=== PATIENT | female | born 1945 | race Caucasian/White ===

== ENCOUNTER 2021-01-27 20:01 | Inpatient (IN) | payer MEDICARE, OTHER ==
[~2021-01-27] VITALS: Ht 167.6 cm; Wt 84.1 kg
[2021-01-27] MEDS ORDERED: ASPirin 325 MG TAB PO ONE (21:00)
[2021-01-27 21:08] LABS: Basophils # (auto) 0.1 10 ^3/uL (0-0.2); Basophils % (auto) 0.7 % (0.0-2.0); Eosinophils # (auto) 0.3 10 ^3/uL (0-0.8); Eosinophils % (auto) 2.6 % (0.0-7.0); Hematocrit 44.3 % (36.0-46.0); Hemoglobin 15.1 g/dL (12.2-16.2); Lymphocytes # (auto) 3.1 10 ^3/uL (0.4-5.4); Lymphocytes % (auto) 31.8 % (10.0-50.0); Mean Corpuscular Hemoglobin 32.4 pg (28.0-32.0); Mean Corpuscular Hgb Conc. 34.1 g/dL (32.0-36.0); Monocytes # (auto) 0.8 10 ^3/uL (0-1.3); Monocytes % (auto) 8.6 % (0.0-12.0); Neutrophils # (auto) 5.5 10 ^3/uL (1.6-8.6); Neutrophils % (auto) 56.3 % (37.0-80.0); Red Blood Cells 4.66 10^6/uL (4.0-5.20); Red Cell Distribution Width 13.3 % (11.8-14.3); White Blood Cell 9.9 10^3/uL (4.4-10.8)
[2021-01-27 21:26] LABS: Chloride 107 mmol/L (98-107); Potassium 3.4 mmol/L (3.5-5.1); Sodium 139 mmol/L (136-145)
[2021-01-27 21:31] LABS: Alanine Aminotransferase 21 U/L (13-56); Albumin 3.4 g/dL (3.4-5.0); Anion Gap 10 (5-15); Aspartate Aminotransferase 11 U/L (15-37); BUN/Creatinine Ratio 14.8; Blood Urea Nitrogen 9 mg/dL (7-18); Calcium 8.2 mg/dL (8.5-10.1); Carbon Dioxide 22 mmol/L (21-32); GFR African American 124 mL/min; GFR Non-African American 102 mL/min; Glucose 93 mg/dL (74-106); Magnesium 2.3 mg/dL (1.6-2.6)
[2021-01-27 21:33] LABS: Urine Bacteria NONE SEEN /hpf (None Seen); Urine Blood 1+ /uL (Negative); Urine Specific Gravity 1.003 (1.001-1.035); Urine WBC 21 /hpf (0 - 5)
[2021-01-27 21:47] LABS: Alkaline Phosphatase 66 U/L (45-117); Bilirubin, Total 0.2 mg/dL (0.2-1.0); Total Protein 6.6 g/dL (6.4-8.2)
[2021-01-27] MEDS ORDERED: cefTRIAXone 1GM/50ML D5W 50 ML IV ONE (22:30)
[2021-01-27] MEDS ORDERED: MORPHINE SULF INJ 2 MG/ML SYRINGE 1ML IV PRN (23:00)
[2021-01-27] MEDS ORDERED: MECLIZINE HCL 25 MG TAB PO PRN (23:00)
[2021-01-27] MEDS ORDERED: DOCUSATE SOD 100 MG CAP PO PRN (23:00)
[2021-01-27] MEDS ORDERED: ONDANSETRON HCL 4 MG/2 ML VIAL IV PRN (23:00)
[2021-01-27] MEDS ORDERED: NITROGLYCERIN 0.4 MG SL TAB SL PRN (23:00)
[2021-01-27] MEDS ORDERED: ACETAMINOPHEN 325 MG TAB PO PRN (23:00)
[2021-01-27] MEDS ORDERED: POTASSIUM CHL 20 Meq TABLET PO ONE (23:00)
[2021-01-28] VITALS (7 sets, daily range): BP systolic 127–176; BP diastolic 65–85
[2021-01-28] MEDS ORDERED: LACO50TA2 PO (01:32)
[2021-01-28] MEDS ORDERED: LACO100T PO (01:32)
[2021-01-28 02:49] LABS: Basophils # (auto) 0 10 ^3/uL (0-0.2); Basophils % (auto) 0.3 % (0.0-2.0); Eosinophils # (auto) 0.2 10 ^3/uL (0-0.8); Eosinophils % (auto) 2.1 % (0.0-7.0); Hematocrit 42.1 % (36.0-46.0); Hemoglobin 14.4 g/dL (12.2-16.2); Lymphocytes # (auto) 3.2 10 ^3/uL (0.4-5.4); Lymphocytes % (auto) 33.3 % (10.0-50.0); Mean Corpuscular Hemoglobin 32.6 pg (28.0-32.0); Mean Corpuscular Hgb Conc. 34.3 g/dL (32.0-36.0); Mean Corpuscular Volume 95.1 fL (80.0-100.0); Monocytes # (auto) 0.8 10 ^3/uL (0-1.3); Monocytes % (auto) 8.1 % (0.0-12.0); Neutrophils # (auto) 5.3 10 ^3/uL (1.6-8.6); Neutrophils % (auto) 56.2 % (37.0-80.0); Red Blood Cells 4.42 10^6/uL (4.0-5.20); Red Cell Distribution Width 13.6 % (11.8-14.3); White Blood Cell 9.5 10^3/uL (4.4-10.8)
[2021-01-28] MEDS ORDERED: ESCI20TA PO (03:01)
[2021-01-28] MEDS ORDERED: LEVE500T32 PO (03:01)
[2021-01-28 03:03] LABS: INR 0.98 (0.9-1.15); Partial Thromboplastin Time 25.9 sec (23.0-31.2)
[2021-01-28 03:08] LABS: Albumin 3.3 g/dL (3.4-5.0); BUN/Creatinine Ratio 15.4; Calcium 8.4 mg/dL (8.5-10.1); Potassium 4.2 mmol/L (3.5-5.1)
[2021-01-28 03:10] LABS: Bilirubin, Total 0.4 mg/dL (0.2-1.0); Total Protein 6.3 g/dL (6.4-8.2)
[2021-01-28] MEDS ORDERED: hydrALAZINE HCL 20 MG/ML VL IV PRN (03:15)
[2021-01-28] MEDS: SODIUM CHLOR 0.9% PF (SALINE LOCK) 10ML VIAL/SYR IV SCH ×3 (05:12→22:05)
[2021-01-28] MEDS: cefTRIAXone 1GM/50ML D5W 50 ML IV SCH (09:00)
[2021-01-28] MEDS: ASCORBIC ACID 500 MG TAB PO SCH ×2 (10:00→22:08)
[2021-01-28] MEDS: ZINC SULFATE 220mg CAP or TAB PO SCH (10:00)
[2021-01-28] MEDS: ASPirin 81 mg TAB PO SCH (10:00)
[2021-01-28] MEDS: MULTIPLE VITAMIN TAB PO SCH (10:00)
[2021-01-28] MEDS: FAMOTIDINE (10MG/ML) 2ML VL IV SCH ×2 (10:00→22:04)
[2021-01-28] MEDS: ENOXAPARIN SOD 40 MG/0.4 ML SYRINGE SC SCH (10:00)
[2021-01-28] MEDS: HYDROcodone-ACET 5/325MG TAB PO PRN ×2 (12:24→20:06)
[2021-01-28 12:50] LABS: Cholesterol 178 mg/dL (< 200)
[2021-01-28 12:53] LABS: HDL Cholesterol 60 mg/dL (40-59); LDL Cholesterol 95 mg/dL (< 100); Triglycerides 123 mg/dL (< 150)
[2021-01-28] MEDS: CITALOPRAM HYDROBR 20 MG TAB PO SCH (22:07)
[2021-01-28] MEDS: LACOSAMIDE 50 MG TAB PO SCH (22:07)
[2021-01-28] MEDS: LISINOPRIL 20 MG TAB PO SCH (22:08)
[2021-01-28] MEDS: ATORVASTATIN 20 MG TAB PO SCH (22:08)
[2021-01-28] MEDS: METOPROLOL TARTRATE 25 MG TAB PO SCH (22:09)
[2021-01-28] MEDS: busPIRone HCL 10 MG TAB PO SCH (22:10)
[2021-01-29 05:00] VITALS: BP 138/73
[2021-01-29] MEDS: SODIUM CHLOR 0.9% PF (SALINE LOCK) 10ML VIAL/SYR IV SCH ×3 (06:20→22:55)
[2021-01-29] MEDS ORDERED: PRED1SUS4 OP (06:36)
[2021-01-29] MEDS: LACOSAMIDE 50 MG TAB PO SCH ×2 (06:37→22:40)
[2021-01-29] MEDS: cefTRIAXone 1GM/50ML D5W 50 ML IV SCH (09:00)
[2021-01-29 09:31] VITALS: BP 167/78
[2021-01-29] MEDS: FAMOTIDINE (10MG/ML) 2ML VL IV SCH ×2 (10:00→22:54)
[2021-01-29] MEDS: busPIRone HCL 10 MG TAB PO SCH ×2 (10:00→22:54)
[2021-01-29] MEDS: MULTIPLE VITAMIN TAB PO SCH (10:00)
[2021-01-29] MEDS: ZINC SULFATE 220mg CAP or TAB PO SCH (10:00)
[2021-01-29] MEDS: ASPirin 81 mg TAB PO SCH (10:00)
[2021-01-29] MEDS: ASCORBIC ACID 500 MG TAB PO SCH ×2 (10:00→22:40)
[2021-01-29] MEDS: LISINOPRIL 20 MG TAB PO SCH ×2 (10:00→22:47)
[2021-01-29] MEDS: ENOXAPARIN SOD 40 MG/0.4 ML SYRINGE SC SCH (10:00)
[2021-01-29] MEDS: METOPROLOL TARTRATE 25 MG TAB PO SCH ×2 (10:00→22:00)
[2021-01-29 12:51] VITALS: BP 132/77
[2021-01-29 17:36] VITALS: BP 132/74
[2021-01-29 22:00] VITALS: BP 156/77
[2021-01-29] MEDS: ATORVASTATIN 20 MG TAB PO SCH (22:39)
[2021-01-29] MEDS: CITALOPRAM HYDROBR 20 MG TAB PO SCH (22:40)
[2021-01-30] MEDS: ASPirin 81 mg TAB PO SCH ×2 (00:45→09:14)
[2021-01-30] MEDS ORDERED: LORazepam 2MG/ML-1ML VIAL IV PRN (00:45)
[2021-01-30] MEDS: HYDROcodone-ACET 5/325MG TAB PO PRN ×2 (04:13→12:44)
[2021-01-30 05:00] VITALS: BP 154/86
[2021-01-30 05:50] LABS: Cholesterol 165 mg/dL (< 200)
[2021-01-30 05:53] LABS: HDL Cholesterol 65 mg/dL (40-59); LDL Cholesterol 75 mg/dL (< 100); Triglycerides 190 mg/dL (< 150)
[2021-01-30] MEDS: SODIUM CHLOR 0.9% PF (SALINE LOCK) 10ML VIAL/SYR IV SCH ×2 (06:27→14:12)
[2021-01-30] MEDS: LACOSAMIDE 50 MG TAB PO SCH (06:27)
[2021-01-30 09:00] VITALS: BP 113/60
[2021-01-30] MEDS: cefTRIAXone 1GM/50ML D5W 50 ML IV SCH (09:14)
[2021-01-30] MEDS: FAMOTIDINE (10MG/ML) 2ML VL IV SCH (09:14)
[2021-01-30] MEDS: ZINC SULFATE 220mg CAP or TAB PO SCH (09:14)
[2021-01-30] MEDS: busPIRone HCL 10 MG TAB PO SCH (09:14)
[2021-01-30] MEDS: METOPROLOL TARTRATE 25 MG TAB PO SCH (09:15)
[2021-01-30] MEDS: MULTIPLE VITAMIN TAB PO SCH (09:15)
[2021-01-30] MEDS: ASCORBIC ACID 500 MG TAB PO SCH (09:16)
[2021-01-30] MEDS: ENOXAPARIN SOD 40 MG/0.4 ML SYRINGE SC SCH (09:16)
[2021-01-30] MEDS: LISINOPRIL 20 MG TAB PO SCH (09:16)
[2021-01-30] MEDS ORDERED: levETIRAcetam 500 MG TAB PO SCH (10:00)
[2021-01-30 11:15] LABS: Folate (Folic Acid) 14.4 ng/mL (5.38-24)
[2021-01-30 13:00] VITALS: BP 122/77
== END 2021-01-30 16:20 | disposition home or self-care (01) | DRG 69 ==
LOC: ER 20:01 → EDBD 20:01 → TELE 23:00 → TELE-CENTR 01-28 02:35
PROVIDERS: ADMIT Nurse Practitioner Family; ATTEND Family Medicine
DX: G45.9 Transient cerebral ischemic attack, unspecified (principal); N39.0 Urinary tract infection, site not specified; E87.6 Hypokalemia; I10 Essential (primary) hypertension; G40.909 Epilepsy, unspecified, not intractable, without status epilepticus; G62.9 Polyneuropathy, unspecified; G25.81 Restless legs syndrome; Z20.822 Contact with and (suspected) exposure to COVID-19; F17.210 Nicotine dependence, cigarettes, uncomplicated; Z79.82 Long term (current) use of aspirin; Z79.899 Other long term (current) drug therapy; Z82.49 Family history of ischemic heart disease and other diseases of the circulatory system; Z82.5 Family history of asthma and other chronic lower respiratory diseases; Z83.3 Family history of diabetes mellitus; Z98.1 Arthrodesis status; Z88.5 Allergy status to narcotic agent
CPT/HCPCS: 36415; 70450; 71045; 80053; 80061; 81001; 82607; 82728; 82746; 82962; 83036; 83540; 83550; 83735; 84155; 84165; 84443; 84484; 85025; 85379; 85610; 85730; 87086; 87426; 93005; 93306; 93886; 96365; 97163; G0378; J0696; J3490; J7060

== ENCOUNTER 2024-04-24 12:12 | Inpatient (IN) | payer OTHER ==
[~2024-04-24] VITALS: Ht 165.1 cm; Wt 91.0 kg
[~2024-04-24 12:12] MED LIST: ESCI20TA PO; LACO100T PO; LACO50TA2 PO; LEVE500T40 PO; PRED1SUS4 OP
[2024-04-24 13:22] VITALS: PULSE 62; RESP 18; O2SAT 99
[2024-04-24] MEDS: LIDOCAINE 2% JELLY 11ml (GLYDO) UR ONE (13:48)
[2024-04-24] MEDS: SODIUM CHLORIDE 0.9% 1,000 ML IV ONE (13:48)
[2024-04-24 13:56] LABS: Basophils # (auto) 0 10 ^3/uL (0-0.2); Basophils % (auto) 0.2 % (0.0-2.0); Eosinophils # (auto) 0.1 10 ^3/uL (0-0.8); Eosinophils % (auto) 0.5 % (0.0-7.0); Hematocrit 36.4 % (36.0-46.0); Hemoglobin 11.8 g/dL (12.2-16.2); Lymphocytes # (auto) 1.3 10 ^3/uL (0.4-5.4); Lymphocytes % (auto) 11.9 % (10.0-50.0); Mean Corpuscular Hemoglobin 31.9 pg (28.0-32.0); Mean Corpuscular Hgb Conc. 32.5 g/dL (32.0-36.0); Monocytes # (auto) 0.6 10 ^3/uL (0-1.3); Monocytes % (auto) 5.8 % (0.0-12.0); Neutrophils # (auto) 8.8 10 ^3/uL (1.6-8.6); Neutrophils % (auto) 81.6 % (37.0-80.0); Platelet Count (auto) 420 10^3/uL (140-450); Red Blood Cells 3.72 10^6/uL (4.0-5.20); White Blood Cell 10.8 10^3/uL (4.4-10.8)
[2024-04-24 14:06] LABS: Chloride 112 mmol/L (98-107); Potassium 4.5 mmol/L (3.5-5.1); Sodium 139 mmol/L (136-145)
[2024-04-24 14:07] LABS: Anion Gap 16 (5-15); Calcium 9.6 mg/dL (8.7-10.4); Carbon Dioxide 11 mmol/L (20-31)
[2024-04-24 14:08] LABS: Urine Bacteria FEW /hpf (None Seen); Urine Blood 2+ /uL (Negative); Urine Clarity Ex.Turbid (Clear); Urine Color Light-Orange (Yellow); Urine Protein, UAD 3+ (Negative); Urine Specific Gravity 1.013 (1.001-1.035); Urine Urobilinogen Normal (Negative); Urine WBC 1727 /hpf (0 - 5); Urine WBC Clumps PRESENT /hpf (None Seen)
[2024-04-24 14:12] LABS: BUN/Creatinine Ratio 21.8 (10.0-20.0); Blood Urea Nitrogen 38 mg/dL (9-23); Glucose 114 mg/dL (74-106)
[2024-04-24] MEDS: MORPHINE SULFATE 4 MG/ML SYR/VIAL IV ONE (14:34)
[2024-04-24] MEDS: ONDANSETRON HCL 4 MG/2 ML VIAL IV ONE (14:34)
[2024-04-24] MEDS ORDERED: VANCOMYCIN 1GM/200ML PREMIX 200 ML IV ONE (16:45)
[2024-04-24] MEDS: CEFEPIME 2GM/50ML NS 50 ML IV ONE (17:11)
[2024-04-24 20:00] VITALS: PULSE 82; RESP 20; O2SAT 94
[2024-04-25] MEDS: LACTATED RINGER'S 1,000 ML IV SCH
[2024-04-25] MEDS: LACTATED RINGER'S 1,000 ML IV ONE (00:15)
[2024-04-25] MEDS ORDERED: CEFEPIME 2GM/50ML NS 50 ML IV ONE (00:30)
[2024-04-25] MEDS: diphenhdrAMINE HCL 50 MG/1 ML VL IV PRN (00:45)
[2024-04-25] MEDS: ENOXAPARIN SOD 80 MG/0.8ML SYRINGE SC ONE (01:05)
[2024-04-25 01:41] LABS: INR 1.12 (0.9-1.15); Partial Thromboplastin Time 28.8 SEC (24.5-34.5); Prothrombin Time 11.8 sec (9.3-11.8)
[2024-04-25 01:47] LABS: Alanine Aminotransferase < 9 U/L (7-40); Albumin 3.6 g/dL (3.2-4.8); Alkaline Phosphatase 96 U/L (46-116); Anion Gap 15.00001 (5-15); Aspartate Aminotransferase 13 U/L (13-40); Bilirubin, Total 0.3 mg/dL (0.2-1.0); Blood Alcohol < 3.0 mg/dL (<10); Blood Urea Nitrogen 28 mg/dL (9-23); Calcium 9.2 mg/dL (8.7-10.4); Chloride 114 mmol/L (98-107); Glucose 98 mg/dL (74-106); Potassium 4.4 mmol/L (3.5-5.1); Sodium 139 mmol/L (136-145); Total Protein 6.2 g/dL (5.7-8.2)
[2024-04-25 01:48] LABS: Carbon Dioxide < 10 mmol/L (20-31)
[2024-04-25 02:25] LABS: Base Excess -19.3 mmol/L (-2.0-3.0)
[2024-04-25] MEDS: NOREPINEPHRINE 8 MG/250ML KIT 250 ML IV SCH (02:30)
[2024-04-25] MEDS: LACTATED RINGER'S 500 ML IV ONE (02:44)
[2024-04-25] MEDS ORDERED: VANCOMYCIN PER PHARMACY 0 MG IV SCH ×2 (02:45→08:00)
[2024-04-25] MEDS: MEROPENEM 1GM IVPB 50 ML IV ONE (02:46)
[2024-04-25] MEDS ORDERED: DEXTROSE (50%) 50ML SYRG IV PRN (03:00)
[2024-04-25] MEDS ORDERED: IPRATROPIUM BROM 0.5 MG/2.5ML INH SOL NEB PRN (03:45)
[2024-04-25] MEDS ORDERED: ALBUTEROL SULF 2.5 MG/0.5ML(0.5%) NEB SOLN NEB PRN (03:45)
[2024-04-25] MEDS: InsuLIN REG 1unit/0.01ml Soln (100units/ml) SC SCH (04:00)
[2024-04-25] MEDS: ACCU-CHEK COMFORT CURVE STRIP VI SCH (04:00)
[2024-04-25 05:20] LABS: Basophils # (auto) 0 10 ^3/uL (0-0.2); Basophils % (auto) 0.2 % (0.0-2.0); Eosinophils # (auto) 0.1 10 ^3/uL (0-0.8); Eosinophils % (auto) 0.8 % (0.0-7.0); Hematocrit 39.6 % (36.0-46.0); Hemoglobin 11.5 g/dL (12.2-16.2); Lymphocytes # (auto) 2.4 10 ^3/uL (0.4-5.4); Lymphocytes % (auto) 17.6 % (10.0-50.0); Mean Corpuscular Hemoglobin 32.8 pg (28.0-32.0); Mean Corpuscular Volume 113.2 fL (80.0-100.0); Monocytes # (auto) 1.1 10 ^3/uL (0-1.3); Neutrophils % (auto) 73.4 % (37.0-80.0); Nucleated Red Blood Cells % 0.1 %; Platelet Count (auto) 395 10^3/uL (140-450); Red Blood Cells 3.49 10^6/uL (4.0-5.20); Red Cell Distribution Width 18.8 % (11.8-14.3); White Blood Cell 13.6 10^3/uL (4.4-10.8)
[2024-04-25] MEDS ORDERED: METOPROLOL TARTRATE 1MG/1ML-5ML VIAL IV ONE (05:45)
[2024-04-25 05:50] LABS: Alanine Aminotransferase 10 U/L (7-40); Albumin 3.2 g/dL (3.2-4.8); Alkaline Phosphatase 86 U/L (46-116); Anion Gap 12.00001 (5-15); Aspartate Aminotransferase 15 U/L (13-40); BUN/Creatinine Ratio 15.1 (10.0-20.0); Blood Urea Nitrogen 19 mg/dL (9-23); Calcium 8.9 mg/dL (8.7-10.4); Chloride 114 mmol/L (98-107); Glucose 88 mg/dL (74-106); Potassium 3.9 mmol/L (3.5-5.1); Sodium 136 mmol/L (136-145)
[2024-04-25 05:51] LABS: Bilirubin, Total 0.3 mg/dL (0.2-1.0); Total Protein 5.5 g/dL (5.7-8.2)
[2024-04-25 06:00] LABS: Carbon Dioxide < 10 mmol/L (20-31)
[2024-04-25 06:49] LABS: Macrocytosis Slight; Platelet Estimate Adequate
[2024-04-25 08:40] VITALS: PULSE 150; O2SAT 98
[2024-04-25 09:25] VITALS: BP 91/46; PULSE 139; RESP 18; TEMP 99; O2SAT 99
[2024-04-25 09:31] LABS: Base Excess -17.8 mmol/L (-2.0-3.0)
[2024-04-25 10:47] LABS: Amphetamine Screen, Urine Neg (NEGATIVE); Barbiturate Scree,Urine Neg (NEGATIVE); Benzodiazephine Screen, Urine Neg (NEGATIVE); Cocaine Screen, Urine Neg (NEGATIVE)
[2024-04-25 10:48] LABS: Opiate Scree,Urine Neg (NEGATIVE); Phencyclidine Screen, Urine Neg (NEGATIVE)
[2024-04-25 10:49] LABS: Cannabinoid Screen, Urine Neg (NEGATIVE)
[2024-04-25] MEDS: METOPROLOL TARTRATE 25 MG TAB PO ONE (13:15)
[2024-04-25] MEDS: cefTRIAXone 1GM/50ML D5W 50 ML IV ONE (13:17)
[2024-04-25] MEDS: ENOXAPARIN SOD 80 MG/0.8ML SYRINGE SC SCH (13:18)
[2024-04-25] MEDS: ATORVASTATIN 20 MG TAB PO ONE (13:18)
[2024-04-25] MEDS: SODIUM CHLORIDE 0.9% 1,000 ML IV ONE ×2 (13:20→13:21)
[2024-04-25] MEDS: AMIODARONE BOLUS KIT 100 ML IV ONE (13:35)
[2024-04-25] MEDS: AMIODARONE 450mg/250ml AE 250 ML IV SCH ×2 (14:00→19:32)
[2024-04-25] MEDS: MEROPENEM 1GM IVPB 50 ML IV SCH (15:00)
[2024-04-25] MEDS ORDERED: CLOP75TA28 PO (16:22)
[2024-04-25] MEDS ORDERED: LISI20TA56 PO (16:22)
[2024-04-25] MEDS ORDERED: VANCOMYCIN 750mg/150ml 150 ML IV SCH (17:00)
[2024-04-25] MEDS ORDERED: CEFEPIME 2GM/50ML NS 50 ML IV SCH (18:00)
[2024-04-25 18:03] VITALS: O2SAT 98
[2024-04-25 19:25] VITALS: PULSE 116; RESP 17; O2SAT 96
[2024-04-25 20:11] LABS: COVID19 ANTIGEN SOFIA FIA NEGATIVE (NEGATIVE); Rapid Influenza A Negative (Negative); Rapid Influenza B Negative (Negative)
[2024-04-25] MEDS ORDERED: METOPROLOL TARTRATE 25 MG TAB PO SCH (22:00)
[2024-04-25] MEDS: ATORVASTATIN 20 MG TAB PO SCH (22:15)
[2024-04-25 23:51] VITALS: PULSE 120
[2024-04-26] VITALS (33 sets, daily range): BP systolic 92–148; BP diastolic 42–89; PULSE 108–146; RESP 12–31; TEMP 97.9–98.6; O2SAT 97–100
[2024-04-26] MEDS: AMIODARONE 450mg/250ml AE 250 ML IV SCH (00:45)
[2024-04-26 04:58] LABS: Basophils # (auto) 0 10 ^3/uL (0-0.2); Basophils % (auto) 0.3 % (0.0-2.0); Eosinophils # (auto) 0.2 10 ^3/uL (0-0.8); Eosinophils % (auto) 2.2 % (0.0-7.0); Hematocrit 31.7 % (36.0-46.0); Hemoglobin 10.5 g/dL (12.2-16.2); Lymphocytes # (auto) 1.7 10 ^3/uL (0.4-5.4); Mean Corpuscular Volume 97.1 fL (80.0-100.0); Monocytes # (auto) 0.9 10 ^3/uL (0-1.3); Neutrophils # (auto) 5.9 10 ^3/uL (1.6-8.6); Neutrophils % (auto) 67.5 % (37.0-80.0); Platelet Count (auto) 300 10^3/uL (140-450); Red Blood Cells 3.26 10^6/uL (4.0-5.20); Red Cell Distribution Width 17.3 % (11.8-14.3); White Blood Cell 8.7 10^3/uL (4.4-10.8)
[2024-04-26 05:06] LABS: Chloride 117 mmol/L (98-107); Potassium 3.7 mmol/L (3.5-5.1); Sodium 143 mmol/L (136-145)
[2024-04-26 05:07] LABS: Anion Gap 15 (5-15); Carbon Dioxide 11 mmol/L (20-31)
[2024-04-26 05:08] LABS: Calcium 8.9 mg/dL (8.7-10.4)
[2024-04-26 05:13] LABS: BUN/Creatinine Ratio 17.8 (10.0-20.0); Blood Urea Nitrogen 19 mg/dL (9-23); Glucose 104 mg/dL (74-106)
[2024-04-26] MEDS: cefTRIAXone 1GM/50ML D5W 50 ML IV SCH (10:39)
[2024-04-26] MEDS: ONDANSETRON HCL 4 MG/2 ML VIAL IV PRN (12:15)
[2024-04-26] MEDS: MORPHINE SULFATE INJ 2 MG/ml SYRG IV PRN (12:17)
[2024-04-26] MEDS ORDERED: BUSP5TAB51 PO (16:09)
[2024-04-26] MEDS ORDERED: METO25TA5 PO (16:11)
[2024-04-26] MEDS ORDERED: OMEG-28 PO (16:13)
[2024-04-26] MEDS ORDERED: VITACAP PO (16:16)
[2024-04-26] MEDS ORDERED: GARL400T9 PO (16:22)
[2024-04-26] MEDS ORDERED: ASPI-543 PO (16:22)
[2024-04-27] VITALS (25 sets, daily range): BP systolic 106–148; BP diastolic 58–88; PULSE 68–141; RESP 12–31; TEMP 97.9–98.9; O2SAT 98–100
[2024-04-27 05:52] LABS: Basophils # (auto) 0 10 ^3/uL (0-0.2); Basophils % (auto) 0.4 % (0.0-2.0); Eosinophils # (auto) 0.2 10 ^3/uL (0-0.8); Eosinophils % (auto) 3.4 % (0.0-7.0); Hematocrit 29.6 % (36.0-46.0); Hemoglobin 9.8 g/dL (12.2-16.2); Lymphocytes # (auto) 1.4 10 ^3/uL (0.4-5.4); Lymphocytes % (auto) 20.6 % (10.0-50.0); Mean Corpuscular Hemoglobin 32.9 pg (28.0-32.0); Mean Corpuscular Hgb Conc. 33.1 g/dL (32.0-36.0); Mean Corpuscular Volume 99.5 fL (80.0-100.0); Monocytes # (auto) 0.8 10 ^3/uL (0-1.3); Neutrophils # (auto) 4.3 10 ^3/uL (1.6-8.6); Neutrophils % (auto) 63.6 % (37.0-80.0); Nucleated Red Blood Cells % 0.1 %; Platelet Count (auto) 273 10^3/uL (140-450); Red Blood Cells 2.97 10^6/uL (4.0-5.20); Red Cell Distribution Width 17.6 % (11.8-14.3); White Blood Cell 6.7 10^3/uL (4.4-10.8)
[2024-04-27 05:59] LABS: Albumin 2.9 g/dL (3.2-4.8); Alkaline Phosphatase 69 U/L (46-116); Anion Gap 13 (5-15); Aspartate Aminotransferase 12 U/L (13-40); BUN/Creatinine Ratio 13.9 (10.0-20.0); Bilirubin, Total 0.4 mg/dL (0.2-1.0); Blood Urea Nitrogen 14 mg/dL (9-23); Calcium 8.6 mg/dL (8.7-10.4); Carbon Dioxide 12 mmol/L (20-31); Chloride 118 mmol/L (98-107); Glucose 105 mg/dL (74-106); Potassium 3.5 mmol/L (3.5-5.1); Sodium 143 mmol/L (136-145); Total Protein 4.9 g/dL (5.7-8.2)
[2024-04-27 06:02] LABS: Alanine Aminotransferase < 9 U/L (7-40)
[2024-04-27] MEDS: LINEZOLID 600MG/300ML 300 ML IV SCH (17:43)
[2024-04-27] MEDS: IOHEXOL 350 MG/ML 100ML IJ ONE (21:07)
[2024-04-28] VITALS (9 sets, daily range): BP systolic 104–136; BP diastolic 68–88; PULSE 95–136; RESP 17–20; TEMP 97.5–98.5; O2SAT 96–99
[2024-04-28] MEDS: MORPHINE SULFATE INJ 2 MG/ml SYRG IV PRN (01:23)
[2024-04-29] VITALS (11 sets, daily range): BP systolic 95–141; BP diastolic 71–87; PULSE 89–141; RESP 17–22; TEMP 97.8–98.5; O2SAT 94–98
[2024-04-29 11:52] LABS: Lactic Acid w/Reflex 2.4 mmol/L (0.4-2.0)
[2024-04-29] MEDS: CLOPIDOGREL BISULFATE 75 MG TAB PO ONE (12:42)
[2024-04-29] MEDS: ASPirin 81 mg TAB PO ONE (12:42)
[2024-04-29] MEDS: METOPROLOL TARTRATE 1MG/1ML-5ML VIAL IV STA (17:17)
[2024-04-29] MEDS: METOPROLOL TARTRATE 1MG/1ML-5ML VIAL IV ONE (17:22)
[2024-04-29] MEDS: AMIODARONE HCL 200 MG TAB PO SCH (20:59)
[2024-04-29] MEDS: busPIRone HCL 10 MG TAB PO SCH (21:00)
[2024-04-29] MEDS: METOPROLOL TARTRATE 25 MG TAB PO SCH (21:01)
[2024-04-29] MEDS: APIXABAN 2.5 MG TAB PO SCH (21:01)
[2024-04-29] MEDS: LACOSAMIDE 50 MG TAB PO SCH (21:02)
[2024-04-30] VITALS (7 sets, daily range): BP systolic 114–118; BP diastolic 64–70; PULSE 74–130; RESP 17–19; TEMP 36.7; O2SAT 94–97
[2024-04-30] MEDS: ASPirin 81 mg TAB PO SCH (09:49)
[2024-04-30] MEDS: CITALOPRAM HYDROBR 20 MG TAB PO SCH (09:50)
[2024-04-30] MEDS: CLOPIDOGREL BISULFATE 75 MG TAB PO SCH (09:50)
== END 2024-04-30 16:10 | DRG 871 ==
LOC: ER 12:12 → OVERFLOW 23:41 → DOU IN ICU 04-25 23:43 → TELE-WESTW 04-27 17:09
PROVIDERS: ADMIT Internal Medicine; ATTEND Family Medicine
PROC: 05H933Z Insertion of Infusion Device into Right Brachial Vein, Percutaneous Approach (ICD-10-PCS; principal; 2024-04-27)
PROC: B54MZZA Ultrasonography of Right Upper Extremity Veins, Guidance (ICD-10-PCS; 2024-04-27)
DX: A41.81 Sepsis due to Enterococcus (principal); G93.41 Metabolic encephalopathy; J96.01 Acute respiratory failure with hypoxia; R65.21 Severe sepsis with septic shock; E87.21 Acute metabolic acidosis; G45.9 Transient cerebral ischemic attack, unspecified; N10 Acute pyelonephritis; N17.9 Acute kidney failure, unspecified; E86.0 Dehydration; I10 Essential (primary) hypertension; I44.7 Left bundle-branch block, unspecified; I48.91 Unspecified atrial fibrillation; E66.9 Obesity, unspecified; G40.909 Epilepsy, unspecified, not intractable, without status epilepticus; I25.10 Atherosclerotic heart disease of native coronary artery without angina pectoris; N28.89 Other specified disorders of kidney and ureter; I27.21 Secondary pulmonary arterial hypertension; D17.71 Benign lipomatous neoplasm of kidney; D53.9 Nutritional anemia, unspecified; F32.A Depression, unspecified; F17.210 Nicotine dependence, cigarettes, uncomplicated; Z68.30 Body mass index [BMI] 30.0-30.9, adult; Z86.73 Personal history of transient ischemic attack (TIA), and cerebral infarction without residual deficits; Z82.49 Family history of ischemic heart disease and other diseases of the circulatory system; Z82.5 Family history of asthma and other chronic lower respiratory diseases; Z96.653 Presence of artificial knee joint, bilateral; Z90.710 Acquired absence of both cervix and uterus
CPT/HCPCS: 36415; 36600; 71045; 71275; 73564; 73700; 74176; 80048; 80053; 80202; 80307; 80320; 80329; 81001; 82010; 82805; 82962; 83036; 83605; 83735; 83880; 83930; 84100; 84484; 85025; 85379; 85610; 85730; 87040; 87077; 87081; 87086; 87088; 87186; 87426; 87804; 93005; 93306; 93970; 97110; 97116; 97163; 97530; 99291; G0378; J0692; J2185; J2405

== ENCOUNTER 2024-05-22 14:46 | Emergency (ER) | payer MEDICARE, OTHER ==
[~2024-05-22] VITALS: Ht 167.6 cm; Wt 70.9 kg
[~2024-05-22 14:46] MED LIST changes: +ASPI-543 PO; +BUSP5TAB51 PO; +CLOP75TA28 PO; +GARL400T9 PO; +LISI20TA56 PO; +METO25TA5 PO; +OMEG-28 PO; +VITACAP PO
[2024-05-22] MEDS: HYDROmorphone HCL 2 MG/ML VL/or syr IV ONE (15:15)
--- NOTE | 2024-05-22 15:15 | ED.PDOC ---
GI ASSESSMENT HPI Comments 79 year old female CLARITA presents to the ED with chief complaint of abdominal pain. EMS reports that she has been experiencing N/V/D with associated diffuse abdominal pain for the past 2 weeks. EMS relays that the patient is coming from [facility], however, no treatment has been provided at the facility and no pain medication has been administered. EMS states patient is currently on a liquid diet. Patient denies any fever, chills, SOB, dizziness, headache, or chest pain. Vital signs were stable at arrival. Chief Complaint: Abdominal Pain Time Seen by MD: 15:12 Primary Care Provider: KEELY Reviewed Notes: Nurses Notes, Plumber'S Helper Notes, Medications, Allergies Allergies: Coded Allergies: Codeine (Verified Allergy, Unknown, 01/28/21) itching Home Meds Reported Medications Aspirin (Aspir-Low) 81 Mg Tab, 81 MG PO DAILY for 30 Days, MG 04/26/24 Allium Sativan Extract (Garlic) 2,000 Mg Tab, PO DAILY 04/26/24 Vitamin A (A-37141) 10,000 Unit Cap, 72595 UNIT PO, CAP 04/26/24 [place]-3 Fatty Acids (Fish Oil 1200 mg) 1 Cap Cap, 1 CAP PO DAILY, CAP 04/26/24 Metoprolol Tartrate (Metoprolol Tartrate) 25 Mg Tab, 25 MG PO BID for 30 Days, MG 04/26/24 Buspirone Hcl (Buspirone Hcl) 5 Mg Tab, 5 MG PO Q12HR for 30 Days, MG 04/26/24 Clopidogrel Bisulfate (Plavix) 75 Mg Tab, 1 TAB PO DAILY, #90 TAB 1 Refill 04/25/24 Lisinopril (Lisinopril) 20 Mg Tab, 20 MG PO DAILY for 30 Days, MG 04/25/24 Prednisolone Acetate (Ophth) (Pred Forte) 1 % Humaira, 1 % OP QID, ML 1 drop to the left eye 01/29/21 Levetiracetam (Keppra) 500 Mg Tab, 750 MG PO BID for 30 Days, MG 01/28/21 Escitalopram Oxalate (Lexapro) 20 Mg Tab, 1 TAB PO DAILY, #90 TAB 3 Refills 01/28/21 Lacosamide (Vimpat) 100 Mg Tab, 100 MG PO HS, TAB 01/28/21 Lacosamide (Vimpat) 50 Mg Tab, 50 MG PO ACHS MDD na, TAB 01/28/21 Information Source: Patient, Emergency Med Personnel Mode of Arrival: EMS Timing: Weeks Duration: Since onset Prehospital treatment: None Quality: Sharp Vomitus: Bilious, Food Particles, Watery Stool: Watery Severity: Moderate Recent: None Recent Hx of: None Pain Location: Diffuse Modifying Factors: Nothing Associated sign and symptoms: Nausea, Vomiting, Diarrhea, Abdominal Pain Past Medical History PAST MEDICAL HISTORY: HTN, Seizures Surgical History: Denies all surgeries Surgical History (Other): Rt knee surgery TEST CASE 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: No Pertinent TEST CASE 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 Family History Family History: Reviewed,noncontributory to illness Social History Smoker: Cigarettes Alcohol: Occasionally Drugs: Denies Drug Use Lives In: Long-Term Constitutional: denies: chills, diaphoresis, fatigue, fever, malaise, sweats, weakness, others EENTM: denies: blurred vision, double vision, ear bleeding, ear discharge, ear drainage, ear pain, ear ringing, eye pain, eye redness, hearing loss, mouth pain, mouth swelling, nasal discharge, nose bleeding, nose congestion, nose pain, photophobia, tearing, throat pain, throat swelling, voice changes, others Respiratory: denies: cough, hemoptysis, orthopnea, SOB at rest, shortness of breath, SOB with excertion, stridor, wheezing, others Cardiovascular: denies: chest pain, dizzy spells, diaphoresis, Dyspnea on exertion, edema, irregular heart beat, left arm pain, lightheadedness, palpitations, PND, syncope, others Gastrointestinal: reports: abdominal pain, diarrhea, nausea, vomiting; denies: abdomen distended, blood streaked bowels, constipated, dysphagia, difficulty swallowing, hematemesis, melena, poor appetite, poor fluid intake, rectal bleeding, rectal pain, others Genitourinary: denies: abnormal vagina bleeding, burning, dyspareunia, dysuria, flank pain, frequency, hematuria, incontinence, pain, , vagina discharge, urgency, others Neurological: denies: dizziness, fainting, headache, left sided numbness, left sided weakness, numbness, paresthesia, pre-existing deficit, right sided numbness, right sided weakness, seizure, speech problems, tingling, tremors, w eakness, others Musculoskeletal: denies: back pain, gout, joint pain, joint swelling, muscle pain, muscle stiffness, neck pain, others Integumetry: denies: bruises, change in color, change in hair/nails, dryness, laceration, lesions, lumps, rash, wounds, others Allergic/Immunocompromised: denies: Difficulty Healing, Frequent Infections, Hives, Itching, others Hematologic/Lymphatic: denies: anemia, blood clots, easy bleeding, easy bruising, swollen glands, others Endocrine: denies: excessive hunger, excessive sweating, excessive thirst, excessive urination, flushing, intolerance to cold, intolerance to heat, unexplained weight gain, unexplained weight loss, others Psychiatric: denies: anxiety, bipolar disorder, depression, hopeless, panic disorder, schizophrenia, sleepless, suicidal, others All Other Systems: Reviewed and Negative Physical Exam General Appearance: Moderate Distress (Due to abdominal pain concerns.), Normal HEENT: Normal ENT Inspection, Pharynx Normal, TMs Normal Neck: Full Range of Motion, Non-Tender, Normal, Normal Inspection Respiratory: Chest Non-Tender, Lungs Clear, No Accessory Muscle Use, No Respiratory Distress, Normal Breath Sounds Cardiovascular: No Edema, No JVD, No Murmur, No Gallop, Normal Peripheral Pulses, Regular Rate/Rhythm Breast Exam: Deferred Gastrointestinal: Other (Diffuse periumbilical tenderness to palpation bilaterally. Exquisite tenderness to palpation throughout. Abdomen was mildly rigid. No signs of trauma.) Genitalia: Deferred Pelvic: Deferred Rectal: Deferred Extremities: No calf tenderness, Normal capillary refill, Normal inspection, Non-tender, No pedal edema Neurologic: Alert, No Motor Deficits, Normal Affect, No Sensory Deficits Cerebellar Function: Normal Reflexes: Normal Skin: Dry, Rash (Patient displays diffuse erythema throughout her vaginal and general region, related to poor urine hygiene.), Warm Lymphatic: No Adenopathy Was a procedure done? Was a procedure done?: No GI differential Dx Differential Diagnosis: Appendicitis, Bowel Obstruction, Cholangitis, Cholecystitis, Constipation, Diverticular disease, Gastritis/PUD, Gastroenteritis, GI hemorrhage, Inflammatory BD, Ischemic Bowel, Pancreatitis, UTI, Electrolyte Imbalance, Kidney Stone X-Ray, Labs, Meds, VS Vital Signs Date Time Temp Pulse Resp B/P (MAP) Pulse Ox O2 Delivery O2 Flow Rate FiO2 05/22/24 16:30 98 18 81/40 (54) 94 05/22/24 16:00 90 18 73/42 (52) 92 05/22/24 15:16 97.4 87 18 77/46 (56) 92 97.4 05/22/24 15:15 84 18 85/47 05/22/24 14:57 97.8 83 16 100/60 (73) 98 05/22/24 14:46 91 Lab Test 05/22/24 17:15 05/22/24 17:00 05/22/24 15:42 Range/Units Troponin I High Sensitivity Pending 13 </=34 ng/L Urine Color Dark-brown Yellow Urine Clarity Ex.turbid Clear Urine pH 6.0 5.0-9.0 Urine Specific Neche 1.006 1.001-1.035 Urine Protein 2+ H Negative Urine Ketones Negative Negative Urine Blood 3+ H Negative /uL Urine Nitrite Negative Negative Urine Bilirubin Negative Negative Urine Urobilinogen Normal Negative mg/dL Urine Leukocyte Esterase 2+ Negative /uL Urine RBC 148 0 - 4 /hpf Urine WBC 3605 0 - 5 /hpf Urine WBC Clumps Present None Seen /hpf Urine Squamous Epithelial Cells None seen <5 /hpf Urine Bacteria None seen None Seen /hpf Urine Glucose Normal Normal mg/dL White Blood Count 8.1 4.4-10.8 10^3/uL Red Blood Count 2.93 L 4.0-5.20 10^6/uL Hemoglobin 9.4 L 12.2-16.2 g/dL Hematocrit 27.2 L 36.0-46.0 % Mean Corpuscular Volume 92.7 80.0-100.0 fL Mean Corpuscular Hemoglobin 32.1 H 28.0-32.0 pg Mean Corpuscular Hemoglobin Concent 34.6 32.0-36.0 g/dL Red Cell Distribution Width 14.6 H 11.8-14.3 % Platelet Count 117 L 140-450 10^3/uL Mean Platelet Volume 7.8 6.9-10.8 fL Neutrophils (%) (Auto) 75.6 37.0-80.0 % Lymphocytes (%) (Auto) 20.0 10.0-50.0 % Monocytes (%) (Auto) 3.2 0.0-12.0 % Eosinophils (%) (Auto) 0.8 0.0-7.0 % Basophils (%) (Auto) 0.4 0.0-2.0 % Neutrophils # (Auto) 6.1 1.6-8.6 10 ^3/uL Lymphocytes # (Auto) 1.6 0.4-5.4 10 ^3/uL Monocytes # (Auto) 0.3 0-1.3 10 ^3/uL Eosinophils # (Auto) 0.1 0-0.8 10 ^3/uL Basophils # (Auto) 0 0-0.2 10 ^3/uL Nucleated Red Blood Cells 0.0 % Prothrombin Time 13.5 H 9.3-11.8 sec Prothrombin Time INR 1.30 H 0.9-1.15 Activated Partial Thromboplast Time 35.6 H 24.5-34.5 SEC Sodium Level 127 L 136-145 mmol/L Potassium Level 3.7 3.5-5.1 mmol/L Chloride Level 98 98-107 mmol/L Carbon Dioxide Level 25 20-31 mmol/L Anion Gap 4 L 5-15 Blood Urea Nitrogen 19 9-23 mg/dL Creatinine 1.53 H 0.550-1.02 mg/dL Glomerular Filtration Rate Calc 35 >90 mL/min BUN/Creatinine Ratio 12.4 10.0-20.0 Serum Glucose 94 74-106 mg/dL Lactic Acid Level 1.9 0.4-2.0 mmol/L Calcium Level 8.8 8.7-10.4 mg/dL Total Bilirubin 0.4 0.2-1.0 mg/dL Aspartate Amino Transferase (AST) 12 L 13-40 U/L Alanine Aminotransferase (ALT) 11 7-40 U/L Alkaline Phosphatase 89 46-116 U/L B-Type Natriuretic Peptide 95.39 0-100 pg/mL Total Protein 5.3 L 5.7-8.2 g/dL Albumin 3.5 3.2-4.8 g/dL Lipase 21 12-53 U/L Current Medications Medications (Trade) Dose Ordered Sig/Janette Route Start Time Stop Time Status Last Admin Ondansetron HCl (Zofran) 4 mg ONCE ONCE IV 05/22/24 15:15 05/22/24 15:16 DC 05/22/24 15:43 Sodium Chloride 1,000 ml @ 150 mls/hr Q6H40M ONCE IV 05/22/24 15:15 05/22/24 21:54 05/22/24 15:43 Ketorolac Tromethamine (Toradol Injection) 15 mg ONCE ONCE IV 05/22/24 16:00 05/22/24 16:01 DC 05/22/24 16:16 Nystatin (Mycostatin Powder) 1 applic ONCE ONCE TOP 05/22/24 16:45 05/22/24 16:46 DC 05/22/24 17:01 X-Ray, Labs, Meds, VS Comment All studies performed the ED today were reviewed by me personally. EKG revealed a rate controlled atrial fibrillation with a rate of 91. QT interval of 380 with nonspecific intraventricular conduction delay noted. Serum laboratories revealed anemia, thrombocytopenia, hyponatremia and elevated coagulation panel. Additionally, patient has a very large urinary tract. CT of the abdomen was evaluated by me personally. CT confirmed a calculus proximal left ureter measuring up to 9 mm without left-sided hydronephrosis. A large left renal angio lipoma noted as well as a moderate right-sided hydronephrosis and dilated bladder which may be consistent with some bladder outlet obstruction. Dr. Szymanski saw the patient bedside and will be on board for GI management. Patient will be admitted for pain management and urology consultation as well as possible surgical evaluation of her angiolipoma. Time of 1ST Reevaluation: 18:06 Reevaluation 1ST: Improved Consultation: PCP, GI, Urology, Surgery Patient Education/Counseling: Diagnosis, Treatment, Prognosis, Need For Follow Up Family Education/Counseling: Diagnosis, Treatment, No Family Present Departure 1 Departure Time of Disposition: 18:07 Impression: Primary Impression: Kidney stone Additional Impressions: Hydronephrosis UTI (urinary tract infection) Bladder outlet obstruction Anemia Thrombocytopenia Hyponatremia Disposition: ADMITTED INPATIENT Condition: Stable Discharged With: Self, Spouse Critical Care Note Critical Care Time?: No Stability Stability form required: No Heart Score Heart Score: Heart Score Response (Comments) Value History Slightly Suspicious 0 EKG Repolarization Disturb 1 Age >65 2 Risk Factors 1 or 2 risk factors 1 Troponin Normal limit 0 Total 4 I personally scribed for NIYAH YU PAC ([email or web address]) on 05/22/24 at 15:15. Electronically submitted by Faraz Franco ([email or web address]). NIYAH YU PAC May 22, 2024 15:15
[2024-05-22] MEDS: SODIUM CHLORIDE 0.9% 1,000 ML IV ONE (15:43)
[2024-05-22] MEDS: ONDANSETRON HCL 4 MG/2 ML VIAL IV ONE ×2 (15:43→23:48)
--- NOTE | 2024-05-22 16:06 | DVH ---
Exam: CT CT AB PEL WO CON-NO ORAL OR IV History: Severe periumbilical pain Comparison Study: CT CT AB PEL WO CON-NO ORAL OR IV on DOS: 04/25/24 Technique: Multidetector spiral CT of the abdomen and pelvis was performed from lung bases to pubic symphysis. Imaging was performed without IV contrast. Axial, coronal and sagittal multiplanar reform ats were obtained from the axial data set by the technologist. Radiation dose : Abdomen/Pelvis: CTDIvol 21 mGy, DLP 1055 mGy*cm. Findings: Evaluation of solid organs is limited due to lack of intravenous contrast use. Lung Bases: Atelectasis and scarring in the lung bases. Liver: The liver is normal in size. No focal lesions. Gallbladder and biliary Tree: Gallbladder is surgically absent. Spleen: Unremarkable Pancreas: The pancreas is grossly normal in appearance. Adrenal Glands: Unremarkable Kidneys: There is a fatty left renal mass measuring up to 53 mm. There is a calculus in the proximal left ureter measuring up to 9 mm. No significant left hydronephrosis. There is moderate right hydrone phrosis. No obstructing right ureteral calculus identified. Bladder: Bladder is distended. Bowel: The stomach is grossly normal in appearance. Small bowel and colon are normal in caliber and d istribution. The appendix is not visualized; however, no secondary findings of acute appendicitis id entified. Ascites: Absent Lymphadenopathy: No mesenteric, retroperitoneal or periportal lymphadenopathy. Abdominal wall and Mesentery: Unremarkable. Vasculature: The visualized abdominal aorta is normal in size and caliber. There is extensive athero sclerotic calcification of the aorta and its branches. Evaluation of abdominal and pelvic vessels is limited due to lack of intravenous contrast. Pelvic Organs: The uterus is surgically absent. Musculoskeletal: Compression deformity of L4 and L5. Grade 1 anterolisthesis of L3 on L4, L4 on L5, a nd L5 on S1. IMPRESSION: 1. Calculus in the proximal left ureter measuring up to 9 mm. No significant left hydronephrosis. 2. 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 This could be resected on an nonemergent b asis due to risk of hemorrhage. 3. Moderate right hydronephrosis. Dilated bladder. Consider bladder outlet obstruction. Radiation optimization: All CT scans at this facility use at least one of these dose optimization socorro hniques: Automated exposure control mA and/or kV adjustment per patient size (includes targeted exams where dose is matched to clinical indication) or iterative reconstruction. HS:Y
[2024-05-22 16:16] LABS: Basophils # (auto) 0 10 ^3/uL (0-0.2); Basophils % (auto) 0.4 % (0.0-2.0); Eosinophils # (auto) 0.1 10 ^3/uL (0-0.8); Eosinophils % (auto) 0.8 % (0.0-7.0); Hematocrit 27.2 % (36.0-46.0); Hemoglobin 9.4 g/dL (12.2-16.2); Lymphocytes # (auto) 1.6 10 ^3/uL (0.4-5.4); Mean Corpuscular Hemoglobin 32.1 pg (28.0-32.0); Mean Corpuscular Hgb Conc. 34.6 g/dL (32.0-36.0); Mean Corpuscular Volume 92.7 fL (80.0-100.0); Monocytes # (auto) 0.3 10 ^3/uL (0-1.3); Monocytes % (auto) 3.2 % (0.0-12.0); Neutrophils # (auto) 6.1 10 ^3/uL (1.6-8.6); Neutrophils % (auto) 75.6 % (37.0-80.0); Platelet Count (auto) 117 10^3/uL (140-450); Red Blood Cells 2.93 10^6/uL (4.0-5.20); Red Cell Distribution Width 14.6 % (11.8-14.3); White Blood Cell 8.1 10^3/uL (4.4-10.8)
[2024-05-22] MEDS: KETOROLAC TROMETH 30 MG/ML 1ML VIAL IV ONE (16:16)
[2024-05-22 16:29] LABS: Alanine Aminotransferase 11 U/L (7-40); Albumin 3.5 g/dL (3.2-4.8); Alkaline Phosphatase 89 U/L (46-116); Anion Gap 4 (5-15); Aspartate Aminotransferase 12 U/L (13-40); BUN/Creatinine Ratio 12.4 (10.0-20.0); Bilirubin, Total 0.4 mg/dL (0.2-1.0); Blood Urea Nitrogen 19 mg/dL (9-23); Calcium 8.8 mg/dL (8.7-10.4); Carbon Dioxide 25 mmol/L (20-31); Chloride 98 mmol/L (98-107); Glucose 94 mg/dL (74-106); Lipase 21 U/L (12-53); Potassium 3.7 mmol/L (3.5-5.1); Sodium 127 mmol/L (136-145); Total Protein 5.3 g/dL (5.7-8.2)
[2024-05-22 16:32] LABS: INR 1.3 (0.9-1.15); Partial Thromboplastin Time 35.6 SEC (24.5-34.5); Prothrombin Time 13.5 sec (9.3-11.8)
[2024-05-22] MEDS: NYSTATIN TOPICAL POWDER 15GM TOP ONE (17:01)
[2024-05-22 17:06] LABS: Urine Bacteria None Seen /hpf (None Seen)
[2024-05-22 17:25] LABS: Urine Blood 3+ /uL (Negative); Urine Clarity Ex.Turbid (Clear); Urine Color Dark-Brown (Yellow); Urine Protein, UAD 2+ (Negative); Urine Specific Gravity 1.006 (1.001-1.035); Urine Urobilinogen Normal (Negative); Urine WBC 3605 /hpf (0 - 5); Urine WBC Clumps PRESENT /hpf (None Seen)
[2024-05-22 17:46] VITALS: PULSE 90; RESP 15; O2SAT 92
[2024-05-22] MEDS: cefTRIAXone 1GM/50ML D5W 50 ML IV ONE (18:21)
[2024-05-22] MEDS: ALBUMIN 5% 250 ML IV ONE (18:21)
[2024-05-22] MEDS: METOPROLOL TARTRATE 1MG/1ML-5ML VIAL IV ONE (18:38)
[2024-05-22] MEDS: NOREPINEPHRINE 8 MG/250ML KIT 250 ML IV ONE (19:18)
[2024-05-22 19:20] VITALS: PULSE 98; RESP 15; O2SAT 97
[2024-05-22] MEDS: NOREPINEPHRINE 8 MG/250ML KIT 250 ML IV SCH (19:20)
[2024-05-22] MEDS ORDERED: LORazepam 2MG/ML-1ML VIAL IV ONE (19:30)
--- NOTE | 2024-05-22 20:43 | DVH ---
CHEST RADIOGRAPH Indication:centraline Technique: Single frontal view of the chest was obtained Comparison: XY CHEST PORTABLE on DOS: 04/25/24, XY CHEST PORTABLE on DOS: 04/24/24, CHEST XRAY 1 VIEW on DOS: 01/27/21 FINDINGS: Lines and Tubes: None Lungs: Decreased inspiratory effort compared to 04/25/2024 Pleura: No effusion. No pneumothorax. Cardiomediastinal contours: Unremarkable Bones: No acute osseous abnormality. IMPRESSION: 1. No acute cardiopulmonary disease. 2. Decreased inspiratory effort when compared to 04/25/2024.
[2024-05-22 23:15] VITALS: BP 111/60; PULSE 82; RESP 14; TEMP 98.3; O2SAT 100
[2024-05-22] MEDS: ONDANSETRON HCL 4 MG/2 ML VIAL ONE (23:48)
--- NOTE | 2024-05-26 14:57 | ECG ---
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
== END 2024-05-22 23:51 | disposition short-term general hospital (02) ==
LOC: ER 14:46 → EDBD 14:46 → ER 23:51
DX: N20.0 Calculus of kidney (principal); N13.30 Unspecified hydronephrosis; N39.0 Urinary tract infection, site not specified; N32.0 Bladder-neck obstruction; D64.9 Anemia, unspecified; D69.6 Thrombocytopenia, unspecified; E87.1 Hypo-osmolality and hyponatremia; F17.210 Nicotine dependence, cigarettes, uncomplicated; I10 Essential (primary) hypertension; Z98.890 Other specified postprocedural states; Z79.899 Other long term (current) drug therapy; Z79.84 Long term (current) use of oral hypoglycemic drugs
CPT/HCPCS: 36415; 71045; 74176; 80053; 81001; 83605; 83690; 83880; 84484; 85025; 85610; 85730; 87040; 87045; 87086; 87427; 87493; 93005; 96361; 96365; 96368; 96375; 96376; 99285; J0696; J1171; J1885; J2405; J7030; P9045; 96366

== ENCOUNTER 2024-12-09 00:24 | Inpatient (IN) | payer OTHER ==
[~2024-12-09] VITALS: Ht 167.6 cm; Wt 82.4 kg
[2024-12-09] VITALS (11 sets, daily range): BP systolic 127–149; BP diastolic 77–99; PULSE 78–131; RESP 16–25; TEMP 97.6–98.2; O2SAT 94–100
[2024-12-09] MEDS: METOPROLOL TARTRATE 1MG/1ML-5ML VIAL IV SCH (01:13)
[2024-12-09 01:26] LABS: Basophils # (auto) 0 10 ^3/uL (0-0.2); Basophils % (auto) 0.5 % (0.0-2.0); Eosinophils # (auto) 0.1 10 ^3/uL (0-0.8); Eosinophils % (auto) 1.1 % (0.0-7.0); Hematocrit 32.9 % (36.0-46.0); Hemoglobin 10.8 g/dL (12.2-16.2); Lymphocytes # (auto) 2.5 10 ^3/uL (0.4-5.4); Lymphocytes % (auto) 26.2 % (10.0-50.0); Mean Corpuscular Hemoglobin 31.2 pg (28.0-32.0); Mean Corpuscular Volume 94.8 fL (80.0-100.0); Monocytes # (auto) 0.7 10 ^3/uL (0-1.3); Monocytes % (auto) 6.8 % (0.0-12.0); Neutrophils # (auto) 6.3 10 ^3/uL (1.6-8.6); Neutrophils % (auto) 65.4 % (37.0-80.0); Nucleated Red Blood Cells % 0.1 %; Platelet Count (auto) 262 10^3/uL (140-450); Red Blood Cells 3.47 10^6/uL (4.0-5.20); Red Cell Distribution Width 15.6 % (11.8-14.3); White Blood Cell 9.7 10^3/uL (4.4-10.8)
[2024-12-09 01:39] LABS: Chloride 106 mmol/L (98-107); Sodium 140 mmol/L (136-145)
[2024-12-09 01:40] LABS: Anion Gap 10 (5-15); Carbon Dioxide 24 mmol/L (20-31)
[2024-12-09 01:44] LABS: Calcium 8.3 mg/dL (8.7-10.4); Potassium 3.1 mmol/L (3.5-5.1)
[2024-12-09 01:45] LABS: BUN/Creatinine Ratio 12.5 (10.0-20.0); Blood Urea Nitrogen 11 mg/dL (9-23); Glucose 91 mg/dL (74-106)
--- NOTE | 2024-12-09 01:45 | ED.PDOC ---
History of Present Illness HPI Comments 79 y/o F is BIBA from home for 2x day history of HTN. Per EMS report, patient's spouse called for concerns of patient's blood pressure being, persistently, elevated alongside concerns for isolated episode of hand numbness and vomiting 3x 2 days ago. Patient has a reported history of AFIB, AIMEE, CVA, HTN, UTI's, seizures, chronic left kidney mass, 2LPM home O2, and tobacco abuse. Patient is stated to be compliant with her medications and endorses on additional symptoms of poor appetite and chest wall discomfort to EMS. On scene, she was found hypertensive, with systolic rate in the 150's, and in AFIB RVR at 110's range. Patient denies having any shortness of breath, vision or speech changes, dizziness, lightheadedness, or further associated symptoms at this time. Chief Complaint: High Blood Pressure Time Seen by MD: 00:45 Primary Care Provider: KEELY Reviewed Notes: Nurses Notes, Vrt Mechanic Notes, Medications, Allergies Allergies: Coded Allergies: Codeine (Verified Allergy, Unknown, 01/28/21) itching Home Meds Reported Medications Aspirin (Aspir-Low) 81 Mg Tab, 81 MG PO DAILY for 30 Days, MG 04/26/24 Allium Sativan Extract (Garlic) 2,000 Mg Tab, PO DAILY 04/26/24 Vitamin A (A-54608) 10,000 Unit Cap, 26343 UNIT PO, CAP 04/26/24 [place]-3 Fatty Acids (Fish Oil 1200 mg) 1 Cap Cap, 1 CAP PO DAILY, CAP 04/26/24 Metoprolol Tartrate (Metoprolol Tartrate) 25 Mg Tab, 25 MG PO BID for 30 Days, MG 04/26/24 Buspirone Hcl (Buspirone Hcl) 5 Mg Tab, 5 MG PO Q12HR for 30 Days, MG 04/26/24 Clopidogrel Bisulfate (Plavix) 75 Mg Tab, 1 TAB PO DAILY, #90 TAB 1 Refill 04/25/24 Lisinopril (Lisinopril) 20 Mg Tab, 20 MG PO DAILY for 30 Days, MG 04/25/24 Prednisolone Acetate (Ophth) (Pred Forte) 1 % Humaira, 1 % OP QID, ML 1 drop to the left eye 01/29/21 Levetiracetam (Keppra) 500 Mg Tab, 750 MG PO BID for 30 Days, MG 7/17/21 Escitalopram Oxalate (Lexapro) 20 Mg Tab, 1 TAB PO DAILY, #90 TAB 3 Refills 01/28/21 Lacosamide (Vimpat) 100 Mg Tab, 100 MG PO HS, TAB 01/28/21 Lacosamide (Vimpat) 50 Mg Tab, 50 MG PO ACHS MDD na, TAB 01/28/21 Information Source: Patient, Emergency Med Personnel Mode of Arrival: EMS Severity: Moderate Timing: Days Duration: Since onset Prehospital treatment: None Past Medical History PAST MEDICAL HISTORY: AFIB (On Plavix ), CVA, HTN (On Metoprolol and Lisinopril), Seizures (On Keppra), UTI'S Past Medical History (Other): 2LPM Home O2 placement History of previous stroke 1x year ago chronic left kidney mass AIMEE Surgical History (Other): right knee replacement 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 History Family History Family History: Reviewed,noncontributory to illness Social History Smoker: Cigarettes Alcohol: Occasionally Drugs: Denies Drug Use Lives In: Alf All Other Systems: Reviewed and Negative (Comprehensive systems review obtained and negative except for what is stated in the HPI.) Physical Exam General Appearance: No Apparent Distress, Normal HEENT: Normal ENT Inspection, Pharynx Normal, TMs Normal Neck: Full Range of Motion, Non-Tender, Normal, Normal Inspection Respiratory: Chest Non-Tender, Lungs Clear, No Accessory Muscle Use, No Respiratory Distress, Normal Breath Sounds Cardiovascular: Irregular (rhythm), No Edema, No JVD, No Murmur, No Gallop, Normal Peripheral Pulses, Tachycardia Breast Exam: Deferred Gastrointestinal: No Organomegaly, Non Tender, No Pulsatile Mass, Normal Bowel Sounds, Soft Genitalia: Deferred Pelvic: Deferred Rectal: Deferred Extremities: No calf tenderness, Normal capillary refill, Normal inspection, Normal range of motion, Non-tender, No pedal edema Musculoskeletal : Apperance: Normal Neurologic: Alert, conservation of resources commissioner II-XII nml as Tested, No Motor Deficits, Normal Affect, Normal Mood, No Sensory Deficits Cerebellar Function: Normal Reflexes: Normal Skin: Dry, Normal Color, Warm Lymphatic: No Adenopathy Was a procedure done? Was a procedure done?: No EKG EKG : Pulse Rate (adult): 135 [place]: Normal Cardiac Rhythm: Afib Block: None Hypertrophy: None ST: Normal Differential Dx Considerations may include: AFIB, HTN emergency, inappropriate medication dosage, medication noncompliance, viral syndrome, among others X-Ray, Labs, Meds, VS Vital Signs Date Time Temp Pulse Resp B/P (MAP) Pulse Ox O2 Delivery O2 Flow Rate FiO2 12/09/24 02:11 142 149/99 12/09/24 01:45 135 12/09/24 01:35 124 142/109 12/09/24 01:13 126 145/116 12/09/24 00:48 135 12/09/24 00:38 97.6 110 18 155/110 (125) 98 97.6 Lab Test 12/09/24 01:18 Range/Units White Blood Count 9.7 4.4-10.8 10^3/uL Red Blood Count 3.47 L 4.0-5.20 10^6/uL Hemoglobin 10.8 L 12.2-16.2 g/dL Hematocrit 32.9 L 36.0-46.0 % Mean Corpuscular Volume 94.8 80.0-100.0 fL Mean Corpuscular Hemoglobin 31.2 28.0-32.0 pg Mean Corpuscular Hemoglobin Concent 33.0 32.0-36.0 g/dL Red Cell Distribution Width 15.6 H 11.8-14.3 % Platelet Count 262 140-450 10^3/uL Mean Platelet Volume 6.7 L 6.9-10.8 fL Neutrophils (%) (Auto) 65.4 37.0-80.0 % Lymphocytes (%) (Auto) 26.2 10.0-50.0 % Monocytes (%) (Auto) 6.8 0.0-12.0 % Eosinophils (%) (Auto) 1.1 0.0-7.0 % Basophils (%) (Auto) 0.5 0.0-2.0 % Neutrophils # (Auto) 6.3 1.6-8.6 10 ^3/uL Lymphocytes # (Auto) 2.5 0.4-5.4 10 ^3/uL Monocytes # (Auto) 0.7 0-1.3 10 ^3/uL Eosinophils # (Auto) 0.1 0-0.8 10 ^3/uL Basophils # (Auto) 0 0-0.2 10 ^3/uL Nucleated Red Blood Cells 0.1 % Sodium Level 140 136-145 mmol/L Potassium Level 3.1 L 3.5-5.1 mmol/L Chloride Level 106 98-107 mmol/L Carbon Dioxide Level 24 20-31 mmol/L Anion Gap 10 5-15 Blood Urea Nitrogen 11 9-23 mg/dL Creatinine 0.88 0.550-1.02 mg/dL Glomerular Filtration Rate Calc 68 >90 mL/min BUN/Creatinine Ratio 12.5 10.0-20.0 Serum Glucose 91 74-106 mg/dL Calcium Level 8.3 L 8.7-10.4 mg/dL Troponin I High Sensitivity 20 </=34 ng/L B-Type Natriuretic Peptide 942.49 0-100 pg/mL Current Medications Medications (Trade) Dose Ordered Sig/Janette Route Start Time Stop Time Status Last Admin Metoprolol Tartrate (Lopressor) 5 mg Q5M IV 12/09/24 01:00 12/09/24 01:11 DC 12/09/24 02:11 Time of 1ST Reevaluation: 01:15 Reevaluation 1ST: Unchanged Patient Education/Counseling: Diagnosis, Treatment Family Education/Counseling: No Family Present Additional Information Previous visits reviewed: April 24, 2024 and May 22, 2024 encounter for UTI and abdominal pain, respectively The following tests were ordered, and results were reviewed by me: EKG, tropon in, CXR, UA, BNP, CBC, BMP Additional Information was gathered from interviewing the following independent historians: EMS I reviewed and agreed with the following test results read by other providers: CXR I discussed treatment and results with medical personnel and: patient Departure 1 Departure Time of Disposition: 02:25 (Patient's has a worsening shortness of breath and chest pressure. Patient is found to be in AFib with a RVR. Patient's labs are otherwise unremarkable. We will start patient on metoprolol and amiodarone admitted patient for further workup) Impression: Primary Impression: Atrial fibrillation with RVR Additional Impressions: Shortness of breath Acute chest pain Disposition: ADMITTED INPATIENT Admit to: [facility] Condition: Guarded Critical Care Note Critical Care Time?: Yes Critical care comment: AFib with RVR Authorized and Performed by: Claudy Salas MD Total critical care time: Approximately 39 minutes Due to a high probability of clinically significant, life threatening deterioration, the patient required my highest level of preparedness to intervene emergently and I personally spent this critical care time directly and personally managing the patient. This critical care time included obtaining a history; examining the patient; pulse oximetry; ordering and review of studies; arranging urgent treatment with development of a management plan; evaluation of patient's response to treatment; frequent reassessment; and, discussions with other providers. This critical care time was performed to assess and manage the high probability of imminent, life-threatening deterioration that could result in multi-organ failure. It was exclusive of separately billable procedures and treating other patients and teaching time. Please see my other sections and the rest of the note for further information on patient assessment and treatment. Stability Stability form required: No Heart Score Heart Score: Heart Score Response (Comments) Value History Moderate Suspicious 1 EKG Repolarization Disturb 1 Age >65 2 Risk Factors >3 or Hx ASHD 2 Troponin 1-2 x's Normal limit 1 Total 7 I personally scribed for CLAUDY SALAS MD ([email or web address]) on 12/09/24 at 01:45. Electr onically submitted by Yinka Fuentes ([email or web address]). CLAUDY SALAS MD December 09, 2024 01:45
--- NOTE | 2024-12-09 02:28 | DVH ---
EXAM: XY CHEST PORTABLE CLINICAL HISTORY: sob TECHNIQUE: Single AP view of the chest WID: COMPARISON: XY CHEST XRAY 1 VIEW on DOS: 05/22/24 FINDINGS: Lines and tubes: None. Lower cervical spine hardware. Chest: Cardiomegaly and pulmonary vascular congestion. Calcified plaque projects over the aortic arch. Interstitial prominence in the lungs. Small right pleural effusion. No left pleural effusion or pneum othorax. The osseous structures are grossly intact. IMPRESSION: 1. Cardiomegaly and pulmonary vascular congestion. 2. Interstitial prominence in the lungs which could be due to interstitial pulmonary edema. A compone nt of pulmonary fibrosis or atypical pneumonia could be present. 3. Small right pleural effusion.
[2024-12-09] MEDS: AMIODARONE BOLUS KIT 100 ML IV ONE (02:51)
[2024-12-09] MEDS: AMIODARONE 360mg/200mL PREMIX 200 ML IV ONE (03:07)
[2024-12-09] MEDS ORDERED: NITROGLYCERIN 0.4 MG SL TAB SL PRN (03:45)
[2024-12-09] MEDS ORDERED: MORPHINE SULFATE INJ 2 MG/ml SYRG IV PRN (03:45)
[2024-12-09] MEDS ORDERED: ACETAMINOPHEN 325 MG TAB PO PRN (03:45)
--- NOTE | 2024-12-09 03:53 | DVHHP2 ---
History of Present Illness Reason for Visit: Nausea and vomiting History of Present Illness 79-year-old female initially presented with complaints of nausea and vomiting. Patient reports having those symptoms for the past two days. She states that since yesterday she is only having nausea with associated chest pressure. She presented for further evaluation. On arrival patient was noted to be in atrial fibrillation with rapid ventricular response with a rate in the 140s. Currently she denies any chest pain reports mild shortness for breath. No cough or fever. No nausea. No other acute complaints reported. Past Medical History CVA, hypertension, seizures, CHF, atrial fibrillation Past Surgical History Knee replacement Family History Noncontributory Smoke: <1 pack per day ALCOHOL: none Drugs: None Lives: with Family Review of Systems Review of Systems Review of systems are currently negative otherwise addressed in HPI. Allergies: Coded Allergies: Codeine (Verified Allergy, Unknown, 01/28/21) itching Exam Vital Signs Vital Signs Date Time Temp Pulse Resp B/P (MAP) Pulse Ox O2 Delivery O2 Flow Rate FiO2 12/09/24 03:46 76 151/95 12/09/24 00:38 97.6 18 98 97.6 Exam Gen: 79-year-old female in mild distress Skin: Warm, dry, normal color and texture, no rash. HEENT: Normocephalic atraumatic, mucous membranes moist and pink. Neck: Cervical and supraclavicular nodes normal without enlargement, trachea is midline, thyroid gland is normal without masses. Pulmonary: Clear to auscultation and percussion bilaterally. Cardiac: Irregular rhythm Abdomen: Soft, nontender, nondistended, bowel sounds present all 4 quadrants, no guarding, no rigidity, no organomegaly. Extremities: No cyanosis, clubbing, no edema Neuro: Cranial nerves II through XII grossly intact, normal affect and speech, no focal motor deficits. Labs/Xrays ORDERING PHYSICIAN: ANGIE CAMARA RESIDENT PROCEDURE(s): ECIDC - ECHO 2D MODE CARDIAC DOP REASON: Shortness of breath ORDER NUMBER(s): [id number], ACCESSION NUMBER(s): [id number] APPROVED REPORT EXAM: LIMITED Two-dimensional and M-mode echocardiogram with Doppler and color Doppler. Blood Pressure: 91/46 mmHg INDICATION Shortness of Breath RISK FACTORS Obesity: Height: 5' 6", Weight: 187 DIMENSIONS LVDd 4.2 (3.8-5.7cm) LA (2D) 4.5 (1.9-4.0cm) Aortic Root (2.0- 3.7cm) LVDs 2.9 (2.5-4.0cm) LA (MM) (1.9-4.0cm) Aortic Cusp Exc (1.5- 2.0cm) EF (%) 58.0 (55-70%) Rt. Atrium 4.0 (1.9-4.0cm) Asc. Aorta cm IVSd 1.0 (0.7-1.1cm) RV (D) (1.8-2.4cm) PWd 1.0 (0.7-1.1cm) Mitral Valve Mitral Mitral Stenosis E wave 0.90m/s MV Mean GR. mmHg E/A ratio 0.0 2D MVA cm2 Aortic Valve Aortic Valve Aortic Stenosis V1 0.90m/s AO Mean GR. 5mmHg V2 1.50m/s AO Peak GR. 10mmHg LVOT Diameter 2.0 (1.8-2.4cm) Doppler GORDO 1.88cm2 Tricuspid Valve TR Velocity 3.20m/s RVSP 46mmHg Other Information Quality : Technically Limited Rhythm : Atrial Fibrillation Technically limited study due to body habitus and patient position. Conclusion MODERATE DEGREE LVH MODERATE DEGREE LV DIASTOLIC DYSFUNCTION LV EJECTION FRACTION IS 65% POSTERIOR MV CALCIFIED MODERATELY DILATED LA MODERATELY DILATED RV AND RA NO EFFUSION SIGNED BY: JOSH VEGA MD SIGNED DATE/TIME: 04/25/24 7530 CC: ORDERING PHYSICIAN: CLAUDY LEMUS MD PROCEDURE(s): CXRP - CHEST PORTABLE REASON: sob ORDER NUMBER(s): [id number], ACCESSION NUMBER(s): [id number] EXAM: XY CHEST PORTABLE CLINICAL HISTORY: sob TECHNIQUE: Single AP view of the chest WID: COMPARISON: XY CHEST XRAY 1 VIEW on DOS: 05/22/24 FINDINGS: Lines and tubes: None. Lower cervical spine hardware. Chest: Cardiomegaly and pulmonary vascular congestion. Calcified plaque projects over the aortic arch. Interstitial prominence in the lungs. Small right pleural effusion. No left pleural effusion or pneumothorax. The osseous structures are grossly intact. IMPRESSION: 1. Cardiomegaly and pulmonary vascular congestion. 2. Interstitial prominence in the lungs which could be due to interstitial pulmonary edema. A component of pulmonary fibrosis or atypical pneumonia could be present. 3. Small right pleural effusion. ATED BY: ISRAEL MARK MD DICTATED DATE/TIME: 12/09/24225 SIGNED BY: ISRAEL MARK MD SIGNED DATE/TIME: 12/09/24225 CC: Labs Test 12/09/24 02:22 12/09/24 01:18 Range/Units Troponin I High Sensitivity 21 </=34 ng/L White Blood Count 9.7 4.4-10.8 10^3/uL Red Blood Count 3.47 L 4.0-5.20 10^6/uL Hemoglobin 10.8 L 12.2-16.2 g/dL Hematocrit 32.9 L 36.0-46.0 % Mean Corpuscular Volume 94.8 80.0-100.0 fL Mean Corpuscular Hemoglobin 31.2 28.0-32.0 pg Mean Corpuscular Hemoglobin Concent 33.0 32.0-36.0 g/dL Red Cell Distribution Width 15.6 H 11.8-14.3 % Platelet Count 262 140-450 10^3/uL Mean Platelet Volume 6.7 L 6.9-10.8 fL Neutrophils (%) (Auto) 65.4 37.0-80.0 % Lymphocytes (%) (Auto) 26.2 10.0-50.0 % Monocytes (%) (Auto) 6.8 0.0-12.0 % Eosinophils (%) (Auto) 1.1 0.0-7.0 % Basophils (%) (Auto) 0.5 0.0-2.0 % Neutrophils # (Auto) 6.3 1.6-8.6 10 ^3/uL Lymphocytes # (Auto) 2.5 0.4-5.4 10 ^3/uL Monocytes # (Auto) 0.7 0-1.3 10 ^3/uL Eosinophils # (Auto) 0.1 0-0.8 10 ^3/uL Basophils # (Auto) 0 0-0.2 10 ^3/uL Nucleated Red Blood Cells 0.1 % Sodium Level 140 136-145 mmol/L Potassium Level 3.1 L 3.5-5.1 mmol/L Chloride Level 106 98-107 mmol/L Carbon Dioxide Level 24 20-31 mmol/L Anion Gap 10 5-15 Blood Urea Nitrogen 11 9-23 mg/dL Creatinine 0.88 0.550-1.02 mg/dL Glomerular Filtration Rate Calc 68 >90 mL/min BUN/Creatinine Ratio 12.5 10.0-20.0 Serum Glucose 91 74-106 mg/dL Calcium Level 8.3 L 8.7-10.4 mg/dL B-Type Natriuretic Peptide 942.49 0-100 pg/mL Assessment/Plan Assessment/Plan Assessment AFib with RVR Acute on chronic congestive heart failure History of seizure Plan Admit the patient to telemetry to the hospitalist Cardiology consultation Resume home medications IV Lasix Continue treatment per orders. Plan discussed with: Patient My Orders Orders - ROMELIA TRUJILLO Procedure Category Date Status Time Furosemide Injection PHA 12/09/24 Logged (Lasix Injection) 03:45 Furosemide Injection PHA 12/10/24 Logged (Lasix Injection) 10:00 Metoprolol Tartrate PHA 12/09/24 Logged Tablet (Lopressor Ta 10:00 Potassium Er Tablet PHA 12/09/24 Logged (Klor-Con Tablet) 03:45 Apixaban (Eliquis) PHA 12/09/24 Logged 10:00 Aspirin Tablet PHA 12/09/24 Logged 10:00 Clopidogrel Bisulfate PHA 12/09/24 Logged (Plavix) 10:00 Levetiracetam Tablet PHA 12/09/24 Logged (Keppra Tablet) 10:00 (Nf) Lacosamide PHA 12/09/24 Logged 10:00 Atorvastatin (Lipitor) PHA 12/09/24 Logged 22:00 Basic Metabolic Panel LAB 12/10/24 Verified 04:00 * Cardiology Consult CONS 12/09/24 Transmitted 03:41 Admit ADMIT 12/09/24 Transmitted 03:41 Ondansetron Hcl PHA 12/09/24 Logged (Zofran) 03:45 Cardiac DIET 12/09/24 Transmitted Diet-2gna,Lofat,Lochol Breakfast Condition: Fair LAURENT 12/09/24 In Process 03:41 Acetaminophen Tablet [facility] 12/09/24 Logged (Tylenol Tablet) 03:45 Bedrest With Bathroom [facility] 12/09/24 In Process Privileg 03:41 Nitroglycerin [facility] 12/09/24 Logged Sublingual (Ntrostat 03:45 Morphine Sulfate [facility] 12/09/24 Logged Injection 03:45 Stat Ekg For Chest [facility] 12/09/24 In Process Pain 03:41 Notify Md Of Changes [facility] 12/09/24 In Process From Base 03:41 Purchasing Supervisor For [facility] 12/09/24 In Process 24 Hours 03:41 Emergency Dysrhythmia [facility] 12/09/24 In Process Protocol 03:41 Rhythm Strips Once [facility] 12/09/24 In Process Every Shift 03:41 Oxygen By Nasal RT 12/09/24 Transmitted Cannula 03:41 Albuterol Medneb PHA 12/09/24 Transmitted (Ventolin Medneb) 04:00 Date of Service: December 09, 2024 Billing Provider: ROMELIA TRUJILLO Common Visit Codes: [id number] INP/OBS CARE (HIGH) ROMELIA TRUJILLO December 09, 2024 03:53
[2024-12-09] MEDS: FUROSEMIDE 40 MG/4 ML VIAL IV ONE (04:40)
[2024-12-09] MEDS: POTASSIUM CHL 20 Meq TABLET PO ONE (04:40)
--- NOTE | 2024-12-09 06:15 | ECG ---
[facility] Test Date: 2024-12-09 Test Time: 00:48:06 Pat Name: LEONCIO PITTMAN Department: ED Room: 0206T Gender: F Beam Warper: ANDREA : 1945 Requested By: CLAUDY LEMUS Order Number: [id number] Reading MD: Shade Dumont Measurements Intervals [place] Rate: 135 P: 0 MO: 0 QRS: 65 QRSD: 93 T: 171 QT: 356 QTc: 534 Interpretive Statements Atrial fibrillation Low voltage, extremity leads Probable anteroseptal infarct, old Borderline repolarization abnormality Prolonged QT interval Electronically Signed On 12-13-2024 21:59:24 PDT by Shade Dumont Please click the below link to view image of tracing.
[2024-12-09] MEDS: CLOPIDOGREL BISULFATE 75 MG TAB PO SCH (08:40)
[2024-12-09] MEDS: levETIRAcetam 500 MG TAB PO SCH (08:40)
[2024-12-09] MEDS: APIXABAN 5 MG TAB PO SCH (08:41)
[2024-12-09] MEDS: LACOSAMIDE 50 MG TAB PO SCH (08:41)
[2024-12-09] MEDS: METOPROLOL TARTRATE 25 MG TAB PO SCH (08:41)
[2024-12-09] MEDS: ASPirin 81 mg TAB PO SCH (08:41)
[2024-12-09] MEDS: LISINOPRIL 20 MG TAB PO SCH (08:43)
[2024-12-09] MEDS: AMIODARONE 360mg/200mL PREMIX 200 ML IV SCH (08:51)
[2024-12-09 09:16] LABS: Chloride 106 mmol/L (98-107); Potassium 3.6 mmol/L (3.5-5.1); Sodium 141 mmol/L (136-145)
[2024-12-09 09:17] LABS: Anion Gap 11 (5-15); Calcium 9.5 mg/dL (8.7-10.4); Carbon Dioxide 24 mmol/L (20-31)
[2024-12-09 09:22] LABS: BUN/Creatinine Ratio 16.5 (10.0-20.0); Blood Urea Nitrogen 15 mg/dL (9-23); Glucose 104 mg/dL (74-106)
[2024-12-09 09:23] LABS: LDL Cholesterol 44 mg/dL (< 100)
[2024-12-09 09:24] LABS: Cholesterol 118 mg/dL (< 200); HDL Cholesterol 44 mg/dL (40-59)
[2024-12-09 09:25] LABS: Magnesium 1.5 mg/dL (1.6-2.6); Triglycerides 156 mg/dL (< 150)
[2024-12-09] MEDS: POTASSIUM EFFERVESENT TAB 25 MEQ PO ONE (10:03)
[2024-12-09] MEDS: MAGNESIUM SULFATE 1GM/100ML 100 ML IV SCH (10:03)
[2024-12-09 10:29] LABS: Urine Bacteria None Seen /hpf (None Seen)
[2024-12-09] MEDS: ALBUTEROL SULF 2.5 MG/0.5ML(0.5%) NEB SOLN NEB PRN (10:31)
[2024-12-09] MEDS: IPRATROPIUM BROM 0.5 MG/2.5ML INH SOL NEB PRN (10:31)
[2024-12-09 10:42] LABS: Urine Blood 3+ /uL (Negative); Urine Clarity Ex.Turbid (Clear); Urine Color Dark-Brown (Yellow); Urine Hyaline Cast MANY /lpf (0 - 2); Urine Protein, UAD 2+ (Negative); Urine Specific Gravity 1.006 (1.001-1.035); Urine Squamous Epithelial Cell FEW /hpf (<5); Urine Urobilinogen Normal (Negative); Urine WBC 3066 /HPF (0-5); Urine WBC Clumps PRESENT /hpf (None Seen)
--- NOTE | 2024-12-09 11:04 | DVHCONRES ---
Date Seen: December 09, 2024 Resident Creating Document: JOON DELGADO RESIDENT History of Present Illness 79-year-old female with past medical history of seizures, depression, hypertension, TIA, stroke, atrial fibrillation presented with complaints of "high blood pressure" which was 171/121 in the home. Patient also mentioned she has been having nausea and vomiting for last one week associated with shortness of breath. Patient can not walk because of knee placement but was feeling shortness of breath at rest for last seven days. She denied any chest pain, palpitations.. Patient also mentioned associated heaviness in the epigastric region and lower sternal region. Patient denied any complaints of constipation, diarrhea, abdominal pain. Patient is a poor historian, does not know mentioned when she had atrial fibrillation. She denied any previous stress test or left heart catheterization done As per history obtained from over the phone, patient had AFib that was found in March and she was admitted for UTI, was following with [facility] was Infectious Disease, where again she was found to be having AFib.. mentioned that patient was on Eliquis but later was discontinued, does not remember the reason. pt takes plavix for TIA/Stroke which she had in the past. Presenting to the ED patient was found to be AFib in RVR after which the ED physician started the patient on amiodarone drip. Past medical history Seizures, depression, hypertension, TIA, stroke, atrial fibrillation Surgical history Cervical fusion surgery New placement surgery Social history Patient is active smoker, smoked for 50 years, less than one pack a day Family history Nonsignificant Allergic history Codeine Medication history pt does not remember from medical records Aspirin Buspirone Plavix Escitalopram Lacosamide levetiracetam Metoprolol Lisinopril Vitamin-A Family History: Bronchitis G8 FATHER FH: emphysema G8 FATHER FH: heart failure G8 FATHER Allergies: Coded Allergies: Codeine (Verified Allergy, Unknown, 12/09/24) itching Home Meds Reported Medications Aspirin (Aspir-Low) 81 Mg Tab, 81 MG PO DAILY for 30 Days, MG 04/26/24 Allium Sativan Extract (Garlic) 2,000 Mg Tab, PO DAILY 04/26/24 Vitamin A (A-28625) 10,000 Unit Cap, 16510 UNIT PO, CAP 04/26/24 [place]-3 Fatty Acids (Fish Oil 1200 mg) 1 Cap Cap, 1 CAP PO DAILY, CAP 04/26/24 Metoprolol Tartrate (Metoprolol Tartrate) 25 Mg Tab, 25 MG PO BID for 30 Days, MG 04/26/24 Buspirone Hcl (Buspirone Hcl) 5 Mg Tab, 5 MG PO Q12HR for 30 Days, MG 04/26/24 Clopidogrel Bisulfate (Plavix) 75 Mg Tab, 1 TAB PO DAILY, #90 TAB 1 Refill 04/25/24 Lisinopril (Lisinopril) 20 Mg Tab, 20 MG PO DAILY for 30 Days, MG 04/25/24 Prednisolone Acetate (Ophth) (Pred Forte) 1 % Humair[place], 1 % OP QID, ML 1 drop to the left eye 01/29/21 Levetiracetam (Keppra) 500 Mg Tab, 750 MG PO BID for 30 Days, MG 01/28/21 Escitalopram Oxalate (Lexapro) 20 Mg Tab, 1 TAB PO DAILY, #90 TAB 3 Refills 01/28/21 Lacosamide (Vimpat) 100 Mg Tab, 100 MG PO HS, TAB 01/28/21 Lacosamide (Vimpat) 50 Mg Tab, 50 MG PO ACHS MDD na, TAB 01/28/21 Current Medications Current Medications Medications (Trade) Dose Ordered Sig/Janette Route PRN Reason Start Time Stop Time Status Last Admin Metoprolol Tartrate (Lopressor) 5 mg Q5M IV 12/09/24 01:00 12/09/24 01:11 DC 12/09/24 02:11 Furosemide (Lasix Injection) 20 mg DAILY IV 12/10/24 10:00 Metoprolol Tartrate (Lopressor Tablet) 25 mg BID PO 12/09/24 10:00 12/09/24 08:41 Apixaban (Eliquis) 5 mg BID PO 12/09/24 10:00 12/09/24 08:41 Aspirin 81 mg DAILY PO 12/09/24 10:00 12/09/24 08:41 Clopidogrel Bisulfate (Plavix) 75 mg DAILY PO 12/09/24 10:00 12/09/24 08:40 Levetiracetam (Keppra Tablet) 750 mg BID PO 12/09/24 10:00 12/09/24 08:40 Lacosamide (Vimpat) 50 mg BID PO 12/09/24 10:00 12/09/24 08:41 Atorvastatin Calcium (Lipitor) 40 mg HS PO 12/09/24 22:00 Ondansetron HCl (Zofran) 4 mg Q4HP PRN IV NAUSEA / VOMITING 12/09/24 03:45 Acetaminophen (Tylenol Tablet) 650 mg Q6HP PRN PO PAIN SCALE 1-3 OR TEMP>100.4 12/09/24 03:45 Nitroglycerin (Ntrostat Sublingual) 0.4 mg Q5MINP PRN SL FOR CHEST PAIN 12/09/24 03:45 Morphine Sulfate 2 mg Q30M PRN IV FOR CHEST PAIN 12/09/24 03:45 Albuterol (Ventolin Medneb) 2.5 mg Q6HPRN PRN NEB SHORTNESS OF BREATH 12/09/24 04:00 12/09/24 10:31 Lisinopril (Zestril Tablet) 20 mg DAILY PO 12/09/24 10:00 12/09/24 08:43 Magnesium Sulfate/ Dextrose 100 ml @ 100 mls/hr Q1HR IV 12/09/24 10:00 12/09/24 11:59 12/09/24 10:03 Ipratropium [place] (Atrovent Medneb) 0.5 mg Q4HPRN PRN NEB SHORTNESS OF BREATH 12/09/24 10:00 12/09/24 10:31 Review of Systems As described in the HPI Vital Signs Vital Signs Date Time Temp Pulse Resp B/P (MAP) Pulse Ox O2 Delivery O2 Flow Rate FiO2 12/09/24 10:37 88 18 99 12/09/24 10:31 Nasal Cannula 3.0 12/09/24 10:31 32 12/09/24 10:29 98.0 155/96 (115) 98.0 Physical Exam Examination General Appearance: Alert, Oriented X3, Cooperative, No acute distress HEENT: EOMI Respiratory: Bilateral wheezing Clear to auscultation, Normal air movement Cardiovascular: Regular rate, Normal S1, Normal S2 Abdominal: Normal bowel sounds Extremities: No cyanosis, No edema, Normal pulses, No tenderness/swelling Skin: No rashes, No breakdown Neuro: Normal gait, Normal speech, Strength at 5/5 X4 ext, Normal tone, Sensation intact, Cranial nerves 3-12 NL, Reflexes 2+ Psych/Mental Status: Mental status NL, Mood NL Labs/Diagnostic Data Labs Test 12/09/24 10:15 12/09/24 05:00 12/09/24 01:18 Range/Units Urine Color Dark-brown Yellow Urine Clarity Ex.turbid Clear Urine pH 6.0 5.0-9.0 Urine Specific [place] 1.006 1.001-1.035 Urine Protein 2+ H Negative Urine Ketones Negative Negative Urine Blood 3+ H Negative /uL Urine Nitrite 1+ H Negative Urine Bilirubin Negative Negative Urine Urobilinogen Normal Negative mg/dL Urine Leukocyte Esterase 3+ Negative /uL Urine RBC 87 0 - 4 /hpf Urine WBC Clumps Present None Seen /hpf Urine Microscopic WBC 3066 H 0-5 /HPF Urine Squamous Epithelial Cells Few <5 /hpf Urine Bacteria None seen None Seen /hpf Urine Hyaline Casts Many 0 - 2 /lpf Urine Glucose Normal Normal mg/dL Sodium Level 141 136-145 mmol/L Potassium Level 3.6 3.5-5.1 mmol/L Chloride Level 106 98-107 mmol/L Carbon Dioxide Level 24 20-31 mmol/L Anion Gap 11 5-15 Blood Urea Nitrogen 15 9-23 mg/dL Creatinine 0.91 0.550-1.02 mg/dL Glomerular Filtration Rate Calc 65 >90 mL/min BUN/Creatinine Ratio 16.5 10.0-20.0 Serum Glucose 104 74-106 mg/dL Calcium Level 9.5 8.7-10.4 mg/dL Magnesium Level 1.5 L 1.6-2.6 mg/dL Troponin I High Sensitivity 23 </=34 ng/L Triglycerides Level 156 H < 150 mg/dL Cholesterol Level 118 < 200 mg/dL LDL Cholesterol 44 < 100 mg/dL HDL Cholesterol 44 40-59 mg/dL Thyroid Stimulating Hormone (TSH) 2.21 0.55-4.78 uIU/mL White Blood Count 9.7 4.4-10.8 10^3/uL Red Blood Count 3.47 L 4.0-5.20 10^6/uL Hemoglobin 10.8 L 12.2-16.2 g/dL Hematocrit 32.9 L 36.0-46.0 % Mean Corpuscular Volume 94.8 80.0-100.0 fL Mean Corpuscular Hemoglobin 31.2 28.0-32.0 pg Mean Corpuscular Hemoglobin Concent 33.0 32.0-36.0 g/dL Red Cell Distribution Width 15.6 H 11.8-14.3 % Platelet Count 262 140-450 10^3/uL Mean Platelet Volume 6.7 L 6.9-10.8 fL Neutrophils (%) (Auto) 65.4 37.0-80.0 % Lymphocytes (%) (Auto) 26.2 10.0-50.0 % Monocytes (%) (Auto) 6.8 0.0-12.0 % Eosinophils (%) (Auto) 1.1 0.0-7.0 % Basophils (%) (Auto) 0.5 0.0-2.0 % Neutrophils # (Auto) 6.3 1.6-8.6 10 ^3/uL Lymphocytes # (Auto) 2.5 0.4-5.4 10 ^3/uL Monocytes # (Auto) 0.7 0-1.3 10 ^3/uL Eosinophils # (Auto) 0.1 0-0.8 10 ^3/uL Basophils # (Auto) 0 0-0.2 10 ^3/uL Nucleated Red Blood Cells 0.1 % Hemoglobin A1c 5.1 <5.7 % A1C B-Type Natriuretic Peptide 942.49 0-100 pg/mL Plan/Recommendation Assessment/plan #Afib with RVR, now resolved, long persistent -on eliquis( started by the ED) and metoprolol -6 points [id number] Score -HASBLED score 4 #Acute HFpEF exacerbation -elevated BNP 942.99 -CXR shows cardiomegaly with pulmonary edema -EKG shows T wave inversion in lead V4,V5, and V6. -normal Trops -last echo 05/07 showed MODERATE DEGREE LVH MODERATE DEGREE LV DIASTOLIC DYSFUNCTION LV EJECTION FRACTION IS 65% POSTERIOR MV CALCIFIED MODERATELY DILATED LA MODERATELY DILATED RV AND RA NO EFFUSION # hypertensive crisis, currently resolved -patient is currently on lisinopril and metoprolol at home # history of seizures #History of TIA -on plavix and statins # Depression #UTI Plan Keep potassium greater than four, magnesium greater than two Telemetry, monitoring Continue metoprolol 25mg BID and Eliquis 5mg BID Patient has long persistent AFib, avoid cardioversion with rhythm control agents, as unknown history of anticoagulation, continue rate control with metoprolol Continue Plavix (home medication started for TIA/stroke) Gentle IV diuretics for heart failure exacerbation echocardiogram, awaiting results Case discussed with Dr Dumont Plan discussed with: Patient, Other JOON DELGADO RESIDENT December 09, 2024 11:04
[2024-12-09] MEDS: cefTRIAXone 1GM/50ML D5W 50 ML IV ONE (11:59)
--- NOTE | 2024-12-09 18:27 | DVHPN2 ---
Subjective Seen and examined at bedside, patient is on 3-4 liters oxygen. Change to Cefepime and add Doxy PO Changes from previous H/P or p: No Changes Objective Vitals Vital Signs Date Time Temp Pulse Resp B/P (MAP) Pulse Ox O2 Delivery O2 Flow Rate FiO2 12/09/24 17:00 97.9 83 16 132/83 (99) 99 97.9 12/09/24 14:35 Nasal Cannula* 2 28 Intake/Output Intake and Output 12/09/24 07:00 Intake Total 133.32 ml Balance 133.32 ml IV Total 133.32 ml General Appearance: Alert, Cooperative, Other (confused) HEENT: Atraumatic Lungs: Other (diminished) Cardiovascular: Other (Irregular) Abdomen: Normal bowel sounds, Soft Psych/Mental Status: Other (confused) Medications Current Medications Medications Dose Ordered Sig/Janette Route Start Time Stop Time Status Last Admin Dose Admin Furosemide 20 mg DAILY IV 12/10/24 10:00 Metoprolol Tartrate 25 mg BID PO 12/09/24 10:00 12/09/24 08:41 25 MG Apixaban 5 mg BID PO 12/09/24 10:00 12/09/24 08:41 5 MG Levetiracetam 750 mg BID PO 12/09/24 10:00 12/09/24 08:40 750 MG Lacosamide 50 mg BID PO 12/09/24 10:00 12/09/24 08:41 50 MG Atorvastatin Calcium 40 mg HS PO 12/09/24 22:00 Ondansetron HCl 4 mg Q4HP PRN IV 12/09/24 03:45 Acetaminophen 650 mg Q6HP PRN PO 12/09/24 03:45 Nitroglycerin 0.4 mg Q5MINP PRN SL 12/09/24 03:45 Morphine Sulfate 2 mg Q30M PRN IV 12/09/24 03:45 Albuterol 2.5 mg Q6HPRN PRN NEB 12/09/24 04:00 12/09/24 10:31 2.5 MG Lisinopril 20 mg DAILY PO 12/09/24 10:00 12/09/24 08:43 20 MG Ipratropium [place] 0.5 mg Q4HPRN PRN NEB 12/09/24 10:00 12/09/24 10:31 0.5 MG Ceftriaxone Sodium 50 ml @ 100 mls/hr DAILY@09 IV 12/10/24 09:00 Clopidogrel Bisulfate 75 mg DAILY PO 12/10/24 10:00 Laboratory Results Laboratory Tests 12/09/24 01:18 12/09/24 05:00 Chemistry Test 12/09/24 01:18 12/09/24 05:00 Calcium Level 8.3 mg/dL (8.7-10.4) L 9.5 mg/dL (8.7-10.4) Magnesium Level 1.5 mg/dL (1.6-2.6) L Lipid panel Test 12/09/24 05:00 Cholesterol Level 118 mg/dL (< 200) HDL Cholesterol 44 mg/dL (40-59) Triglycerides Level 156 mg/dL (< 150) H Cardiac Markers Test 12/09/24 01:18 B-Type Natriuretic Peptide 942.49 pg/mL (0-100) HgA1c, TSH Test 12/09/24 01:18 12/09/24 05:00 Hemoglobin A1c 5.1 % A1C (<5.7) Thyroid Stimulating Hormone (TSH) 2.21 uIU/mL (0.55-4.78) Urinalysis Test 12/09/24 10:15 Urine Color Dark-brown (Yellow) Urine Clarity Ex.turbid (Clear) Urine pH 6.0 (5.0-9.0) Urine Specific [place] 1.006 (1.001-1.035) Urine Protein 2+ (Negative) H Urine Ketones Negative (Negative) Urine Blood 3+ /uL (Negative) H Urine Nitrite 1+ (Negative) H Urine Bilirubin Negative (Negative) Urine Urobilinogen Normal mg/dL (Negative) Urine Leukocyte Esterase 3+ /uL (Negative) Urine RBC 87 /hpf (0 - 4) Urine WBC Clumps Present /hpf (None Seen) Urine Microscopic WBC 3066 /HPF (0-5) H Urine Squamous Epithelial Cells Few /hpf (<5) Urine Bacteria None seen /hpf (None Seen) Urine Hyaline Casts Many /lpf (0 - 2) Urine Glucose Normal mg/dL (Normal) Assessment/Plan Assessment/Plan # A-Fibb with RVR - Amio - Cardio Cx # Complicated UTI - Get cultures - Cefepime # Possible Gram Neg PNA vs Aspiration PNA - Cefepime and Doxy # Acute Resp Failure - Titrate oxygen down # Pulm Edema Critical care time 40 mins Plan discussed with: Patient My Orders Orders - MED COHEN MD Procedure Category Date Status Time Education - Smoking LAURENT 12/09/24 In Process Cessation 17:25 * Smoking Cessation CONS 12/09/24 Transmitted Consult 17:25 * Assistant Associate Full Professor CONS 12/09/24 Transmitted Consult Cefepime 1 Gm PHA 12/09/24 Transmitted 22:00 Urine Bacterial SHANNON 12/09/24 Transmitted Culture 18:22 Doxycycline Tablet PHA 12/09/24 Transmitted (Vibramycin Tablet) 22:00 Basic Metabolic Panel LAB 12/10/24 Verified 04:00 Complete Blood Count LAB 12/10/24 Verified 04:00 Magnesium LAB 12/10/24 Verified 04:00 Magnesium Oxide PHA 12/09/24 Transmitted Tablet (Mag-Ox Tablet) 18:30 Date of Service: December 09, 2024 Billing Provider: MED COHEN MD Common Visit Codes: [id number] CARE 30-74 MIN MED COHEN MD December 09, 2024 18:27
[2024-12-09] MEDS ORDERED: CLON0.1T PO (19:25)
[2024-12-09] MEDS ORDERED: FERR325T24 PO (19:25)
[2024-12-09] MEDS ORDERED: METH-1181 PO (19:25)
[2024-12-09] MEDS ORDERED: CHOL20007 PO (19:25)
[2024-12-09] MEDS ORDERED: IRBE300T79 PO (19:25)
[2024-12-09] MEDS ORDERED: ATOR40TA52 PO (19:25)
[2024-12-09] MEDS ORDERED: TRAM50TA2 PO (19:25)
[2024-12-09] MEDS ORDERED: CITA-77 PO (19:25)
[2024-12-09] MEDS ORDERED: FURO40TA4 PO (19:25)
[2024-12-09] MEDS: ATORVASTATIN 20 MG TAB PO SCH (22:46)
[2024-12-09] MEDS: DOXYCYCLINE 100 MG TAB/CAP PO SCH (22:49)
[2024-12-09] MEDS: CEFEPIME 1GM/ 50ML 50 ML IV SCH (22:51)
[2024-12-10] VITALS (10 sets, daily range): BP systolic 133–149; BP diastolic 85–96; PULSE 74–135; RESP 17–19; TEMP 97.4–97.8; O2SAT 95–100
[2024-12-10 06:44] LABS: Basophils # (auto) 0 10 ^3/uL (0-0.2); Basophils % (auto) 0.5 % (0.0-2.0); Eosinophils # (auto) 0.1 10 ^3/uL (0-0.8); Eosinophils % (auto) 1.8 % (0.0-7.0); Hemoglobin 11.2 g/dL (12.2-16.2); Lymphocytes # (auto) 1.6 10 ^3/uL (0.4-5.4); Mean Corpuscular Hemoglobin 31.4 pg (28.0-32.0); Mean Corpuscular Hgb Conc. 32.9 g/dL (32.0-36.0); Mean Corpuscular Volume 95.6 fL (80.0-100.0); Monocytes # (auto) 0.6 10 ^3/uL (0-1.3); Monocytes % (auto) 10.2 % (0.0-12.0); Neutrophils # (auto) 3.5 10 ^3/uL (1.6-8.6); Neutrophils % (auto) 59.5 % (37.0-80.0); Platelet Count (auto) 230 10^3/uL (140-450); Red Blood Cells 3.56 10^6/uL (4.0-5.20); Red Cell Distribution Width 15.6 % (11.8-14.3); White Blood Cell 5.8 10^3/uL (4.4-10.8)
[2024-12-10 06:51] LABS: Chloride 106 mmol/L (98-107); Potassium 3.7 mmol/L (3.5-5.1); Sodium 141 mmol/L (136-145)
[2024-12-10 06:52] LABS: Anion Gap 9 (5-15); Calcium 9.1 mg/dL (8.7-10.4); Carbon Dioxide 26 mmol/L (20-31)
[2024-12-10 06:57] LABS: Glucose 89 mg/dL (74-106)
[2024-12-10 06:58] LABS: BUN/Creatinine Ratio 13.6 (10.0-20.0); Blood Urea Nitrogen 11 mg/dL (9-23)
[2024-12-10] MEDS ORDERED: cefTRIAXone 1GM/50ML D5W 50 ML IV SCH (09:00)
[2024-12-10] MEDS: CLOPIDOGREL BISULFATE 75 MG TAB PO SCH (09:20)
[2024-12-10] MEDS: POTASSIUM EFFERVESENT TAB 25 MEQ PO ONE (09:21)
[2024-12-10] MEDS: FUROSEMIDE 20 MG/2 ML VIAL IV SCH (09:25)
--- NOTE | 2024-12-10 11:34 | DVHPN2 ---
Progress Note Date Seen: December 10, 2024 Resident Creating Document: JOON DELGADO RESIDENT Medical Necessity Reason Pt with a Central, PICC or Fol: No Subjective Review of Systems HPI 79-year-old female with past medical history of seizures, depression, hypertension, TIA, stroke, atrial fibrillation presented with complaints of "high blood pressure" which was 171/121 in the home. Patient also mentioned she has been having nausea and vomiting for last one week associated with shortness of breath. Patient can not walk because of knee placement but was feeling shortness of breath at rest for last seven days. She denied any chest pain, palpitations.. Patient also mentioned associated heaviness in the epigastric region and lower sternal region. Patient denied any complaints of constipation, diarrhea, abdominal pain. Patient is a poor historian, does not know mentioned when she had atrial fibrillation. She denied any previous stress test or left heart catheterization done As per history obtained from over the phone, patient had AFib that was found in March and she was admitted for UTI, was following with [facility] and [facility] was Infectious Disease, where again she was found to be having AFib.. mentioned that patient was on Eliquis but later was discontinued, does not remember the reason. pt takes plavix for TIA/Stroke which she had in the past. Presenting to the ED patient was found to be AFib in RVR after which the ED physician started the patient on amiodarone drip. Past medical history Seizures, depression, hypertension, TIA, stroke, atrial fibrillation Surgical history Cervical fusion surgery New placement surgery Social history Patient is active smoker, smoked for 50 years, less than one pack a day Family history Nonsignificant Allergic history Codeine Medication history pt does not remember from medical records Aspirin Buspirone Plavix Escitalopram Lacosamide levetiracetam Metoprolol Lisinopril Vitamin-A INTERVAL EVENTS pt seen and examined at bedside, mentions no complaints of chest pain, shortness of breath, palpitations, cough, orthopnea, PND Patient is currently AFib with heart rate in 90s as per telemetry Patient reports: No new complaints Objective vital signs Vital Sign Date Time Temp Pulse Resp B/P (MAP) Pulse Ox O2 Delivery O2 Flow Rate FiO2 12/10/24 10:38 99 Nasal Cannula* 3 32 12/10/24 09:25 147/94 12/10/24 09:22 86 12/10/24 09:00 97.4 17 97.4 Total Intake and Output 12/09/24 12/09/24 12/10/24 15:00 23:00 07:00 Intake Total 333.31 ml 150 ml 500 ml Output Total 575 ml 500 ml Balance 333.31 ml -425 ml 0 ml medications Current Medications Medications Dose Ordered Sig/Janette Route Start Time Stop Time Status Last Admin Dose Admin Furosemide 20 mg DAILY IV 12/10/24 10:00 12/10/24 09:25 20 MG Metoprolol Tartrate 25 mg BID PO 12/09/24 10:00 12/10/24 09:22 25 MG Apixaban 5 mg BID PO 12/09/24 10:00 12/10/24 09:24 5 MG Levetiracetam 750 mg BID PO 12/09/24 10:00 12/10/24 09:23 750 MG Lacosamide 50 mg BID PO 12/09/24 10:00 12/10/24 09:17 50 MG Atorvastatin Calcium 40 mg HS PO 12/09/24 22:00 12/09/24 22:46 40 MG Ondansetron HCl 4 mg Q4HP PRN IV 12/09/24 03:45 Acetaminophen 650 mg Q6HP PRN PO 12/09/24 03:45 Nitroglycerin 0.4 mg Q5MINP PRN SL 12/09/24 03:45 Morphine Sulfate 2 mg Q30M PRN IV 12/09/24 03:45 Albuterol 2.5 mg Q6HPRN PRN NEB 12/09/24 04:00 12/09/24 10:31 2.5 MG Lisinopril 20 mg DAILY PO 12/09/24 10:00 12/10/24 09:24 20 MG Ipratropium [place] 0.5 mg Q4HPRN PRN NEB 12/09/24 10:00 12/09/24 10:31 0.5 MG Clopidogrel Bisulfate 75 mg DAILY PO 12/10/24 10:00 12/10/24 09:20 75 MG Cefepime HCl 50 ml @ 12.5 mls/hr Q8H IV 12/09/24 22:00 12/10/24 05:42 12.5 MLS/HR Doxycycline Monohydrate 100 mg Q12HR PO 12/09/24 22:00 12/10/24 09:24 100 MG Examination Examination General Appearance: Alert, Oriented X3, Cooperative, No acute distress HEENT: EOMI Respiratory: Bilateral wheezing Clear to auscultation, Normal air movement Cardiovascular: Regular rate, Normal S1, Normal S2 Abdominal: Normal bowel sounds Extremities: No cyanosis, No edema, Normal pulses, No tenderness/swelling Skin: No rashes, No breakdown Neuro: Normal gait, Normal speech, Strength at 5/5 X4 ext, Normal tone, Sensation intact, Cranial nerves 3-12 NL, Reflexes 2+ Psych/Mental Status: Mental status NL, Mood NL laboratory and microbiology Laboratory Tests 12/10/24 05:26 Test 12/10/24 05:26 Range/Units Serum Glucose 89 74-106 mg/dL Microbiology Date/Time Source Procedure Growth Status 12/09/24 10:15 Urine - Catheterized Urine Culture - Preliminary Resulted Problem List/Assessment/Plan Problem List/Assessment/Plan ASSESSMENT/PLAN #Afib with RVR, now resolved, long persistent -on eliquis( started by the ED) and metoprolol -6 points [id number] Score -HASBLED score 4 #Acute HFREF exacerbation -elevated BNP 942.99 -CXR shows cardiomegaly with pulmonary edema -EKG shows T wave inversion in lead V4,V5, and V6. -normal Trops -last echo 05/07 showed MODERATE DEGREE LVH MODERATE DEGREE LV DIASTOLIC DYSFUNCTION LV EJECTION FRACTION IS 65% POSTERIOR MV CALCIFIED MODERATELY DILATED LA MODERATELY DILATED RV AND RA NO EFFUSION ecHO DONE 12/09/24 SHOWS lvef 10-15% markedly dilated LV end stage systolic HF RV enlarged dysfunction signficnat left atrium enlarged small pericardial effusion ,no HD compromise moderate mitral regurg # hypertensive crisis, currently resolved -patient is currently on lisinopril and metoprolol at home # history of seizures #History of TIA -on plavix and statins # Depression #UTI Plan Keep potassium greater than four, magnesium greater than two Telemetry, monitoring Continue metoprolol 25mg BID Patient has long persistent AFib, avoid cardioversion with rhythm control agents, as unknown history of anticoagulation, continue rate control with metoprolol Continue Plavix (home medication started for TIA/stroke/PAD) Gentle IV diuretics for heart failure exacerbation echocardiogram, REPEAT SHOWS lvef 10-15% which has significantly dropped from 65% in apr 2024 considering patients significant drop in EF and multiple high risk factors, will schedule the patient for [facility] on saturday for ischaemic workup (since patient was on eliquis) hold eliquis, will bridge to lovenox on saturday continue plavix Case discussed with Dr Dumont Plan discussed with: Patient, Other My Orders My Orders Orders - JOON DELGADO Procedure Category Date Status Time Clopidogrel Bisulfate PHA 12/10/24 In Process (Plavix) 10:00 JOON DELGADO December 10, 2024 11:34
--- NOTE | 2024-12-10 11:55 | DVHSR ---
APPROVED REPORT EXAM: Two-dimensional and M-mode echocardiogram with Doppler and color Doppler. Blood Pressure: 149/80 mmHg INDICATION CHF RISK FACTORS Height: 5'6, Weight: 162 DIMENSIONS LVDd4.4 (3.8-5.7cm)LA (2D)6.4 (1.9-4.0cm)Aortic Root3.5 (2.0-3.7cm) LVDs3.8 (2.5-4.0cm)LA (MM) (1.9-4.0cm)Aortic Cusp Exc1.4 (1.5-2.0cm) EF (%) 30 (55-70%)Rt. Atrium4.9 (1.9-4.0cm)Asc. Aorta cm IVSd1.1 (0.7-1.1cm)RV (D)3.9 (1.8-2.4cm) PWd1.0 (0.7-1.1cm) Mitral Valve MitralMitral Stenosis E wave0.90m/sMV Mean GR.1mmHg A wavem/sMV Peak GR.137mmHg E/A ratio0.02D MVAcm2 DECEL [id number] 1/2 Timems Aortic Valve Aortic ValveAortic Stenosis V10.46m/Talya Mean GR.2mmHg V21.03m/Talya Peak GR.4mmHg LVOT Diameter2.2 (1.8-2.4cm)Doppler AVA1.70cm2 Pulmonic Valve V20.61m/s Tricuspid Valve TR Velocity2.41m/s [id number] Conclusion lvef 10-15% markedly dilated LV end stage systolic HF RV enlarged dysfunction signficnat left atrium enlarged small pericardial effusion ,no HD compromise moderate mitral regurg
--- NOTE | 2024-12-10 14:30 | DVHPN2 ---
Subjective Seen and examined at bedside, patient is on 3-4 liters oxygen. Change to Cefepime and add Doxy PO. New onset Systolic CHF. EF now 10-15%. Await Cardio Reccs. Unsure if patient had ischemic workup. Changes from previous H/P or p: No Changes Objective Vitals Vital Signs Date Time Temp Pulse Resp B/P (MAP) Pulse Ox O2 Delivery O2 Flow Rate FiO2 12/10/24 12:30 97.6 85 18 133/85 (101) 99 97.6 12/10/24 10:38 Nasal Cannula* 3 32 Intake/Output Intake and Output 12/10/24 07:00 Intake Total 983.31 ml Output Total 1075 ml Balance -91.69 ml Intake Oral 650 ml IV Total 333.31 ml Output Urine Total 1075 ml General Appearance: Alert, Cooperative, Other (confused) HEENT: Atraumatic Lungs: Other (diminished) Cardiovascular: Other (Irregular) Abdomen: Normal bowel sounds, Soft Psych/Mental Status: Other (confused) Medications Current Medications Medications Dose Ordered Sig/Janette Route Start Time Stop Time Status Last Admin Dose Admin Furosemide 20 mg DAILY IV 12/10/24 10:00 12/10/24 09:25 20 MG Metoprolol Tartrate 25 mg BID PO 12/09/24 10:00 12/10/24 09:22 25 MG Apixaban 5 mg BID PO 12/09/24 10:00 12/10/24 09:24 5 MG Levetiracetam 750 mg BID PO 12/09/24 10:00 12/10/24 09:23 750 MG Lacosamide 50 mg BID PO 12/09/24 10:00 12/10/24 09:17 50 MG Atorvastatin Calcium 40 mg HS PO 12/09/24 22:00 12/09/24 22:46 40 MG Ondansetron HCl 4 mg Q4HP PRN IV 12/09/24 03:45 Acetaminophen 650 mg Q6HP PRN PO 12/09/24 03:45 Nitroglycerin 0.4 mg Q5MINP PRN SL 12/09/24 03:45 Morphine Sulfate 2 mg Q30M PRN IV 12/09/24 03:45 Albuterol 2.5 mg Q6HPRN PRN NEB 12/09/24 04:00 12/09/24 10:31 2.5 MG Lisinopril 20 mg DAILY PO 12/09/24 10:00 12/10/24 09:24 20 MG Ipratropium [place] 0.5 mg Q4HPRN PRN NEB 12/09/24 10:00 12/09/24 10:31 0.5 MG Clopidogrel Bisulfate 75 mg DAILY PO 12/10/24 10:00 12/10/24 09:20 75 MG Cefepime HCl 50 ml @ 12.5 mls/hr Q8H IV 12/09/24 22:00 12/10/24 14:26 12.5 MLS/HR Doxycycline Monohydrate 100 mg Q12HR PO 12/09/24 22:00 12/10/24 09:24 100 MG Laboratory Results Laboratory Tests 12/10/24 05:26 Chemistry Test 12/10/24 05:26 Calcium Level 9.1 mg/dL (8.7-10.4) Magnesium Level 2.0 mg/dL (1.6-2.6) Urinalysis Test 12/09/24 10:15 Urine Color Dark-brown (Yellow) Urine Clarity Ex.turbid (Clear) Urine pH 6.0 (5.0-9.0) Urine Specific [place] 1.006 (1.001-1.035) Urine Protein 2+ (Negative) H Urine Ketones Negative (Negative) Urine Blood 3+ /uL (Negative) H Urine Nitrite 1+ (Negative) H Urine Bilirubin Negative (Negative) Urine Urobilinogen Normal mg/dL (Negative) Urine Leukocyte Esterase 3+ /uL (Negative) Urine RBC 87 /hpf (0 - 4) Urine WBC Clumps Present /hpf (None Seen) Urine Microscopic WBC 3066 /HPF (0-5) H Urine Squamous Epithelial Cells Few /hpf (<5) Urine Bacteria None seen /hpf (None Seen) Urine Hyaline Casts Many /lpf (0 - 2) Urine Glucose Normal mg/dL (Normal) Microbiology Microbiology Date/Time Source Procedure Growth Status 12/09/24 10:15 Urine - Catheterized Urine Culture - Preliminary Resulted Assessment/Plan Assessment/Plan # A-Fibb with RVR - Amio - Cardio Cx # Acute Systolic CHF 10-15% EF - Lasix - Cardio Eval # Complicated UTI - Get cultures - Cefepime # Possible Gram Neg PNA vs Aspiration PNA - Cefepime and Doxy # Acute Resp Failure - Titrate oxygen down # Pulm Edema # Goals of care discussion >18 mins FULL CODE Plan discussed with: Patient, Spouse My Orders Orders - MED COHEN MD Procedure Category Date Status Time Education - Smoking LAURENT 12/09/24 In Process Cessation 17:25 * Smoking Cessation CONS 12/09/24 Transmitted Consult 17:25 * Metal Numerical Control Programmer CONS 12/09/24 Transmitted Consult Cefepime 1gm/ 50ml PHA 12/09/24 In Process (Maxipime 1gm/50ml) 22:00 Doxycycline Tablet PHA 12/09/24 In Process (Vibramycin Tablet) 22:00 * Wound Consult CONS 12/09/24 Transmitted 18:49 * Dietary Consult CONS 12/10/24 Transmitted 14:19 Cleanse Wound With LAURENT 12/10/24 In Process Mild Soap A 11:33 Date of Service: December 10, 2024 Billing Provider: MED COHEN MD Common Visit Codes: [id number] INP/OBS CARE(HIGH) Secondary Visit Codes: [id number] CARE PLAN 30 MINUTES MED COHEN MD December 10, 2024 14:30
[2024-12-10] MEDS: QUEtiapine FUMARATE 25 MG TAB PO SCH (22:53)
[2024-12-11] VITALS (12 sets, daily range): BP systolic 105–142; BP diastolic 76–96; PULSE 79–123; RESP 16–19; TEMP 97.4–98.1; O2SAT 95–100
--- NOTE | 2024-12-11 12:15 | DVHPN2 ---
Subjective Seen and examined at bedside, patient is on 3-4 liters oxygen. Change to Invanz for UTI. [facility] on Saturday. Spouse at bedside. Changes from previous H/P or p: No Changes Objective Vitals Vital Signs Date Time Temp Pulse Resp B/P (MAP) Pulse Ox O2 Delivery O2 Flow Rate FiO2 12/11/24 09:00 97.4 90 16 137/96 (110) 95 97.4 12/11/24 08:36 Nasal Cannula 3.0 12/11/24 08:36 32 Intake/Output Intake and Output 12/11/24 07:00 Intake Total 1600 ml Output Total 2050 ml Balance -450 ml Intake Oral 1450 ml IV Total 150 ml Output Urine Total 2050 ml General Appearance: Alert, Cooperative, Other (confused) HEENT: Atraumatic Lungs: Other (diminished) Cardiovascular: Other (Irregular) Abdomen: Normal bowel sounds, Soft Psych/Mental Status: Other (confused) Medications Current Medications Medications Dose Ordered Sig/Janette Route Start Time Stop Time Status Last Admin Dose Admin Furosemide 20 mg DAILY IV 12/10/24 10:00 12/11/24 08:39 20 MG Metoprolol Tartrate 25 mg BID PO 12/09/24 10:00 12/11/24 08:41 25 MG Levetiracetam 750 mg BID PO 12/09/24 10:00 12/11/24 08:40 750 MG Lacosamide 50 mg BID PO 12/09/24 10:00 12/11/24 08:40 50 MG Atorvastatin Calcium 40 mg HS PO 12/09/24 22:00 12/10/24 22:51 40 MG Ondansetron HCl 4 mg Q4HP PRN IV 12/09/24 03:45 Acetaminophen 650 mg Q6HP PRN PO 12/09/24 03:45 Nitroglycerin 0.4 mg Q5MINP PRN SL 12/09/24 03:45 Morphine Sulfate 2 mg Q30M PRN IV 12/09/24 03:45 Albuterol 2.5 mg Q6HPRN PRN NEB 12/09/24 04:00 12/09/24 10:31 2.5 MG Lisinopril 20 mg DAILY PO 12/09/24 10:00 12/11/24 08:40 20 MG Ipratropium [place] 0.5 mg Q4HPRN PRN NEB 12/09/24 10:00 12/09/24 10:31 0.5 MG Clopidogrel Bisulfate 75 mg DAILY PO 12/10/24 10:00 12/11/24 08:39 75 MG Cefepime HCl 50 ml @ 12.5 mls/hr Q8H IV 12/09/24 22:00 12/11/24 05:06 12.5 MLS/HR Doxycycline Monohydrate 100 mg Q12HR PO 12/09/24 22:00 12/11/24 08:41 100 MG Quetiapine Fumarate 50 mg HS PO 12/10/24 22:00 12/10/24 22:53 50 MG Laboratory Results Laboratory Tests 12/10/24 05:26 Urinalysis Test 12/09/24 10:15 Urine Color Dark-brown (Yellow) Urine Clarity Ex.turbid (Clear) Urine pH 6.0 (5.0-9.0) Urine Specific [place] 1.006 (1.001-1.035) Urine Protein 2+ (Negative) H Urine Ketones Negative (Negative) Urine Blood 3+ /uL (Negative) H Urine Nitrite 1+ (Negative) H Urine Bilirubin Negative (Negative) Urine Urobilinogen Normal mg/dL (Negative) Urine Leukocyte Esterase 3+ /uL (Negative) Urine RBC 87 /hpf (0 - 4) Urine WBC Clumps Present /hpf (None Seen) Urine Microscopic WBC 3066 /HPF (0-5) H Urine Squamous Epithelial Cells Few /hpf (<5) Urine Bacteria None seen /hpf (None Seen) Urine Hyaline Casts Many /lpf (0 - 2) Urine Glucose Normal mg/dL (Normal) Microbiology Microbiology Date/Time Source Procedure Growth Status 12/09/24 10:15 Urine - Catheterized Urine Culture - Preliminary Resulted Assessment/Plan Assessment/Plan # A-Fibb with RVR - Amio - Cardio Cx # Acute Systolic CHF 10-15% EF - Lasix - Cardio Eval for [facility] on SaturdayDecember 14 # Complicated UTI - Get cultures - Invanz # Possible Gram Neg PNA vs Aspiration PNA - Invanz and Doxy # Acute Resp Failure - Titrate oxygen down # Pulm Edema # Goals of care discussion >18 mins FULL CODE Plan discussed with: Patient, Spouse My Orders Orders - MED COHEN MD Procedure Category Date Status Time * Dietary Consult CONS 12/10/24 Transmitted 14:19 Cleanse Wound With LAURENT 12/10/24 In Process Mild Soap A 11:33 Quetiapine Fumarate PHA 12/10/24 In Process Tablet (Seroquel Tab 22:00 Invanz 1gm Ivpb X One PHA 12/11/24 Verified 12:15 Invanz 1gm Ivpb Daily PHA 12/12/24 Verified 10:00 Date of Service: December 11, 2024 Billing Provider: MED COHEN MD Common Visit Codes: [id number] INP/OBS CARE(HIGH) MED COHEN MD December 11, 2024 12:15
[2024-12-11] MEDS: MAGNESIUM OXIDE 400 MG TAB PO ONE (13:12)
--- NOTE | 2024-12-11 13:46 | DVHPN2 ---
Progress Note Date Seen: December 11, 2024 Resident Creating Document: JOON DELGADO RESIDENT Medical Necessity Reason Pt with a Central, PICC or Fol: No Subjective Review of Systems HPI 79-year-old female with past medical history of seizures, depression, hypertension, TIA, stroke, atrial fibrillation presented with complaints of "high blood pressure" which was 171/121 in the home. Patient also mentioned she has been having nausea and vomiting for last one week associated with shortness of breath. Patient can not walk because of knee placement but was feeling shortness of breath at rest for last seven days. She denied any chest pain, palpitations.. Patient also mentioned associated heaviness in the epigastric region and lower sternal region. Patient denied any complaints of constipation, diarrhea, abdominal pain. Patient is a poor historian, does not know mentioned when she had atrial fibrillation. She denied any previous stress test or left heart catheterization done As per history obtained from over the phone, patient had AFib that was found in March and she was admitted for UTI, was following with [facility] and [facility] was Infectious Disease, where again she was found to be having AFib.. mentioned that patient was on Eliquis but later was discontinued, does not remember the reason. pt takes plavix for TIA/Stroke which she had in the past. Presenting to the ED patient was found to be AFib in RVR after which the ED physician started the patient on amiodarone drip. Past medical history Seizures, depression, hypertension, TIA, stroke, atrial fibrillation Surgical history Cervical fusion surgery New placement surgery Social history Patient is active smoker, smoked for 50 years, less than one pack a day Family history Nonsignificant Allergic history Codeine Medication history pt does not remember from medical records Aspirin Buspirone Plavix Escitalopram Lacosamide levetiracetam Metoprolol Lisinopril Vitamin-A INTERVAL EVENTS 12/10/24 pt seen and examined at bedside, mentions no complaints of chest pain, shortness of breath, palpitations, cough, orthopnea, PND Patient is currently AFib with heart rate in 90s as per telemetry 12/11/24 pt seen and examined at bedside, mentions no complaints of chest pain, shortness of breath, palpitations, cough, orthopnea, PND Objective vital signs Vital Sign Date Time Temp Pulse Resp B/P (MAP) Pulse Ox O2 Delivery O2 Flow Rate FiO2 12/11/24 09:41 86 126/92 12/11/24 09:00 97.4 16 95 97.4 12/11/24 08:36 Nasal Cannula 3.0 12/11/24 08:36 32 Total Intake and Output 12/10/24 12/10/24 12/11/24 15:00 23:00 07:00 Intake Total 50 ml 1000 ml 550 ml Output Total 1050 ml 1000 ml Balance 50 ml -50 ml -450 ml medications Current Medications Medications Dose Ordered Sig/Janette Route Start Time Stop Time Status Last Admin Dose Admin Furosemide 20 mg DAILY IV 12/10/24 10:00 12/11/24 08:39 20 MG Metoprolol Tartrate 25 mg BID PO 12/09/24 10:00 12/11/24 08:41 25 MG Levetiracetam 750 mg BID PO 12/09/24 10:00 12/11/24 08:40 750 MG Lacosamide 50 mg BID PO 12/09/24 10:00 12/11/24 08:40 50 MG Atorvastatin Calcium 40 mg HS PO 12/09/24 22:00 12/10/24 22:51 40 MG Ondansetron HCl 4 mg Q4HP PRN IV 12/09/24 03:45 Acetaminophen 650 mg Q6HP PRN PO 12/09/24 03:45 Nitroglycerin 0.4 mg Q5MINP PRN SL 12/09/24 03:45 Morphine Sulfate 2 mg Q30M PRN IV 12/09/24 03:45 Albuterol 2.5 mg Q6HPRN PRN NEB 12/09/24 04:00 12/09/24 10:31 2.5 MG Lisinopril 20 mg DAILY PO 12/09/24 10:00 12/11/24 08:40 20 MG Ipratropium [place] 0.5 mg Q4HPRN PRN NEB 12/09/24 10:00 12/09/24 10:31 0.5 MG Clopidogrel Bisulfate 75 mg DAILY PO 12/10/24 10:00 12/11/24 08:39 75 MG Doxycycline Monohydrate 100 mg Q12HR PO 12/09/24 22:00 12/11/24 08:41 100 MG Quetiapine Fumarate 50 mg HS PO 12/10/24 22:00 12/10/24 22:53 50 MG Ertapenem 1 gm/ Sodium Chloride 50 ml @ 100 mls/hr DAILY IV 12/12/24 10:00 Examination Examination General Appearance: Alert, Oriented X3, Cooperative, No acute distress HEENT: EOMI Respiratory: Bilateral wheezing Clear to auscultation, Normal air movement Cardiovascular: Regular rate, Normal S1, Normal S2 Abdominal: Normal bowel sounds Extremities: No cyanosis, No edema, Normal pulses, No tenderness/swelling Skin: No rashes, No breakdown Neuro: Normal gait, Normal speech, Strength at 5/5 X4 ext, Normal tone, Sensation intact, Cranial nerves 3-12 NL, Reflexes 2+ Psych/Mental Status: Mental status NL, Mood NL laboratory and microbiology Laboratory Tests 12/10/24 05:26 Test 12/10/24 05:26 Range/Units Serum Glucose 89 74-106 mg/dL Microbiology Date/Time Source Procedure Growth Status 12/09/24 10:15 Urine - Catheterized Urine Culture - Preliminary Resulted Labs and/or images reviewed: Labs reviewed by me, Image(s) reviewed by me Problem List/Assessment/Plan Problem List/Assessment/Plan ASSESSMENT/PLAN #Afib with RVR, now resolved, long persistent -on eliquis( started by the ED) and metoprolol -6 points [id number] Score -HASBLED score 4 #Acute HFREF exacerbation -elevated BNP 942.99 -CXR shows cardiomegaly with pulmonary edema -EKG shows T wave inversion in lead V4,V5, and V6. -normal Trops -last echo 05/07 showed MODERATE DEGREE LVH MODERATE DEGREE LV DIASTOLIC DYSFUNCTION LV EJECTION FRACTION IS 65% POSTERIOR MV CALCIFIED MODERATELY DILATED LA MODERATELY DILATED RV AND RA NO EFFUSION ecHO DONE 12/09/24 SHOWS lvef 10-15% markedly dilated LV end stage systolic HF RV enlarged dysfunction signficnat left atrium enlarged small pericardial effusion ,no HD compromise moderate mitral regurg # hypertensive crisis, currently resolved -patient is currently on lisinopril and metoprolol at home # history of seizures #History of TIA -on plavix and statins # Depression #UTI Plan Keep potassium greater than four, magnesium greater than two Telemetry, monitoring Continue metoprolol 25mg BID Patient has long persistent AFib, avoid cardioversion with rhythm control agents, as unknown history of anticoagulation, continue rate control with metoprolol Continue Plavix (home medication started for TIA/stroke/PAD) Gentle IV diuretics for heart failure exacerbation echocardiogram, REPEAT SHOWS lvef 10-15% which has significantly dropped from 65% in apr 2024 considering patients significant drop in EF and multiple high risk factors, will schedule the patient for C on saturday for ischaemic workup (since patient was on eliquis) hold eliquis, will bridge to lovenox on saturday continue plavix Case discussed with Dr sequeira Plan discussed with: Other My Orders My Orders Orders - JOON DELGADO RESIDENT Procedure Category Date Status Time Cl Left Heart Cath CL 12/14/24 Verified 07:00 Obtain Consent For: ORDERS 12/14/24 Verified 08:00 Hold Enoxaparin Day LAURENT 12/12/24 Verified Of Procedu 00:01 D/C Tlc [facility] 12/14/24 Verified 13:36 Shave Both Groins [facility] 12/14/24 Verified 13:36 Provide Education [facility] 12/11/24 Verified Materials 13:36 Comprehensive LAB 12/13/24 Verified Metabolic Panel 04:00 Npo (Nothing By DIET 12/14/24 Verified Mouth) Diet Breakfast Obtain Consent For [facility] 12/14/24 Verified Anesthesia 13:36 Dietary Evaluation Review Comments: 1.Low LDL, high TG, recommend a repeat of lipid profile, consider d/c lipitor d/t advance age. 2. Cardiac Diet Expected Outcomes/Goals: gradual wt loss JOON DELGADO RESIDENT December 11, 2024 13:46
[2024-12-11] MEDS: ERTAPENEM SOD INJ 1 GM in SODIUM CHL 0.9% 50 ML IV ONE (14:16)
[2024-12-12] VITALS (11 sets, daily range): BP systolic 137–155; BP diastolic 87–95; PULSE 74–106; RESP 16–18; TEMP 96.2–97.6; O2SAT 94–100
[2024-12-12 07:49] LABS: INR 1.19 (0.9-1.15); Partial Thromboplastin Time 29.9 SEC (24.5-34.5); Prothrombin Time 12.4 sec (9.3-11.8)
[2024-12-12] MEDS: ERTAPENEM SOD INJ 1 GM in SODIUM CHL 0.9% 50 ML IV SCH (09:21)
--- NOTE | 2024-12-12 11:07 | DVHPN2 ---
Subjective Seen and examined at bedside, patient is on 3-4 liters oxygen. Cont Invanz for UTI. C on Saturday. Spouse at bedside. Changes from previous H/P or p: No Changes Objective Vitals Vital Signs Date Time Temp Pulse Resp B/P (MAP) Pulse Ox O2 Delivery O2 Flow Rate FiO2 12/12/24 09:20 144/95 12/12/24 09:19 87 12/12/24 08:24 96.2 17 99 96.2 12/12/24 07:45 Nasal Cannula* 2 28 Intake/Output Intake and Output 12/12/24 07:00 Intake Total 1080 ml Output Total 1650 ml Balance -570 ml Intake Oral 1080 ml Output Urine Total 1650 ml # Bowel Movements 2 General Appearance: Alert, Cooperative, Other (confused) HEENT: Atraumatic Lungs: Other (diminished) Cardiovascular: Other (Irregular) Abdomen: Normal bowel sounds, Soft Skin: Other (See wound care notes) Psych/Mental Status: Other (confused) Medications Current Medications Medications Dose Ordered Sig/Janette Route Start Time Stop Time Status Last Admin Dose Admin Furosemide 20 mg DAILY IV 12/10/24 10:00 12/12/24 09:19 20 MG Metoprolol Tartrate 25 mg BID PO 12/09/24 10:00 12/12/24 09:19 25 MG Levetiracetam 750 mg BID PO 12/09/24 10:00 12/12/24 09:20 750 MG Lacosamide 50 mg BID PO 12/09/24 10:00 12/12/24 09:21 50 MG Atorvastatin Calcium 40 mg HS PO 12/09/24 22:00 12/11/24 21:01 40 MG Ondansetron HCl 4 mg Q4HP PRN IV 12/09/24 03:45 Acetaminophen 650 mg Q6HP PRN PO 12/09/24 03:45 Nitroglycerin 0.4 mg Q5MINP PRN SL 12/09/24 03:45 Morphine Sulfate 2 mg Q30M PRN IV 12/09/24 03:45 Albuterol 2.5 mg Q6HPRN PRN NEB 12/09/24 04:00 12/11/24 18:12 2.5 MG Lisinopril 20 mg DAILY PO 12/09/24 10:00 12/12/24 09:20 20 MG Ipratropium [place] 0.5 mg Q4HPRN PRN NEB 12/09/24 10:00 12/11/24 18:12 0.5 MG Clopidogrel Bisulfate 75 mg DAILY PO 12/10/24 10:00 12/11/24 08:39 75 MG Doxycycline Monohydrate 100 mg Q12HR PO 12/09/24 22:00 12/12/24 09:19 100 MG Quetiapine Fumarate 50 mg HS PO 12/10/24 22:00 12/11/24 21:00 50 MG Ertapenem 1 gm/ Sodium Chloride 50 ml @ 100 mls/hr DAILY IV 12/12/24 10:00 12/12/24 09:21 100 MLS/HR Enoxaparin Sodium 80 mg Q12HR SC 12/13/24 10:00 Laboratory Results Laboratory Tests 12/10/24 05:26 Coagulation Test 12/12/24 04:55 Prothrombin Time 12.4 sec (9.3-11.8) H Prothrombin Time INR 1.19 (0.9-1.15) H Activated Partial Thromboplast Time 29.9 SEC (24.5-34.5) Urinalysis Test 12/09/24 10:15 Urine Color Dark-brown (Yellow) Urine Clarity Ex.turbid (Clear) Urine pH 6.0 (5.0-9.0) Urine Specific [place] 1.006 (1.001-1.035) Urine Protein 2+ (Negative) H Urine Ketones Negative (Negative) Urine Blood 3+ /uL (Negative) H Urine Nitrite 1+ (Negative) H Urine Bilirubin Negative (Negative) Urine Urobilinogen Normal mg/dL (Negative) Urine Leukocyte Esterase 3+ /uL (Negative) Urine RBC 87 /hpf (0 - 4) Urine WBC Clumps Present /hpf (None Seen) Urine Microscopic WBC 3066 /HPF (0-5) H Urine Squamous Epithelial Cells Few /hpf (<5) Urine Bacteria None seen /hpf (None Seen) Urine Hyaline Casts Many /lpf (0 - 2) Urine Glucose Normal mg/dL (Normal) Microbiology Microbiology Date/Time Source Procedure Growth Status 12/09/24 10:15 Urine - Catheterized Urine Culture - Preliminary Resulted Assessment/Plan Assessment/Plan # A-Fibb with RVR - Amio - Cardio Cx noted # Acute Systolic CHF 10-15% EF - Lasix - Cardio Eval for [facility] on SaturdayDecember 14 # Complicated UTI - Get cultures - Invanz # Possible Gram Neg PNA vs Aspiration PNA - Invanz and Doxy # Acute Resp Failure - Titrate oxygen down # Pulm Edema # Bed Sores (POA) - Wound Consult # Goals of care discussion >18 mins FULL CODE Plan discussed with: Patient, Spouse My Orders Orders - MED COHEN MD Procedure Category Date Status Time Ertapenem Sod Inj PHA 12/12/24 In Process (Invanz) 10:00 Date of Service: December 12, 2024 Billing Provider: MED COHEN MD Common Visit Codes: [id number] INP/OBS CARE(MOD) MED COHEN MD December 12, 2024 11:07
[2024-12-12] MEDS ORDERED: ZOLPIDEM TARTRATE 5 MG TAB PO PRN ×2 (11:15→22:00)
[2024-12-12] MEDS: traMADol HCL 50 MG TAB PO PRN (12:19)
--- NOTE | 2024-12-12 17:48 | DVHPN2 ---
Consult Progress Note Subjective Other Systems: Patient remains in atrial fibrillation with heart rate in low 100s on director stars Objective vital signs Vital Sign Date Time Temp Pulse Resp B/P (MAP) Pulse Ox O2 Delivery O2 Flow Rate FiO2 12/12/24 16:21 97.5 105 16 140/87 (104) 99 97.5 12/12/24 07:45 Nasal Cannula* 2 28 Total Intake and Output 12/11/24 12/11/24 12/12/24 15:00 23:00 07:00 Intake Total 840 ml 240 ml Output Total 1100 ml 550 ml Balance -260 ml -310 ml medications Current Medications Medications Dose Ordered Sig/Janette Route Start Time Stop Time Status Last Admin Dose Admin Furosemide 20 mg DAILY IV 12/10/24 10:00 12/12/24 09:19 20 MG Metoprolol Tartrate 25 mg BID PO 12/09/24 10:00 12/12/24 09:19 25 MG Levetiracetam 750 mg BID PO 12/09/24 10:00 12/12/24 09:20 750 MG Lacosamide 50 mg BID PO 12/09/24 10:00 12/12/24 09:21 50 MG Atorvastatin Calcium 40 mg HS PO 12/09/24 22:00 12/11/24 21:01 40 MG Ondansetron HCl 4 mg Q4HP PRN IV 12/09/24 03:45 Acetaminophen 650 mg Q6HP PRN PO 12/09/24 03:45 Hold Nitroglycerin 0.4 mg Q5MINP PRN SL 12/09/24 03:45 Morphine Sulfate 2 mg Q30M PRN IV 12/09/24 03:45 Albuterol 2.5 mg Q6HPRN PRN NEB 12/09/24 04:00 12/11/24 18:12 2.5 MG Lisinopril 20 mg DAILY PO 12/09/24 10:00 12/12/24 09:20 20 MG Ipratropium [place] 0.5 mg Q4HPRN PRN NEB 12/09/24 10:00 12/11/24 18:12 0.5 MG Clopidogrel Bisulfate 75 mg DAILY PO 12/10/24 10:00 12/11/24 08:39 75 MG Doxycycline Monohydrate 100 mg Q12HR PO 12/09/24 22:00 12/12/24 09:19 100 MG Ertapenem 1 gm/ Sodium Chloride 50 ml @ 100 mls/hr DAILY IV 12/12/24 10:00 12/12/24 09:21 100 MLS/HR Enoxaparin Sodium 80 mg Q12HR SC 12/13/24 10:00 Zolpidem Tartrate 10 mg HSPRN PRN PO 12/12/24 22:00 Future Hold Tramadol HCl 50 mg Q6HP PRN PO 12/12/24 12:00 12/12/24 12:19 50 MG Examination: GENERAL:Abnormal (Generalized weakness), LUNGS:Normal, CVS:Abnormal (Atrial fibrillation), NEURO:Normal laboratory and microbiology Laboratory Tests 12/10/24 05:26 Test 12/10/24 05:26 Range/Units Serum Glucose 89 74-106 mg/dL Problem List/Assessment/Plan Problem List/Assessment/Plan Acute on chronic decompensated HFrEF, NYHA class III Atrial fibrillation with rapid ventricular response, longstanding persistent, stage 3C Hypertensive urgency, resolved History of TIA Seizures Urinary tract infection Plan/recommendation (Dr. Dumont): Transthoracic echocardiogram done on this admission reveals an EF of 10-15%. Previous transthoracic echocardiogram from 04/25/2024 reveals EF of 65%. Given recent drastic decrease in ejection fraction, we will plan to take the patient for ischemic workup with coronary angiogram with left heart catheterization. The procedure was discussed with the patient in full detail including risks and benefits. Risks include but are not limited to bleeding, contrast-induced nephropathy, stroke, and even . The patient understands and is agreeable to undergo the procedure. The patient is scheduled to undergo the procedure on 12/14/2024. In the meantime, continue with medical management. [id number] VASC score: 7 points. Therapeutic Lovenox while inpatient, transition to NOAC prior to discharge. Continue with the beta-almaz for rate control. Initiate Guideline directed medical therapy for CHF as tolerated. Switch metoprolol tartrate to metoprolol succinate per CHF guideline recommendations. Hold SGLT2i given active urinary tract infection. Continue single antiplatelet therapy and lipid-lowering agent. Preload and afterload reduction. Strict intake and output, daily weights, maintain fluid restriction. Close cardiac surveillance. Thank you for allowing us to care for this patient. Please call with any questions or concerns. This medical document was created using an electronic medical record system with voice recognition software and computerized dictation system. Although this document has been carefully reviewed, there might still be some phonetic and typographical errors. Occasional wrong-word or ``sound-alike substitutions may have occurred due to the inherent limitations of voice recognition software. These areas are purely typographical due to imperfections of the software programs and do not reflect any compromise in the patient's medical care. Please read the chart carefully and recognize, using context, where these substitutions have occurred. Plan discussed with: Patient Dietary Evaluation Review Comments: 1.Low LDL, high TG, recommend a repeat of lipid profile, consider d/c lipitor d/t advance age. 2. Cardiac Diet Expected Outcomes/Goals: gradual wt loss Date of Service: December 12, 2024 Billing Provider: BOUCHRA ANDINO Common Visit Codes: [id number] INP/OBS CARE(HIGH) BOUCHRA ANDINO December 12, 2024 17:48
[2024-12-12] MEDS: ONDANSETRON HCL 4 MG/2 ML VIAL IV PRN (23:19)
[2024-12-13] VITALS (8 sets, daily range): BP systolic 117–136; BP diastolic 79–91; PULSE 63–122; RESP 18–21; TEMP 96.7–98.1; O2SAT 95–99
[2024-12-13 05:57] LABS: Alanine Aminotransferase 16 U/L (7-40); Alkaline Phosphatase 66 U/L (46-116); Anion Gap 6 (5-15); Aspartate Aminotransferase 13 U/L (13-40); Bilirubin, Total 0.3 mg/dL (0.2-1.0); Blood Urea Nitrogen 16 mg/dL (9-23); Calcium 9.4 mg/dL (8.7-10.4); Carbon Dioxide 31 mmol/L (20-31); Chloride 105 mmol/L (98-107); Glucose 97 mg/dL (74-106); Potassium 3.8 mmol/L (3.5-5.1); Sodium 142 mmol/L (136-145); Total Protein 5.6 g/dL (5.7-8.2)
[2024-12-13 06:00] LABS: Albumin 3.1 g/dL (3.2-4.8)
--- NOTE | 2024-12-13 09:28 | DVHPN2 ---
Consult Progress Note Subjective Other Systems: Patient remains in atrial fibrillation with uncontrolled rate Objective vital signs Vital Sign Date Time Temp Pulse Resp B/P (MAP) Pulse Ox O2 Delivery O2 Flow Rate FiO2 12/13/24 08:54 96.8 88 19 136/89 (105) 96 96.8 12/12/24 20:00 Nasal Cannula* 2 28 Total Intake and Output 12/12/24 12/12/24 12/13/24 15:00 23:00 07:00 Intake Total 400 ml 400 ml Output Total 1300 ml 350 ml Balance -900 ml 50 ml medications Current Medications Medications Dose Ordered Sig/Janette Route Start Time Stop Time Status Last Admin Dose Admin Furosemide 20 mg DAILY IV 12/10/24 10:00 12/12/24 09:19 20 MG Levetiracetam 750 mg BID PO 12/09/24 10:00 12/12/24 22:07 750 MG Lacosamide 50 mg BID PO 12/09/24 10:00 12/12/24 22:07 50 MG Atorvastatin Calcium 40 mg HS PO 12/09/24 22:00 12/12/24 22:07 40 MG Ondansetron HCl 4 mg Q4HP PRN IV 12/09/24 03:45 12/12/24 23:19 4 MG Acetaminophen 650 mg Q6HP PRN PO 12/09/24 03:45 Hold Nitroglycerin 0.4 mg Q5MINP PRN SL 12/09/24 03:45 Morphine Sulfate 2 mg Q30M PRN IV 12/09/24 03:45 Albuterol 2.5 mg Q6HPRN PRN NEB 12/09/24 04:00 12/11/24 18:12 2.5 MG Lisinopril 20 mg DAILY PO 12/09/24 10:00 12/12/24 09:20 20 MG Ipratropium [place] 0.5 mg Q4HPRN PRN NEB 12/09/24 10:00 12/11/24 18:12 0.5 MG Clopidogrel Bisulfate 75 mg DAILY PO 12/10/24 10:00 12/11/24 08:39 75 MG Doxycycline Monohydrate 100 mg Q12HR PO 12/09/24 22:00 12/12/24 22:07 100 MG Ertapenem 1 gm/ Sodium Chloride 50 ml @ 100 mls/hr DAILY IV 12/12/24 10:00 12/12/24 09:21 100 MLS/HR Enoxaparin Sodium 80 mg Q12HR SC 12/13/24 10:00 Zolpidem Tartrate 10 mg HSPRN PRN PO 12/12/24 22:00 Hold Tramadol HCl 50 mg Q6HP PRN PO 12/12/24 12:00 12/12/24 19:57 50 MG Metoprolol Succinate 50 mg DAILY PO 12/13/24 10:00 Spironolactone 25 mg DAILY PO 12/13/24 10:00 Examination: GENERAL:Abnormal (Generalized weakness), LUNGS:Normal, CVS:Abnormal (Atrial fibrillation with uncontrolled), NEURO:Normal laboratory and microbiology Laboratory Tests 12/13/24 04:48 12/10/24 05:26 Test 12/13/24 04:48 Range/Units Serum Glucose 97 74-106 mg/dL Problem List/Assessment/Plan Problem List/Assessment/Plan Acute on chronic decompensated HFrEF, NYHA class III Atrial fibrillation with rapid ventricular response, longstanding persistent, stage 3C Hypertensive urgency, resolved History of TIA Seizures Urinary tract infection Plan/recommendation (Dr. Dumont): Transthoracic echocardiogram done on this admission reveals an EF of 10-15%. Previous transthoracic echocardiogram from 04/25/2024 reveals EF of 65%. Given recent drastic decrease in ejection fraction, we will plan to take the patient for ischemic workup with coronary angiogram with left heart catheterization. The procedure was discussed with the patient in full detail including risks and benefits. Risks include but are not limited to bleeding, contrast-induced nephropathy, stroke, and even . The patient understands and is agreeable to undergo the procedure. The patient is scheduled to undergo the procedure on 12/14/2024. In the meantime, continue with medical management. [id number] VASC score: 7 points. Therapeutic Lovenox while inpatient, transition to NOAC prior to discharge. Continue with the beta-almaz for rate control. Initiate Guideline directed medical therapy for CHF as tolerated. Switch metoprolol tartrate to metoprolol succinate per CHF guideline recommendations. Hold SGLT2i given active urinary tract infection. Continue single antiplatelet therapy and lipid-lowering agent. Preload and afterload reduction. Strict intake and output, daily weights, maintain fluid restriction. Close cardiac surveillance. Thank you for allowing us to care for this patient. Please call with any questions or concerns. This medical document was created using an electronic medical record system with voice recognition software and computerized dictation system. Although this document has been carefully reviewed, there might still be some phonetic and typographical errors. Occasional wrong-word or ``sound-alike substitutions may have occurred due to the inherent limitations of voice recognition software. These areas are purely typographical due to imperfections of the software programs and do not reflect any compromise in the patient's medical care. Please read the chart carefully and recognize, using context, where these substitutions have occurred. Plan discussed with: Patient Dietary Evaluation Review Comments: 1.Low LDL, high TG, recommend a repeat of lipid profile, consider d/c lipitor d/t advance age. 2. Cardiac Diet Expected Outcomes/Goals: gradual wt loss Date of Service: Dec 13, 2024 Billing Provider: BOUCHRA ANDINO Common Visit Codes: [id number] INP/OBS CARE(HIGH) BOUCHRA ANDINO Dec 13, 2024 09:28
[2024-12-13] MEDS: SPIRONOLACTONE 25 MG TAB PO SCH (09:46)
[2024-12-13] MEDS: ENOXAPARIN SOD 100 MG/1 ML SYRINGE SC SCH (09:49)
[2024-12-13] MEDS: METOPROLOL SUCCINATE XL 50 MG TAB PO SCH (09:49)
--- NOTE | 2024-12-13 11:02 | DVHPN2 ---
Subjective Seen and examined at bedside, patient is on 3 liters oxygen. Change to Cefepime for UTI due to cultures. [facility] on Saturday. Ambien added for sleep. Changes from previous H/P or p: No Changes Objective Vitals Vital Signs Date Time Temp Pulse Resp B/P (MAP) Pulse Ox O2 Delivery O2 Flow Rate FiO2 12/13/24 09:49 88 136/89 12/13/24 08:54 96.8 19 96 96.8 12/12/24 20:00 Nasal Cannula* 2 28 Intake/Output Intake and Output 12/13/24 07:00 Intake Total 800 ml Output Total 1650 ml Balance -850 ml Intake Oral 800 ml Output Urine Total 1650 ml # Bowel Movements 1 General Appearance: Alert, Cooperative, Other (confused) HEENT: Atraumatic Lungs: Other (diminished) Cardiovascular: Other (Irregular) Abdomen: Normal bowel sounds, Soft Skin: Other (See wound care notes) Psych/Mental Status: Other (confused) Medications Current Medications Medications Dose Ordered Sig/Janette Route Start Time Stop Time Status Last Admin Dose Admin Furosemide 20 mg DAILY IV 12/10/24 10:00 12/13/24 09:46 20 MG Levetiracetam 750 mg BID PO 12/09/24 10:00 12/13/24 09:46 750 MG Lacosamide 50 mg BID PO 12/09/24 10:00 12/13/24 09:48 50 MG Atorvastatin Calcium 40 mg HS PO 12/09/24 22:00 12/12/24 22:07 40 MG Ondansetron HCl 4 mg Q4HP PRN IV 12/09/24 03:45 12/12/24 23:19 4 MG Acetaminophen 650 mg Q6HP PRN PO 12/09/24 03:45 Hold Nitroglycerin 0.4 mg Q5MINP PRN SL 12/09/24 03:45 Morphine Sulfate 2 mg Q30M PRN IV 12/09/24 03:45 Albuterol 2.5 mg Q6HPRN PRN NEB 12/09/24 04:00 12/11/24 18:12 2.5 MG Lisinopril 20 mg DAILY PO 12/09/24 10:00 12/13/24 09:48 20 MG Ipratropium [place] 0.5 mg Q4HPRN PRN NEB 12/09/24 10:00 12/11/24 18:12 0.5 MG Clopidogrel Bisulfate 75 mg DAILY PO 12/10/24 10:00 12/13/24 09:47 75 MG Doxycycline Monohydrate 100 mg Q12HR PO 12/09/24 22:00 12/13/24 09:48 100 MG Enoxaparin Sodium 80 mg Q12HR SC 12/13/24 10:00 12/13/24 09:49 80 MG Zolpidem Tartrate 10 mg HSPRN PRN PO 12/12/24 22:00 Hold Tramadol HCl 50 mg Q6HP PRN PO 12/12/24 12:00 12/13/24 09:47 50 MG Metoprolol Succinate 50 mg DAILY PO 12/13/24 10:00 12/13/24 09:49 50 MG Spironolactone 25 mg DAILY PO 12/13/24 10:00 12/13/24 09:46 25 MG Cefepime HCl 50 ml @ 12.5 mls/hr Q12HR IV 12/13/24 10:08 Laboratory Results Laboratory Tests 12/10/24 05:26 12/13/24 04:48 Chemistry Test 12/13/24 04:48 Albumin 3.1 g/dL (3.2-4.8) L Calcium Level 9.4 mg/dL (8.7-10.4) Total Protein 5.6 g/dL (5.7-8.2) L LFT Test 12/13/24 04:48 Alanine Aminotransferase (ALT) 16 U/L (7-40) Alkaline Phosphatase 66 U/L (46-116) Aspartate Amino Transferase (AST) 13 U/L (13-40) Total Bilirubin 0.3 mg/dL (0.2-1.0) Urinalysis Test 12/09/24 10:15 Urine Color Dark-brown (Yellow) Urine Clarity Ex.turbid (Clear) Urine pH 6.0 (5.0-9.0) Urine Specific [place] 1.006 (1.001-1.035) Urine Protein 2+ (Negative) H Urine Ketones Negative (Negative) Urine Blood 3+ /uL (Negative) H Urine Nitrite 1+ (Negative) H Urine Bilirubin Negative (Negative) Urine Urobilinogen Normal mg/dL (Negative) Urine Leukocyte Esterase 3+ /uL (Negative) Urine RBC 87 /hpf (0 - 4) Urine WBC Clumps Present /hpf (None Seen) Urine Microscopic WBC 3066 /HPF (0-5) H Urine Squamous Epithelial Cells Few /hpf (<5) Urine Bacteria None seen /hpf (None Seen) Urine Hyaline Casts Many /lpf (0 - 2) Urine Glucose Normal mg/dL (Normal) Microbiology Microbiology Date/Time Source Procedure Growth Status 12/09/24 10:15 Urine - Catheterized Urine Culture - Preliminary Acinetobacter baumannii Resulted Assessment/Plan Assessment/Plan # A-Fibb with RVR - Amio - Cardio Cx noted # Acute Systolic CHF 10-15% EF - Lasix - Cardio Eval for [facility] on SaturdayDecember 14 # Complicated UTI - Actinobacter - Cefepime # Possible Gram Neg PNA vs Aspiration PNA - Invanz and Doxy # Acute Resp Failure - Titrate oxygen down # Pulm Edema # Bed Sores (POA) - Wound Consult # Goals of care discussion >18 mins FULL CODE Plan discussed with: Patient My Orders Orders - MED COHEN MD Procedure Category Date Status Time Zolpidem Tartrate PHA 12/12/24 In Process (Ambien) 22:00 Tramadol Hcl (Ultram) PHA 12/12/24 In Process 12:00 Pt Request For Service PT 12/12/24 Logged 17:00 Cefepime 2gm/50ml Ns PHA 12/13/24 In Process (Maxipime 2gm/50ml) 10:08 Date of Service: Dec 13, 2024 Billing Provider: MED COHEN MD Common Visit Codes: [id number] INP/OBS CARE(HIGH) MED COHEN MD Dec 13, 2024 11:02
[2024-12-13] MEDS: CEFEPIME 2GM/50ML NS 50 ML IV SCH (15:20)
[2024-12-14] VITALS (8 sets, daily range): BP systolic 104–145; BP diastolic 65–99; PULSE 76–106; RESP 16–19; TEMP 96.9–97.9; O2SAT 96–100
[2024-12-14 06:18] LABS: Basophils # (auto) 0 10 ^3/uL (0-0.2); Basophils % (auto) 0.4 % (0.0-2.0); Eosinophils # (auto) 0.1 10 ^3/uL (0-0.8); Eosinophils % (auto) 1.7 % (0.0-7.0); Hematocrit 37.1 % (36.0-46.0); Hemoglobin 12.1 g/dL (12.2-16.2); Lymphocytes # (auto) 2.1 10 ^3/uL (0.4-5.4); Lymphocytes % (auto) 27.4 % (10.0-50.0); Mean Corpuscular Hemoglobin 30.8 pg (28.0-32.0); Mean Corpuscular Hgb Conc. 32.8 g/dL (32.0-36.0); Monocytes # (auto) 0.6 10 ^3/uL (0-1.3); Neutrophils # (auto) 4.7 10 ^3/uL (1.6-8.6); Neutrophils % (auto) 62.5 % (37.0-80.0); Nucleated Red Blood Cells % 0.1 %; Platelet Count (auto) 271 10^3/uL (140-450); Red Blood Cells 3.94 10^6/uL (4.0-5.20); Red Cell Distribution Width 15.7 % (11.8-14.3); White Blood Cell 7.6 10^3/uL (4.4-10.8)
[2024-12-14 06:32] LABS: Anion Gap 7 (5-15); Chloride 101 mmol/L (98-107); Potassium 3.7 mmol/L (3.5-5.1); Sodium 140 mmol/L (136-145)
[2024-12-14 06:33] LABS: Calcium 8.9 mg/dL (8.7-10.4); Carbon Dioxide 32 mmol/L (20-31)
[2024-12-14 06:38] LABS: BUN/Creatinine Ratio 23.8 (10.0-20.0); Blood Urea Nitrogen 19 mg/dL (9-23); Glucose 96 mg/dL (74-106)
--- NOTE | 2024-12-14 11:52 | DVHPN2 ---
Subjective Seen and examined at bedside, patient is on 3 liters oxygen. For [facility] today Changes from previous H/P or p: No Changes Objective Vitals Vital Signs Date Time Temp Pulse Resp B/P (MAP) Pulse Ox O2 Delivery O2 Flow Rate FiO2 12/14/24 10:04 133/80 12/14/24 10:02 91 12/14/24 08:58 97.9 18 96 97.9 12/13/24 20:00 Nasal Cannula* 2 28 Intake/Output Intake and Output 12/14/24 07:00 Intake Total 540 ml Output Total 1000 ml Balance -460 ml Intake Oral 490 ml IV Total 50 ml Output Urine Total 1000 ml General Appearance: Alert, Cooperative, Other (confused) HEENT: Atraumatic Lungs: Other (diminished) Cardiovascular: Other (Irregular) Abdomen: Normal bowel sounds, Soft Skin: Other (See wound care notes) Psych/Mental Status: Other (confused) Medications Current Medications Medications Dose Ordered Sig/Janette Route Start Time Stop Time Status Last Admin Dose Admin Furosemide 20 mg DAILY IV 12/10/24 10:00 12/14/24 10:04 20 MG Levetiracetam 750 mg BID PO 12/09/24 10:00 12/14/24 10:03 750 MG Lacosamide 50 mg BID PO 12/09/24 10:00 12/14/24 10:03 50 MG Atorvastatin Calcium 40 mg HS PO 12/09/24 22:00 12/13/24 21:52 40 MG Ondansetron HCl 4 mg Q4HP PRN IV 12/09/24 03:45 12/13/24 22:25 4 MG Acetaminophen 650 mg Q6HP PRN PO 12/09/24 03:45 Hold Nitroglycerin 0.4 mg Q5MINP PRN SL 12/09/24 03:45 Morphine Sulfate 2 mg Q30M PRN IV 12/09/24 03:45 Lisinopril 20 mg DAILY PO 12/09/24 10:00 12/14/24 10:02 20 MG Clopidogrel Bisulfate 75 mg DAILY PO 12/10/24 10:00 12/13/24 09:47 75 MG Doxycycline Monohydrate 100 mg Q12HR PO 12/09/24 22:00 12/13/24 21:52 100 MG Enoxaparin Sodium 80 mg Q12HR SC 12/13/24 10:00 12/13/24 09:49 80 MG Zolpidem Tartrate 10 mg HSPRN PRN PO 12/12/24 22:00 Hold Tramadol HCl 50 mg Q6HP PRN PO 12/12/24 12:00 12/13/24 15:21 50 MG Metoprolol Succinate 50 mg DAILY PO 12/13/24 10:00 12/14/24 10:02 50 MG Spironolactone 25 mg DAILY PO 12/13/24 10:00 12/13/24 09:46 25 MG Cefepime HCl 50 ml @ 12.5 mls/hr Q12HR IV 12/13/24 10:08 12/14/24 10:05 12.5 MLS/HR Laboratory Results Laboratory Tests 12/14/24 05:15 Chemistry Test 12/14/24 05:15 Calcium Level 8.9 mg/dL (8.7-10.4) Urinalysis Test 12/09/24 10:15 Urine Color Dark-brown (Yellow) Urine Clarity Ex.turbid (Clear) Urine pH 6.0 (5.0-9.0) Urine Specific [place] 1.006 (1.001-1.035) Urine Protein 2+ (Negative) H Urine Ketones Negative (Negative) Urine Blood 3+ /uL (Negative) H Urine Nitrite 1+ (Negative) H Urine Bilirubin Negative (Negative) Urine Urobilinogen Normal mg/dL (Negative) Urine Leukocyte Esterase 3+ /uL (Negative) Urine RBC 87 /hpf (0 - 4) Urine WBC Clumps Present /hpf (None Seen) Urine Microscopic WBC 3066 /HPF (0-5) H Urine Squamous Epithelial Cells Few /hpf (<5) Urine Bacteria None seen /hpf (None Seen) Urine Hyaline Casts Many /lpf (0 - 2) Urine Glucose Normal mg/dL (Normal) Microbiology Microbiology Date/Time Source Procedure Growth Status 12/09/24 10:15 Urine - Catheterized Urine Culture - Preliminary Acinetobacter baumannii Resulted Assessment/Plan Assessment/Plan # A-Fibb with RVR - Amio - Cardio Cx noted # Acute Systolic CHF 10-15% EF - Lasix - Cardio Eval for [facility] on SaturdayDecember 14 # Complicated UTI - Actinobacter - Cefepime # Possible Gram Neg PNA vs Aspiration PNA - Invanz and Doxy # Acute Resp Failure - Titrate oxygen down # Pulm Edema # Bed Sores (POA) - Wound Consult # Goals of care discussion >18 mins FULL CODE Plan discussed with: Patient Date of Service: Dec 14, 2024 Billing Provider: MED COHEN MD Common Visit Codes: [id number] INP/OBS CARE(MOD) MED COHEN MD Dec 14, 2024 11:52
[2024-12-14] MEDS: LACOSAMIDE 50 MG TAB PO SCH (21:31)
[2024-12-14] MEDS ORDERED: PATIENTS OWN MEDICATION PO SCH (22:00)
[2024-12-15] VITALS (10 sets, daily range): BP systolic 107–133; BP diastolic 70–86; PULSE 60–103; RESP 11–17; TEMP 96.9–98; O2SAT 92–99
[2024-12-15] MEDS: FLUCONAZOLE 100 MG TAB PO ONE (00:42)
[2024-12-15] MEDS: LACOSAMIDE 50 MG TAB PO SCH (06:26)
[2024-12-15] MEDS: IODIXANOL 320MG/ML 100ML BTL IV ONE (07:37)
[2024-12-15] MEDS: ANGIOMAX 250 MG VIAL IV ONE (07:57)
[2024-12-15] MEDS: LIDOCAINE 2%HCL (LOCAL ANESTH.) INJ 20ML MDV ONE (07:58)
[2024-12-15] MEDS: SODIUM CHL 0.9% 0 ML ONE (07:58)
[2024-12-15] MEDS: fentaNYL CITRATE 100 MCG/2 ML VL ONE (07:58)
[2024-12-15] MEDS: MIDAZOLAM HCL 2MG/2ML 2ml VIAL (1mg/ml) ONE (07:58)
--- NOTE | 2024-12-15 08:53 | DVHOP2 ---
Operative Report - 2 Report Details Date: 12/15/24 Preop Diagnosis: CAD Postop Diagnosis: Cardiomyopathy Surgeon: Erin Dumont MD Anesthesiologist: Conscious sedation Anesthesia: Mac Consent: The patient was informed of the risks and benefits of the procedure. These include but are not limited to complications of anesthesia, postoperative infection, incomplete relief of symptoms, recurrence of symptoms, damage to blood vessels, nerves and tendons, deep venous thrombosis, pulmonary embolism and possible need for repeat surgery in the future. Complications: No complications Findings: Cardiomyopathy. Mild CAD Indications for Surgery: Cardiomyopathy Name of Procedure Performed Left heart catheterization bilateral cine coronary angiography. Left ventriculography. Procedure Details Procedure Details: Prior local anesthesia with 2% lidocaine into the right groin and full informed consent obtained the patient was prepped and draped in the usual fashion followed by placement of a six [place] sheath into the femoral artery under fluoroscopic and ultrasound guidance. Six [place] sheath were used to cannulate both right and left coronary ostium and a six [place] pigtail catheter was used for ventriculography. Hemodynamics: aortic blood pressure was 130/70 end-diastolic pressure was approximately 18. There was no gradient across the aortic valve on pullback. The patient was in atrial fibrillation. Coronary anatomy: The RCA is a medium caliber vessel it has [id number] plaquing throughout without critical lesions. The PDA and posterolateral branches are free of significant disease. The left main is large. It is normal. Mild plaquing. Left anterior descending is a medium caliber vessel with mild plaquing. No critical lesions in its proximal mid and distal segments with a diagonals and septals are within normal limits. The circumflex is a large vessel it has mild plaquing in its proximal midportion two obtuse marginal branches are free of significant disease. The distal circumflex ends in the AV groove Ventriculography in the GANNON projection shows an EF of approximately 20% Impression decreased left ventricular ejection fraction I end-diastolic pressure at rest. No significant coronary artery disease. Recommendations: Medical therapy is recommended. Risk factor modification. Afterload reduction. Condition Fair Disposition Still a Patient Date of Service: Dec 15, 2024 Billing Provider: ERIN DUMONT Sr., MD Cardiology Common Codes: CONSULT ONLY Cardiology Procedure Codes: [id number] HEART CATH W/INTRA INJ ERIN DUMONT Sr., MD Dec 15, 2024 08:53
[2024-12-15] MEDS ORDERED: SPIR25TA PO (11:20)
[2024-12-15] MEDS ORDERED: BACDST PO (11:20)
[2024-12-15] MEDS ORDERED: FLUC100T34 PO (11:20)
[2024-12-15] MEDS ORDERED: METO-6 PO (11:22)
[2024-12-15] MEDS ORDERED: APIX2.5T PO (11:22)
--- NOTE | 2024-12-15 11:26 | DVHDS2 ---
Discharge Summary Date of Admission December 09, 2024 at 03:41 Date of Discharge: Dec 15, 2024 Admitting Diagnosis Acute Resp Failure Labs/Diagnostic Data: Laboratory Results Test 12/14/24 05:15 12/13/24 04:48 12/12/24 04:55 12/10/24 05:26 White Blood Count 7.6 10^3/uL (4.4-10.8) Red Blood Count 3.94 10^6/uL (4.0-5.20) Hemoglobin 12.1 g/dL (12.2-16.2) Hematocrit 37.1 % (36.0-46.0) Mean Corpuscular Volume 94.0 fL (80.0-100.0) Mean Corpuscular Hemoglobin 30.8 pg (28.0-32.0) Mean Corpuscular Hemoglobin Concent 32.8 g/dL (32.0-36.0) Red Cell Distribution Width 15.7 % (11.8-14.3) Platelet Count 271 10^3/uL (140-450) Mean Platelet Volume 7.4 fL (6.9-10.8) Neutrophils (%) (Auto) 62.5 % (37.0-80.0) Lymphocytes (%) (Auto) 27.4 % (10.0-50.0) Monocytes (%) (Auto) 8.0 % (0.0-12.0) Eosinophils (%) (Auto) 1.7 % (0.0-7.0) Basophils (%) (Auto) 0.4 % (0.0-2.0) Neutrophils # (Auto) 4.7 10 ^3/uL (1.6-8.6) Lymphocytes # (Auto) 2.1 10 ^3/uL (0.4-5.4) Monocytes # (Auto) 0.6 10 ^3/uL (0-1.3) Eosinophils # (Auto) 0.1 10 ^3/uL (0-0.8) Basophils # (Auto) 0 10 ^3/uL (0-0.2) Nucleated Red Blood Cells 0.1 % Sodium Level 140 mmol/L (136-145) Potassium Level 3.7 mmol/L (3.5-5.1) Chloride Level 101 mmol/L (98-107) Carbon Dioxide Level 32 mmol/L (20-31) Anion Gap 7 (5-15) Blood Urea Nitrogen 19 mg/dL (9-23) Creatinine 0.80 mg/dL (0.550-1.02) Glomerular Filtration Rate Calc 76 mL/min (>90) BUN/Creatinine Ratio 23.8 (10.0-20.0) Serum Glucose 96 mg/dL (74-106) Calcium Level 8.9 mg/dL (8.7-10.4) Total Bilirubin 0.3 mg/dL (0.2-1.0) Aspartate Amino Transferase (AST) 13 U/L (13-40) Alanine Aminotransferase (ALT) 16 U/L (7-40) Alkaline Phosphatase 66 U/L (46-116) Total Protein 5.6 g/dL (5.7-8.2) Albumin 3.1 g/dL (3.2-4.8) Prothrombin Time 12.4 sec (9.3-11.8) Prothrombin Time INR 1.19 (0.9-1.15) Activated Partial Thromboplast Time 29.9 SEC (24.5-34.5) Magnesium Level 2.0 mg/dL (1.6-2.6) Test 12/09/24 10:15 12/09/24 05:00 12/09/24 01:18 Urine Color Dark-brown (Yellow) Urine Clarity Ex.turbid (Clear) Urine pH 6.0 (5.0-9.0) Urine Specific [place] 1.006 (1.001-1.035) Urine Protein 2+ (Negative) Urine Ketones Negative (Negative) Urine Blood 3+ /uL (Negative) Urine Nitrite 1+ (Negative) Urine Bilirubin Negative (Negative) Urine Urobilinogen Normal mg/dL (Negative) Urine Leukocyte Esterase 3+ /uL (Negative) Urine RBC 87 /hpf (0 - 4) Urine WBC Clumps Present /hpf (None Seen) Urine Microscopic WBC 3066 /HPF (0-5) Urine Squamous Epithelial Cells Few /hpf (<5) Urine Bacteria None seen /hpf (None Seen) Urine Hyaline Casts Many /lpf (0 - 2) Urine Glucose Normal mg/dL (Normal) Troponin I High Sensitivity 23 ng/L (</=34) Triglycerides Level 156 mg/dL (< 150) Cholesterol Level 118 mg/dL (< 200) LDL Cholesterol 44 mg/dL (< 100) HDL Cholesterol 44 mg/dL (40-59) Thyroid Stimulating Hormone (TSH) 2.21 uIU/mL (0.55-4.78) Hemoglobin A1c 5.1 % A1C (<5.7) B-Type Natriuretic Peptide 942.49 pg/mL (0-100) Other Laboratory Tests 12/14/24 05:15 Brief Hx & Hospital Course: 79-year-old female with past medical history of seizures, depression, hypertension, TIA, stroke, atrial fibrillation presented with complaints of "high blood pressure" which was 171/121 in the home. Patient also mentioned she has been having nausea and vomiting for last one week associated with shortness of breath. Patient can not walk because of knee placement but was feeling shortness of breath at rest for last seven days. She denied any chest pain, palpitations.. Patient also mentioned associated heaviness in the epigastric region and lower sternal region. Patient denied any complaints of constipation, diarrhea, abdominal pain. Patient is a poor historian, does not know mentioned when she had atrial fibrillation. She denied any previous stress test or left heart catheterization done As per history obtained from over the phone, patient had AFib that was found in March and she was admitted for UTI, was following with [facility] Disease, where again she was found to be having AFib.. mentioned that patient was on Eliquis but later was discontinued, does not remember the reason. Patient had new onset Acute Systolic CHF with EF 10-15%. Underwent LHC, no evidence of ischemia. Patient will be discharged home with Bactrim Ds for UTI. Patient is bedbound with multiple bed sores. Patient is very high risk of a clot therefore, Eliquis was restarted. Patient will be discharged home to see PCP. Condition at Discharge: Poor Final Diagnosis/Problems List # A-Fibb with RVR - Metoprolol - Cardio Cx noted # Acute Systolic CHF 10-15% EF - Lasix # Complicated UTI - Actinobacter - Bactrim Ds # Possible Gram Neg PNA vs Aspiration PNA - s/p Cefepime # Acute Resp Failure - Titrate oxygen down # Pulm Edema # Bed Sores (POA) - Wound Consult # Goals of care discussion >18 mins FULL CODE Discharge Disposition: Home Discharge Instruct/Medications Diet: Regular Activity: Light activity Follow Up/Referral: PCP in 1 week Medications: See Med Recc Discharge Statement: "Patient was advised to return to the ER or call 911 if any headaches, dizziness, shortness of breath, chest pain, abdominal pain, bleeding, fevers, or worsening of medical condition. Patient was counseled about treatment plan, medications, possible side effects, patientverbalized understanding. All questions were answered to the best of my ability. This discharge took greater then 30 minutes in planning, reviewing documentation, counseling the patient, and discussing with other team members." ASSESSMENT ASSESSMENT Assessment Cardiomyopathy Date of Service: Dec 15, 2024 Billing Provider: MED COHEN MD Common Visit Codes: 53864-IIM/OBS DISCH DAY >30min MED COHEN MD Dec 15, 2024 11:26
[2024-12-15] MEDS: FLUCONAZOLE 100 MG TAB PO SCH (11:28)
--- NOTE | 2024-12-15 13:41 | DVHPN2 ---
Consult Progress Note Date Seen: Dec 15, 2024 Subjective Review of Systems: CVS:Normal, RESPIRATORY:Normal, NEURO:Normal Other Systems: States feeling weak. C/o right knee pain Objective vital signs Vital Sign Date Time Temp Pulse Resp B/P (MAP) Pulse Ox O2 Delivery O2 Flow Rate FiO2 12/15/24 11:37 112/56 12/15/24 11:36 88 12/15/24 09:41 11 98 12/15/24 09:00 98.0 98.0 12/15/24 08:00 Nasal Cannula* 2 28 Total Intake and Output 12/14/24 12/14/24 12/15/24 15:00 23:00 07:00 Intake Total 650 ml 0 ml Output Total 1001 ml 250 ml Balance -351 ml -250 ml medications Current Medications Medications Dose Ordered Sig/Janette Route Start Time Stop Time Status Last Admin Dose Admin Furosemide 20 mg DAILY IV 12/10/24 10:00 12/15/24 11:36 20 MG Levetiracetam 750 mg BID PO 12/09/24 10:00 12/15/24 11:28 750 MG Atorvastatin Calcium 40 mg HS PO 12/09/24 22:00 12/14/24 21:30 40 MG Ondansetron HCl 4 mg Q4HP PRN IV 12/09/24 03:45 12/13/24 22:25 4 MG Acetaminophen 650 mg Q6HP PRN PO 12/09/24 03:45 Hold Nitroglycerin 0.4 mg Q5MINP PRN SL 12/09/24 03:45 Morphine Sulfate 2 mg Q30M PRN IV 12/09/24 03:45 Lisinopril 20 mg DAILY PO 12/09/24 10:00 12/15/24 11:37 20 MG Clopidogrel Bisulfate 75 mg DAILY PO 12/10/24 10:00 12/15/24 11:27 75 MG Doxycycline Monohydrate 100 mg Q12HR PO 12/09/24 22:00 12/15/24 11:28 100 MG Enoxaparin Sodium 80 mg Q12HR SC 12/13/24 10:00 12/13/24 09:49 80 MG Zolpidem Tartrate 10 mg HSPRN PRN PO 12/12/24 22:00 Hold Tramadol HCl 50 mg Q6HP PRN PO 12/12/24 12:00 12/13/24 15:21 50 MG Metoprolol Succinate 50 mg DAILY PO 12/13/24 10:00 12/15/24 11:36 50 MG Spironolactone 25 mg DAILY PO 12/13/24 10:00 12/15/24 11:26 25 MG Cefepime HCl 50 ml @ 12.5 mls/hr Q12HR IV 12/13/24 10:08 12/15/24 11:26 12.5 MLS/HR Lacosamide 50 mg QAM PO 12/15/24 07:00 12/15/24 06:26 50 MG Lacosamide 100 mg HS PO 12/14/24 22:00 12/14/24 21:31 100 MG Fluconazole 200 mg DAILY PO 12/15/24 10:00 12/15/24 11:28 200 MG Examination: LUNGS:Normal, CVS:Normal (Atrial flutter, controlled rate), MSK:Abnormal (RLE edema, cold to touch. Palpable pedal pulse), NEURO:Normal laboratory and microbiology Laboratory Tests 12/14/24 05:15 Test 12/14/24 05:15 Range/Units Serum Glucose 96 74-106 mg/dL Problem List/Assessment/Plan Problem List/Assessment/Plan Acute on chronic decompensated HFrEF, NYHA class III Atrial fibrillation/Atrial flutter with RVR, longstanding persistent, stage 3C Non-ischemic/dilated cardiomyopathy with LVEF 10-15% Hypertensive urgency, resolved Rule out lower extremity DVT History of TIA Seizures Urinary tract infection Plan/recommendation (Dr. Dumont) Transthoracic echocardiogram revealed an EF of 10-15% (TTE from 04/25/2024 reveals EF of 65%). Status post coronary angiogram with left cardiac catheterization without catheter based intervention given non-significant coronary artery disease. Transition to Eliquis therapy, [id number] VASC score: 7 points. Continue guideline directed medical therapy for CHF and up-titrate as tolerated. Hold SGLT2i given active urinary tract infection. Offered appointment to follow-up with Dr. Dumont as outpatient. Prefers to follow-up with Dr. Thompson as she is her [facility]'s primary business manager college or [employer]. Offered Zoll LifeVest for secondary prevention, prefers to follow-up as outpatient. Obtain a lower extremity DVT US prior to discharge, if unremarkable we will sign off from case. Thank you for allowing us to care for this patient. This medical document was created using an electronic medical record system with voice recognition software and computerized dictation system. Although this document has been carefully reviewed, there might still be some phonetic and typographical errors. Occasional wrong-word or ``sound-alike substitutions may have occurred due to the inherent limitations of voice recognition software. These areas are purely typographical due to imperfections of the software programs and do not reflect any compromise in the patient's medical care. Please read the chart carefully and recognize, using context, where these substitutions have occurred. Plan discussed with: Patient, Spouse, Other Dietary Evaluation Review Comments: 1.Low LDL, high TG, recommend a repeat of lipid profile, consider d/c lipitor d/t advance age. 2. Cardiac Diet Expected Outcomes/Goals: gradual wt loss Date of Service: Dec 15, 2024 Billing Provider: BHARATI GARRETT Cardiology Common Codes: 23001-[id number] HOSP CARE(High BHARATI GARRETT Dec 15, 2024 13:41
--- NOTE | 2024-12-15 15:15 | DVH ---
CLINICAL HISTORY: Edema bilateral lower extremity edema TECHNIQUE: Color and duplex doppler imaging of the bilateral lower extremity veins was performed. Ves adriana compression if possible was also performed. WID: COMPARISON: US BILAT LOWER DVT on DOS: 04/25/24 FINDINGS: Right Lower Extremity: Right common femoral vein: Normal compressibility and flow. Right femoral vein: Normal compressibility and flow. Right popliteal vein: Normal compressibility and flow. Proximal calf veins are normally compressible. Left Lower Extremity: Left common femoral vein: Normal compressibility and flow. Left femoral vein: Normal compressibility and flow. Left popliteal vein: Normal compressibility and flow. Proximal calf veins are normally compressible. IMPRESSION: NO SONOGRAPHIC EVIDENCE FOR DEEP VENOUS THROMBOSIS IN THE BILATERAL LOWER EXTREMITY VEINS.
[2024-12-15] MEDS ORDERED: APIXABAN 5 MG TAB PO SCH (22:00)
== END 2024-12-15 18:00 | disposition home or self-care (01) | DRG 286 ==
LOC: EDBD 00:24 → ER 00:28 → OVERFLOW 03:41 → TELE-CENTR 03:48
PROVIDERS: ADMIT Internal Medicine; ATTEND Internal Medicine
PROC: 05H933Z Insertion of Infusion Device into Right Brachial Vein, Percutaneous Approach (ICD-10-PCS; 2024-12-09)
PROC: B54MZZA Ultrasonography of Right Upper Extremity Veins, Guidance (ICD-10-PCS; 2024-12-09)
PROC: B211YZZ Fluoroscopy of Multiple Coronary Arteries using Other Contrast (ICD-10-PCS; principal; 2024-12-15)
PROC: 4A023N7 Measurement of Cardiac Sampling and Pressure, Left Heart, Percutaneous Approach (ICD-10-PCS; 2024-12-15)
PROC: B215YZZ Fluoroscopy of Left Heart using Other Contrast (ICD-10-PCS; 2024-12-15)
DX: I25.10 Atherosclerotic heart disease of native coronary artery without angina pectoris (principal); I50.43 Acute on chronic combined systolic (congestive) and diastolic (congestive) heart failure; J15.69 Pneumonia due to other Gram-negative bacteria; J96.00 Acute respiratory failure, unspecified whether with hypoxia or hypercapnia; J69.0 Pneumonitis due to inhalation of food and vomit; N39.0 Urinary tract infection, site not specified; I48.19 Other persistent atrial fibrillation; I31.39 Other pericardial effusion (noninflammatory); J81.1 Chronic pulmonary edema; I11.0 Hypertensive heart disease with heart failure; I48.91 Unspecified atrial fibrillation; I42.9 Cardiomyopathy, unspecified; F32.A Depression, unspecified; I34.0 Nonrheumatic mitral (valve) insufficiency; Z96.651 Presence of right artificial knee joint; F17.210 Nicotine dependence, cigarettes, uncomplicated; I16.0 Hypertensive urgency; R56.9 Unspecified convulsions; Z88.5 Allergy status to narcotic agent; Z79.82 Long term (current) use of aspirin; Z79.899 Other long term (current) drug therapy; Z86.73 Personal history of transient ischemic attack (TIA), and cerebral infarction without residual deficits; Z82.49 Family history of ischemic heart disease and other diseases of the circulatory system; Z79.02 Long term (current) use of antithrombotics/antiplatelets; Z74.01 Bed confinement status
CPT/HCPCS: 36415; 71045; 80048; 80053; 80061; 81001; 83036; 83735; 83880; 84443; 84484; 85025; 85610; 85730; 86850; 86900; 86901; 87086; 87088; 87186; 93005; 93306; 93458; 93970; 94640; 96365; 96375; 97110; 97163; 97530; 99152; 99291; G0378; J0692; J1335; J2250; J2405; Q9967

== ENCOUNTER 2025-02-16 12:09 | Inpatient (IN) | payer OTHER ==
[2025-02-16] VITALS (27 sets, daily range): BP systolic 83–120; BP diastolic 49–72; PULSE 84–155; RESP 15–24; TEMP 98.2; O2SAT 92–100
[~2025-02-16] VITALS: Ht 165.1 cm; Wt 74.0 kg
[~2025-02-16 12:09] MED LIST changes: +APIX2.5T PO; -ASPI-543 PO; +ATOR40TA52 PO; +BACDST PO; +CHOL20007 PO; +CITA-77 PO; -ESCI20TA PO; +FERR325T24 PO; +FLUC100T34 PO; +FURO40TA4 PO; -GARL400T9 PO; +IRBE300T79 PO; -LISI20TA56 PO; +METO-6 PO; -METO25TA5 PO; +SPIR25TA PO
--- NOTE | 2025-02-16 12:17 | ECG ---
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
[2025-02-16] MEDS: FUROSEMIDE 40 MG/4 ML VIAL IV ONE (12:24)
--- NOTE | 2025-02-16 12:31 | ED.PDOC ---
HPI (NEURO) HPI Comments 80y F who presents to the ED via EMS for chief complaint of generalized weakness. Per EMS, pt lives with family and notes over the past 2x days, pt has been having increased weakness and malaise and called EMS today. EMS arrived on scene and notes pt had 02 sat in the 70's on 2 L and EMS placed pt on 15 L NRB. Pt also was noted to be hypotensive with BP in systolic 80's and pt was given 300 ml with BP of 105/63 prior to ED arrival. Pt also has noted heart rate of 162 but temp of 98.3 F. Pt in the ED, is on 15 L NRB but is alert and oriented and able to answer all questions. Pt otherwise denies any other symptoms at this time. 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, Medications Information Source: Patient, Emergency Med Personnel Mode of Arrival: EMS Brought in by: EMS Severity: Moderate Dizziness/Weakness Severity: Unable to do activities Headache Severity: None Timing: Days Duration: Since onset Prehospital treatment: IVF, Oxygen Weakness Location: Generalized Onset: At rest Circumstances: Spontaneous Symptoms: Imbalance, Weakness History of: Hypertension Modifying factors: Nothing Associated Signs and Symptoms: Weakness Past Medical History PAST MEDICAL HISTORY: AFIB, CHF, CKF, CVA, HTN, Seizures, UTI'S Surgical History: Cholecystectomy, Hysterectomy, Tonsillectomy Surgical History (Other): R knee, 2x back surgeries, cataracts CUSTOMER SERVICE CORRESPONDENCE CLERK History: No Pertinent CUSTOMER SERVICE CORRESPONDENCE CLERK History Family History Family History: Reviewed,noncontributory to illness Social History Smoker: Cigarettes Alcohol: Occasionally Drugs: Denies Drug Use Lives In: Home Constitutional: reports: malaise, weakness; denies: chills, diaphoresis, fatig ue, fever, sweats, others EENTM: denies: blurred vision, double vision, ear bleeding, ear discharge, ear drainage, ear pain, ear ringing, eye pain, eye redness, hearing loss, mouth pain, mouth swelling, nasal discharge, nose bleeding, nose congestion, nose pain, photophobia, tearing, throat pain, throat swelling, voice changes, others Respiratory: denies: cough, hemoptysis, orthopnea, SOB at rest, shortness of breath, SOB with excertion, stridor, wheezing, others Cardiovascular: denies: chest pain, dizzy spells, diaphoresis, Dyspnea on exertion, edema, irregular heart beat, left arm pain, lightheadedness, palpitations, PND, syncope, others Gastrointestinal: denies: abdomen distended, abdominal pain, blood streaked bowels, constipated, diarrhea, dysphagia, difficulty swallowing, hematemesis, melena, nausea, poor appetite, poor fluid intake, rectal bleeding, rectal pain, vomiting, others Genitourinary: denies: abnormal vagina bleeding, burning, dyspareunia, dysuria, flank pain, frequency, hematuria, incontinence, pain, , vagina discharge, urgency, others Neurological: denies: dizziness, fainting, headache, left sided numbness, left sided weakness, numbness, paresthesia, pre-existing deficit, right sided numbness, right sided weakness, seizure, speech problems, tingling, tremors, weakness, others Musculoskeletal: denies: back pain, gout, joint pain, joint swelling, muscle pain, muscle stiffness, neck pain, others Integumetry: denies: bruises, change in color, change in hair/nails, dryness, laceration, lesions, lumps, rash, wounds, others Allergic/Immunocompromised: denies: Difficulty Healing, Frequent Infections, Hives, Itching, others Hematologic/Lymphatic: denies: anemia, blood clots, easy bleeding, easy bruising, swollen glands, others Endocrine: denies: excessive hunger, excessive sweating, excessive thirst, excessive urination, flushing, intolerance to cold, intolerance to heat, unexplained weight gain, unexplained weight loss, others Psychiatric: denies: anxiety, bipolar disorder, depression, hopeless, panic disorder, schizophrenia, sleepless, suicidal, others All Other Systems: Reviewed and Negative Physical Exam General Appearance: Moderate Distress, Obese HEENT: Pale Conjuntivae (L), Pale Conjuntivae (R), Pharynx Normal, TMs Normal Neck: Full Range of Motion, Non-Tender, Normal, Normal Inspection Respiratory: Chest Non-Tender, Decreased Breath Sounds, No Accessory Muscle Us e, Rales, Respiratory Distress Cardiovascular: No Edema, No JVD, No Murmur, No Gallop, Tachycardia Breast Exam: Deferred Gastrointestinal: No Organomegaly, Non Tender, No Pulsatile Mass, Normal Bowel Sounds, Soft Genitalia: Deferred Pelvic: Deferred Rectal: Deferred Extremities: No calf tenderness, Normal capillary refill, Pedal edema Musculoskeletal : Apperance: Normal Neurologic: Alert, director of knowledge management II-XII nml as Tested, No Motor Deficits, Normal Affect, Normal Mood, No Sensory Deficits Cerebellar Function: Normal Reflexes: Normal Skin: Dry, Normal Color, Warm Lymphatic: No Adenopathy EKG EKG : Pulse Rate (adult): 135 [place]: Normal Cardiac Rhythm: Afib Block: None Hypertrophy: None ST: Old Comments low voltage Was a procedure done? 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: Attending Physician, Other (Resident) Indication: Hypotension, CVP monitoring, Suspected infection Room prepared for procedure: Yes Sales Driver performed hand hygien: Yes Maximal sterile barrier precau: Mask/Eye shield, Sterile gown, Cap, Sterlie gloves Skin Preparation: Chlorhexidine gluconate, Providine iodine, Alcohol Skin preparation completely dr: Yes Insertion site: Right, Internal jugular Central line catheter type: [id number] dialysis Number of lumens: 3 Central line exchanged over a: No Antiseptic ointment applied to: Yes Post Assessment: Chest X-Ray, Proper placement, No Pneumothorax Informed consent obtained: No Risks/benefits/alt described: No Intubation Indication: Respiratory Insufficiency, Altered Mental Status Prep: Preoxygenation Pretreated with: Sedation (Etomidate 20 mg IV push) Medicated with: Succinylcholine (80 mg IV push) Intubation Approach: Orotracheal (8.0 endotracheal tube) Intubation size: cm (8.0) Informed consent obtained: No Risks/benefits/alt described: No Differential Diagnosis (SZ) Seizure: N/A General Weakness: Anemia, Dehydration, Electrolyte imbalance, Encephalopathy, Hypoglycemia, Hypotension, TIA, Other (UTI, urosepsis, acute resp failure, ) X-Ray, Labs, Meds, VS Vital Signs Date Time Temp Pulse Resp B/P (MAP) Pulse Ox O2 Delivery O2 Flow Rate FiO2 02/16/25 15:00 107/71 02/16/25 15:00 107/71 02/16/25 15:00 113 9 107/71 (83) 95 02/16/25 14:50 124 22 107/67 (80) 100 100 02/16/25 13:30 149 124/87 Facial BiPAP Mask 60 02/16/25 13:07 131 02/16/25 12:31 135 02/16/25 12:30 155 24 98 Non-Rebreather 15 N/A 02/16/25 12:24 120/72 02/16/25 12:23 133 19 120/92 (101) 98 02/16/25 12:17 98.1 110 22 105/63 99 98.1 02/16/25 12:11 135 Lab Test 02/16/25 14:28 02/16/25 13:45 02/16/25 12:58 02/16/25 12:56 Range/Units Blood Gas Specimen Type Arterial Arterial Blood Gas Sample Site Left radial Left radial Blood Gas Patient Temperature 37.0 37.0 Arterial Blood Date Drawn [id number] Arterial Blood pH 7.253 L 7.185 *L 7.350-7.450 Arterial Blood Partial Pressure CO2 62.7 *H 68.5 *H 32.0-45.0 mmHg Arterial Blood Partial Pressure O2 73.9 L 119.0 H 83.0-108.0 mmHg Arterial Blood HCO3 27.1 25.3 21.0-28.0 mmol/L Arterial Blood Oxygen Saturation 92.1 L 97.1 94.0-98.0 % Arterial Blood Base Excess -1.1 -4.0 L -2.0-3.0 mmol/L Arterial Blood Oxyhemoglobin 89.7 L 94.3 94.0-98.0 % Arterial Blood Carboxyhemoglobin 2.1 H 2.3 H 0.5-1.5 % Arterial Blood Methemoglobin 0.5 0.6 0.0-1.5 % Aman Test Modified Yes Blood Gas Total Hemoglobin 11.50 L 11.80 L 12.0-16.0 g/dL Blood Gas Set Respiration Rate 12.0 Blood Gas Modality Mask - bipap Mask - nrb FiO2 % 60.0 100.0 Blood Gas EPAP 5 Blood Gas IPAP 14 Blood Gas Critical Value Read Back Yes Yes Blood Gas Notified Whom Dr. bro connor Md. juana connor Blood Gas Notified Time [id number] Blood Gas Notified By Transfer Operator milly enriquez Troponin I High Sensitivity 25 25 </=34 ng/L White Blood Count 10.6 4.4-10.8 10^3/uL Red Blood Count 3.86 L 4.0-5.20 10^6/uL Hemoglobin 12.6 12.2-16.2 g/dL Hematocrit 40.2 36.0-46.0 % Mean Corpuscular Volume 104.3 H 80.0-100.0 fL Mean Corpuscular Hemoglobin 32.7 H 28.0-32.0 pg Mean Corpuscular Hemoglobin Concent 31.4 L 32.0-36.0 g/dL Red Cell Distribution Width 18.6 H 11.8-14.3 % Platelet Count 428 140-450 10^3/uL Mean Platelet Volume 6.8 L 6.9-10.8 fL Neutrophils (%) (Auto) 79.2 37.0-80.0 % Lymphocytes (%) (Auto) 15.3 10.0-50.0 % Monocytes (%) (Auto) 5.0 0.0-12.0 % Eosinophils (%) (Auto) 0.1 0.0-7.0 % Basophils (%) (Auto) 0.4 0.0-2.0 % Neutrophils # (Auto) 8.4 1.6-8.6 10 ^3/uL Lymphocytes # (Auto) 1.6 0.4-5.4 10 ^3/uL Monocytes # (Auto) 0.5 0-1.3 10 ^3/uL Eosinophils # (Auto) 0 0-0.8 10 ^3/uL Basophils # (Auto) 0 0-0.2 10 ^3/uL Nucleated Red Blood Cells 0.2 % Sodium Level 146 H 136-145 mmol/L Potassium Level 5.3 H 3.5-5.1 mmol/L Chloride Level 111 H 98-107 mmol/L Carbon Dioxide Level 29 20-31 mmol/L Anion Gap 6 5-15 Blood Urea Nitrogen 21 9-23 mg/dL Creatinine 1.12 H 0.550-1.02 mg/dL Glomerular Filtration Rate Calc 50 >90 mL/min BUN/Creatinine Ratio 18.8 10.0-20.0 Serum Glucose 145 H 74-106 mg/dL Lactic Acid Level 2.3 *H 0.4-2.0 mmol/L Calcium Level 9.6 8.7-10.4 mg/dL B-Type Natriuretic Peptide 788.43 0-100 pg/mL Current Medications Medications (Trade) Dose Ordered Sig/Janette Route Start Time Stop Time Status Last Admin Furosemide (Lasix Injection) 40 mg ONCE ONCE IV 02/16/25 12:15 02/16/25 12:17 DC 02/16/25 12:24 Ceftriaxone Sodium 50 ml @ 100 mls/hr ONCE ONCE IV 02/16/25 13:45 02/16/25 14:14 DC 02/16/25 17:25 Midazolam HCl 50 ml @ 1 mls/hr Q24H IV 02/16/25 15:00 02/16/25 17:56 Fentanyl Citrate 250 ml @ 2.5 mls/hr Q24H IV 02/16/25 15:00 02/16/25 15:00 Single AP view of the chest IMPRESSION: Worsening pulmonary edema and enlarging right pleural effusions. IV Hep-Lock was established The patient was given Lasix 40 mg IV push Upon arrival, the patient was placed on a BiPAP machine The 1st ABG showed a pH of 7.18/pCO2 of 68 and a PO2 of 119 That ABG was done prior to the BiPAP and after the BiPAP there was only minimal improvement. At that time it was determined that the patient will be intubated. We are able to intubate the patient without any complications using etomidate and succinylcholine. The BNP came back elevated at 788.43 The patient was given Versed and fentanyl for sedation. The patient was also started on Rocephin IV piggyback for the possible pneumonia and the UTI The chemistry panel was done and shows a potassium of 5.3 The creatinine is 1.12 The lactic acid level is 2.3 which is elevated The fluid was continued but not per sepsis protocol because of the patient's CHF The CBC is within normal limits The patient has remained afebrile throughout the stay At this time, the patient will be admitted to the hospitalist The patient will be admitted to the ICU A Gold catheter was placed Images Reviewed?: Images reviewed and evaluated by me Time of 1ST Reevaluation: 19:04 Reevaluation 1ST: Improved Patient Education/Counseling: Diagnosis, Treatment, Prognosis Family Education/Counseling: Diagnosis, Treatment, Prognosis Departure 1 Departure Time of Disposition: 19:03 Impression: Primary Impression: Acute respiratory failure Qualified Codes: J96.01 - Acute respiratory failure with hypoxia Additional Impression: Acute on chronic diastolic heart failure Disposition: 09 ADMITTED INPATIENT Admit to: ICU Condition: Fair Critical Care Note Critical Care Time?: Yes (1 hr-critical care time only) Stability Stability form required: Yes Unstable for transfer: ICU, CCU, PCU, MEGGAN (Intensive VS monitoring), Low BP (low high or fluctuating BP), May require CPR (possible rapid decline), ED Physician Assesment (Clinical assesment) Heart Score Heart Score: Heart Score Response (Comments) Value History Moderate Suspicious 1 EKG Repolarization Disturb 1 Age >65 2 Risk Factors 1 or 2 risk factors 1 Troponin Normal limit 0 Total 5 I personally scribed for ARMOND CONNOR MD ([email or web address]) on 02/16/25 at 12:31. Electronically submitted by Morgan Jaimes ([email or web address]). I personally scribed for ARMOND CONNOR MD ([email or web address]) on 02/16/25 at 13:31. Electronically submitted by Morgan Jaimes ([email or web address]). ARMOND CONNOR MD Feb 16, 2025 12:31
[2025-02-16 13:08] LABS: Base Excess -4.0 mmol/L (-2.0-3.0)
--- NOTE | 2025-02-16 13:12 | DVH ---
INDICATION: sob TECHNIQUE: Single AP view of the chest WID: COMPARISON: XY CHEST PORTABLE on DOS: 12/09/24, XY CHEST XRAY 1 VIEW on DOS: 05/22/24, CT CT ANGIO CHES T CONTRAST on DOS: 04/25/24, XY CHEST PORTABLE on DOS: 04/25/24, XY CHEST PORTABLE on DOS: 04/24/24, XY CHEST PORTABLE on DOS: 12/09/24 FINDINGS: Lines and tubes: None. Lower cervical spine hardware. Chest: Cardiomegaly and pulmonary vascular congestion. Calcified plaque projects over the aortic arch. Interstitial prominence in the lungs. Small right pleural effusion. No left pleural effusion or pneum othorax. The osseous structures are grossly intact. IMPRESSION: Worsening pulmonary edema and enlarging right pleural effusions.
[2025-02-16 13:20] LABS: Hematocrit 40.2 % (36.0-46.0); Hemoglobin 12.6 g/dL (12.2-16.2); Mean Corpuscular Hemoglobin 32.7 pg (28.0-32.0); Mean Corpuscular Volume 104.3 fL (80.0-100.0); Nucleated Red Blood Cells % 0.2 %
[2025-02-16 13:30] LABS: Anion Gap 6 (5-15); Carbon Dioxide 29 mmol/L (20-31)
[2025-02-16 13:31] LABS: Calcium 9.6 mg/dL (8.7-10.4)
[2025-02-16 13:32] LABS: Chloride 111 mmol/L (98-107); Potassium 5.3 mmol/L (3.5-5.1); Sodium 146 mmol/L (136-145)
[2025-02-16 13:36] LABS: BUN/Creatinine Ratio 18.8 (10.0-20.0); Blood Urea Nitrogen 21 mg/dL (9-23)
[2025-02-16 13:37] LABS: Glucose 145 mg/dL (74-106)
[2025-02-16 13:38] LABS: Lactic Acid w/Reflex 2.3 mmol/L (0.4-2.0)
[2025-02-16] MEDS: SUCCINYLCHOLINE CHLORIDE 20 MG/ML 10ML VIAL IV ONE ×2 (14:47→15:34)
[2025-02-16] MEDS: ETOMIDATE (2MG/ML) 20ML VIAL IV ONE ×2 (14:47→15:33)
[2025-02-16] MEDS: fentaNYL Drip 2500mCg/250mlNS 250 ML IV SCH (15:00)
[2025-02-16] MEDS: MIDAZOLAM DRIP 50 mg/50mL 50 ML IV SCH (15:00)
[2025-02-16] MEDS: MIDAZOLAM DRIP 50 mg/50mL 50 ML IV ONE (15:34)
[2025-02-16] MEDS: fentaNYL Drip 2500mCg/250mlNS 250 ML IV ONE (15:34)
[2025-02-16] MEDS ORDERED: VANCOMYCIN PER PHARMACY 0 MG IV SCH (15:45)
[2025-02-16 16:11] LABS: Base Excess -1.1 mmol/L (-2.0-3.0)
[2025-02-16 16:12] LABS: Alanine Aminotransferase 25.0 U/L (7-40); Albumin 3.4 g/dL (3.2-4.8); Alkaline Phosphatase 80.0 U/L (46-116); Bilirubin, Direct 0.1 mg/dL (<0.3); Bilirubin, Total 0.4 mg/dL (0.2-1.0); Magnesium 2.0 mg/dL (1.6-2.6)
[2025-02-16 16:13] LABS: Total Protein 5.3 g/dL (5.7-8.2)
--- NOTE | 2025-02-16 16:46 | DVHHPRES ---
History of Present Illness Resident Creating Document: EDEN LOZANO RESDIENT History of Present Illness This is a 80-year-old female with past medical history of AFib, HFrEF, CKD, TIA, hypertension, and seizure came to the hospital due to shortness of breaths and altered mental status. Per patient's has been, patient has became weak and altered since 2 days. He also reports of shortness of breaths and cough. Per patient has been, she 1st developed slurred speech which gradually got more altered. Denies chest pain, nausea, vomiting, or any recent sick contact. Upon arrival to hospital, patient was able to speak but was lethargic and in respiratory distress. Due to low oxygen saturation patient was put on BiPAP, gradually developed respiratory distress, intubated and put on mechanical ventilation PMHx: AFib, CHF, CKD, TIA, hypertension, and seizure PSHx: Knee and back surgery Social history: Current smoker with 60 pack year history, denies any other drug use, mostly bed-bound on use wheelchair for mobility Home medication: Apixaban 2.5 mg b.i.d., atorvastatin, buspirone, citalopram, clopidogrel, furosemide 40 mg daily, irbesartan, lacosamide, levetiracetam, metoprolol, spironolactone Allergic history: Codeine Patient seen and examined at bedside. Patient is sedated on mechanical ventilation, collateral history taken from patient's at the bedside. Review of Systems Allergies: Coded Allergies: Codeine (Verified Allergy, Unknown, 12/09/24) itching Medications Current Medications Medications Dose Ordered Sig/Janette Route Start Time Stop Time Status Last Admin Dose Admin Enoxaparin Sodium 40 mg DAILY SC 02/17/25 10:00 Vancomycin HCl 0 ml @ 0 mls/hr UD IV 02/16/25 15:45 Cefepime HCl 50 ml @ 12.5 mls/hr Q12HR IV 02/16/25 22:00 Atorvastatin Calcium 20 mg HS PO 02/16/25 22:00 Midazolam HCl 50 ml @ 1 mls/hr Q24H IV 02/16/25 15:00 UNV Fentanyl Citrate 250 ml @ 2.5 mls/hr Q24H IV 02/16/25 15:00 Exam Vital Signs Vital Signs Date Time Temp Pulse Resp B/P (MAP) Pulse Ox O2 Delivery O2 Flow Rate FiO2 02/16/25 16:28 90 23 99/63 (75) 100 100 02/16/25 13:30 Facial BiPAP Mask 02/16/25 12:30 15 02/16/25 12:17 98.1 98.1 Exam General: RASS -3, afebrile, mucosae are moist Cardiovascular: Normal S1 and S2. No murmurs, gallops or rubs Respiratory: Bilateral crackles, and decreased breath sounds on lower zone Abdomen: Soft, nontender, no organomegaly, normal bowel sounds MSK/skin: Bilateral grade 2-3 pitting edema and skin erosions of right upper limb Neurological: Orientation cannot be assessed. No apparent motor no sensitive deficits. Pupils are isocoric and reactive Labs/Xrays Labs Test 02/16/25 15:38 02/16/25 14:28 02/16/25 12:56 Range/Units Lactic Acid Level 1.2 0.4-2.0 mmol/L Magnesium Level 2.0 1.6-2.6 mg/dL Total Bilirubin 0.4 0.2-1.0 mg/dL Direct Bilirubin 0.1 <0.3 mg/dL Aspartate Amino Transferase (AST) 40 13-40 U/L Alanine Aminotransferase (ALT) 25 7-40 U/L Alkaline Phosphatase 80 46-116 U/L Ammonia 39 H 11-32 umol/L Troponin I High Sensitivity 26 </=34 ng/L Total Protein 5.3 L 5.7-8.2 g/dL Albumin 3.4 3.2-4.8 g/dL Blood Gas Specimen Type Arterial Blood Gas Sample Site Left radial Blood Gas Patient Temperature 37.0 Arterial Blood Date Drawn [id number] Arterial Blood pH 7.253 L 7.350-7.450 Arterial Blood Partial Pressure CO2 62.7 *H 32.0-45.0 mmHg Arterial Blood Partial Pressure O2 73.9 L 83.0-108.0 mmHg Arterial Blood HCO3 27.1 21.0-28.0 mmol/L Arterial Blood Oxygen Saturation 92.1 L 94.0-98.0 % Arterial Blood Base Excess -1.1 -2.0-3.0 mmol/L Arterial Blood Oxyhemoglobin 89.7 L 94.0-98.0 % Arterial Blood Carboxyhemoglobin 2.1 H 0.5-1.5 % Arterial Blood Methemoglobin 0.5 0.0-1.5 % Aman Test Modified Blood Gas Total Hemoglobin 11.50 L 12.0-16.0 g/dL Blood Gas Set Respiration Rate 12.0 Blood Gas Modality Mask - bipap FiO2 % 60.0 Blood Gas EPAP 5 Blood Gas IPAP 14 Blood Gas Critical Value Read Back Yes Blood Gas Notified Whom Dr. bro santacruz Blood Gas Notified Time [id number] Blood Gas Notified By White Blood Count 10.6 4.4-10.8 10^3/uL Red Blood Count 3.86 L 4.0-5.20 10^6/uL Hemoglobin 12.6 12.2-16.2 g/dL Hematocrit 40.2 36.0-46.0 % Mean Corpuscular Volume 104.3 H 80.0-100.0 fL Mean Corpuscular Hemoglobin 32.7 H 28.0-32.0 pg Mean Corpuscular Hemoglobin Concent 31.4 L 32.0-36.0 g/dL Red Cell Distribution Width 18.6 H 11.8-14.3 % Platelet Count 428 140-450 10^3/uL Mean Platelet Volume 6.8 L 6.9-10.8 fL Neutrophils (%) (Auto) 79.2 37.0-80.0 % Lymphocytes (%) (Auto) 15.3 10.0-50.0 % Monocytes (%) (Auto) 5.0 0.0-12.0 % Eosinophils (%) (Auto) 0.1 0.0-7.0 % Basophils (%) (Auto) 0.4 0.0-2.0 % Neutrophils # (Auto) 8.4 1.6-8.6 10 ^3/uL Lymphocytes # (Auto) 1.6 0.4-5.4 10 ^3/uL Monocytes # (Auto) 0.5 0-1.3 10 ^3/uL Eosinophils # (Auto) 0 0-0.8 10 ^3/uL Basophils # (Auto) 0 0-0.2 10 ^3/uL Nucleated Red Blood Cells 0.2 % Sodium Level 146 H 136-145 mmol/L Potassium Level 5.3 H 3.5-5.1 mmol/L Chloride Level 111 H 98-107 mmol/L Carbon Dioxide Level 29 20-31 mmol/L Anion Gap 6 5-15 Blood Urea Nitrogen 21 9-23 mg/dL Creatinine 1.12 H 0.550-1.02 mg/dL Glomerular Filtration Rate Calc 50 >90 mL/min BUN/Creatinine Ratio 18.8 10.0-20.0 Serum Glucose 145 H 74-106 mg/dL Calcium Level 9.6 8.7-10.4 mg/dL B-Type Natriuretic Peptide 788.43 0-100 pg/mL SEPSIS Sepsis Screen Date sepsis recognized/suspect: Feb 16, 2025 Time Sepsis recognized/suspect: 1229 Recent Procedure: No On Antibiotic Therapy: No Respiratory Rate >20: No Heart Rate >90: No Temp<36 C (96.8 F) or >38.3 C: No SBP <90 or MAP <65 mmHG: No New Acute Mental Status Change: No Is the patient on CPAP, BIPAP,: No Physician Orders Urinalysis (02/16/25 12:15) Abg W/ Co-Ox (02/16/25 12:15) Chest Portable (02/16/25 12:15) Heplock Iv (02/16/25 12:15) Pulse Oximetry (02/16/25 12:15) Paper Bag Making Machinist (02/16/25 12:15) Blood Pressure (02/16/25 12:15) Blood Culture (02/16/25 12:15) Covid19 Antigen Erica (02/16/25 ) Rapid Influenza A&B (02/16/25 12:15) Electrocardigram (02/16/25 13:15) Electrocardigram (02/16/25 15:15) Gold Catheters (02/16/25 ) BIPAP (02/16/25 13:13) Ventilator Orders (02/16/25 14:40) Admit (02/16/25 15:13) Code Status (02/16/25 15:13) Vital Signs .PER UNIT PROTOCOL (02/16/25 15:13) Review Orders With Adm.Md (02/16/25 15:13) Npo (Nothing By Mouth) Diet (02/16/25 Dinner) Notify Md Of Changes From Base (02/16/25 15:13) Advance Directive (02/16/25 15:13) Blood Culture (02/16/25 15:13) Urine Bacterial Culture (02/16/25 15:13) Patient Condition (02/16/25 15:13) Allergies (02/16/25 15:13) Drug Screen (02/16/25 15:13) Enoxaparin Sodium (Lovenox) (02/17/25 10:00) Stat Ekg For Chest Pain (02/16/25 15:13) Notify Of Changes From Base (02/16/25 15:13) Aerial Planting And Cultivation Manager For 24 Hours (02/16/25 15:13) Emergency Dysrhythmia Protocol (02/16/25 15:13) Rhythm Strips Once Every Shift (02/16/25 15:13) Complete Blood Count (02/17/25 04:00) Comprehensive Metabolic Panel (02/17/25 04:00) Chest Xray 1 View (02/17/25 04:00) Abg W/ Co-Ox (02/17/25 04:00) Rapid Influenza A&B (02/16/25 15:13) Mrsa Screen (02/16/25 15:13) Respiratory Culture W/ Gs (02/16/25 15:13) Vancomycin Per Pharmacy (02/16/25 15:45) Cefepime 1gm/ 50ml (Maxipime 1gm/50ml) (02/16/25 22:00) Cefepime 1gm/ 50ml (Maxipime 1gm/50ml) (02/16/25 15:45) Atorvastatin (Lipitor) (02/16/25 22:00) Midazolam Drip 50 Mg/50ml (Versed Drip 5 (02/16/25 15:00) Fentanyl Drip 2500mcg/250mlns (02/16/25 15:00) Rass Sedation Scale Q1HR (02/16/25 15:54) Abg W/ Co-Ox (02/16/25 17:00) Chest Without Contrast (02/16/25 16:15) Vital Signs Date Time Temp Pulse Resp B/P (MAP) Pulse Ox O2 Delivery O2 Flow Rate FiO2 02/16/25 16:28 90 23 99/63 (75) 100 100 02/16/25 15:30 124 22 107/67 100 02/16/25 14:50 124 22 107/67 (80) 100 100 02/16/25 13:30 149 124/87 Facial BiPAP Mask 60 02/16/25 13:07 131 02/16/25 12:31 135 02/16/25 12:30 155 24 98 Non-Rebreather 15 N/A 02/16/25 12:24 120/72 02/16/25 12:23 133 19 120/92 (101) 98 02/16/25 12:17 98.1 110 22 105/63 99 98.1 02/16/25 12:11 135 Laboratory Tests Test 02/16/25 12:56 02/16/25 15:38 Lactic Acid Level 2.3 mmol/L (0.4-2.0) *H 1.2 mmol/L (0.4-2.0) White Blood Count 10.6 10^3/uL (4.4-10.8) Medications Medications Dose Ordered Sig/Janette Route Start Time Stop Time Status Last Admin Dose Admin Furosemide 40 mg ONCE ONCE IV 02/16/25 12:15 02/16/25 12:17 DC 02/16/25 12:24 40 MG Assessment/Plan Assessment/Plan This is a 80-year-old female with past medical history of AFib, HFrEF, CKD, TIA, hypertension, and seizure came to the hospital due to shortness of breaths and altered mental status. Upon arrival to hospital, patient was able to speak but was lethargic and in respiratory distress. Due to low oxygen saturation patient was put on BiPAP, respiratory status gradually worsened, and subsequently intubated and put on mechanical ventilation. NEURO: Acute metabolic encephalopathy, likely due to hypoxia/hypercapnia History of TIA * Sedated on the on mechanical ventilation, RASS score -3 CARDIOVASCULAR: Permanent AFib on Eliquis Acute on chronic systolic heart failure Possible cardiogenic shock Volume overload, due to above Acquired hypercoagulopathy History of hypertension * Echo from 12/10/2024 shows EF 10-15% with markedly dilated LV * EKGs shows AFib with RVR significant ST or T-wave changes * Trop is normal, BNP is raised at 788 * Therapeutic dose of Lovenox * Continue atorvastatin and Plavix PULMONARY: Acute hypoxic/hypercarbic respiratory failure, likely due to systolic heart failure/parapneumonic effusion Pneumonia, likely due to Gram-positive/Gram-negative bacteria/viral Pleural effusion, likely parapneumonic/heart failure exacerbation * Chest CT shows moderate to large bilateral pleural effusion * ABG upon arrival showed pH 7.185, pCO2 68.5, PO2 119 we subsequently mechanical ventilation adjusted * Mechanical ventilation sitting: VT 350, peep 5, RR 20 and FiO2 60% * Empiric antibiotic of vancomycin and cefepime GASTROINTESTINAL: Protonix GENITOURINARY: Urine culture ENDOCRINE: METABOLIC: Hypokalemia HEME: Macrocytosis INFECTIOUS DISEASE: Pneumonia, likely due to Gram-positive/Gram-negative bacteria Lactic acidosis * Empiric antibiotic vancomycin and cefepime * Panculture * Check MRSA, influenza and COVID-19 MUSCULOSKELETAL: Skin erosion of right upper limb * Wound consult DIET: NPO DVT prophylax: On therapeutic dose of Lovenox GI prophylaxis: Protonix Code status: Goal of care discussed with the patient's at the bedside for more than 25 minute, full code LINES/DRAINS/ACCESS: * ETT: Intubated on IV access: Right internal jugular vein, put on 02/16/2025 * Drips: Fentanyl, Versed and Levophed * Gold catheter: DISPOSITION: ICU status Patient's status discussed with patient's has been at bedside. Critical care time spent more than 85 minutes, including patient care, chart review, and updating the family. Excluding any procedures. Case discussed with Dr. Logan Plan discussed with: Spouse, Other (RN) My Orders Orders - EDEN LOZANO RESDIBROOK Procedure Category Date Status Time Admit ADMIT 02/16/25 Transmitted 15:13 Code Status CODE 02/16/25 Transmitted 15:13 Vital Signs [facility] 02/16/25 In Process 15:13 Review Orders With LAURENT 02/16/25 In Process Adm. 15:13 Npo (Nothing By DIET 02/16/25 Transmitted Mouth) Diet Dinner Notify Md Of Changes [facility] 02/16/25 In Process From Base 15:13 Advance Directive LAURENT 02/16/25 In Process 15:13 Blood Culture [facility] 02/16/25 Logged 15:13 Urine Bacterial [facility] 02/16/25 Logged Culture 15:13 Patient Condition ORDERS 02/16/25 Transmitted 15:13 Allergies LAURENT 02/16/25 In Process 15:13 Drug Screen LAB 02/16/25 Logged 15:13 Enoxaparin Sodium PHA 02/17/25 In Process (Lovenox) 10:00 Stat Ekg For Chest [facility]URENT 02/16/25 In Process Pain 15:13 Notify Of Changes [facility] 02/16/25 In Process From Base 15:13 Aerial Planting And Cultivation Manager For [facility] 02/16/25 In Process 24 Hours 15:13 Emergency Dysrhythmia [facility] 02/16/25 In Process Protocol 15:13 Rhythm Strips Once [facility] 02/16/25 In Process Every Shift 15:13 Complete Blood Count LAB 02/17/25 Verified 04:00 Comprehensive LAB 02/17/25 Verified Metabolic Panel 04:00 Chest Xray 1 View XY 02/17/25 Logged 04:00 Abg W/ Co-Ox RT 02/17/25 Logged 04:00 Rapid Influenza A&B LAB 02/16/25 Logged 15:13 Mrsa Screen SHANONN 02/16/25 Logged 15:13 Respiratory Culture [facility]ON 02/16/25 In Process W/ Gs 15:13 Vancomycin Per [facility] 02/16/25 In Process Pharmacy 15:45 Cefepime 1gm/ 50ml [facility] 02/16/25 In Process (Maxipime 1gm/50ml) 22:00 Cefepime 1gm/ 50ml [facility] 02/16/25 In Process (Maxipime 1gm/50ml) 15:45 Atorvastatin (Lipitor) [facility] 02/16/25 In Process 22:00 Abg W/ Co-Ox RT 02/16/25 Logged 17:[address] 02/16/25 Logged 16:15 Date of Service: Feb 16, 2025 Billing Provider: JULI LOGAN MD Common Visit Codes: 33536-[id number] CARE 30-74 MIN, [id number] CARE-EACH +30MIN (critical care time 90 mintues) EDEN LOZANO RESDIENT Feb 16, 2025 16:46 JULI LOGAN MD Feb 21, 2025 20:06
[2025-02-16] MEDS: SODIUM CHLORIDE 0.9% 500 ML IV ONE (16:48)
--- NOTE | 2025-02-16 17:01 | DVHNC2 ---
Central Line Recorder of insertion practice: Sailmaker (Lissy Villalta) Indication: Hypotension, CVP monitoring, Volume resuscitation Room prepared for procedure: Yes Sailmaker performed hand hygien: Yes Maximal sterile barrier precau: Mask/Eye shield, Sterile gown, Cap, Sterlie gloves, Large sterlie drape Skin Preparation: Chlorhexidine gluconate, Providine iodine Skin preparation completely dr: Yes Insertion site: Right, Internal jugular Central line catheter type: [id number] dialysis Number of lumens: 3 Central line exchanged over a: No Antiseptic ointment applied to: Yes Post Assessment: Chest X-Ray, No Pneumothorax Informed consent obtained: Yes Risks/benefits/alt described: Yes Notes A time out was performed. My hands were washed immediately prior to the procedure. I wore a surgical cap, mask with protective eyewear, full gown and sterile gloves throughout the procedure. The patient was placed in Trendelenburg position. RIGHT chest region was prepped using chlorhexidine scrub and draped in sterile fashion using a full drape and sterile probe cover and sterile gel employed. The medial and lateral heads of the sternocleidomastoid muscle were identified as was the carotid pulse. The Internal Jugular vein was identified using the ultrasound. Anesthesia was achieved over the vein using 1% lidocaine. Using real-time out of plane guidance, the introducer needle was inserted into the Internal Jugular vein under direct ultrasound visualization. Venous blood was withdrawn. The syringe was removed and a guidewire was advan jose into the introducer needle. The guidewire was visualized in the Internal Jugular Vein by ultrasound. A small incision was made at the skin surface with a scalpel and the introducer needle was exchanged for a dilator over the guidewire. After appropriate dilation was obtained, the dilator was exchanged over the wire for a _ central venous catheter. The wire was removed and the catheter was sutured in place at _ cm. A sterile sorbaview shield was placed over the catheter at the insertion site. The patient tolerated the procedure without any hemodynamic compromise. At time of procedure completion, all ports aspirated and flushed properly. Post-procedure chest x-ray is pending at this time. Estimated blood loss is less than 5 ml Date of Service: Feb 16, 2025 Billing Provider: ARMOND CONNOR MD Common Visit Codes: PROCEDURE ONLY LISSY VILLALTA RESIDENT Feb 16, 2025 17:01
--- NOTE | 2025-02-16 17:08 | DVHNC2 ---
Intubation Indication: Respiratory Insufficiency, Airway Protection Prep: Preoxygenation Pretreated with: Analgesia, Sedation Medicated with: Succinylcholine, Other (Etomidate) Intubation Approach: Orotracheal Intubation size: cm (8) Informed consent obtained: No Risks/benefits/alt described: No Notes A time out was performed. My hands were washed immediately prior to the procedure. I wore a surgical cap, mask with protective eyewear, gown and gloves throughout the procedure. The patient was placed on a patient services clerk including continuous pulse oximetry. Rapid Sequence Intubation was conducted. The patient received 40 mg of etomidate for induction and 200 mg of succinylcholine for adequate paralysis. Cricoid pressure was maintained from time induction agent was given to time of cuff balloon inflation. Using a _ direct laryngoscope and a size 8_ endotracheal tube with stylet, the patient was intubated on the _1st attempt. The stylet was removed and cuff balloon was inflated. Appropriate endotracheal tube position was confirmed by direct visualization of vocal cord passage, fogging of the tube, CO2 colormetric indicator and symmetric breath sounds. The tube was secured at _24 cm at the lips. Post intubation chest x-ray is pending at this time. Date of Service: Feb 16, 2025 Billing Provider: ARMOND CONNOR MD Common Visit Codes: PROCEDURE ONLY LISSY ULU RESIDENT Feb 16, 2025 17:08
[2025-02-16] MEDS: cefTRIAXone 1GM/50ML D5W 50 ML IV ONE (17:25)
[2025-02-16] MEDS: CALCIUM GLUC 1,000mg/50ml-NS 50 ML IV ONE ×2 (17:25→21:58)
[2025-02-16] MEDS: CEFEPIME 1GM/ 50ML 50 ML IV ONE (17:25)
[2025-02-16] MEDS: VANCOMYCIN 1GM/200ML PM 200 ML IV ONE ×2 (17:26→17:55)
[2025-02-16 18:26] LABS: Base Excess 3.6 mmol/L (-2.0-3.0)
--- NOTE | 2025-02-16 19:45 | DVH ---
Procedure: CT CHEST WITHOUT CONTRAST Reason for study/Clinical History: Pna/ CENTRAL LINE PLCMNT Comparison Study: XY CHEST PORTABLE on DOS: 02/16/25, XY CHEST PORTABLE on DOS: 12/09/24, XY CHEST XRAY 1 VIEW on DOS: 05/22/24, CT CT ANGIO CHEST CONTRAST on DOS: 04/25/24, XY CHEST PORTABLE on DOS: Exam Date: 02/16/2025 05:00 PM TECHNIQUE: Multidetector CT of the chest was performed from the lung apices to the upper abdomen with out the use of intravenous contract. Axial, coronal and sagittal multiplanar reformats were performed . Radiation Dose Information: CT Dose: CTDI volume is 26.3 mGy. Dose-length product is 2.54 mGy*cm The dose indicators for CT are the volume Computed Tomography (CT) Dose Index (CTDIvol) and the Dose Length Product (DLP), and are measured in units of mGy and mGy-cm, respectively. These indicators are not patient dose, but values generated from the CT scanner acquisition factors. The report includes radiation exposure data for exposures received during this examination. FINDINGS: Lower neck: Normal thyroid. Right-sided central venous catheter is seen with tip in the lower SVC. E ndotracheal tube terminates above the mikhail. Enteric tube terminates in the stomach. Lungs: Right lower lobe consolidation may reflect compressive atelectasis or pneumonia. 1.3 cm nodule is seen in the left lower lobe. Heart/Vascular Structures: Normal heart size. No pericardial effusion. Lymph Nodes: Mediastinal lymphadenopathy, for example a left paratracheal lymph node measuring up to 1 cm Pleura: Moderate bilateral pleural effusions Musculoskeletal: No acute osseous abnormality. Soft tissues: Normal. Upper abdomen: Limited portions of the upper abdomen are unremarkable. IMPRESSION: 1. Right lower lobe consolidation may reflect compressive atelectasis or pneumonia. 2. Moderate bilateral pleural effusions. 3. 1.3 cm nodule seen in the left lower lobe. Recommend correlation with PET-CT or tissue sampling. 4. Mediastinal lymphadenopathy. 5. Right-sided central venous catheter is seen with tip in the lower SVC Radiation optimization: All CT scans at this facility use at least one of these dose optimization socorro hniques: automated exposure control mA and/or kV adjustment per patient size (includes targeted exam s where dose is matched to clinical indication) or iterative reconstruction.
[2025-02-16 20:04] LABS: Base Excess 1.9 mmol/L (-2.0-3.0)
[2025-02-16 21:02] LABS: Anion Gap 8 (5-15); Calcium 9.0 mg/dL (8.7-10.4); Carbon Dioxide 26 mmol/L (20-31)
[2025-02-16] MEDS: ENOXAPARIN SOD 80 MG/0.8ML SYRINGE SC SCH (21:02)
[2025-02-16 21:07] LABS: BUN/Creatinine Ratio 20.5 (10.0-20.0)
[2025-02-16 21:10] LABS: Chloride 112 mmol/L (98-107); Sodium 146 mmol/L (136-145)
[2025-02-16 21:11] LABS: Blood Urea Nitrogen 23 mg/dL (9-23); Glucose 131 mg/dL (74-106)
[2025-02-16 21:13] LABS: Potassium 5.8 mmol/L (3.5-5.1)
--- NOTE | 2025-02-16 21:22 | DVH ---
CHEST RADIOGRAPH Indication: ETT and IJ line inserted follow up Technique: Single frontal view of the chest was obtained Comparison: CT CHEST WITHOUT CONTRAST on DOS: 02/16/25, XY CHEST PORTABLE on DOS: 02/16/25, XY CHEST PORT ABLE on DOS: 12/09/24 FINDINGS: Lines and Tubes: Endotracheal tube 2.8 cm above the mikhail. Right internal jugular catheter in place in the right atrium or at the cavoatrial junction. Enteric tube below the left diaphragm tip was not included in the study. Lungs: Bilateral airspace disease is seen worse on the right than the left. Pleura: No effusion. No pneumothorax. Cardiomediastinal contours: Unremarkable Bones: No acute osseous abnormality. IMPRESSION: 1. Endotracheal tube 2-3 cm above the mikhail. 2. Right internal jugular catheter at the cavoatrial junction or in the right atrium. 3. Enteric tube not well seen if enteric tube is present recommend KUB 4. Unimproved bilateral airspace disease.
[2025-02-16] MEDS: NOREPINEPHRINE 8 MG/250ML KIT 250 ML IV SCH (21:28)
[2025-02-16] MEDS: DEXTROSE (50%) 50ML SYRG IV ONE (22:24)
[2025-02-16] MEDS: InsuLIN REG 1unit/0.01ml Soln (100units/ml) IV ONE (22:30)
[2025-02-16] MEDS: ALBUTEROL SULF 2.5 MG/0.5ML(0.5%) NEB SOLN NEB ONE (22:35)
[2025-02-16] MEDS: SODIUM ZIRCONIUM CYCL 10 GM PAK PO ONE (23:05)
[2025-02-16] MEDS: PANTOPRAZOLE 40 MG/10 ML VIAL INJ IV ONE (23:16)
[2025-02-16] MEDS: ATORVASTATIN 20 MG TAB PO SCH (23:16)
[2025-02-16] MEDS: CEFEPIME 1GM/ 50ML 50 ML IV SCH (23:27)
[2025-02-17] VITALS (43 sets, daily range): BP systolic 71–126; BP diastolic 41–73; PULSE 67–131; RESP 15–22; TEMP 99–99.3; O2SAT 94–100
[2025-02-17 05:21] LABS: Hematocrit 31.2 % (36.0-46.0); Hemoglobin 10.1 g/dL (12.2-16.2); Mean Corpuscular Hemoglobin 32.8 pg (28.0-32.0); Mean Corpuscular Volume 100.8 fL (80.0-100.0); Nucleated Red Blood Cells % 0.1 %
[2025-02-17 05:40] LABS: Alanine Aminotransferase 19 U/L (7-40); Albumin 3.2 g/dL (3.2-4.8); Alkaline Phosphatase 75 U/L (46-116); Anion Gap 6 (5-15); BUN/Creatinine Ratio 22.0 (10.0-20.0); Bilirubin, Total 0.5 mg/dL (0.2-1.0); Calcium 9.0 mg/dL (8.7-10.4); Carbon Dioxide 29 mmol/L (20-31); Glucose 86 mg/dL (74-106); Potassium 4.0 mmol/L (3.5-5.1)
[2025-02-17 05:43] LABS: Blood Urea Nitrogen 24 mg/dL (9-23); Chloride 111 mmol/L (98-107); Sodium 146 mmol/L (136-145); Total Protein 5.2 g/dL (5.7-8.2)
[2025-02-17 06:09] LABS: Base Excess 0.8 mmol/L (-2.0-3.0)
--- NOTE | 2025-02-17 06:31 | DVH ---
CHEST RADIOGRAPH Indication: Pneumonia Technique: Single frontal view of the chest was obtained Comparison: XY CHEST XRAY 1 VIEW on DOS: 02/16/25, CT CHEST WITHOUT CONTRAST on DOS: 02/16/25, XY CHEST P ORTABLE on DOS: 02/16/25 FINDINGS: Lines and Tubes: The endotracheal tube terminates 3.0 cm above the mikhail. Right central venous cath eter terminates in the right atrium. The enteric tube courses below the left hemidiaphragm however th e tip is excluded from the [id number]. Lungs: Pulmonary edema. Pleura: There are bilateral pleural effusions. No pneumothorax. Cardiomediastinal contours: Cardiomegaly. Bones: No acute osseous abnormality. IMPRESSION: 1. Bilateral pleural effusions. Cardiomegaly. Pulmonary edema. No significant interval change.
--- NOTE | 2025-02-17 07:08 | DVH ---
CLINICAL INFORMATION: 80 years old, Female; RESP DISTRESS. TECHNIQUE: Single AP portable chest radiograph was obtained. COMPARISON: XY CHEST XRAY 1 VIEW on DOS: 02/17/25 at 5:36 a.m., XY CHEST XRAY 1 VIEW on DOS: 02/16/25, CT CHEST WITHOUT CONTRAST on DOS: 02/16/25 FINDINGS: Stable satisfactory positioning of the endotracheal tube and enteric tube. Interval retraction of the right internal jugular central venous catheter with the tip now at the level of the proximal SVC. Bi lateral pleural effusions with overlying atelectasis and/or consolidation appear unchanged. Ill-defin ed bilateral airspace opacities and interstitial opacities are unchanged. No pneumothorax. No other significant interval change. IMPRESSION: 1. Interval retraction of the right internal jugular central venous catheter, with the tip now at the level of the proximal SVC. 2. No other significant interval change as detailed above.
[2025-02-17 08:25] LABS: Base Excess 0.6 mmol/L (-2.0-3.0)
[2025-02-17] MEDS ORDERED: ENOXAPARIN SOD 40 MG/0.4 ML SYRINGE SC SCH (10:00)
[2025-02-17] MEDS: PANTOPRAZOLE 40 MG/10 ML VIAL INJ IV SCH (11:20)
[2025-02-17] MEDS: LACOSAMIDE 50 MG TAB GT SCH (11:31)
[2025-02-17 12:28] LABS: Urine Budding Yeast MODERATE /hpf (None Seen); Urine Protein, UAD 2+ (Negative); Urine WBC Clumps PRESENT /hpf (None Seen)
[2025-02-17 13:17] LABS: Amphetamine Screen, Urine Neg (NEGATIVE); Barbiturate Scree,Urine Neg (NEGATIVE); Benzodiazephine Screen, Urine Pos (NEGATIVE); Cannabinoid Screen, Urine Neg (NEGATIVE); Cocaine Screen, Urine Neg (NEGATIVE); Opiate Scree,Urine Neg (NEGATIVE); Phencyclidine Screen, Urine Neg (NEGATIVE)
[2025-02-17] MEDS ORDERED: cefTAZidime 1 GM in SODIUM CHL 0.9% 50 ML IV SCH (15:52)
--- NOTE | 2025-02-17 16:08 | DVH ---
CHEST RADIOGRAPH Indication: ET TUBE RETRACTED Technique: XY CHEST XRAY 1 VIEW COMPARISON: 02/17/2025 FINDINGS: Right IJ catheter tip projects over the SVC. Endotracheal tube tip projects 3.7 cm above the mikhail. Nasogastric tube projects stomach. The cardiac silhouette is enlarged. The lungs demonstrate bilateral patchy airspace opacities. The pu lmonary vasculature is prominent. Moderate bilateral pleural effusions.. There is no pneumothorax. Ao rtic atherosclerotic disease. IMPRESSION: As above
--- NOTE | 2025-02-17 17:27 | DVHPNRES ---
Progress Note Date Seen: Feb 17, 2025 Resident Creating Document: JARED LAGUNA RESIDENT Medical Necessity Reason Pt with a Central, PICC or Fol: Yes The following are medically ne: Central Line, Gold Catheter Subjective Review of Systems Patient is 80-year-old female with a medical history of atrial fibrillation, heart failure with reduced ejection fraction, CKD, COPD, seizure disorder was brought to the ED via EMS with worsening shortness of breath for the last 2 days. As per the since the last 2 days patient started to have worsening shortness of breath associated with a cough and worsening mental status with lethargy. She denied any chest pain, nausea, vomiting, recent sick contact. On arrival to the ED patient was tachycardic with the ECG showing atrial fibrillation with a RVR and was mildly hypotensive with BP 105/63 mmHg. Initial ABG showed mixed respiratory acidosis with metabolic acidosis, patient was put on BiPAP but she continued to have respiratory distress with increased work of breathing and was intubated and put on mechanical ventilation. On reviewing the charts patient has a had a previous has had previous urinary tract infection with the Acinetobacter baumannii in in November 2024, VRE in April 2024 with bacteremia due to VRE in April 2024. Patient underwent a coronary angiography done in December 2024 showed no significant coronary artery disease, decreased LVEF at 20% with a LVEDP 18 mmHg. Medical history: Atrial fibrillation, heart failure with a reduced ejection fraction, CKD, hypertension, seizure disorder, COPD Surgical history: Knee surgery and back surgery Social history: Patient is active smoker with 60 pack year smoking history, denies alcohol and any other drug use, mostly bed-bound, uses wheelchair for mobility Home medications: Eliquis, clopidogrel, Lasix, irbesartan, metoprolol succinate, spironolactone, Keppra, lacosamide, Spiriva inhaler, albuterol Review of systems Patient seen and examined at the bedside. She is sedated and on mechanical ventilation. Chest x-ray showed improving bilateral pulmonary edema, right lower lobe opacification. Objective vital signs Vital Sign Date Time Temp Pulse Resp B/P (MAP) Pulse Ox O2 Delivery O2 Flow Rate FiO2 02/17/25 16:12 74 20 121/66 (84) 97 35 02/17/25 13:30 97.9 97.9 02/17/25 08:00 Mechanical Ventilator+ 02/16/25 12:30 15 Total Intake and Output 02/16/25 02/16/25 02/17/25 15:00 23:00 07:00 Intake Total 247.50 ml 309.75 ml Output Total 1300 ml Balance 247.50 ml -990.25 ml medications Current Medications Medications Dose Ordered Sig/Janette Route Start Time Stop Time Status Last Admin Dose Admin Midazolam HCl 50 ml @ 1 mls/hr Q24H IV 02/16/25 15:00 02/17/25 08:01 8 MLS/HR Fentanyl Citrate 250 ml @ 2.5 mls/hr Q24H IV 02/16/25 15:00 02/17/25 14:54 20 MLS/HR Pantoprazole Sodium 40 mg DAILY IV 02/17/25 10:00 02/17/25 11:20 40 MG Norepinephrine Bitartrate 250 ml @ 3.75 mls/hr Q24H IV 02/16/25 20:15 02/16/25 21:28 3.75 MLS/HR Levetiracetam 1,000 mg BID NG 02/16/25 22:00 02/17/25 12:02 1,000 MG Enoxaparin Sodium 70 mg Q12H SC 02/16/25 21:02 Atorvastatin Calcium 40 mg HS PO 02/17/25 22:00 Lacosamide 100 mg BID GT 02/17/25 11:30 02/17/25 11:31 100 MG Enteral Nutritional Formula 1,000 ml 30ML/HR GT 02/17/25 12:00 Levalbuterol HCl 0.625 mg Q6HR NEB 02/17/25 18:00 Ipratropium [place] 0.5 mg Q6HR NEB 02/17/25 18:00 Linezolid 300 ml @ 150 mls/hr Q12HR IV 02/17/25 22:00 Ceftazidime/ Dextrose 1 gm/ Sodium Chloride 50 ml @ 16.667 mls/ hr Q12H IV 02/17/25 16:00 Examination Gen - no pallor, no icterus, no cyanosis, no clubbing, no LAD, bilateral 3+ pitting edema in the lower extremities up to the mid norton Skin - Patients skin is warm and dry. HEENT - normocephalic, atraumatic, moist mucous membranes. Neck - no LAD, jugular venous distention seen Pulmonary - B/L diminished breath sounds with rales, no wheezing, no stridor. cardiovascular - irregularly irregular S1,S2 heard, no added sounds, no murmurs heard. capillary refill normal >3 secs. GI - soft abdomen. Bowel sounds normoactive Neurological - Patient is sedated and on mechanical ventilation laboratory and microbiology Laboratory Tests 02/17/25 04:41 Test 02/17/25 04:41 Range/Units Serum Glucose 86 74-106 mg/dL Microbiology Date/Time Source Procedure Growth Status 02/17/25 09:48 Sputum Gram Stain - Final Resulted 02/17/25 09:48 Sputum Respiratory Culture Pending Resulted 02/16/25 13:52 Blood Blood Culture - Preliminary Resulted Problem List/Assessment/Plan Problem List/Assessment/Plan Neurology Acute metabolic encephalopathy likely from hypercapnia respiratory failure/septic shock H/o seizure disorder h/o TIA - currently sedated and on mechanical ventilation - on Keppra and lacosamide Respiratory Acute on chronic hypercapnic/hypoxemic respiratory failure Copd likely in exacerbation Possible pneumonia from gram +/- bacteria Bilateral pleural effusion likely from acute decompensated heart failure/ ?parapneumonic Bilateral pulmonary edema likely from acute decompensated heart failure Pulmonary nodule left lower lobe - chest CT showed right lower lobe consolidation, moderate bilateral pleural effusions, mediastinal lymphadenopathy, 1.3 cm nodule in the left lower lobe - on mechanical ventilation with a FiO2 40%, peep of 5, tidal volume 400 - sputum culture showing growth of Gram-negative - on broad-spectrum coverage with linezolid and ceftazidime - duo nebs q.6 hours Cardiovascular Septic shock likely from UTI Acute decompensated heart failure Heart failure with reduced ejection fraction Atrial fibrillation with a RVR, now rate controlled Nonischemic cardiomyopathy - recent echocardiogram showed LVEF 10-15% with a markedly dilated LV, RV enlarged - left heart catheterization from in December 2024 shows no significant coronary artery disease, LVEF approximately 20% - BNP elevated - on norepinephrine - Lovenox therapeutic dose - monitored input and output 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 Acute complicated urinary tract infection causing septic shock - monitoring renal function - on linezolid and ceftazidime Gastrointestinal On tube feedings DVT prophylaxis: On enoxaparin PUD prophylaxis: Protonix Right internal jugular CVC inserted on 02/16 Gold catheter inserted on 02/16 Patient's Carlos rodriguez was not able to be reached and a voicemail was left. We will try to contact him again in the morning tomorrow Code status: Full code Critical care time spent excluding procedures: 82 minutes Plan discussed with Dr. Steven Plan discussed with: Other (CLAIRE Barrett) My Orders My Orders Orders - JARED LAGUNA Procedure Category Date Status Time Nutritional PHA 02/17/25 In Process Supplements (Jevity 12:00 Levalbuterol Hcl PHA 02/17/25 In Process (Xopenex Medneb) 18:00 Ipratropium Medneb PHA 02/17/25 In Process (Atrovent Medneb) 18:00 Linezolid 600mg/300ml PHA 02/17/25 In Process (Zyvox) 22:00 Ventilator Orders RT 02/17/25 Transmitted 13:32 Chest Xray 1 View XY 02/17/25 Resulted 14:43 Date of Service: Feb 17, 2025 Billing Provider: ROMELIA STEVEN MD Common Visit Codes: 05295-[id number] CARE 30-74 MIN, [id number] CARE-EACH +30MIN JARED LAGUNA Feb 17, 2025 17:27 ROMELIA STEVEN MD Feb 18, 2025 11:57
[2025-02-17] MEDS: cefTAZidime 1 GM in SODIUM CHL 0.9% 50 ML IV SCH (18:13)
[2025-02-17] MEDS: LEVALBUTEROL HCL 1.25 MG/3 ML NEB NEB SCH (18:16)
[2025-02-17] MEDS: IPRATROPIUM BROM 0.5 MG/2.5ML INH SOL NEB SCH (18:16)
[2025-02-17] MEDS: ENOXAPARIN SOD 80 MG/0.8ML SYRINGE SC ONE (21:36)
[2025-02-17] MEDS: ATORVASTATIN 20 MG TAB PO SCH (22:08)
[2025-02-17] MEDS: LINEZOLID 600MG/300ML 300 ML IV SCH (22:09)
[2025-02-18] VITALS (97 sets, daily range): BP systolic 77–143; BP diastolic 38–91; PULSE 80–158; RESP 13–21; TEMP 96.8–99.3; O2SAT 90–99
[2025-02-18 04:22] LABS: COVID19 ANTIGEN SOFIA FIA NEGATIVE (NEGATIVE)
[2025-02-18] MEDS: AMIODARONE BOLUS KIT 100 ML IV ONE ×2 (05:24→05:28)
--- NOTE | 2025-02-18 05:26 | ECG ---
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
[2025-02-18] MEDS: AMIODARONE 360mg/200mL PREMIX 200 ML IV ONE ×2 (05:28→07:39)
--- NOTE | 2025-02-18 05:48 | DVH ---
CHEST RADIOGRAPH Indication: on vent, B/L pulmonary edema Technique: Single frontal view of the chest was obtained COMPARISON: XY CHEST XRAY 1 VIEW on DOS: 02/17/25, XY CHEST PORTABLE on DOS: 02/17/25, XY CHEST XRAY 1 EW on DOS: 02/17/25, XY CHEST XRAY 1 VIEW on DOS: 02/16/25, XY CHEST PORTABLE on DOS: 02/16/25 FINDINGS: Lines and Tubes: Endotracheal tube, enteric catheter and right central venous catheter in satisfactor y position Lungs: Congestion Pleura: Small bilateral pleural effusions No pneumothorax. Cardiomediastinal contours: Cardiomegaly Bones: Unremarkable IMPRESSION: Lines and tubes in satisfactory position. No significant interval change.
[2025-02-18 06:07] LABS: Hematocrit 33.4 % (36.0-46.0); Hemoglobin 10.9 g/dL (12.2-16.2); Mean Corpuscular Hemoglobin 32.7 pg (28.0-32.0); Mean Corpuscular Volume 100.3 fL (80.0-100.0); Nucleated Red Blood Cells % 0.0 %
[2025-02-18 06:21] LABS: INR 1.21 (0.9-1.15); Partial Thromboplastin Time 33.0 SEC (24.5-34.5); Prothrombin Time 12.6 sec (9.3-11.8)
[2025-02-18 06:22] LABS: Anion Gap 8 (5-15); Carbon Dioxide 27 mmol/L (20-31); Potassium 3.8 mmol/L (3.5-5.1)
[2025-02-18 06:23] LABS: Calcium 8.8 mg/dL (8.7-10.4)
[2025-02-18 06:28] LABS: BUN/Creatinine Ratio 22.2 (10.0-20.0)
[2025-02-18 06:29] LABS: Chloride 110 mmol/L (98-107); Glucose 165 mg/dL (74-106); Sodium 145 mmol/L (136-145)
[2025-02-18 06:30] LABS: Blood Urea Nitrogen 22 mg/dL (9-23)
--- NOTE | 2025-02-18 08:49 | MEDREC ---
[facility] ASP Intervention Section I [facility] ASP Intervention: Renal dosing adjustment (PLEASE INCREASE THE FREQUENCY FROM Q12H TO Q8H BASED ON RENAL CREARANCE) COLLIN MORILLO [facility] RESIDENT Feb 18, 2025 08:49
[2025-02-18 09:21] LABS: Base Excess 0.1 mmol/L (-2.0-3.0)
[2025-02-18] MEDS: methylPREDNISolone SOD SUCC 40 MG/ML VL IV SCH (11:07)
[2025-02-18] MEDS: ENOXAPARIN SOD 80 MG/0.8ML SYRINGE SC SCH (11:08)
[2025-02-18] MEDS: AMIODARONE 360mg/200mL PREMIX 200 ML IV SCH (11:24)
[2025-02-18] MEDS: POTASSIUM CHL 20MEQ/100ML 100 ML IV ONE (14:05)
[2025-02-18] MEDS: MAGNESIUM SULFATE 1GM/100ML 100 ML IV ONE (14:06)
[2025-02-18] MEDS: MEROPENEM 1GM IVPB 50 ML IV ONE (14:10)
[2025-02-18] MEDS: MEROPENEM 1GM IVPB 50 ML IV SCH (14:11)
--- NOTE | 2025-02-18 15:25 | ECG ---
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
--- NOTE | 2025-02-18 17:03 | DVHPNRES ---
Progress Note Date Seen: Feb 18, 2025 Resident Creating Document: JARED LAGUNA RESIDENT Medical Necessity Reason Pt with a Central, PICC or Fol: Yes The following are medically ne: Central Line, Gold Catheter Subjective Review of Systems 02/17 Patient seen and examined at the bedside. Sedated and is on mechanical ventilation, responds to physical stimulation. Overnight patient did not have any fevers. Vasopressor requirement increased patient had increased urine output of 17 50 mL over the last 24 hours. Chest x-ray shows bilateral congestion, mildly improved along with bibasilar opacities. WBC count decreased. Patient was started on feeding through NG tube. ABG showed respiratory acidosis with metabolic alkalosis, patient had mild wheezing following which Solu-Medrol 40 mg IV daily was started. Overnight patient had a run of atrial fibrillation with a RVR and was started on amiodarone. Objective vital signs Vital Sign Date Time Temp Pulse Resp B/P (MAP) Pulse Ox O2 Delivery O2 Flow Rate FiO2 02/18/25 15:51 137 20 92/61 (71) 92 30 02/18/25 08:00 Mechanical Ventilator+ 02/18/25 06:52 97.5 207.5 02/16/25 12:30 15 Total Intake and Output 02/17/25 02/17/25 02/18/25 15:00 23:00 07:00 Intake Total 311.75 ml 306.250 ml 1087.331 ml Output Total 1750 ml Balance 311.75 ml 306.250 ml -662.669 ml medications Current Medications Medications Dose Ordered Sig/Janette Route Start Time Stop Time Status Last Admin Dose Admin Midazolam HCl 50 ml @ 1 mls/hr Q24H IV 02/16/25 15:00 02/18/25 14:05 6 MLS/HR Fentanyl Citrate 250 ml @ 2.5 mls/hr Q24H IV 02/16/25 15:00 02/18/25 16:42 12.5 MLS/HR Pantoprazole Sodium 40 mg DAILY IV 02/17/25 10:00 02/18/25 11:06 40 MG Norepinephrine Bitartrate 250 ml @ 3.75 mls/hr Q24H IV 02/16/25 20:15 02/16/25 21:28 3.75 MLS/HR Levetiracetam 1,000 mg BID NG 02/16/25 22:00 8/7/25 11:07 1,000 MG Lacosamide 100 mg BID GT 02/17/25 11:30 02/18/25 11:06 100 MG Enteral Nutritional Formula 1,000 ml 30ML/HR GT 02/17/25 12:00 Levalbuterol HCl 0.625 mg Q6HR NEB 02/17/25 18:00 02/18/25 12:27 0.625 MG Ipratropium [place] 0.5 mg Q6HR NEB 02/17/25 18:00 02/18/25 12:27 0.5 MG Linezolid 300 ml @ 150 mls/hr Q12HR IV 02/17/25 22:00 02/18/25 11:07 150 MLS/HR Enoxaparin Sodium 70 mg Q12HR SC 02/18/25 10:00 02/18/25 11:08 70 MG Methylprednisolone Sodium Succinate 40 mg DAILY IV 02/18/25 10:00 02/18/25 11:07 40 MG Meropenem 50 ml @ 17 mls/hr Q8HR IV 02/18/25 14:00 02/18/25 14:11 17 MLS/HR Examination Gen - no pallor, no icterus, no cyanosis, no clubbing, no LAD, bilateral 2+ pitting edema in the lower extremities up to the mid [place], better than yesterday Skin - Patients skin is warm and dry. HEENT - normocephalic, atraumatic, moist mucous membranes. Neck - no LAD, mild jugular venous distention seen Pulmonary - B/L diminished breath sounds with rales, mild bilateral wheezing, no stridor. cardiovascular - irregularly irregular S1,S2 heard, no added sounds, no murmurs heard. capillary refill normal >3 secs. GI - soft abdomen. Bowel sounds normoactive Neurological - Patient is sedated and on mechanical ventilation laboratory and microbiology Laboratory Tests 02/18/25 05:38 Test 02/18/25 05:38 Range/Units Serum Glucose 165 H 74-106 mg/dL Microbiology Date/Time Source Procedure Growth Status 02/17/25 09:48 Sputum Gram Stain - Final Resulted 02/17/25 09:48 Sputum Respiratory Culture - Preliminary Resulted 02/16/25 13:52 Blood Blood Culture - Preliminary Resulted Problem List/Assessment/Plan Problem List/Assessment/Plan Neurology Acute metabolic encephalopathy likely from hypercapnia respiratory failure/septic shock H/o seizure disorder h/o TIA - currently sedated and on mechanical ventilation - on Keppra and lacosamide Respiratory Acute on chronic hypercapnic/hypoxemic respiratory failure Copd likely in exacerbation Possible pneumonia from gram +/- bacteria Bilateral pleural effusion likely from acute decompensated heart failure/ ?parapneumonic Bilateral pulmonary edema likely from acute decompensated heart failure Pulmonary nodule left lower lobe - chest CT showed right lower lobe consolidation, moderate bilateral pleural effusions, mediastinal lymphadenopathy, 1.3 cm nodule in the left lower lobe - on mechanical ventilation with a FiO2 40%, peep of 5, tidal volume 400 - sputum culture showing growth of Klebsiella pneumoniae - on broad-spectrum coverage with linezolid and meropenam - duo nebs q.6 hours Cardiovascular Septic shock likely from UTI Acute decompensated heart failure Heart failure with reduced ejection fraction Atrial fibrillation with a RVR, now rate controlled Nonischemic cardiomyopathy - recent echocardiogram showed LVEF 10-15% with a markedly dilated LV, RV enlarged - left heart catheterization from in December 2024 shows no significant coronary artery disease, LVEF approximately 20% - BNP elevated - on norepinephrine - Lovenox therapeutic dose - monitor input and output 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 Acute complicated urinary tract infection causing septic shock - monitoring renal function - on linezolid and meropenam Infectious disease Septic shock Bacteremia UTI Possible pneumonia - preliminary blood culture showed growth of Gram-positive cocci in clusters - sputum culture showed growth of Klebsiella pneumoniae - urine cultures pending On meropenem and linezolid Vasopressors Gastrointestinal On tube feedings DVT prophylaxis: On enoxaparin PUD prophylaxis: Protonix Right internal jugular CVC inserted on 02/16 Gold catheter inserted on 02/16 Goals of care discussed with the patient's Leena at bedside. Code status: Full code Critical care time spent excluding procedures: 81 minutes Plan discussed with Dr. Steven Plan discussed with: Spouse (leena), Other (CLAIRE Avitia) My Orders My Orders Orders - JARED LAGUNA RESIDENT Procedure Category Date Status Time Accucheck ED NURSING 02/17/25 Transmitted Chest Xray 1 View XY 02/18/25 Resulted 04:00 Abg W/ Co-Ox RT 02/18/25 Logged 04:00 Methylprednisolone PHA 02/18/25 In Process Sod Succ (Solu Medrol 10:00 Complete Blood Count LAB 02/19/25 Verified 04:00 Basic Metabolic Panel LAB 02/19/25 Verified 04:00 Chest Xray 1 View XY 02/19/25 Logged 04:00 Abg W/ Co-Ox RT 02/19/25 Logged 04:00 Date of Service: Feb 18, 2025 Billing Provider: ROMELIA STEVEN MD Common Visit Codes: [id number] CARE 30-74 MIN, [id number] CARE-EACH +30MIN JARED LAGUNA RESIDENT Feb 18, 2025 17:03 ROMELIA STEVEN MD Feb 21, 2025 15:25
--- NOTE | 2025-02-18 22:58 | DVHINCON2 ---
Date of service: Feb 18, 2025 Referring Physician Shantell Reason for Consultation A Fib with RVR History of Present Illness This is a 80-year-old female with a PMH of AFib, HFrEF, CKD, TIA, hypertension, and seizure who presented to the ED with c/o shortness of breaths and altered mental status. Family reports patient became altered 2 days prior to admission. She 1st developed slurred speech which gradually got more altered. Due to low oxygen saturation patient was put on BiPAP, gradually developed respiratory distress, intubated and put on mechanical ventilation. Patient was admitted to the hospital ICU. Patient went into A FIb with RVR, I am asked to consult on this patient. Family History: Bronchitis G8 FATHER, Onset:Unknown FH: emphysema G8 FATHER, Onset:Unknown FH: heart failure G8 FATHER, Onset:Unknown Allergies: Coded Allergies: Codeine (Verified Allergy, Unknown, 12/09/24) itching Home Meds Active Scripts Apixaban Base (ELIQUIS) 2.5 Mg Tab, 2.5 MG PO BID for 30 Days, #60 TAB Prov:MED COHEN MD 12/15/24 Metoprolol Succinate (Toprol Xl) 50 Mg Tab, 50 MG PO DAILY for 30 Days, #30 TAB Prov:MED COHEN MD 12/15/24 Sulfamethoxazole W/Trimethopri (Bactrim Ds Tablet) 1 Tab Tb, 1 TAB PO BID for 10 Days, #20 TAB Prov:MED COHEN MD 12/15/24 Spironolactone (Aldactone) 25 Mg Tab, 25 MG PO DAILY for 14 Days, #14 TAB Prov:MED COHEN MD 12/15/24 Fluconazole (Fluconazole) 100 Mg Tab, 200 MG PO DAILY for 3 Days, #6 TAB Prov:MED COHEN MD 12/15/24 Reported Medications Citalopram Hydrobromide (Citalopram Hydrobromide) 20 Mg Tab, 20 MG PO DAILY for 30 Days, MG 12/09/24 Atorvastatin Calcium (ATORVASTATIN CALCIUM) 40 Mg Tab, 1 TAB PO HS, #30 TAB 5 Refills 12/09/24 Cholecalciferol (VITAMIN D3) 2,000 Unit Tab, 1 TAB PO DAILY, #30 TAB 5 Refills 12/09/24 Furosemide (Furosemide) 40 Mg Tab, 40 MG PO DAILY for 30 Days 12/09/24 Irbesartan (Avapro) 300 Mg Tab, 75 MG PO HS, #30 TAB 5 Refills 12/09/24 Ferrous Sulfate (Ferrous Sulfate) 325 Mg Tab, 325 MG PO BIDWM for 30 Days, MG 12/09/24 Vitamin A (A-81979) 10,000 Unit Cap, 01005 UNIT PO, CAP 04/26/24 [place]-3 Fatty Acids (Fish Oil 1200 mg) 1 Cap Cap, 1 CAP PO DAILY, CAP 04/26/24 Buspirone Hcl (Buspirone Hcl) 5 Mg Tab, 5 MG PO Q12HR for 30 Days, MG 04/26/24 Clopidogrel Bisulfate (Plavix) 75 Mg Tab, 1 TAB PO DAILY, #90 TAB 1 Refill 04/25/24 Prednisolone Acetate (Ophth) (Pred Forte) 1 % Humaira, 1 % OP QID, ML 1 drop to the left eye 01/29/21 Levetiracetam (Keppra) 500 Mg Tab, 750 MG PO BID for 30 Days, MG 01/28/21 Lacosamide (Vimpat) 100 Mg Tab, 100 MG PO HS, TAB 01/28/21 Lacosamide (Vimpat) 50 Mg Tab, 50 MG PO DAILY@BREAKFAST 01/28/21 Current Medications Current Medications Medications (Trade) Dose Ordered Sig/Janette Route PRN Reason Start Time Stop Time Status Last Admin Enoxaparin Sodium (Lovenox) 70 mg Q12HR SC 02/18/25 10:00 02/18/25 22:02 Methylprednisolone Sodium Succinate (Solu Medrol) 40 mg DAILY IV 02/18/25 10:00 02/18/25 11:07 Meropenem 50 ml @ 17 mls/hr Q8HR IV 02/18/25 14:00 02/18/25 14:11 Review of Systems Unable to review: Patient intubated on ventilator. Vital Signs Vital Signs Date Time Temp Pulse Resp B/P (MAP) Pulse Ox O2 Delivery O2 Flow Rate FiO2 02/18/25 22:15 97/70 02/18/25 22:13 105 20 94 35 02/18/25 20:52 99.1 210.4 02/18/25 20:00 Mechanical Ventilator+ 02/16/25 12:30 15 Physical Exam GENERAL: Ill appearing, intubated on ventilator. EYES: PERRL, EOMI. Anicteric. HENT: Moist mucous membranes. LUNGS: Diminished breath sounds with rales, mild bilateral wheezing CARDIOVASCULAR: Irregular rate and rhythm. ABDOMEN: Soft, non-tender and non-distended. EXTREMITIES: No edema. SKIN: Warm, dry. Labs/Diagnostic Data Labs Test 02/18/25 07:44 02/18/25 05:38 02/18/25 02:45 02/17/25 11:44 Range/Units Blood Gas Specimen Type Arterial Blood Gas Sample Site Left radial Blood Gas Patient Temperature 37.0 Arterial Blood Date Drawn [id number] Arterial Blood pH 7.353 7.350-7.450 Arterial Blood Partial Pressure CO2 47.9 H 32.0-45.0 mmHg Arterial Blood Partial Pressure O2 66.4 L 83.0-108.0 mmHg Arterial Blood HCO3 26.0 21.0-28.0 mmol/L Arterial Blood Oxygen Saturation 90.9 L 94.0-98.0 % Arterial Blood Base Excess 0.1 -2.0-3.0 mmol/L Arterial Blood Oxyhemoglobin 90.1 L 94.0-98.0 % Arterial Blood Carboxyhemoglobin 0.6 0.5-1.5 % Arterial Blood Methemoglobin 0.3 0.0-1.5 % Aman Test Modified Blood Gas Total Hemoglobin 11.90 L 12.0-16.0 g/dL Blood Gas Set Respiration Rate 20.0 Blood Gas Modality Vent - ac FiO2 % 30.0 Blood Gas Tidal Volume 400.0 Blood Gas PEEP or CPAP 5.0 White Blood Count 11.6 H 4.4-10.8 10^3/uL Red Blood Count 3.33 L 4.0-5.20 10^6/uL Hemoglobin 10.9 L 12.2-16.2 g/dL Hematocrit 33.4 L 36.0-46.0 % Mean Corpuscular Volume 100.3 H 80.0-100.0 fL Mean Corpuscular Hemoglobin 32.7 H 28.0-32.0 pg Mean Corpuscular Hemoglobin Concent 32.6 32.0-36.0 g/dL Red Cell Distribution Width 17.8 H 11.8-14.3 % Platelet Count 404 140-450 10^3/uL Mean Platelet Volume 7.0 6.9-10.8 fL Neutrophils (%) (Auto) 74.2 37.0-80.0 % Lymphocytes (%) (Auto) 15.7 10.0-50.0 % Monocytes (%) (Auto) 8.4 0.0-12.0 % Eosinophils (%) (Auto) 1.0 0.0-7.0 % Basophils (%) (Auto) 0.7 0.0-2.0 % Neutrophils # (Auto) 8.6 1.6-8.6 10 ^3/uL Lymphocytes # (Auto) 1.8 0.4-5.4 10 ^3/uL Monocytes # (Auto) 1.0 0-1.3 10 ^3/uL Eosinophils # (Auto) 0.1 0-0.8 10 ^3/uL Basophils # (Auto) 0.1 0-0.2 10 ^3/uL Nucleated Red Blood Cells 0.0 % Prothrombin Time 12.6 H 9.3-11.8 sec Prothrombin Time INR 1.21 H 0.9-1.15 Activated Partial Thromboplast Time 33.0 24.5-34.5 SEC Sodium Level 145 136-145 mmol/L Potassium Level 3.8 3.5-5.1 mmol/L Chloride Level 110 H 98-107 mmol/L Carbon Dioxide Level 27 20-31 mmol/L Anion Gap 8 5-15 Blood Urea Nitrogen 22 9-23 mg/dL Creatinine 0.99 0.550-1.02 mg/dL Glomerular Filtration Rate Calc 58 >90 mL/min BUN/Creatinine Ratio 22.2 H 10.0-20.0 Serum Glucose 165 H 74-106 mg/dL Calcium Level 8.8 8.7-10.4 mg/dL Magnesium Level 1.9 1.6-2.6 mg/dL Vitamin B12 Level 522 211-911 pg/mL Folic Acid > 48.00 >5.38 ng/mL Influenza Type A Antigen Negative Negative Influenza Type B Antigen Negative Negative SARS-CoV-2 Antigen (Rapid) Negative NEGATIVE Urine Color Dark-brown Yellow Urine Clarity Ex.turbid Clear Urine pH 5.5 5.0-9.0 Urine Specific [place] 1.018 1.001-1.035 Urine Protein 2+ H Negative Urine Ketones Negative Negative Urine Blood 1+ H Negative /uL Urine Nitrite Negative Negative Urine Bilirubin Negative Negative Urine Urobilinogen Normal Negative mg/dL Urine Leukocyte Esterase 3+ Negative /uL Urine RBC 84 0 - 4 /hpf Urine WBC Clumps Present None Seen /hpf Urine Microscopic WBC 3011 H 0-5 /HPF Urine Squamous Epithelial Cells Few <5 /hpf Urine Bacteria None seen None Seen /hpf Urine Mucus Few None Seen Urine Yeast (Budding) Moderate None Seen /hpf Urine Glucose Normal Normal mg/dL Urine Opiates Screen Neg NEGATIVE Urine Fentanyl Screen Pos NEGATIVE Urine Barbiturates Screen Neg NEGATIVE Urine Phencyclidine Screen Neg NEGATIVE Urine Amphetamines Screen Neg NEGATIVE Urine Benzodiazepines Screen Pos NEGATIVE Urine Cocaine Screen Neg NEGATIVE Urine Cannabinoids Screen Neg NEGATIVE Test 02/17/25 06:04 02/17/25 04:41 02/16/25 23:37 02/16/25 15:38 Range/Units Blood Gas Notified Time [id number] Total Bilirubin 0.5 0.2-1.0 mg/dL Aspartate Amino Transferase (AST) 19 13-40 U/L Alanine Aminotransferase (ALT) 19 7-40 U/L Alkaline Phosphatase 75 46-116 U/L Total Protein 5.2 L 5.7-8.2 g/dL Albumin 3.2 3.2-4.8 g/dL POC Glucose 163 H 70-106 mg/dl Lactic Acid Level 1.2 0.4-2.0 mmol/L Direct Bilirubin 0.1 <0.3 mg/dL Ammonia 39 H 11-32 umol/L Troponin I High Sensitivity 26 </=34 ng/L Test 02/16/25 14:28 02/16/25 12:56 Range/Units Blood Gas EPAP 5 Blood Gas IPAP 14 Blood Gas Critical Value Read Back Yes Blood Gas Notified Whom Dr. bro santacruz Blood Gas Notified By B-Type Natriuretic Peptide 788.43 0-100 pg/mL Microbiology Date/Time Source Procedure Growth Status 02/17/25 09:48 Sputum Gram Stain - Final Resulted 02/17/25 09:48 Sputum Respiratory Culture - Preliminary Resulted 02/16/25 13:52 Blood Blood Culture - Preliminary Resulted Assessment Acute metabolic encephalopathy. Acute on chronic hypercapnic/hypoxemic respiratory failure. Septic shock. History of seizure disorder. History of TIA. COPD exacerbation. Bilateral pleural effusion. Acute decompensated heart failure. Bilateral pulmonary edema. Pulmonary nodule left lower lobe. Heart failure with reduced ejection fraction. Atrial fibrillation with a RVR, now rate controlled. Nonischemic cardiomyopathy. 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 Acute complicated urinary tract infection causing septic shock. Bacteremia. Plan/Recommendation I agree with your ongoing assessment and care of plan. DVT and GI prophylactics. IV antibiotics as ordered. Vasopressors for hemodynamic support. Additional plan as per the hospital course. Critical care time of 90 minutes provided to include time spent evaluation of patient at bedside, when appropriate patient/family education for diagnosis, treatment plan, review of pertinent medical information and discussion of care with specialty providers and PCP. Mechanical ventilator parameters, treatment and adjustments have personally been reviewed by me and treatment plan by plastic extrusion operator has also been reviewed. Plan discussed with: Other JOSH VEGA MD Feb 18, 2025 22:58
[2025-02-19] VITALS (117 sets, daily range): BP systolic 81–143; BP diastolic 53–88; PULSE 74–150; RESP 19–21; TEMP 97.2–98.6; O2SAT 91–99
[2025-02-19 03:52] LABS: Hematocrit 31.2 % (36.0-46.0); Hemoglobin 10.4 g/dL (12.2-16.2); Mean Corpuscular Hemoglobin 32.9 pg (28.0-32.0); Mean Corpuscular Volume 99.0 fL (80.0-100.0); Nucleated Red Blood Cells % 0.0 %
[2025-02-19 04:00] LABS: Potassium 4.1 mmol/L (3.5-5.1); Sodium 144 mmol/L (136-145)
[2025-02-19 04:01] LABS: Anion Gap 6 (5-15); Carbon Dioxide 28 mmol/L (20-31)
[2025-02-19 04:07] LABS: BUN/Creatinine Ratio 22.9 (10.0-20.0); Blood Urea Nitrogen 22 mg/dL (9-23); Calcium 8.2 mg/dL (8.7-10.4); Chloride 110 mmol/L (98-107); Glucose 170 mg/dL (74-106)
--- NOTE | 2025-02-19 05:30 | DVH ---
CHEST RADIOGRAPH Indication: b/l congestion and pleural effusions Technique: Single frontal view of the chest was obtained COMPARISON: XY CHEST XRAY 1 VIEW on DOS: 02/18/25, XY CHEST XRAY 1 VIEW on DOS: 02/17/25, XY CHEST PORTAB LE on DOS: 02/17/25, XY CHEST XRAY 1 VIEW on DOS: 02/17/25, XY CHEST XRAY 1 VIEW on DOS: 02/16/25, XY CHEST XRAY 1 VIEW on DOS: 02/18/25 FINDINGS: Lines and Tubes: Endotracheal tube, enteric catheter and right central venous catheter in satisfactor y position Lungs: Congestion Pleura: Small bilateral pleural effusions No pneumothorax. Cardiomediastinal contours: Cardiomegaly Bones: Unremarkable IMPRESSION: Lines and tubes in satisfactory position. No significant interval change.
[2025-02-19 07:59] LABS: Base Excess -2.2 mmol/L (-2.0-3.0)
[2025-02-19] MEDS: FUROSEMIDE 40 MG/4 ML VIAL IV ONE (10:23)
--- NOTE | 2025-02-19 15:35 | DVHPNRES ---
Progress Note Date Seen: Feb 19, 2025 Resident Creating Document: JARED LAGUNA RESIDENT Medical Necessity Reason Pt with a Central, PICC or Fol: Yes The following are medically ne: Central Line, Gold Catheter Subjective Review of Systems 02/19 Patient seen and examined at the bedside. Sedated and is on mechanical ventilation, . Overnight patient did not have any fevers. Visible isn't requiring med decreased due notably of 2 microgram/minute. Patient had low urine output over the last 24 hours. chest x-ray showed increased congestion. Patient was more edematous. WBC count decreased. ABG compensated. Continues to be on minimal likely due to setting with be preferred, FiO2 30%, tidal volume 400, rate 20 per minute Objective vital signs Vital Sign Date Time Temp Pulse Resp B/P (MAP) Pulse Ox O2 Delivery O2 Flow Rate FiO2 02/19/25 14:48 133 20 95/72 (80) 95 30 02/19/25 14:00 Mechanical Ventilator+ 02/19/25 12:52 97.7 207.9 Total Intake and Output 02/18/25 02/18/25 02/19/25 15:00 23:00 07:00 Intake Total 757.21 ml 787.28 ml 1470.78 ml Output Total 275 ml 200 ml Balance 757.21 ml 512.28 ml 1270.78 ml medications Current Medications Medications Dose Ordered Sig/Janette Route Start Time Stop Time Status Last Admin Dose Admin Midazolam HCl 50 ml @ 1 mls/hr Q24H IV 02/16/25 15:00 02/18/25 22:15 6 MLS/HR Fentanyl Citrate 250 ml @ 2.5 mls/hr Q24H IV 02/16/25 15:00 02/19/25 13:36 7.5 MLS/HR Pantoprazole Sodium 40 mg DAILY IV 02/17/25 10:00 02/19/25 10:24 40 MG Norepinephrine Bitartrate 250 ml @ 3.75 mls/hr Q24H IV 02/16/25 20:15 02/19/25 10:27 3.75 MLS/HR Levetiracetam 1,000 mg BID NG 02/16/25 22:00 02/19/25 10:25 1,000 MG Lacosamide 100 mg BID GT 02/17/25 11:30 02/19/25 10:24 100 MG Enteral Nutritional Formula 1,000 ml 30ML/HR GT 02/17/25 12:00 Levalbuterol HCl 0.625 mg Q6HR NEB 02/17/25 18:00 02/19/25 12:20 0.625 MG Ipratropium [place] 0.5 mg Q6HR NEB 02/17/25 18:00 02/19/25 12:20 0.5 MG Linezolid 300 ml @ 150 mls/hr Q12HR IV 02/17/25 22:00 02/19/25 10:24 150 MLS/HR Enoxaparin Sodium 70 mg Q12HR SC 02/18/25 10:00 02/19/25 10:25 70 MG Methylprednisolone Sodium Succinate 40 mg DAILY IV 02/18/25 10:00 02/18/25 11:07 40 MG Meropenem 50 ml @ 17 mls/hr Q8HR IV 02/18/25 14:00 02/19/25 15:01 17 MLS/HR Examination Gen - no pallor, no icterus, no cyanosis, no clubbing, no LAD, bilateral 3+ pitting edema in the lower extremities up to the knees Skin - Patients skin is warm and dry. HEENT - normocephalic, atraumatic, moist mucous membranes. Neck - no LAD, mild jugular venous distention seen Pulmonary - B/L diminished breath sounds with rales, no stridor. cardiovascular - irregularly irregular S1,S2 heard, no added sounds, no murmurs heard. capillary refill normal >3 secs. GI - soft abdomen. Bowel sounds normoactive Neurological - Patient is sedated and on mechanical ventilation laboratory and microbiology Laboratory Tests 02/19/25 03:19 Test 02/19/25 03:19 Range/Units Serum Glucose 170 H 74-106 mg/dL Microbiology Date/Time Source Procedure Growth Status 02/18/25 05:45 Voided Urine Urine Culture - Preliminary Resulted 02/17/25 09:48 Sputum Gram Stain - Final Complete 02/17/25 09:48 Respiratory Culture - Final Klebsiella pneumoniae Complete 02/16/25 13:52 Blood Blood Culture - Final Staphylococcus epidermidis Complete Problem List/Assessment/Plan Problem List/Assessment/Plan Neurology Acute metabolic encephalopathy likely from hypercapnia respiratory failure/septic shock H/o seizure disorder h/o TIA - currently sedated and on mechanical ventilation - on Keppra and lacosamide Respiratory Acute on chronic hypercapnic/hypoxemic respiratory failure Copd likely in exacerbation Possible pneumonia from gram +/- bacteria Bilateral pleural effusion likely from acute decompensated heart failure/ ?parapneumonic Bilateral pulmonary edema likely from acute decompensated heart failure Pulmonary nodule left lower lobe - chest CT showed right lower lobe consolidation, moderate bilateral pleural effusions, mediastinal lymphadenopathy, 1.3 cm nodule in the left lower lobe - on mechanical ventilation with a FiO2 40%, peep of 5, tidal volume 400 - sputum culture showing growth of Klebsiella pneumoniae - on broad-spectrum coverage with linezolid and meropenam - duo nebs q.6 hours Cardiovascular Septic shock likely from UTI Acute decompensated heart failure Heart failure with reduced ejection fraction Atrial fibrillation with a RVR, now rate controlled Nonischemic cardiomyopathy - recent echocardiogram showed LVEF 10-15% with a markedly dilated LV, RV enlarged - left heart catheterization from in December 2024 shows no significant coronary artery disease, LVEF approximately 20% - BNP elevated - on norepinephrine - Lovenox therapeutic dose - Lasix 40 mg 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 Acute complicated urinary tract infection causing septic shock - monitoring renal function - on linezolid and meropenam Infectious disease Septic shock Bacteremia UTI Possible pneumonia - preliminary blood culture showed growth of Gram-positive cocci in clusters - sputum culture showed growth of Klebsiella pneumoniae - urine cultures pending On meropenem and linezolid Vasopressors Gastrointestinal On tube feedings DVT prophylaxis: On enoxaparin PUD prophylaxis: Protonix Right internal jugular CVC inserted on 02/16 Gold catheter inserted on 02/16 Goals of care discussed with the patient's Carlos at bedside. Code status: Full code Critical care time spent excluding procedures: 58 minutes Plan discussed with Dr. Chavez. Patient continues to be on minimal ventilator settings with peep of five, FiO2 30%, tidal volume 400. ABG compensated. As the patient had increased congestion and increased edema bilaterally, 40 mg IV Lasix given and continue daily with a close monitoring of the blood pressure while the patient is on vasopressors. Plan discussed with: Spouse (Carlos) My Orders My Orders Orders - JARED LAGUNA RESIDENT Procedure Category Date Status Time Communication Order ORDERS 02/18/25 Transmitted 17:00 * Cardiology Consult CONS 02/18/25 Transmitted 17:37 Complete Blood Count LAB 02/20/25 Verified 04:00 Comprehensive LAB 02/20/25 Verified Metabolic Panel 04:00 Magnesium LAB 02/20/25 Verified 04:00 Chest Xray 1 View XY 02/20/25 Verified 04:00 Abg W/ Co-Ox RT 02/20/25 Verified 04:00 Dietary Evaluation Review Comments: 1) Jevity 1.2Cal @ 65ml/hr along with Pro-stat 1 pk daily. Start at 20ml/hr increase 10ml/hr until goal is reached. TF at goal volume provides 1872 kcal, 87gm protein, and 1259 ml free water. 2) Water flush 100ml Q4H if allowed, adjust PRN 3) Monitor TF tolerance, lab values, wt trend, I/O Expected Outcomes/Goals: To meet >75% estimated needs Fu 2-3 days JARED LAGUNA RESIDENT Feb 19, 2025 15:35
--- NOTE | 2025-02-19 22:19 | DVHPN2 ---
Progress Note - Dictate Date Seen: Feb 19, 2025 Medical Necessity Reason Pt with a Central, PICC or Fol: Yes The following are medically ne: Central Line, Gold Catheter Subjective Patient was seen and evaluated in follow up in the ICU. Patient is intubated and sedated on ventilator. 30% FiO2. Patient receiving vasopressor for hemodynamic support. Respiratory culture growing Klebsiella pneumoniae. Chest x-ray shows small bilateral pleural effusions and cardiomegaly. vital signs Vital Sign Date Time Temp Pulse Resp B/P (MAP) Pulse Ox O2 Delivery O2 Flow Rate FiO2 02/19/25 22:00 121 02/19/25 22:00 30 02/19/25 22:00 20 96 Mechanical Ventilator+ 02/19/25 20:24 105/76 (86) 02/19/25 18:52 98.4 209.1 Total Intake and Output 02/18/25 02/18/25 02/19/25 15:00 23:00 07:00 Intake Total 757.21 ml 787.28 ml 1470.78 ml Output Total 275 ml 200 ml Balance 757.21 ml 512.28 ml 1270.78 ml medications Current Medications Medications Dose Ordered Sig/Janette Route Start Time Stop Time Status Last Admin Dose Admin Midazolam HCl 50 ml @ 1 mls/hr Q24H IV 02/16/25 15:00 02/19/25 16:52 3 MLS/HR Fentanyl Citrate 250 ml @ 2.5 mls/hr Q24H IV 02/16/25 15:00 02/19/25 13:36 7.5 MLS/HR Pantoprazole Sodium 40 mg DAILY IV 02/17/25 10:00 02/19/25 10:24 40 MG Norepinephrine Bitartrate 250 ml @ 3.75 mls/hr Q24H IV 02/16/25 20:15 02/19/25 10:27 3.75 MLS/HR Levetiracetam 1,000 mg BID NG 02/16/25 22:00 02/19/25 21:33 1,000 MG Lacosamide 100 mg BID GT 02/17/25 11:30 02/19/25 21:34 100 MG Enteral Nutritional Formula 1,000 ml 30ML/HR GT 02/17/25 12:00 Levalbuterol HCl 0.625 mg Q6HR NEB 02/17/25 18:00 02/19/25 18:32 0.625 MG Ipratropium [place] 0.5 mg Q6HR NEB 02/17/25 18:00 02/19/25 18:32 0.5 MG Linezolid 300 ml @ 150 mls/hr Q12HR IV 02/17/25 22:00 02/19/25 21:33 150 MLS/HR Enoxaparin Sodium 70 mg Q12HR SC 02/18/25 10:00 02/19/25 21:34 70 MG Meropenem 50 ml @ 17 mls/hr Q8HR IV 02/18/25 14:00 02/19/25 15:01 17 MLS/HR Furosemide 40 mg DAILY IV 02/20/25 10:00 objective GENERAL: Ill appearing, intubated on ventilator. EYES: PERRL, EOMI. Anicteric. HENT: Moist mucous membranes. LUNGS: Diminished breath sounds with rales, mild bilateral wheezing CARDIOVASCULAR: Irregular rate and rhythm. ABDOMEN: Soft, non-tender and non-distended. EXTREMITIES: No edema. SKIN: Warm, dry. laboratory and microbiology Laboratory Tests 02/19/25 03:19 Test 02/19/25 03:19 Range/Units Serum Glucose 170 H 74-106 mg/dL Problem List Acute metabolic encephalopathy. Acute on chronic hypercapnic/hypoxemic respiratory failure. Septic shock. History of seizure disorder. History of TIA. COPD exacerbation. Bilateral pleural effusion. Acute decompensated heart failure. Bilateral pulmonary edema. Pulmonary nodule left lower lobe. Heart failure with reduced ejection fraction. Atrial fibrillation with a RVR, now rate controlled. Nonischemic cardiomyopathy. 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 Acute complicated urinary tract infection causing septic shock. Bacteremia. Assessment/Plan Continued all current supportive medical care. DVT and GI prophylactics. Diuretics with Lasix. IV antibiotics as ordered. Vasopressors for hemodynamic support. Additional plan as per the hospital course. Critical care time of 90 minutes provided to include time spent evaluation of patient at bedside, when appropriate patient/family education for diagnosis, treatment plan, review of pertinent medical information and discussion of care with specialty providers and PCP. Mechanical ventilator parameters, treatment and adjustments have personally been reviewed by me and treatment plan by fountain waitress/waiter has also been reviewed. Dietary Evaluation Review Comments: 1) Jevity 1.2Cal @ 65ml/hr along with Pro-stat 1 pk daily. Start at 20ml/hr increase 10ml/hr until goal is reached. TF at goal volume provides 1872 kcal, 87gm protein, and 1259 ml free water. 2) Water flush 100ml Q4H if allowed, adjust PRN 3) Monitor TF tolerance, lab values, wt trend, I/O Expected Outcomes/Goals: To meet >75% estimated needs Fu 2-3 days Plan discussed with: Other JOSH VEGA MD Feb 19, 2025 22:19
[2025-02-20] VITALS (120 sets, daily range): BP systolic 80–139; BP diastolic 48–101; PULSE 89–143; RESP 11–21; TEMP 98.1–98.8; O2SAT 86–100
[2025-02-20 03:59] LABS: Hematocrit 32.6 % (36.0-46.0); Hemoglobin 10.8 g/dL (12.2-16.2); Mean Corpuscular Hemoglobin 32.9 pg (28.0-32.0); Mean Corpuscular Volume 99.2 fL (80.0-100.0); Nucleated Red Blood Cells % 0.1 %
[2025-02-20 04:24] LABS: Alanine Aminotransferase 15 U/L (7-40); Alkaline Phosphatase 71 U/L (46-116); Anion Gap 11 (5-15); BUN/Creatinine Ratio 23.8 (10.0-20.0); Carbon Dioxide 27 mmol/L (20-31); Chloride 106 mmol/L (98-107); Magnesium 2.1 mg/dL (1.6-2.6); Potassium 4.0 mmol/L (3.5-5.1); Sodium 144 mmol/L (136-145)
[2025-02-20 04:26] LABS: Albumin 2.9 g/dL (3.2-4.8); Bilirubin, Total < 0.2 mg/dL (0.2-1.0); Blood Urea Nitrogen 25 mg/dL (9-23); Calcium 8.3 mg/dL (8.7-10.4); Glucose 115 mg/dL (74-106); Total Protein 5.1 g/dL (5.7-8.2)
--- NOTE | 2025-02-20 06:35 | DVH ---
CHEST RADIOGRAPH Indication: on vent, bilateral congestion Technique: Single frontal view of the chest was obtained Comparison: XY CHEST XRAY 1 VIEW on DOS: 02/19/25, XY CHEST XRAY 1 VIEW on DOS: 02/18/25, XY CHEST XRAY 1 VIEW on DOS: 02/17/25, XY CHEST PORTABLE on DOS: 02/17/25, XY CHEST XRAY 1 VIEW on DOS: 02/17/25, XY CHEST XRAY 1 VIEW on DOS: 02/19/25 FINDINGS: Lines and Tubes: Endotracheal tube, enteric catheter and right central venous catheter in satisfactor y position Lungs: Congestion Pleura: Small bilateral pleural effusions No pneumothorax. Cardiomediastinal contours: Cardiomegaly Bones: Unremarkable IMPRESSION: Lines and tubes in satisfactory position. No significant interval change.
[2025-02-20 07:03] LABS: Base Excess -0.3 mmol/L (-2.0-3.0)
[2025-02-20] MEDS: FUROSEMIDE 40 MG/4 ML VIAL IV SCH (10:38)
--- NOTE | 2025-02-20 15:27 | DVHPN2 ---
Assessment/Plan Assessment/Plan ICU note 80 F with afib, HFrEF, CKD, TIA, HTN, sz admitted for SOB and AMS, intubated and placed on mechanical vent after bipap failure. seen today, increase diuretics physical exam intubated sedated on mech vent PERLLA mechanical breath sound s1 s2 irregular tachy abdomen soft trace LE edema labs ekg imaging reviewed assessment and plan septic shock acute hypoxic hypercapnic rf req mech vent acute metabolic enceph COPD group e with exacerbation PLE pulm nodule 1.3cm acute decomp systolic HF HFrEF afib with RVR AIMEE possible hemodynamic mediated UTI? asp PNA gp vs gn? bacteremia hx of seizure? c/w mech vent c/w sedation keep RAAS -3 c/w pressors maintain MAP >65 c/w diuresis goal -2L breathing treatment raghav and linezolid daily bcx vimpat and keppra diet tf dvt ppx therapeutic lovenox full code crit care time 90 minutes Plan discussed with: Other My Orders Orders - JULI SANTIAGO MD Procedure Category Date Status Time Furosemide Injection PHA 02/21/25 Logged (Lasix Injection) 10:00 Basic Metabolic Panel LAB 02/21/25 Verified 04:00 Complete Blood Count LAB 02/21/25 Verified 04:00 Phosphorus LAB 02/21/25 Verified 04:00 Magnesium LAB 02/21/25 Verified 04:00 Furosemide Injection PHA 02/20/25 Logged (Lasix Injection) 15:30 Date of Service: Feb 20, 2025 Billing Provider: JULI SANTIAGO MD Common Visit Codes: 43036-[id number] CARE 30-74 MIN, 76429-[id number] CARE-EACH +30MIN JULI SANTIAGO MD Feb 20, 2025 15:26
--- NOTE | 2025-02-20 15:35 | DVHNC2 ---
Procedure - Procedure- Right sided Thoracentesis ultrasound guided Indication- Pleural effusions Procedure in detail Consent was obtained and timeout performed per protocol. The patient was placed in the decubitus position and ultrasound SonoSite was used to localize pleural fluid. ChloraPrep was used to clean the operative field and Lidocaine for local analgesia. Thoracentesis catheter was advanced over the needle, attached to the suction bottle and approximately 850 cc of straw colored fluid was drained from the right pleural space. At the end of the procedure, the catheter was removed and dressing applied. Samples obtained for diagnostic testing. Chest-x ray ordered. No complications KENNEDY ALVARADO MD Feb 20, 2025 15:35
--- NOTE | 2025-02-20 15:35 | DVHPN2 ---
Progress Note - Dictate Date Seen: Feb 20, 2025 Medical Necessity Reason Pt with a Central, PICC or Fol: Yes The following are medically ne: Central Line, Gold Catheter vital signs Vital Sign Date Time Temp Pulse Resp B/P (MAP) Pulse Ox O2 Delivery O2 Flow Rate FiO2 02/20/25 13:08 101 20 112/61 (78) 95 30 02/20/25 12:08 98.6 98.6 02/20/25 12:00 Mechanical Ventilator+ Total Intake and Output 02/19/25 02/19/25 02/20/25 15:00 23:00 07:00 Intake Total 635.53 ml 696.28 ml 929.28 ml Output Total 650 ml 200 ml Balance 635.53 ml 46.28 ml 729.28 ml medications Current Medications Medications Dose Ordered Sig/Janette Route Start Time Stop Time Status Last Admin Dose Admin Midazolam HCl 50 ml @ 1 mls/hr Q24H IV 02/16/25 15:00 02/20/25 08:43 3 MLS/HR Fentanyl Citrate 250 ml @ 2.5 mls/hr Q24H IV 02/16/25 15:00 02/19/25 13:36 7.5 MLS/HR Pantoprazole Sodium 40 mg DAILY IV 02/17/25 10:00 02/20/25 10:37 40 MG Norepinephrine Bitartrate 250 ml @ 3.75 mls/hr Q24H IV 02/16/25 20:15 02/19/25 10:27 3.75 MLS/HR Levetiracetam 1,000 mg BID NG 02/16/25 22:00 02/20/25 10:37 1,000 MG Lacosamide 100 mg BID GT 02/17/25 11:30 02/20/25 10:37 100 MG Enteral Nutritional Formula 1,000 ml 30ML/HR GT 02/17/25 12:00 Levalbuterol HCl 0.625 mg Q6HR NEB 02/17/25 18:00 02/20/25 11:41 0.625 MG Ipratropium [place] 0.5 mg Q6HR NEB 02/17/25 18:00 02/20/25 11:41 0.5 MG Linezolid 300 ml @ 150 mls/hr Q12HR IV 02/17/25 22:00 02/20/25 10:37 150 MLS/HR Enoxaparin Sodium 70 mg Q12HR SC 02/18/25 10:00 02/20/25 10:37 70 MG Meropenem 50 ml @ 17 mls/hr Q8HR IV 02/18/25 14:00 02/20/25 14:28 17 MLS/HR Furosemide 80 mg DAILY IV 02/21/25 10:00 laboratory and microbiology Laboratory Tests 02/20/25 03:28 Test 02/20/25 03:28 Range/Units Serum Glucose 115 H 74-106 mg/dL Assessment/Plan Impression Acute hypoxemic respiratory failure Bilateral pleural effusions Atelectasis CHF Patient seen and examined in ICU Events On mechanical ventilation S/p intubation PEEP 5, FiO2 30% Labs and imaging reviewed Chest x-ray shows bilateral pleural effusions, greater on the right Ultrasound of the chest confirms fluid Subsequent thoracentesis was performed at the bedside See separate note for procedure in detail ABG reviewed Management Vent support Titrate to maintain sats 90% or above Sedation holiday daily If patient follows commands, proceed to weaning trial Pressure support 01/16, extubate when ready Bronchodilators Monitor renal function Monitor electrolytes Supplement as needed Pressors as needed for hemodynamic support To maintain a mean arterial pressure of 65 mmHg F/u cardiology DVT prophylaxis Critical care time 35 minutes Dietary Evaluation Review Comments: 1) Jevity 1.2Cal @ 65ml/hr along with Pro-stat 1 pk daily. Start at 20ml/hr increase 10ml/hr until goal is reached. TF at goal volume provides 1872 kcal, 87gm protein, and 1259 ml free water. 2) Water flush 100ml Q4H if allowed, adjust PRN 3) Monitor TF tolerance, lab values, wt trend, I/O Expected Outcomes/Goals: To meet >75% estimated needs Fu 2-3 days Plan discussed with: Other (Rn) KENNEDY ALVARADO MD Feb 20, 2025 15:35
[2025-02-20] MEDS: FUROSEMIDE 40 MG/4 ML VIAL IV ONE (15:38)
--- NOTE | 2025-02-20 20:52 | DVHPN2 ---
Progress Note - Dictate Date Seen: Feb 20, 2025 Medical Necessity Reason Pt with a Central, PICC or Fol: Yes The following are medically ne: Central Line, Gold Catheter Subjective Patient was seen and evaluated in follow up in the ICU. Patient is intubated and sedated on ventilator. 30% FiO2. Patient underwent right sided ultrasound guided thoracentesis with approximately 850 cc of straw colored fluid removed. Chest x- ray shows unchanged small bilateral pleural effusions and cardiomegaly. vital signs Vital Sign Date Time Temp Pulse Resp B/P (MAP) Pulse Ox O2 Delivery O2 Flow Rate FiO2 02/20/25 18:54 92 20 95/50 (65) 98 30 02/20/25 17:53 98.1 208.6 02/20/25 17:51 Mechanical Ventilator+ Total Intake and Output 02/19/25 02/19/25 02/20/25 15:00 23:00 07:00 Intake Total 635.53 ml 696.28 ml 929.28 ml Output Total 650 ml 200 ml Balance 635.53 ml 46.28 ml 729.28 ml medications Current Medications Medications Dose Ordered Sig/Janette Route Start Time Stop Time Status Last Admin Dose Admin Midazolam HCl 50 ml @ 1 mls/hr Q24H IV 02/16/25 15:00 02/20/25 08:43 3 MLS/HR Fentanyl Citrate 250 ml @ 2.5 mls/hr Q24H IV 02/16/25 15:00 02/19/25 13:36 7.5 MLS/HR Pantoprazole Sodium 40 mg DAILY IV 02/17/25 10:00 02/20/25 10:37 40 MG Norepinephrine Bitartrate 250 ml @ 3.75 mls/hr Q24H IV 02/16/25 20:15 02/20/25 17:18 7.5 MLS/HR Levetiracetam 1,000 mg BID NG 02/16/25 22:00 02/20/25 10:37 1,000 MG Lacosamide 100 mg BID GT 02/17/25 11:30 02/20/25 10:37 100 MG Enteral Nutritional Formula 1,000 ml 30ML/HR GT 02/17/25 12:00 Levalbuterol HCl 0.625 mg Q6HR NEB 02/17/25 18:00 02/20/25 18:54 0.625 MG Ipratropium [place] 0.5 mg Q6HR NEB 02/17/25 18:00 02/20/25 18:54 0.5 MG Linezolid 300 ml @ 150 mls/hr Q12HR IV 02/17/25 22:00 02/20/25 10:37 150 MLS/HR Enoxaparin Sodium 70 mg Q12HR SC 02/18/25 10:00 02/20/25 10:37 70 MG Meropenem 50 ml @ 17 mls/hr Q8HR IV 02/18/25 14:00 02/20/25 14:28 17 MLS/HR Furosemide 80 mg DAILY IV 02/21/25 10:00 objective GENERAL: Ill appearing, intubated on ventilator. EYES: PERRL, EOMI. Anicteric. HENT: Moist mucous membranes. LUNGS: Diminished breath sounds with rales, mild bilateral wheezing CARDIOVASCULAR: Irregular rate and rhythm. ABDOMEN: Soft, non-tender and non-distended. EXTREMITIES: No edema. SKIN: Warm, dry. laboratory and microbiology Laboratory Tests 02/20/25 03:28 Test 02/20/25 03:28 Range/Units Serum Glucose 115 H 74-106 mg/dL Problem List Acute metabolic encephalopathy. Acute on chronic hypercapnic/hypoxemic respiratory failure. Septic shock. History of seizure disorder. History of TIA. COPD exacerbation. Bilateral pleural effusion. Acute decompensated heart failure. Bilateral pulmonary edema. Pulmonary nodule left lower lobe. Heart failure with reduced ejection fraction. Atrial fibrillation with a RVR, now rate controlled. Nonischemic cardiomyopathy. 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 Acute complicated urinary tract infection causing septic shock. Bacteremia. Assessment/Plan Continued all current supportive medical care. DVT and GI prophylactics. Diuretics with Lasix. IV antibiotics as ordered. Vasopressors for hemodynamic support. Additional plan as per the hospital course. Critical care time of 90 minutes provided to include time spent evaluation of patient at bedside, when appropriate patient/family education for diagnosis, treatment plan, review of pertinent medical information and discussion of care with specialty providers and PCP. Mechanical ventilator parameters, treatment and adjustments have personally been reviewed by me and treatment plan by engraver seals has also been reviewed. Dietary Evaluation Review Comments: 1) Jevity 1.2Cal @ 65ml/hr along with Pro-stat 1 pk daily. Start at 20ml/hr increase 10ml/hr until goal is reached. TF at goal volume provides 1872 kcal, 87gm protein, and 1259 ml free water. 2) Water flush 100ml Q4H if allowed, adjust PRN 3) Monitor TF tolerance, lab values, wt trend, I/O Expected Outcomes/Goals: To meet >75% estimated needs Fu 2-3 days Plan discussed with: Other JOSH VEGA MD Feb 20, 2025 20:52
[2025-02-20] MEDS: Jevity 1.2 Cal/Fiber 1 Liter GT SCH (23:59)
[2025-02-21] VITALS (114 sets, daily range): BP systolic 85–143; BP diastolic 45–99; PULSE 71–150; RESP 0–23; TEMP 98.1–99.3; O2SAT 93–100
[2025-02-21 04:14] LABS: Hematocrit 33.0 % (36.0-46.0); Hemoglobin 11.0 g/dL (12.2-16.2); Mean Corpuscular Hemoglobin 32.8 pg (28.0-32.0); Mean Corpuscular Volume 98.5 fL (80.0-100.0); Nucleated Red Blood Cells % 0.0 %
[2025-02-21 04:19] LABS: Anion Gap 6 (5-15); Carbon Dioxide 31 mmol/L (20-31); Chloride 104 mmol/L (98-107); Potassium 3.8 mmol/L (3.5-5.1); Sodium 141 mmol/L (136-145)
[2025-02-21 04:24] LABS: Calcium 8.1 mg/dL (8.7-10.4); Glucose 111 mg/dL (74-106)
[2025-02-21 04:25] LABS: BUN/Creatinine Ratio 20.8 (10.0-20.0); Blood Urea Nitrogen 20 mg/dL (9-23); Magnesium 1.9 mg/dL (1.6-2.6)
[2025-02-21 07:33] LABS: Base Excess 2.8 mmol/L (-2.0-3.0)
[2025-02-21] MEDS: FUROSEMIDE 100 MG/10ML VIAL IV SCH (08:25)
--- NOTE | 2025-02-21 10:39 | DVHPN2 ---
Assessment/Plan Assessment/Plan ICU note 80 F with afib, HFrEF, CKD, TIA, HTN, sz admitted for SOB and AMS, intubated and placed on mechanical vent after bipap failure. seen today, UO better. cr stable. c/w current diuresis. plan for sat sbt tomorrow. physical exam intubated sedated on mech vent PERLLA mechanical breath sound s1 s2 irregular tachy abdomen soft trace LE edema labs ekg imaging reviewed assessment and plan septic shock acute hypoxic hypercapnic rf req mech vent acute metabolic enceph COPD group e with exacerbation PLE pulm nodule 1.3cm acute decomp systolic HF HFrEF afib with RVR AIMEE possible hemodynamic mediated UTI? asp PNA gp vs gn? bacteremia hx of seizure? c/w mech vent c/w sedation keep RAAS -3 c/w pressors maintain MAP >65 c/w diuresis goal -2L breathing treatment raghav and linezolid daily bcx vimpat and keppra diet tf dvt ppx therapeutic lovenox full code crit care time 45 minutes Plan discussed with: Spouse My Orders Orders - JULI SANTIAGO MD Procedure Category Date Status Time Furosemide Injection PHA 02/21/25 In Process (Lasix Injection) 10:00 Date of Service: Feb 21, 2025 Billing Provider: JULI SANTIAGO MD Common Visit Codes: 60906-[id number] CARE 30-74 MIN JULI SANTIAGO MD Feb 21, 2025 10:39
--- NOTE | 2025-02-21 14:33 | DVH ---
INDICATION: intubated TECHNIQUE: Single frontal view of the chest was obtained COMPARISON: XY CHEST XRAY 1 VIEW on DOS: 02/20/25, XY CHEST XRAY 1 VIEW on DOS: 02/19/25, XY CHEST XRAY 1 VIEW on DOS: 02/18/25, XY CHEST XRAY 1 VIEW on DOS: 02/17/25, XY CHEST PORTABLE on DOS: 02/17/25, XY CHEST XRAY 1 VIEW on DOS: 02/20/25 FINDINGS: Lines and Tubes: Endotracheal tube, enteric catheter and right central venous catheter in satisfactor y position Lungs: Congestion Pleura: Small bilateral pleural effusions No pneumothorax. Cardiomediastinal contours: Cardiomegaly Bones: Unremarkable IMPRESSION: Lines and tubes in satisfactory position. No significant interval change.
--- NOTE | 2025-02-21 15:11 | DVH ---
EXAM: CT HEAD WITHOUT CONTRAST INDICATION: ALOC TECHNIQUE: CT of the head without intravenous contrast. Radiation Dose : 1. Head: CT Dose: CTDI volume is 52.72 mGy. Dose-length product is 1144.43 mGy*cm The dose indicators for CT are the volume Computed Tomography (CT) Dose Index (CTDIvol) and the Dose Length Product (DLP), and are measured in units of mGy and mGy-cm, respectively. These indicators are not patient dose, but values generated from the CT scanner acquisition factors. The report includes radiation exposure data for exposures received during this examination. COMPARISON: HEAD WITHOUT CONTRAST on DOS: 01/27/21 FINDINGS: There is no evidence of acute intracranial hemorrhage, extra-axial collection, mass effect, midline s hift, herniation or hydrocephalus. The ventricles, sulci and cisterns are age appropriate. The elizalde-white differentiation is intact. The visualized paranasal sinuses and mastoid air cells are clear. The surrounding soft tissues and osseous structures are unremarkable. IMPRESSION: No acute intracranial abnormality. Radiation optimization: All CT scans at this facility use at least one of these dose optimization socorro hniques: automated exposure control mA and/or kV adjustment per patient size (includes targeted exam s where dose is matched to clinical indication) or iterative reconstruction.
[2025-02-21] MEDS: DIGOXIN (250MCG/ML) 2 ML AMPULE IV ONE (16:33)
--- NOTE | 2025-02-21 17:19 | DVHPN2 ---
Progress Note - Dictate Date Seen: Feb 21, 2025 Medical Necessity Reason Pt with a Central, PICC or Fol: Yes The following are medically ne: Central Line, Gold Catheter vital signs Vital Sign Date Time Temp Pulse Resp B/P (MAP) Pulse Ox O2 Delivery O2 Flow Rate FiO2 02/21/25 16:33 129 02/21/25 16:11 20 96/58 (71) 96 30 02/21/25 14:00 Mechanical Ventilator+ 02/21/25 13:46 99.1 210.4 Total Intake and Output 02/20/25 02/20/25 02/21/25 15:00 23:00 07:00 Intake Total 633.53 ml 706.96 ml 657.28 ml Output Total 2000 ml 1150 ml Balance 633.53 ml -1293.04 ml -492.72 ml medications Current Medications Medications Dose Ordered Sig/Janette Route Start Time Stop Time Status Last Admin Dose Admin Midazolam HCl 50 ml @ 1 mls/hr Q24H IV 02/16/25 15:00 02/21/25 14:43 3 MLS/HR Fentanyl Citrate 250 ml @ 2.5 mls/hr Q24H IV 02/16/25 15:00 02/21/25 05:22 10 MLS/HR Pantoprazole Sodium 40 mg DAILY IV 02/17/25 10:00 02/21/25 08:25 40 MG Norepinephrine Bitartrate 250 ml @ 3.75 mls/hr Q24H IV 02/16/25 20:15 02/20/25 17:18 7.5 MLS/HR Levetiracetam 1,000 mg BID NG 02/16/25 22:00 02/21/25 08:24 1,000 MG Lacosamide 100 mg BID GT 02/17/25 11:30 02/21/25 08:26 100 MG Enteral Nutritional Formula 1,000 ml 30ML/HR GT 02/17/25 12:00 02/20/25 23:59 1,000 ML Levalbuterol HCl 0.625 mg Q6HR NEB 02/17/25 18:00 02/21/25 11:55 0.625 MG Ipratropium [place] 0.5 mg Q6HR NEB 02/17/25 18:00 02/21/25 11:55 0.5 MG Linezolid 300 ml @ 150 mls/hr Q12HR IV 02/17/25 22:00 02/21/25 08:24 150 MLS/HR Enoxaparin Sodium 70 mg Q12HR SC 02/18/25 10:00 02/21/25 08:25 70 MG Meropenem 50 ml @ 17 mls/hr Q8HR IV 02/18/25 14:00 02/21/25 15:03 17 MLS/HR Furosemide 80 mg DAILY IV 02/21/25 10:00 02/21/25 08:25 80 MG laboratory and microbiology Laboratory Tests 02/21/25 03:35 Test 02/21/25 03:35 Range/Units Serum Glucose 111 H 74-106 mg/dL Assessment/Plan Impression Acute hypoxemic respiratory failure Bilateral pleural effusions Atelectasis CHF Patient seen and examined in ICU Events On mechanical ventilation S/p intubation PEEP 5, FiO2 30% Off sedation, not waking up S/p thoracentesis Labs and imaging reviewed ABG reviewed Management Vent support Titrate to maintain sats 90% or above Sedation holiday daily If patient follows commands, proceed to weaning trial Pressure support 01/16, extubate when ready Bronchodilators Monitor renal function Monitor electrolytes Supplement as needed Pressors as needed for hemodynamic support To maintain a mean arterial pressure of 65 mmHg F/u cardiology DVT prophylaxis Critical care time 35 minutes Dietary Evaluation Review Comments: 1) Jevity 1.2Cal @ 65ml/hr along with Pro-stat 1 pk daily. Start at 20ml/hr increase 10ml/hr until goal is reached. TF at goal volume provides 1872 kcal, 87gm protein, and 1259 ml free water. 2) Water flush 100ml Q4H if allowed, adjust PRN 3) Monitor TF tolerance, lab values, wt trend, I/O Expected Outcomes/Goals: To meet >75% estimated needs Fu 2-3 days Plan discussed with: Other (Rn) KENNEDY ALVARADO MD Feb 21, 2025 17:19
--- NOTE | 2025-02-21 20:38 | DVHPN2 ---
Progress Note - Dictate Date Seen: Feb 21, 2025 Medical Necessity Reason Pt with a Central, PICC or Fol: Yes The following are medically ne: Central Line, Gold Catheter Subjective Patient was seen and evaluated in follow up in the ICU. Patient is intubated and sedated on ventilator. 100% FiO2. Patient has increased urine output. Repeat prelim blood cultures are negative. Chest x-ray: small bilateral pleural effusions and cardiomegaly. CT head shows no acute intracranial abnormality. vital signs Vital Sign Date Time Temp Pulse Resp B/P (MAP) Pulse Ox O2 Delivery O2 Flow Rate FiO2 02/21/25 19:16 73 0 121/61 (81) 96 02/21/25 18:24 100 02/21/25 18:23 Mechanical Ventilator 30.0 02/21/25 16:46 98.1 208.6 Total Intake and Output 02/20/25 02/20/25 02/21/25 15:00 23:00 07:00 Intake Total 633.53 ml 706.96 ml 657.28 ml Output Total 2000 ml 1150 ml Balance 633.53 ml -1293.04 ml -492.72 ml medications Current Medications Medications Dose Ordered Sig/Janette Route Start Time Stop Time Status Last Admin Dose Admin Midazolam HCl 50 ml @ 1 mls/hr Q24H IV 02/16/25 15:00 02/21/25 14:43 3 MLS/HR Fentanyl Citrate 250 ml @ 2.5 mls/hr Q24H IV 02/16/25 15:00 02/21/25 05:22 10 MLS/HR Pantoprazole Sodium 40 mg DAILY IV 02/17/25 10:00 02/21/25 08:25 40 MG Norepinephrine Bitartrate 250 ml @ 3.75 mls/hr Q24H IV 02/16/25 20:15 02/21/25 18:41 11.25 MLS/HR Levetiracetam 1,000 mg BID NG 02/16/25 22:00 02/21/25 08:24 1,000 MG Lacosamide 100 mg BID GT 02/17/25 11:30 02/21/25 08:26 100 MG Enteral Nutritional Formula 1,000 ml 30ML/HR GT 02/17/25 12:00 02/20/25 23:59 1,000 ML Levalbuterol HCl 0.625 mg Q6HR NEB 02/17/25 18:00 02/21/25 18:22 0.625 MG Ipratropium [place] 0.5 mg Q6HR NEB 02/17/25 18:00 02/21/25 18:22 0.5 MG Linezolid 300 ml @ 150 mls/hr Q12HR IV 02/17/25 22:00 02/21/25 08:24 150 MLS/HR Enoxaparin Sodium 70 mg Q12HR SC 02/18/25 10:00 02/21/25 08:25 70 MG Meropenem 50 ml @ 17 mls/hr Q8HR IV 02/18/25 14:00 02/21/25 15:03 17 MLS/HR Furosemide 80 mg DAILY IV 02/21/25 10:00 02/21/25 08:25 80 MG objective GENERAL: Ill appearing, intubated on ventilator. EYES: PERRL, EOMI. Anicteric. HENT: Moist mucous membranes. LUNGS: Diminished breath sounds with rales, mild bilateral wheezing CARDIOVASCULAR: Irregular rate and rhythm. ABDOMEN: Soft, non-tender and non-distended. EXTREMITIES: No edema. SKIN: Warm, dry. laboratory and microbiology Laboratory Tests 02/21/25 03:35 Test 02/21/25 03:35 Range/Units Serum Glucose 111 H 74-106 mg/dL Problem List Acute metabolic encephalopathy. Acute on chronic hypercapnic/hypoxemic respiratory failure. Septic shock. History of seizure disorder. History of TIA. COPD exacerbation. Bilateral pleural effusion. Acute decompensated heart failure. Bilateral pulmonary edema. Pulmonary nodule left lower lobe. Heart failure with reduced ejection fraction. Atrial fibrillation with a RVR, now rate controlled. Nonischemic cardiomyopathy. 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 Acute complicated urinary tract infection causing septic shock. Bacteremia. Assessment/Plan Continued all current supportive medical care. DVT and GI prophylactics. Diuretics with Lasix. IV antibiotics as ordered. Vasopressors for hemodynamic support. Additional plan as per the hospital course. Critical care time of 90 minutes provided to include time spent evaluation of patient at bedside, when appropriate patient/family education for diagnosis, treatment plan, review of pertinent medical information and discussion of care with specialty providers and PCP. Mechanical ventilator parameters, treatment and adjustments have personally been reviewed by me and treatment plan by bowl topper has also been reviewed. Dietary Evaluation Review Comments: 1) Jevity 1.2Cal @ 65ml/hr along with Pro-stat 1 pk daily. Start at 20ml/hr increase 10ml/hr until goal is reached. TF at goal volume provides 1872 kcal, 87gm protein, and 1259 ml free water. 2) Water flush 100ml Q4H if allowed, adjust PRN 3) Monitor TF tolerance, lab values, wt trend, I/O Expected Outcomes/Goals: To meet >75% estimated needs Fu 2-3 days Plan discussed with: Other JOSH VEGA MD Feb 21, 2025 20:38
[2025-02-22] VITALS (104 sets, daily range): BP systolic 78–199; BP diastolic 41–112; PULSE 61–140; RESP 0–24; TEMP 85.6–99.1; O2SAT 86–100
[2025-02-22 04:14] LABS: Hematocrit 33.1 % (36.0-46.0); Hemoglobin 10.9 g/dL (12.2-16.2); Mean Corpuscular Hemoglobin 31.9 pg (28.0-32.0); Mean Corpuscular Volume 97.2 fL (80.0-100.0); Nucleated Red Blood Cells % 0.1 %
[2025-02-22 04:22] LABS: Anion Gap 8 (5-15); Carbon Dioxide 31 mmol/L (20-31); Chloride 101 mmol/L (98-107); Potassium 3.8 mmol/L (3.5-5.1); Sodium 140 mmol/L (136-145)
[2025-02-22 04:28] LABS: BUN/Creatinine Ratio 25.0 (10.0-20.0); Blood Urea Nitrogen 20 mg/dL (9-23)
[2025-02-22 04:29] LABS: Magnesium 1.8 mg/dL (1.6-2.6)
--- NOTE | 2025-02-22 04:30 | DVH ---
CHEST RADIOGRAPH Indication: intubated Technique: Single frontal view of the chest was obtained COMPARISON: XY CHEST PORTABLE on DOS: 02/21/25, XY CHEST XRAY 1 VIEW on DOS: 02/20/25, XY CHEST XRAY 1 V IEW on DOS: 02/19/25, XY CHEST XRAY 1 VIEW on DOS: 02/18/25, XY CHEST XRAY 1 VIEW on DOS: 02/17/25 FINDINGS: Lines and Tubes: Right internal jugular central venous catheter tip persistently directed into the pr oximal aspect of the right brachiocephalic vein. Endotracheal tube and enteric catheter unchanged. Lungs: Stable appearing moderate diffuse increased prominence of the pulmonary vasculature and small left pleural effusion. No pneumothorax. Cardiomediastinal contours: Cardiomegaly. Bones: Unremarkable IMPRESSION: 1. Cardiomegaly, diffuse increased prominence of the pulmonary vasculature and small left pleural eff usion. 2. Lines and tubes unchanged. Right internal jugular central venous catheter tip directed within the proximal right brachiocephalic vein.
[2025-02-22 04:33] LABS: Calcium 8.2 mg/dL (8.7-10.4); Glucose 114 mg/dL (74-106)
[2025-02-22 07:52] LABS: Base Excess 5.1 mmol/L (-2.0-3.0)
[2025-02-22] MEDS: LACTULOSE 20Gm/30ML SOLN PO SCH (10:00)
[2025-02-22] MEDS: DEXMEDETOMIDINE HCL IN D5W 100 ML IV SCH (14:17)
[2025-02-22] MEDS: LIDOCAINE 1% (LOCAL ANESTH.) PF 5ml SDV ID ONE (15:00)
[2025-02-22] MEDS: LISINOPRIL 5 MG TAB PO ONE (18:56)
--- NOTE | 2025-02-22 19:07 | DVHPNRES ---
Progress Note Date Seen: Feb 22, 2025 Resident Creating Document: JARED LAGUNA RESIDENT Medical Necessity Reason Pt with a Central, PICC or Fol: Yes The following are medically ne: Central Line, Gold Catheter Subjective Review of Systems 02/22 Patient seen and examined with the bedside. With the weekend patient did not have any fever, few episodes of tachycardia with a heart rate up to 130s and was given 1 dose of digoxin 500 mcg on 02/21 in the evening following which heart rate was controlled. Over the weekend norepinephrine requirement decreased and today patient was at 2 microgram/minute in the morning. Urine output increased over the weekend with a 850 mL on 02/20/ 3150 mL on 02/21, 2100 mL on 02/22[place] [address]. Chest x-ray shows bilateral congestion with a pleural effusion on the left side. Patient's last bowel movement was reported on 02/15 and was started on lactulose today. Objective vital signs Vital Sign Date Time Temp Pulse Resp B/P (MAP) Pulse Ox O2 Delivery O2 Flow Rate FiO2 02/22/25 18:34 95 20 182/103 (129) 100 30 02/22/25 17:34 Mechanical Ventilator+ 02/22/25 17:32 98.9 98.9 02/21/25 18:23 30.0 Total Intake and Output 02/21/25 02/21/25 02/22/25 14:59 22:59 06:59 Intake Total 643.78 ml 618.28 ml 1048.28 ml Output Total 1700 ml 400 ml Balance 643.78 ml -1081.72 ml 648.28 ml medications Current Medications Medications Dose Ordered Sig/Janette Route Start Time Stop Time Status Last Admin Dose Admin Midazolam HCl 50 ml @ 1 mls/hr Q24H IV 02/16/25 15:00 02/21/25 22:18 3 MLS/HR Fentanyl Citrate 250 ml @ 2.5 mls/hr Q24H IV 02/16/25 15:00 02/22/25 14:38 5 MLS/HR Pantoprazole Sodium 40 mg DAILY IV 02/17/25 10:00 02/22/25 09:45 40 MG Norepinephrine Bitartrate 250 ml @ 3.75 mls/hr Q24H IV 02/16/25 20:15 02/21/25 18:41 11.25 MLS/HR Levetiracetam 1,000 mg BID NG 02/16/25 22:00 02/22/25 09:45 1,000 MG Lacosamide 100 mg BID GT 02/17/25 11:30 02/22/25 09:45 100 MG Enteral Nutritional Formula 1,000 ml 30ML/HR GT 02/17/25 12:00 02/20/25 23:59 1,000 ML Levalbuterol HCl 0.625 mg Q6HR NEB 02/17/25 18:00 02/22/25 18:35 0.625 MG Ipratropium [place] 0.5 mg Q6HR NEB 02/17/25 18:00 02/22/25 18:35 0.5 MG Linezolid 300 ml @ 150 mls/hr Q12HR IV 02/17/25 22:00 02/22/25 09:45 150 MLS/HR Enoxaparin Sodium 70 mg Q12HR SC 02/18/25 10:00 02/22/25 09:45 70 MG Meropenem 50 ml @ 17 mls/hr Q8HR IV 02/18/25 14:00 02/22/25 14:16 17 MLS/HR Furosemide 80 mg DAILY IV 02/21/25 10:00 02/22/25 09:44 80 MG Lactulose 30 ml BID PO 02/22/25 10:00 Sodium Chloride 10 ml QSHIFT@10,22 IV 02/22/25 22:00 Examination Gen - no pallor, no icterus, no cyanosis, bilateral 3+ pitting edema in the lower extremities up to the knees Skin - Patients skin is warm and dry. HEENT - normocephalic, atraumatic, moist mucous membranes. Neck - mild jugular venous distention seen Pulmonary - B/L diminished breath sounds with rales, no stridor. cardiovascular - irregularlu irregular S1,S2 heard, no added sounds, no murmurs heard. capillary refill normal >3 secs. GI - soft abdomen. Bowel sounds normoactive Neurological - Patient is sedated and on mechanical ventilation laboratory and microbiology Laboratory Tests 02/22/25 03:18 Test 02/22/25 03:18 Range/Units Serum Glucose 114 H 74-106 mg/dL Microbiology Date/Time Source Procedure Growth Status 02/19/25 16:15 Blood Blood Culture - Preliminary NO GROWTH AFTER 72 HOURS OF INCUBATION. Resulted 02/19/25 13:45 Urine - Gold Port Urine Culture - Final Presumptive Cari albicans Complete 02/18/25 02:45 Nose MRSA Screen - Final Complete 02/17/25 09:48 Sputum Gram Stain - Final Complete 02/17/25 09:48 Respiratory Culture - Final Klebsiella pneumoniae Complete Problem List/Assessment/Plan Problem List/Assessment/Plan Neurology Acute metabolic encephalopathy likely from hypercapnia respiratory failure/septic shock H/o seizure disorder h/o TIA - currently sedated and on mechanical ventilation - on Keppra and lacosamide Respiratory Acute on chronic hypercapnic/hypoxemic respiratory failure Copd likely in exacerbation Possible pneumonia from gram +/- bacteria Bilateral pleural effusion likely from acute decompensated heart failure/ ?parapneumonic Bilateral pulmonary edema likely from acute decompensated heart failure Pulmonary nodule left lower lobe - chest CT showed right lower lobe consolidation, moderate bilateral pleural effusions, mediastinal lymphadenopathy, 1.3 cm nodule in the left lower lobe - on mechanical ventilation with a FiO2 40%, peep of 5, tidal volume 400 - sputum culture showing growth of Klebsiella pneumoniae - on broad-spectrum coverage with linezolid and meropenam - duo nebs q.6 hours Cardiovascular Septic shock likely from UTI Acute decompensated heart failure Heart failure with reduced ejection fraction Atrial fibrillation with a RVR, now rate controlled Nonischemic cardiomyopathy - recent echocardiogram showed LVEF 10-15% with a markedly dilated LV, RV enlarged - left heart catheterization from in December 2024 shows no significant coronary artery disease, LVEF approximately 20% - BNP elevated - weaned off norepinephrine - Lovenox therapeutic dose - Lasix 80 mg daily, lisinopril 5 mg 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, resolved Acute complicated urinary tract infection causing septic shock - monitoring renal function - on linezolid and meropenam Infectious disease Septic shock Bacteremia UTI pneumonia - initial blood culture showed growth of Staph epidermidis, repeat blood cultures after 72 hours showed no growth - sputum culture showed growth of Klebsiella pneumoniae - urine cultures growth of presumptive Cari albicans On meropenem and linezolid Vasopressors Gastrointestinal On tube feedings Lactulose 30 mL b.i.d. DVT prophylaxis: On enoxaparin PUD prophylaxis: Protonix Left upper arm PICC inserted on 02/22 Gold catheter inserted on 02/16 Goals of care discussed with the patient's Carlos at bedside. Code status: Full code Critical care time spent excluding procedures: 81 minutes Plan discussed with Dr. Steven. Plan discussed with: Spouse, Other (RN Coni) My Orders My Orders Orders - JARED LAGUNA Procedure Category Date Status Time Abg W/ Co-Ox RT 02/22/25 Logged 05:31 * Picc Line Consult CONS 02/22/25 Transmitted 07:24 Lactulose Oral PHA 02/22/25 In Process 10:00 Cpap Trial For Am ORDERS 02/22/25 Transmitted 09:59 Respiratory Misc. RT 02/22/25 Transmitted Order 10:01 Cpap Trial For Am ORDERS 02/22/25 Transmitted 11:10 Respiratory Misc. RT 02/22/25 Transmitted Order 11:10 Dexmedetomidine Hcl PHA 02/22/25 In Process In D5w (Precedex) 14:00 Change Dressing Prn LAURENT 02/22/25 In Process 15:00 Sodium Chloride Lock PHA 02/22/25 In Process (Saline Lock Ns) 22:00 Do Not Use Picc For LAURENT 02/22/25 In Process Blood Cult 15:00 May Draw Blood From LAURENT 02/22/25 In Process Picc 15:00 Ok To Use Picc LAURENT 02/22/25 In Process 15:00 Change Picc Dressing LAURENT 02/22/25 In Process Q7 Days 15:00 Us Guided Vascular US 02/22/25 Logged Access 15:00 Dietary Evaluation Review Comments: 1) Jevity 1.2Cal @ 65ml/hr along with Pro-stat 1 pk daily. Start at 20ml/hr increase 10ml/hr until goal is reached. TF at goal volume provides 1872 kcal, 87gm protein, and 1259 ml free water. 2) Water flush 100ml Q4H if allowed, adjust PRN 3) Monitor TF tolerance, lab values, wt trend, I/O Expected Outcomes/Goals: To meet >75% estimated needs Fu 2-3 days Date of Service: Feb 22, 2025 Billing Provider: ROMELIA STEVEN MD Common Visit Codes: [id number] CARE 30-74 MIN, [id number] CARE-EACH +30MIN JARED LAGUNA Feb 22, 2025 19:07 ROMELIA STEVEN MD Feb 23, 2025 14:58
[2025-02-22] MEDS ORDERED: LISINOPRIL 5 MG TAB PO PRN (20:30)
[2025-02-22] MEDS: SODIUM CHLOR 0.9% PF (SALINE LOCK) 10ML VIAL/SYR IV SCH (22:41)
--- NOTE | 2025-02-22 23:16 | DVHPN2 ---
Progress Note - Dictate Date Seen: Feb 22, 2025 Medical Necessity Reason Pt with a Central, PICC or Fol: Yes The following are medically ne: Central Line, Gold Catheter Subjective Patient was seen and evaluated in follow up in the ICU. Patient is intubated and sedated on ventilator. 60% FiO2. Patient on low dose vasopressors. Chest x-ray shows bilateral congestion with a pleural effusion on the left side. Patient's last bowel movement was reported on 02/15 and was started on lactulose today. vital signs Vital Sign Date Time Temp Pulse Resp B/P (MAP) Pulse Ox O2 Delivery O2 Flow Rate FiO2 02/22/25 22:33 193/104 02/22/25 20:30 100 20 100 60 02/22/25 18:47 97.5 207.5 02/22/25 17:34 Mechanical Ventilator+ 02/21/25 18:23 30.0 Total Intake and Output 02/21/25 02/21/25 02/22/25 15:00 23:00 07:00 Intake Total 629.28 ml 620.78 ml 1061.53 ml Output Total 1700 ml 400 ml Balance 629.28 ml -1079.22 ml 661.53 ml medications Current Medications Medications Dose Ordered Sig/Janette Route Start Time Stop Time Status Last Admin Dose Admin Midazolam HCl 50 ml @ 1 mls/hr Q24H IV 02/16/25 15:00 02/22/25 22:33 1 MLS/HR Fentanyl Citrate 250 ml @ 2.5 mls/hr Q24H IV 02/16/25 15:00 02/22/25 14:38 5 MLS/HR Pantoprazole Sodium 40 mg DAILY IV 02/17/25 10:00 02/22/25 09:45 40 MG Norepinephrine Bitartrate 250 ml @ 3.75 mls/hr Q24H IV 02/16/25 20:15 02/21/25 18:41 11.25 MLS/HR Levetiracetam 1,000 mg BID NG 02/16/25 22:00 02/22/25 22:41 1,000 MG Lacosamide 100 mg BID GT 02/17/25 11:30 02/22/25 22:41 100 MG Enteral Nutritional Formula 1,000 ml 30ML/HR GT 02/17/25 12:00 02/20/25 23:59 1,000 ML Levalbuterol HCl 0.625 mg Q6HR NEB 02/17/25 18:00 02/22/25 18:35 0.625 MG Ipratropium [place] 0.5 mg Q6HR NEB 02/17/25 18:00 02/22/25 18:35 0.5 MG Linezolid 300 ml @ 150 mls/hr Q12HR IV 02/17/25 22:00 02/22/25 22:38 150 MLS/HR Enoxaparin Sodium 70 mg Q12HR SC 02/18/25 10:00 02/22/25 22:48 70 MG Meropenem 50 ml @ 17 mls/hr Q8HR IV 02/18/25 14:00 02/22/25 14:16 17 MLS/HR Furosemide 80 mg DAILY IV 02/21/25 10:00 02/22/25 09:44 80 MG Lactulose 30 ml BID PO 02/22/25 10:00 02/22/25 22:41 30 ML Sodium Chloride 10 ml QSHIFT@10,22 IV 02/22/25 22:00 02/22/25 22:41 10 ML Lisinopril 5 mg ONCE PRN PO 02/22/25 20:30 objective GENERAL: Ill appearing, intubated on ventilator. EYES: PERRL, EOMI. Anicteric. HENT: Moist mucous membranes. LUNGS: Diminished breath sounds with rales, mild bilateral wheezing CARDIOVASCULAR: Irregular rate and rhythm. ABDOMEN: Soft, non-tender and non-distended. EXTREMITIES: No edema. SKIN: Warm, dry. laboratory and microbiology Laboratory Tests 02/22/25 03:18 Test 02/22/25 03:18 Range/Units Serum Glucose 114 H 74-106 mg/dL Problem List Acute metabolic encephalopathy. Acute on chronic hypercapnic/hypoxemic respiratory failure. Septic shock. History of seizure disorder. History of TIA. COPD exacerbation. Bilateral pleural effusion. Acute decompensated heart failure. Bilateral pulmonary edema. Pulmonary nodule left lower lobe. Heart failure with reduced ejection fraction. Atrial fibrillation with a RVR, now rate controlled. Nonischemic cardiomyopathy. 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 Acute complicated urinary tract infection causing septic shock. Bacteremia. Assessment/Plan Continued all current supportive medical care. DVT and GI prophylactics. Diuretics with Lasix. IV antibiotics as ordered. Vasopressors for hemodynamic support. Additional plan as per the hospital course. Critical care time of 90 minutes provided to include time spent evaluation of patient at bedside, when appropriate patient/family education for diagnosis, treatment plan, review of pertinent medical information and discussion of care with specialty providers and PCP. Mechanical ventilator parameters, treatment and adjustments have personally been reviewed by me and treatment plan by keycase assembler has also been reviewed. Dietary Evaluation Review Comments: 1) Jevity 1.2Cal @ 65ml/hr along with Pro-stat 1 pk daily. Start at 20ml/hr increase 10ml/hr until goal is reached. TF at goal volume provides 1872 kcal, 87gm protein, and 1259 ml free water. 2) Water flush 100ml Q4H if allowed, adjust PRN 3) Monitor TF tolerance, lab values, wt trend, I/O Expected Outcomes/Goals: To meet >75% estimated needs Fu 2-3 days Plan discussed with: Other JOSH VEGA MD Feb 22, 2025 23:16
[2025-02-23] VITALS (114 sets, daily range): BP systolic 84–195; BP diastolic 44–112; PULSE 51–114; RESP 0–23; TEMP 97.9–99.1; O2SAT 88–100
[2025-02-23 04:23] LABS: Hematocrit 29.9 % (36.0-46.0); Hemoglobin 10.2 g/dL (12.2-16.2); Mean Corpuscular Hemoglobin 33.0 pg (28.0-32.0); Mean Corpuscular Volume 97.0 fL (80.0-100.0); Nucleated Red Blood Cells % 0.0 %
[2025-02-23 04:39] LABS: Alanine Aminotransferase 16 U/L (7-40); Alkaline Phosphatase 77 U/L (46-116); Anion Gap 7 (5-15); BUN/Creatinine Ratio 19.8 (10.0-20.0); Blood Urea Nitrogen 17 mg/dL (9-23); Carbon Dioxide 31 mmol/L (20-31); Chloride 101 mmol/L (98-107); Glucose 104 mg/dL (74-106); Magnesium 1.8 mg/dL (1.6-2.6); Sodium 139 mmol/L (136-145)
[2025-02-23 04:47] LABS: Albumin 2.7 g/dL (3.2-4.8); Bilirubin, Total 0.3 mg/dL (0.2-1.0); Calcium 8.2 mg/dL (8.7-10.4); Potassium 3.2 mmol/L (3.5-5.1); Total Protein 4.8 g/dL (5.7-8.2)
--- NOTE | 2025-02-23 04:58 | DVH ---
CHEST RADIOGRAPH Indication: B/L congestion Technique: Single frontal view of the chest was obtained COMPARISON: XY CHEST XRAY 1 VIEW on DOS: 02/22/25, XY CHEST PORTABLE on DOS: 02/21/25, XY CHEST XRAY 1 VIEW on DOS: 02/20/25, XY CHEST XRAY 1 VIEW on DOS: 02/19/25, XY CHEST XRAY 1 VIEW on DOS: 02/18/25 FINDINGS: Lines and Tubes: Repositioned right internal jugular central venous catheter with tip now directed to franco the superior vena cava. Remaining lines and tubes unchanged. Lungs: Progressive bilateral pleural effusions and diffuse increased prominence of the pulmonary vasc ulature. No pneumothorax. Cardiomediastinal contours: Cardiomegaly. Bones: Unremarkable IMPRESSION: 1. Progressive bilateral pleural effusions and diffuse increased prominence of the pulmonary vasculat ure. 2. Cardiomegaly. 3. Repositioned right internal jugular central venous catheter. Remaining lines and tubes unchanged.
[2025-02-23] MEDS: POTASSIUM CHL 20MEQ/100ML 100 ML IV SCH (06:20)
[2025-02-23 07:01] LABS: Base Excess 5.6 mmol/L (-2.0-3.0)
[2025-02-23] MEDS: MEROPENEM 1GM IVPB 50 ML IV SCH (10:24)
[2025-02-23] MEDS: cefTRIAXone 2GM/50ML D5W 50 ML IV ONE (12:42)
[2025-02-23] MEDS: POTASSIUM CHL 20MEQ/100ML 100 ML IV ONE (14:30)
[2025-02-23] MEDS: LISINOPRIL 5 MG TAB PO ONE (15:00)
[2025-02-23] MEDS: MAGNESIUM SULFATE 1GM/100ML 100 ML IV ONE (15:53)
[2025-02-23] MEDS: FUROSEMIDE 40 MG/4 ML VIAL IV ONE (17:51)
--- NOTE | 2025-02-23 18:26 | DVHPNRES ---
Progress Note Date Seen: Feb 23, 2025 Resident Creating Document: JARED LAGUNA RESIDENT Medical Necessity Reason Pt with a Central, PICC or Fol: Yes The following are medically ne: Central Line, Gold Catheter Subjective Review of Systems 02/22 Patient seen and examined with the bedside. Overnight patient did not have any fevers, for about 3 hours midnight had norepinephrine requirement at 2-4 microgram/minute. Chest x-ray showed worsened bilateral pleural effusion with increased pulmonary vascular congestion. Urine output did improve over the last 24 hrs. Diuresis dose was increased. Patient had a bowel movement X 3. Objective vital signs Vital Sign Date Time Temp Pulse Resp B/P (MAP) Pulse Ox O2 Delivery O2 Flow Rate FiO2 02/23/25 18:00 80 02/23/25 18:00 20 98 Mechanical Ventilator+ 30 30 02/23/25 17:51 107/55 02/23/25 16:02 98.5 98.5 02/21/25 18:23 30.0 Total Intake and Output 02/22/25 02/22/25 02/23/25 15:00 23:00 07:00 Intake Total 528.28 ml 325.72 ml 799.62 ml Output Total 1950 ml 350 ml Balance 528.28 ml -1624.28 ml 449.62 ml medications Current Medications Medications Dose Ordered Sig/Janette Route Start Time Stop Time Status Last Admin Dose Admin Midazolam HCl 50 ml @ 1 mls/hr Q24H IV 02/16/25 15:00 02/23/25 07:58 3 MLS/HR Fentanyl Citrate 250 ml @ 2.5 mls/hr Q24H IV 02/16/25 15:00 02/23/25 12:37 25 MLS/HR Pantoprazole Sodium 40 mg DAILY IV 02/17/25 10:00 02/23/25 10:22 40 MG Norepinephrine Bitartrate 250 ml @ 3.75 mls/hr Q24H IV 02/16/25 20:15 02/21/25 18:41 11.25 MLS/HR Levetiracetam 1,000 mg BID NG 02/16/25 22:00 02/23/25 10:23 1,000 MG Lacosamide 100 mg BID GT 02/17/25 11:30 02/23/25 10:24 100 MG Enteral Nutritional Formula 1,000 ml 30ML/HR GT 02/17/25 12:00 02/20/25 23:59 1,000 ML Levalbuterol HCl 0.625 mg Q6HR NEB 02/17/25 18:00 02/23/25 12:02 0.625 MG Ipratropium [place] 0.5 mg Q6HR NEB 02/17/25 18:00 02/23/25 12:02 0.5 MG Enoxaparin Sodium 70 mg Q12HR SC 02/18/25 10:00 02/23/25 10:23 70 MG Furosemide 80 mg DAILY IV 02/21/25 10:00 02/23/25 10:23 80 MG Lactulose 30 ml BID PO 02/22/25 10:00 02/22/25 22:41 30 ML Sodium Chloride 10 ml QSHIFT@10,22 IV 02/22/25 22:00 02/23/25 10:24 10 ML Ceftriaxone Sodium/Dextrose 50 ml @ 50 mls/hr DAILY IV 02/24/25 10:00 Lisinopril 5 mg DAILY PO 02/24/25 10:00 Examination Gen - no pallor, no icterus, no cyanosis, bilateral 3+ pitting edema in the lower extremities up to the knees Skin - Patients skin is warm and dry. HEENT - normocephalic, atraumatic, moist mucous membranes. Neck - mild jugular venous distention seen Pulmonary - B/L diminished breath sounds with rales, no stridor. cardiovascular - irregularlu irregular S1,S2 heard, no added sounds, no murmurs heard. capillary refill normal >3 secs. GI - soft abdomen. Bowel sounds normoactive Neurological - Patient is sedated and on mechanical ventilation laboratory and microbiology Laboratory Tests 02/23/25 02:42 Test 02/23/25 02:42 Range/Units Serum Glucose 104 74-106 mg/dL Microbiology Date/Time Source Procedure Growth Status 02/19/25 16:15 Blood Blood Culture - Preliminary NO GROWTH AFTER 72 HOURS OF INCUBATION. Resulted 02/19/25 13:45 Urine - Gold Port Urine Culture - Final Presumptive Cari albicans Complete 02/18/25 02:45 Nose MRSA Screen - Final Complete 02/17/25 09:48 Sputum Gram Stain - Final Complete 02/17/25 09:48 Respiratory Culture - Final Klebsiella pneumoniae Complete Problem List/Assessment/Plan Problem List/Assessment/Plan Neurology Acute metabolic encephalopathy likely from hypercapnia respiratory failure/septic shock H/o seizure disorder h/o TIA - currently sedated and on mechanical ventilation - on Keppra and lacosamide Respiratory Acute on chronic hypercapnic/hypoxemic respiratory failure Copd likely in exacerbation Possible pneumonia from gram +/- bacteria Bilateral pleural effusion likely from acute decompensated heart failure/ ?parapneumonic Bilateral pulmonary edema likely from acute decompensated heart failure Pulmonary nodule left lower lobe - chest CT showed right lower lobe consolidation, moderate bilateral pleural effusions, mediastinal lymphadenopathy, 1.3 cm nodule in the left lower lobe - on mechanical ventilation with a FiO2 40%, peep of 5, tidal volume 400 - sputum culture showing growth of Klebsiella pneumoniae - on ceftriaxone - duo nebs q.6 hours Cardiovascular Septic shock likely from UTI Acute decompensated heart failure Heart failure with reduced ejection fraction Atrial fibrillation with a RVR, now rate controlled Nonischemic cardiomyopathy - recent echocardiogram showed LVEF 10-15% with a markedly dilated LV, RV enlarged - left heart catheterization from in December 2024 shows no significant coronary artery disease, LVEF approximately 20% - BNP elevated - weaned off norepinephrine - Lovenox therapeutic dose - Lasix 80 mg daily,additional dose of lasix 40mg 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, resolved Acute complicated urinary tract infection causing septic shock - monitoring renal function - urine culture showed growth of presumptive Cari albicans - on ceftriaxone Infectious disease Septic shock Bacteremia UTI pneumonia - initial blood culture showed growth of Staph epidermidis, repeat blood cultures after 72 hours showed no growth - sputum culture showed growth of Klebsiella pneumoniae - urine cultures growth of presumptive Cari albicans - on ceftriaxone - Vasopressors Gastrointestinal On tube feedings DVT prophylaxis: On enoxaparin PUD prophylaxis: Protonix Left upper arm PICC inserted on 02/22 Gold catheter inserted on 02/16 Goals of care discussed with the patient's Carlos at bedside. Code status: Full code Critical care time spent excluding procedures: 61 minutes Plan discussed with Dr. Steven. Plan discussed with: Spouse, Other (CLAIRE Pope) My Orders My Orders Orders - JARED LAGUNA RESIDENT Procedure Category Date Status Time Chest Xray 1 View XY 02/23/25 Resulted 04:00 Abg W/ Co-Ox RT 02/23/25 Logged 04:00 Communication Order ORDERS 02/22/25 Transmitted 20:17 Ceftriaxone 2gm/50ml PHA 8/13/25 In Process D5w (Rocephin 2gm/5 10:00 Dietary Evaluation Review Comments: 1) Jevity 1.2Cal @ 65ml/hr along with Pro-stat 1 pk daily. Start at 20ml/hr increase 10ml/hr until goal is reached. TF at goal volume provides 1872 kcal, 87gm protein, and 1259 ml free water. 2) Water flush 100ml Q4H if allowed, adjust PRN 3) Monitor TF tolerance, lab values, wt trend, I/O Expected Outcomes/Goals: To meet >75% estimated needs Fu 2-3 days Date of Service: Feb 23, 2025 Billing Provider: ROMELIA STEVEN MD Common Visit Codes: [id number] CARE 30-74 MIN JARED LAGUNA RESIDENT Feb 23, 2025 18:26 ROMELIA STEVEN MD Feb 24, 2025 14:58
[2025-02-23] MEDS ORDERED: LISINOPRIL 5 MG TAB PO PRN (18:30)
--- NOTE | 2025-02-23 22:34 | DVHPN2 ---
Progress Note - Dictate Date Seen: Feb 23, 2025 Medical Necessity Reason Pt with a Central, PICC or Fol: Yes The following are medically ne: Central Line, Gold Catheter Subjective Patient was seen and evaluated in follow up in the ICU. Patient is intubated and sedated on ventilator. 30% FiO2. Patient receiving vasopressors for hemodynamic support. Electrolytes are being replaced. Chest x-ray shows progressive bilateral pleural effusions and diffuse increased prominence of the pulmonary vasculature and cardiomegaly. vital signs Vital Sign Date Time Temp Pulse Resp B/P (MAP) Pulse Ox O2 Delivery O2 Flow Rate FiO2 02/23/25 22:02 73 20 124/61 (82) 100 02/23/25 22:00 30 02/23/25 22:00 Mechanical Ventilator+ 02/23/25 16:02 98.5 98.5 02/21/25 18:23 30.0 Total Intake and Output 02/22/25 02/22/25 02/23/25 15:00 23:00 07:00 Intake Total 528.28 ml 325.72 ml 799.62 ml Output Total 1950 ml 350 ml Balance 528.28 ml -1624.28 ml 449.62 ml medications Current Medications Medications Dose Ordered Sig/Janette Route Start Time Stop Time Status Last Admin Dose Admin Midazolam HCl 50 ml @ 1 mls/hr Q24H IV 02/16/25 15:00 02/23/25 21:42 4 MLS/HR Fentanyl Citrate 250 ml @ 2.5 mls/hr Q24H IV 02/16/25 15:00 02/23/25 21:46 27.5 MLS/HR Pantoprazole Sodium 40 mg DAILY IV 02/17/25 10:00 02/23/25 10:22 40 MG Norepinephrine Bitartrate 250 ml @ 3.75 mls/hr Q24H IV 02/16/25 20:15 02/21/25 18:41 11.25 MLS/HR Levetiracetam 1,000 mg BID NG 02/16/25 22:00 02/23/25 21:41 1,000 MG Lacosamide 100 mg BID GT 02/17/25 11:30 02/23/25 21:42 100 MG Enteral Nutritional Formula 1,000 ml 30ML/HR GT 02/17/25 12:00 02/20/25 23:59 1,000 ML Levalbuterol HCl 0.625 mg Q6HR NEB 02/17/25 18:00 02/23/25 18:36 0.625 MG Ipratropium [place] 0.5 mg Q6HR NEB 02/17/25 18:00 02/23/25 18:35 0.5 MG Enoxaparin Sodium 70 mg Q12HR SC 02/18/25 10:00 02/23/25 21:41 70 MG Furosemide 80 mg DAILY IV 02/21/25 10:00 02/23/25 10:23 80 MG Sodium Chloride 10 ml QSHIFT@10,22 IV 02/22/25 22:00 02/23/25 21:42 10 ML Ceftriaxone Sodium/Dextrose 50 ml @ 50 mls/hr DAILY IV 02/24/25 10:00 Lisinopril 5 mg DAILYP PRN PO 02/23/25 18:30 objective GENERAL: Ill appearing, intubated on ventilator. EYES: PERRL, EOMI. Anicteric. HENT: Moist mucous membranes. LUNGS: Diminished breath sounds with rales, mild bilateral wheezing CARDIOVASCULAR: Irregular rate and rhythm. ABDOMEN: Soft, non-tender and non-distended. EXTREMITIES: No edema. SKIN: Warm, dry. laboratory and microbiology Laboratory Tests 02/23/25 02:42 Test 02/23/25 02:42 Range/Units Serum Glucose 104 74-106 mg/dL Problem List Acute metabolic encephalopathy. Acute on chronic hypercapnic/hypoxemic respiratory failure. Septic shock. History of seizure disorder. History of TIA. COPD exacerbation. Bilateral pleural effusion. Acute decompensated heart failure. Bilateral pulmonary edema. Pulmonary nodule left lower lobe. Heart failure with reduced ejection fraction. Atrial fibrillation with a RVR, now rate controlled. Nonischemic cardiomyopathy. 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 Acute complicated urinary tract infection causing septic shock. Bacteremia. Assessment/Plan Continued all current supportive medical care. IV antibiotics as ordered. DVT and GI prophylactics. Diuretics with Lasix. Lisinopril. Vasopressors for hemodynamic support. Additional plan as per the hospital course. Critical care time of 90 minutes provided to include time spent evaluation of patient at bedside, when appropriate patient/family education for diagnosis, treatment plan, review of pertinent medical information and discussion of care with specialty providers and PCP. Mechanical ventilator parameters, treatment and adjustments have personally been reviewed by me and treatment plan by grain scooper has also been reviewed. Dietary Evaluation Review Comments: 1) Jevity 1.2Cal @ 65ml/hr along with Pro-stat 1 pk daily. Start at 20ml/hr increase 10ml/hr until goal is reached. TF at goal volume provides 1872 kcal, 87gm protein, and 1259 ml free water. 2) Water flush 100ml Q4H if allowed, adjust PRN 3) Monitor TF tolerance, lab values, wt trend, I/O Expected Outcomes/Goals: To meet >75% estimated needs Fu 2-3 days Plan discussed with: Other JOSH VEGA MD Feb 23, 2025 22:34
[2025-02-24] VITALS (114 sets, daily range): BP systolic 77–187; BP diastolic 44–97; PULSE 58–112; RESP 14–25; TEMP 99.1–99.9; O2SAT 92–100
[2025-02-24 03:27] LABS: Hematocrit 33.4 % (36.0-46.0); Hemoglobin 11.1 g/dL (12.2-16.2); Mean Corpuscular Hemoglobin 32.5 pg (28.0-32.0); Mean Corpuscular Volume 97.6 fL (80.0-100.0); Nucleated Red Blood Cells % 0.0 %
[2025-02-24 03:34] LABS: Anion Gap 8 (5-15); Carbon Dioxide 32 mmol/L (20-31); Chloride 100 mmol/L (98-107); Potassium 3.9 mmol/L (3.5-5.1); Sodium 140 mmol/L (136-145)
[2025-02-24 03:40] LABS: BUN/Creatinine Ratio 20.5 (10.0-20.0); Blood Urea Nitrogen 16 mg/dL (9-23); Glucose 91 mg/dL (74-106)
[2025-02-24 03:41] LABS: Magnesium 1.9 mg/dL (1.6-2.6)
[2025-02-24 03:55] LABS: Calcium 8.5 mg/dL (8.7-10.4)
[2025-02-24] MEDS: MAGNESIUM SULFATE 1GM/100ML 100 ML IV ONE ×2 (04:24→10:36)
--- NOTE | 2025-02-24 04:59 | DVH ---
CHEST RADIOGRAPH Indication: b/l rales Technique: Single frontal view of the chest was obtained Comparison: XY CHEST XRAY 1 VIEW on DOS: 02/23/25 FINDINGS: Lines and Tubes: The endotracheal tube terminates 5.0 cm above the mikhail. There is a left PICC with its tip terminating in the superior vena cava. The enteric tube courses below the left hemidiaphragm and the tip extends outside the field of view. Lungs: Bilateral interstitial prominence, overall decreased since prior study. Pleura: Decreased bilateral pleural effusions. No pneumothorax. Cardiomediastinal contours: Cardiomegaly. Bones: No acute osseous abnormality. ACDF. IMPRESSION: 1. Stable position of the support lines and tubes. 2. Decreased pulmonary vascular congestion and decreased bilateral pleural effusions. 3. Cardiomegaly.
--- NOTE | 2025-02-24 05:13 | DVH ---
Exam: US US GUIDED VASCULAR ACCESS Clinical History: PICC Line Insertion Comparison: US BILAT LOWER DVT on DOS: 12/15/24, CT CT ANGIO CHEST CONTRAST on DOS: 04/25/24, US BILAT LOWER DVT on DOS: 04/25/24, CAROTID DUPLX W COLOR DOP on DOS: 01/28/21 Findings: Targeted sonographic evaluation of the arm vein was obtained utilizing grayscale and color Doppler im aging. IMPRESSION: Sonographic assistance for peripherally inserted central line placement. Please refer to procedural r eport for detailed findings.
[2025-02-24 06:48] LABS: Base Excess 6.2 mmol/L (-2.0-3.0)
[2025-02-24] MEDS: cefTRIAXone 2GM/50ML D5W 50 ML IV SCH (09:21)
[2025-02-24] MEDS: FUROSEMIDE 100 MG/10ML VIAL IV SCH (09:36)
[2025-02-24] MEDS ORDERED: LISINOPRIL 5 MG TAB PO SCH (10:00)
[2025-02-24] MEDS: POTASSIUM CHL 20MEQ/100ML 100 ML IV ONE (10:41)
--- NOTE | 2025-02-24 14:11 | DVHPNRES ---
Progress Note Date Seen: Feb 24, 2025 Resident Creating Document: JARED LAGUNA RESIDENT Medical Necessity Reason Pt with a Central, PICC or Fol: Yes The following are medically ne: Central Line, Gold Catheter Subjective Review of Systems 02/24 Patient seen and examined with the bedside. Overnight patient did not have any fevers, had to be restarted on norepinephrine. Chest x-ray showed improved congestion. Urine output improved over the last 24 hrs. Objective vital signs Vital Sign Date Time Temp Pulse Resp B/P (MAP) Pulse Ox O2 Delivery O2 Flow Rate FiO2 02/24/25 13:16 94/53 02/24/25 12:02 75 20 100 30 02/24/25 12:00 Mechanical Ventilator+ 02/24/25 11:49 99.9 99.9 Total Intake and Output 02/23/25 02/23/25 02/24/25 15:00 23:00 07:00 Intake Total 546.23 ml 738.28 ml 771.28 ml Output Total 2000 ml 1200 ml Balance 546.23 ml -1261.72 ml -428.72 ml medications Current Medications Medications Dose Ordered Sig/Janette Route Start Time Stop Time Status Last Admin Dose Admin Midazolam HCl 50 ml @ 1 mls/hr Q24H IV 02/16/25 15:00 02/24/25 07:41 6 MLS/HR Fentanyl Citrate 250 ml @ 2.5 mls/hr Q24H IV 02/16/25 15:00 02/24/25 13:16 27.5 MLS/HR Pantoprazole Sodium 40 mg DAILY IV 02/17/25 10:00 02/24/25 09:35 40 MG Norepinephrine Bitartrate 250 ml @ 3.75 mls/hr Q24H IV 02/16/25 20:15 02/24/25 07:40 3.75 MLS/HR Levetiracetam 1,000 mg BID NG 02/16/25 22:00 02/24/25 09:35 1,000 MG Lacosamide 100 mg BID GT 02/17/25 11:30 02/24/25 09:37 100 MG Enteral Nutritional Formula 1,000 ml 30ML/HR GT 02/17/25 12:00 02/20/25 23:59 1,000 ML Levalbuterol HCl 0.625 mg Q6HR NEB 02/17/25 18:00 02/24/25 12:05 0.625 MG Ipratropium [place] 0.5 mg Q6HR NEB 02/17/25 18:00 02/24/25 12:05 0.5 MG Enoxaparin Sodium 70 mg Q12HR SC 02/18/25 10:00 02/24/25 09:36 70 MG Sodium Chloride 10 ml QSHIFT@10,22 IV 02/22/25 22:00 02/24/25 09:36 10 ML Ceftriaxone Sodium/Dextrose 50 ml @ 50 mls/hr DAILY IV 02/24/25 10:00 02/24/25 09:21 50 MLS/HR Lisinopril 5 mg DAILYP PRN PO 02/23/25 18:30 Furosemide 60 mg BID IV 02/24/25 10:00 02/24/25 09:36 60 MG Examination Gen - no pallor, no icterus, no cyanosis, bilateral 2+ pitting edema in the lower extremities up to the knees Skin - Patients skin is warm and dry. HEENT - normocephalic, atraumatic, moist mucous membranes. Neck - mild jugular venous distention seen Pulmonary - B/L improved breath sounds with rales, no stridor. cardiovascular - irregularly irregular S1,S2 heard, no added sounds, no murmurs heard. capillary refill normal >3 secs. GI - soft abdomen. Bowel sounds normoactive Neurological - Patient is sedated and on mechanical ventilation laboratory and microbiology Laboratory Tests 02/24/25 02:09 Test 02/24/25 02:09 Range/Units Serum Glucose 91 74-106 mg/dL Microbiology Date/Time Source Procedure Growth Status 02/19/25 16:15 Blood Blood Culture - Preliminary NO GROWTH AFTER 72 HOURS OF INCUBATION. Resulted 02/19/25 13:45 Urine - Gold Port Urine Culture - Final Presumptive Cari albicans Complete 02/18/25 02:45 Nose MRSA Screen - Final Complete 02/17/25 09:48 Sputum Gram Stain - Final Complete 02/17/25 09:48 Respiratory Culture - Final Klebsiella pneumoniae Complete Problem List/Assessment/Plan Problem List/Assessment/Plan Neurology Acute metabolic encephalopathy likely from hypercapnia respiratory failure/septic shock H/o seizure disorder h/o TIA - currently sedated and on mechanical ventilation - on Keppra and lacosamide Respiratory Acute on chronic hypercapnic/hypoxemic respiratory failure Copd likely in exacerbation Possible pneumonia from gram +/- bacteria Bilateral pleural effusion likely from acute decompensated heart failure/ ?parapneumonic Bilateral pulmonary edema likely from acute decompensated heart failure Pulmonary nodule left lower lobe - chest CT showed right lower lobe consolidation, moderate bilateral pleural effusions, mediastinal lymphadenopathy, 1.3 cm nodule in the left lower lobe - on mechanical ventilation with a FiO2 40%, peep of 5, tidal volume 400 - sputum culture showing growth of Klebsiella pneumoniae - on ceftriaxone - duo nebs q.6 hours Cardiovascular Septic shock likely from UTI Acute decompensated heart failure Heart failure with reduced ejection fraction Atrial fibrillation with a RVR, now rate controlled Nonischemic cardiomyopathy Paroxysmal SVT - recent echocardiogram showed LVEF 10-15% with a markedly dilated LV, RV enlarged - left heart catheterization from in December 2024 shows no significant coronary artery disease, LVEF approximately 20% - BNP elevated - weaned off norepinephrine - Lovenox therapeutic dose - Lasix 60 b.i.d. - amiodarone 200 mg b.i.d. 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, resolved Acute complicated urinary tract infection causing septic shock - monitoring renal function - urine culture showed growth of presumptive Cari albicans - on ceftriaxone Infectious disease Septic shock Bacteremia UTI pneumonia - initial blood culture showed growth of Staph epidermidis, repeat blood cultures after 72 hours showed no growth - sputum culture showed growth of Klebsiella pneumoniae - urine cultures growth of presumptive Cari albicans - on ceftriaxone - Vasopressors Gastrointestinal On tube feedings DVT prophylaxis: On enoxaparin PUD prophylaxis: Protonix Left upper arm PICC inserted on 02/22 Gold catheter inserted on 02/16 Goals of care discussed with the patient's Carlos at bedside. patient for SBT tomorrow Code status: Full code Critical care time spent excluding procedures: 68 minutes Plan discussed with Dr. Steven. Plan discussed with: Spouse, Other (RN Niko) My Orders My Orders Orders - JARED LAGUNA RESIDENT Procedure Category Date Status Time Lisinopril Tablet PHA 02/23/25 In Process (Zestril Tablet) 18:30 Chest Xray 1 View XY 02/24/25 Resulted 04:00 Abg W/ Co-Ox RT 02/24/25 Logged 04:00 Furosemide Injection PHA 02/24/25 In Process (Lasix Injection) 10:00 Ventilator Orders RT 02/24/25 Transmitted 14:00 Dietary Evaluation Review Comments: 1) Jevity 1.2Cal @ 65ml/hr along with Pro-stat 1 pk daily. Start at 20ml/hr increase 10ml/hr until goal is reached. TF at goal volume provides 1872 kcal, 87gm protein, and 1259 ml free water. 2) Water flush 100ml Q4H if allowed, adjust PRN 3) Monitor TF tolerance, lab values, wt trend, I/O Expected Outcomes/Goals: To meet >75% estimated needs Fu 2-3 days Date of Service: Feb 24, 2025 Billing Provider: ROMELIA STEVEN MD Common Visit Codes: 63162-[id number] CARE 30-74 MIN JARED LAGUNA RESIDENT Feb 24, 2025 14:11 ROMELIA STEVEN MD Feb 25, 2025 10:28
[2025-02-24] MEDS ORDERED: LISINOPRIL 5 MG TAB PO PRN (15:00)
[2025-02-24] MEDS: AMIODARONE HCL 200 MG TAB PO SCH (22:07)
[2025-02-24] MEDS: ENOXAPARIN SOD 80 MG/0.8ML SYRINGE SC SCH (22:09)
--- NOTE | 2025-02-24 23:35 | DVHPN2 ---
Progress Note - Dictate Date Seen: Feb 24, 2025 Medical Necessity Reason Pt with a Central, PICC or Fol: Yes The following are medically ne: Central Line, Gold Catheter Subjective Patient was seen and evaluated in follow up in the ICU. Patient is intubated and sedated on ventilator. 30% FiO2. Chest x-ray showed stable position of the support lines and tubes, decreased pulmonary vascular congestion and decreased bilateral pleural effusions and cardiomegaly. vital signs Vital Sign Date Time Temp Pulse Resp B/P (MAP) Pulse Ox O2 Delivery O2 Flow Rate FiO2 02/24/25 13:16 94/53 02/24/25 12:02 75 20 100 30 02/24/25 12:00 Mechanical Ventilator+ 02/24/25 11:49 99.9 99.9 Total Intake and Output 02/23/25 02/23/25 02/24/25 15:00 23:00 07:00 Intake Total 546.23 ml 738.28 ml 771.28 ml Output Total 2000 ml 1200 ml Balance 546.23 ml -1261.72 ml -428.72 ml medications Current Medications Medications Dose Ordered Sig/Janette Route Start Time Stop Time Status Last Admin Dose Admin Midazolam HCl 50 ml @ 1 mls/hr Q24H IV 02/16/25 15:00 02/24/25 07:41 6 MLS/HR Fentanyl Citrate 250 ml @ 2.5 mls/hr Q24H IV 02/16/25 15:00 02/24/25 13:16 27.5 MLS/HR Pantoprazole Sodium 40 mg DAILY IV 02/17/25 10:00 02/24/25 09:35 40 MG Norepinephrine Bitartrate 250 ml @ 3.75 mls/hr Q24H IV 02/16/25 20:15 02/24/25 07:40 3.75 MLS/HR Levetiracetam 1,000 mg BID NG 02/16/25 22:00 02/24/25 09:35 1,000 MG Lacosamide 100 mg BID GT 02/17/25 11:30 02/24/25 09:37 100 MG Enteral Nutritional Formula 1,000 ml 30ML/HR GT 02/17/25 12:00 02/20/25 23:59 1,000 ML Levalbuterol HCl 0.625 mg Q6HR NEB 02/17/25 18:00 02/24/25 12:05 0.625 MG Ipratropium [place] 0.5 mg Q6HR NEB 02/17/25 18:00 02/24/25 12:05 0.5 MG Enoxaparin Sodium 70 mg Q12HR SC 02/18/25 10:00 02/24/25 09:36 70 MG Sodium Chloride 10 ml QSHIFT@10,22 IV 02/22/25 22:00 02/24/25 09:36 10 ML Ceftriaxone Sodium/Dextrose 50 ml @ 50 mls/hr DAILY IV 02/24/25 10:00 02/24/25 09:21 50 MLS/HR Lisinopril 5 mg DAILYP PRN PO 02/23/25 18:30 Furosemide 60 mg BID IV 02/24/25 10:00 02/24/25 09:36 60 MG objective GENERAL: Ill appearing, intubated on ventilator. EYES: PERRL, EOMI. Anicteric. HENT: Moist mucous membranes. LUNGS: Diminished breath sounds with rales, mild bilateral wheezing CARDIOVASCULAR: Irregular rate and rhythm. ABDOMEN: Soft, non-tender and non-distended. EXTREMITIES: No edema. SKIN: Warm, dry. laboratory and microbiology Laboratory Tests 02/24/25 02:09 Test 02/24/25 02:09 Range/Units Serum Glucose 91 74-106 mg/dL Problem List Acute metabolic encephalopathy. Acute on chronic hypercapnic/hypoxemic respiratory failure. Septic shock. History of seizure disorder. History of TIA. COPD exacerbation. Bilateral pleural effusion. Acute decompensated heart failure. Bilateral pulmonary edema. Pulmonary nodule left lower lobe. Heart failure with reduced ejection fraction. Atrial fibrillation with a RVR, now rate controlled. Nonischemic cardiomyopathy. 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 Acute complicated urinary tract infection causing septic shock. Bacteremia. Assessment/Plan Continued all current supportive medical care. IV antibiotics as ordered. DVT and GI prophylactics. Diuretics with Lasix. Lisinopril. Nebulized breathing treatments. Vasopressors for hemodynamic support. Additional plan as per the hospital course. Critical care time of 45 minutes provided to include time spent evaluation of patient at bedside, when appropriate patient/family education for diagnosis, treatment plan, review of pertinent medical information and discussion of care with specialty providers and PCP. Mechanical ventilator parameters, treatment and adjustments have personally been reviewed by me and treatment plan by web support engineer has also been reviewed. Dietary Evaluation Review Comments: 1) Jevity 1.2Cal @ 65ml/hr along with Pro-stat 1 pk daily. Start at 20ml/hr increase 10ml/hr until goal is reached. TF at goal volume provides 1872 kcal, 87gm protein, and 1259 ml free water. 2) Water flush 100ml Q4H if allowed, adjust PRN 3) Monitor TF tolerance, lab values, wt trend, I/O Expected Outcomes/Goals: To meet >75% estimated needs Fu 2-3 days Plan discussed with: Other JOSH VEGA MD Feb 24, 2025 13:46
[2025-02-25] VITALS (119 sets, daily range): BP systolic 74–216; BP diastolic 12–116; PULSE 71–124; RESP 12–30; TEMP 98.2–99.5; O2SAT 91–100
[2025-02-25 04:39] LABS: Hematocrit 32.4 % (36.0-46.0); Hemoglobin 10.8 g/dL (12.2-16.2); Mean Corpuscular Hemoglobin 32.2 pg (28.0-32.0); Mean Corpuscular Volume 96.7 fL (80.0-100.0); Nucleated Red Blood Cells % 0.1 %
[2025-02-25 05:03] LABS: Alanine Aminotransferase 12 U/L (7-40); Alkaline Phosphatase 82 U/L (46-116); Anion Gap 8 (5-15); BUN/Creatinine Ratio 18.2 (10.0-20.0); Blood Urea Nitrogen 16 mg/dL (9-23); Magnesium 2.2 mg/dL (1.6-2.6); Potassium 3.8 mmol/L (3.5-5.1); Sodium 137 mmol/L (136-145)
[2025-02-25 05:04] LABS: Bilirubin, Total 0.4 mg/dL (0.2-1.0)
[2025-02-25 05:07] LABS: Albumin 3.1 g/dL (3.2-4.8); Calcium 8.5 mg/dL (8.7-10.4); Carbon Dioxide 31 mmol/L (20-31); Chloride 98 mmol/L (98-107); Glucose 124 mg/dL (74-106); Total Protein 5.4 g/dL (5.7-8.2)
--- NOTE | 2025-02-25 05:38 | DVH ---
CHEST RADIOGRAPH Indication: on vent Technique: Single frontal view of the chest was obtained COMPARISON: XY CHEST XRAY 1 VIEW on DOS: 02/24/25, XY CHEST XRAY 1 VIEW on DOS: 02/23/25, XY CHEST XRAY 1 VIEW on DOS: 02/22/25, XY CHEST PORTABLE on DOS: 02/21/25, XY CHEST XRAY 1 VIEW on DOS: 02/20/25 FINDINGS: Lines and Tubes: Unchanged. Lungs: Stable moderate bilateral pleural effusions and multifocal bilateral pulmonary airspace diseas e. No pneumothorax. Cardiomediastinal contours: Cardiomegaly. Atherosclerotic vascular calcifications. Bones: Unremarkable IMPRESSION: 1. Stable cardiomegaly, moderate bilateral pleural effusions and diffuse increased prominence of the pulmonary vasculature. 2. Lines and tubes unchanged.
[2025-02-25 07:19] LABS: Base Excess 8.3 mmol/L (-2.0-3.0)
[2025-02-25] MEDS: MEROPENEM 1GM IVPB 50 ML IV ONE (08:19)
[2025-02-25] MEDS: FUROSEMIDE 100 MG/10ML VIAL IV SCH ×2 (08:19→22:00)
[2025-02-25] MEDS: POTASSIUM CHL 20MEQ/100ML 100 ML IV ONE (08:19)
[2025-02-25] MEDS: FUROSEMIDE 20 MG/2 ML VIAL IV ONE (08:22)
[2025-02-25] MEDS: LINEZOLID 600MG/300ML 300 ML IV SCH (10:18)
[2025-02-25] MEDS: NYSTATIN TOPICAL POWDER 15GM TOP SCH (10:20)
[2025-02-25 11:04] LABS: Urine Budding Yeast FEW /hpf (None Seen); Urine Protein, UAD Negative (Negative)
--- NOTE | 2025-02-25 11:12 | DVH ---
Bilateral Chest Sonogram Date: 02/25/2025 10:36 AM Clinical history: EVAL PLEURAL EFFUSION Findings: Limited sonographic evaluation of the right and left chest was performed to localize and mary fluid f or thoracentesis. Small right pleural effusion. Moderate left pleural effusion. IMPRESSION: Small right pleural effusion. Moderate left pleural effusion. END IMPRESSION:
--- NOTE | 2025-02-25 11:50 | DVH ---
PROCEDURE: Ultrasound-guided thoracentesis Procedural Personnel Attending physician(s): Obinna Kapoor Fellow physician(s): None Resident physician(s): None A dvanced practice provider(s): None Pre-procedure diagnosis: Dyspnea Post-procedure diagnosis: Same Indication: Diagnostic and therapeutic Additional clinical history: None Complications: No immediate complications. IMPRESSION: Ultrasound-guided thoracentesis with drainage of 750 mL of serosanguinous fluid. Plan: Resume care by clinical team. Fluid analysis pending. PROCEDURE SUMMARY: - Ultrasound-guided thoracentesis - Additional procedure(s): None PROCEDURE DETAILS: Pre-procedure Consent: Informed consent for the procedure including risks, benefits and alternatives was obtained and time-out was performed prior to the procedure. Preparation: The site was prepared an d draped using maximal sterile barrier technique including cutaneous antisepsis. Anesthesia/sedation level of anesthesia/sedation: No sedation Anesthesia/sedation administered by: Not applicable Total intra-service sedation time (minutes): Not applicable Limited thoracic ultrasound Limited thoracic ultrasound was performed. Left hemithorax findings: Moderate pleural effusion Right hemithorax findings: Not investigated Thoracentesis Local anesthesia was administered. A safe window for thoracentesis was identified with ultrasound. Th e pleural space was accessed and fluid return confirmed position. The fluid was drained. The catheter was removed and a sterile dressing was applied. Catheter size (Fr):5 Catheter valve: Yes Fluid appearance: serosanguinous Volume drained (mL): 750 Post-drainage ultrasound: No visible effusion Additional Details Additional description of procedure: None Registry event: V/3/f Device used: None Equipment details: None Specimens removed: Aspirated fluid was sent for analysis. Estimated blood loss (mL): Less than 10 Standardized report: [email or web address] Attestation Signer name: Obinna Kapoor I attest that I was present for the entire procedure. I reviewed the stored images and agree with the report as written.
[2025-02-25] MEDS: MEROPENEM 1GM IVPB 50 ML IV SCH (14:21)
[2025-02-25] MEDS: NOREPINEPHRINE 8 MG/250ML KIT 250 ML IV SCH (19:45)
--- NOTE | 2025-02-25 19:52 | DVHPNRES ---
Progress Note Date Seen: Feb 25, 2025 Resident Creating Document: JARED LAGUNA RESIDENT Medical Necessity Reason Pt with a Central, PICC or Fol: Yes The following are medically ne: Central Line, Gold Catheter Subjective Review of Systems 02/25 Patient seen and examined with the bedside. Overnight patient had had temperature of 99.9 F. Chest x-ray showed congestion worsened, worsened right pleural effusion following which thoracentesis were ordered. During the day patient's blood pressure was very labile and she had to be sedated adequately to manage her blood pressure and agitation. Given her worsened congestion CPAP trial was deferred. Urine output decreased over the last 24 hours. Objective vital signs Vital Sign Date Time Temp Pulse Resp B/P (MAP) Pulse Ox O2 Delivery O2 Flow Rate FiO2 02/25/25 19:19 83 24 107/26 (53) 94 02/25/25 18:21 30 02/25/25 18:00 Mechanical Ventilator+ 02/25/25 16:04 98.9 98.9 Total Intake and Output 02/24/25 02/24/25 02/25/25 15:00 23:00 07:00 Intake Total 471.12 ml 572.5 ml 403.285 ml Output Total 700 ml 900 ml Balance 471.12 ml -127.5 ml -496.715 ml medications Current Medications Medications Dose Ordered Sig/Janette Route Start Time Stop Time Status Last Admin Dose Admin Midazolam HCl 50 ml @ 1 mls/hr Q24H IV 02/16/25 15:00 02/24/25 20:20 2 MLS/HR Fentanyl Citrate 250 ml @ 2.5 mls/hr Q24H IV 02/16/25 15:00 02/25/25 15:00 27.5 MLS/HR Pantoprazole Sodium 40 mg DAILY IV 02/17/25 10:00 02/25/25 10:18 40 MG Norepinephrine Bitartrate 250 ml @ 3.75 mls/hr Q24H IV 02/16/25 20:15 02/24/25 07:40 3.75 MLS/HR Levetiracetam 1,000 mg BID NG 02/16/25 22:00 02/25/25 10:38 1,000 MG Lacosamide 100 mg BID GT 02/17/25 11:30 02/25/25 10:17 100 MG Enteral Nutritional Formula 1,000 ml 30ML/HR GT 02/17/25 12:00 02/20/25 23:59 1,000 ML Levalbuterol HCl 0.625 mg Q6HR NEB 02/17/25 18:00 02/25/25 18:21 0.625 MG Ipratropium [place] 0.5 mg Q6HR NEB 02/17/25 18:00 02/25/25 18:21 0.5 MG Sodium Chloride 10 ml QSHIFT@10,22 IV 02/22/25 22:00 02/25/25 10:18 10 ML Lisinopril 5 mg DAILYP PRN PO 02/24/25 15:00 Amiodarone HCl 200 mg Q12HR PO 02/24/25 22:00 02/25/25 10:18 200 MG Furosemide 60 mg BID IV 02/25/25 07:00 02/25/25 08:19 60 MG Meropenem 50 ml @ 17 mls/hr Q8HR IV 02/25/25 14:00 02/25/25 14:21 17 MLS/HR Nystatin 1 applic BID TOP 02/25/25 10:00 02/25/25 10:20 1 APPLIC Linezolid 300 ml @ 150 mls/hr Q12HR IV 02/25/25 10:00 02/25/25 10:18 150 MLS/HR Examination Gen - no pallor, no icterus, no cyanosis, bilateral 3+ pitting edema in the lower extremities up to the knees Skin - Patients skin is warm and dry. HEENT - normocephalic, atraumatic, moist mucous membranes. Neck - mild jugular venous distention seen Pulmonary - B/L improved breath sounds with rales, no stridor. cardiovascular - irregularly irregular S1,S2 heard, no added sounds, no murmurs heard. capillary refill normal >3 secs. GI - soft abdomen. Bowel sounds normoactive Neurological - Patient is sedated and on mechanical ventilation laboratory and microbiology Laboratory Tests 02/25/25 03:13 Test 02/25/25 03:13 Range/Units Serum Glucose 124 H 74-106 mg/dL Microbiology Date/Time Source Procedure Growth Status 02/19/25 16:15 Blood Blood Culture - Final NO GROWTH AFTER 5 DAYS OF INCUBATION. Complete 02/19/25 13:45 Urine - Gold Port Urine Culture - Final Presumptive Cari albicans Complete 02/18/25 02:45 Nose MRSA Screen - Final Complete 02/17/25 09:48 Sputum Gram Stain - Final Complete 02/17/25 09:48 Respiratory Culture - Final Klebsiella pneumoniae Complete Problem List/Assessment/Plan Problem List/Assessment/Plan Neurology Acute metabolic encephalopathy likely from hypercapnia respiratory failure/septic shock H/o seizure disorder h/o TIA - currently sedated and on mechanical ventilation - on Keppra and lacosamide Respiratory Acute on chronic hypercapnic/hypoxemic respiratory failure Copd likely in exacerbation Possible pneumonia from gram +/- bacteria Bilateral pleural effusion likely from acute decompensated heart failure/ ?parapneumonic Bilateral pulmonary edema likely from acute decompensated heart failure Pulmonary nodule left lower lobe - chest CT showed right lower lobe consolidation, moderate bilateral pleural effusions, mediastinal lymphadenopathy, 1.3 cm nodule in the left lower lobe - on mechanical ventilation with a FiO2 40%, peep of 5, tidal volume 400 - sputum culture showing growth of Klebsiella pneumoniae - on ceftriaxone - duo nebs q.6 hours - thoracentesis done on the right side with 750 mL of fluid removed Cardiovascular Septic shock likely from UTI Acute decompensated heart failure Heart failure with reduced ejection fraction Atrial fibrillation with a RVR, now rate controlled Nonischemic cardiomyopathy Paroxysmal SVT - recent echocardiogram showed LVEF 10-15% with a markedly dilated LV, RV enlarged - left heart catheterization from in December 2024 shows no significant coronary artery disease, LVEF approximately 20% - BNP elevated - norepinephrine - Lovenox therapeutic dose - Lasix 60 b.i.d. - amiodarone 200 mg b.i.d. 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, resolved Acute complicated urinary tract infection causing septic shock - monitoring renal function - urine culture showed growth of presumptive Cari albicans - on meropenem and linezolid Infectious disease Septic shock Bacteremia UTI pneumonia - initial blood culture showed growth of Staph epidermidis, repeat blood cultures after 72 hours showed no growth - sputum culture showed growth of Klebsiella pneumoniae - urine cultures growth of presumptive Cari albicans - on meropenem and linezolid - Vasopressors - cultures repeated Gastrointestinal On tube feedings DVT prophylaxis: enoxaparin, held because of bleeding in the ED tube and dark urine PUD prophylaxis: Protonix Left upper arm PICC inserted on 02/22 Gold catheter inserted on 02/16 Goals of care discussed with the patient's Carlos and daughter at bedside. Family was explained about the fluid overload given the patient's acute decompensated heart failure and difficulty weaning off from mechanical ventilation. As the patient had bilateral congestion and worsened right pleural effusion, CPAP trial was deferred today. Code status: Full code Critical care time spent excluding procedures: 81 minutes Plan discussed with Dr. Steven. Plan discussed with: Spouse, Daughter, Other (CLAIRE Barrett) My Orders My Orders Orders - JARED LAGUNA RESIDENT Procedure Category Date Status Time Furosemide Injection PHA 02/25/25 In Process (Lasix Injection) 07:00 Meropenem 1gm Ivpb PHA 02/25/25 In Process (Merrem 1gm/ Ns) 14:00 Nystatin Powder PHA 02/25/25 In Process (Mycostatin Powder) 10:00 Urine Bacterial SHANNON 02/25/25 Uncollected Culture 06:56 Blood Culture SHANNON 02/25/25 Uncollected 06:56 Respiratory Culture SHANNON 02/25/25 Uncollected W/ Gs 06:56 Linezolid 600mg/300ml PHA 02/25/25 In Process (Zyvox) 10:00 Chest Ultrasound US 02/25/25 Resulted 10:29 Lactic Acid W/ Reflex LAB 02/25/25 Logged Order 19:37 Complete Blood Count LAB 02/26/25 Verified 04:00 Comprehensive LAB 02/26/25 Verified Metabolic Panel 04:00 Magnesium LAB 02/26/25 Verified 04:00 Chest Xray 1 View XY 02/26/25 Verified 04:00 Abg W/ Co-Ox RT 02/26/25 Verified 04:00 Dietary Evaluation Review Comments: 1) Jevity 1.2Cal @ 65ml/hr along with Pro-stat 1 pk daily. Start at 20ml/hr increase 10ml/hr until goal is reached. TF at goal volume provides 1872 kcal, 87gm protein, and 1259 ml free water. 2) Water flush 100ml Q4H if allowed, adjust PRN 3) Monitor TF tolerance, lab values, wt trend, I/O Expected Outcomes/Goals: To meet >75% estimated needs Fu 2-3 days Date of Service: Feb 25, 2025 Billing Provider: ROMELIA STEVEN MD Common Visit Codes: 74220-[id number] CARE 30-74 MIN, [id number] CARE-EACH +30MIN JARED LAGUNA RESIDENT Feb 25, 2025 19:52 ROMELIA STEVEN MD Feb 27, 2025 12:22
--- NOTE | 2025-02-25 23:01 | DVHPN2 ---
Progress Note - Dictate Date Seen: Feb 25, 2025 Medical Necessity Reason Pt with a Central, PICC or Fol: Yes The following are medically ne: Central Line, Gold Catheter Subjective Patient was seen and evaluated in follow up in the ICU. Patient is intubated and sedated on ventilator. 30% FiO2. WBC 12, CA 8.5. Patient underwent thoracentesis by IR with 750 ml of serosanguineous fluid removed. Chest US shows small right pleural effusion and moderate left pleural effusion. vital signs Vital Sign Date Time Temp Pulse Resp B/P (MAP) Pulse Ox O2 Delivery O2 Flow Rate FiO2 02/25/25 10:52 85 24 100 30 02/25/25 08:00 Mechanical Ventilator+ 02/25/25 04:05 99.5 99.5 Total Intake and Output 02/24/25 02/24/25 02/25/25 15:00 23:00 07:00 Intake Total 471.12 ml 572.5 ml 403.285 ml Output Total 700 ml 900 ml Balance 471.12 ml -127.5 ml -496.715 ml medications Current Medications Medications Dose Ordered Sig/Janette Route Start Time Stop Time Status Last Admin Dose Admin Midazolam HCl 50 ml @ 1 mls/hr Q24H IV 02/16/25 15:00 02/24/25 20:20 2 MLS/HR Fentanyl Citrate 250 ml @ 2.5 mls/hr Q24H IV 02/16/25 15:00 02/24/25 22:52 25 MLS/HR Pantoprazole Sodium 40 mg DAILY IV 02/17/25 10:00 02/25/25 10:18 40 MG Norepinephrine Bitartrate 250 ml @ 3.75 mls/hr Q24H IV 02/16/25 20:15 02/24/25 07:40 3.75 MLS/HR Levetiracetam 1,000 mg BID NG 02/16/25 22:00 02/25/25 10:38 1,000 MG Lacosamide 100 mg BID GT 02/17/25 11:30 02/25/25 10:17 100 MG Enteral Nutritional Formula 1,000 ml 30ML/HR GT 02/17/25 12:00 02/20/25 23:59 1,000 ML Levalbuterol HCl 0.625 mg Q6HR NEB 02/17/25 18:00 02/25/25 06:09 0.625 MG Ipratropium [place] 0.5 mg Q6HR NEB 02/17/25 18:00 02/25/25 06:09 0.5 MG Sodium Chloride 10 ml QSHIFT@10,22 IV 02/22/25 22:00 02/25/25 10:18 10 ML Lisinopril 5 mg DAILYP PRN PO 02/24/25 15:00 Amiodarone HCl 200 mg Q12HR PO 02/24/25 22:00 02/25/25 10:18 200 MG Furosemide 60 mg BID IV 02/25/25 07:00 02/25/25 08:19 60 MG Meropenem 50 ml @ 17 mls/hr Q8HR IV 02/25/25 14:00 Nystatin 1 applic BID TOP 02/25/25 10:00 02/25/25 10:20 1 APPLIC Linezolid 300 ml @ 150 mls/hr Q12HR IV 02/25/25 10:00 02/25/25 10:18 150 MLS/HR objective GENERAL: Ill appearing, intubated on ventilator. EYES: PERRL, EOMI. Anicteric. HENT: Moist mucous membranes. LUNGS: Diminished breath sounds with rales, mild bilateral wheezing CARDIOVASCULAR: Irregular rate and rhythm. ABDOMEN: Soft, non-tender and non-distended. EXTREMITIES: No edema. SKIN: Warm, dry. laboratory and microbiology Laboratory Tests 02/25/25 03:13 Test 02/25/25 03:13 Range/Units Serum Glucose 124 H 74-106 mg/dL Problem List Acute metabolic encephalopathy. Acute on chronic hypercapnic/hypoxemic respiratory failure. Septic shock. History of seizure disorder. History of TIA. COPD exacerbation. Bilateral pleural effusion. Acute decompensated heart failure. Bilateral pulmonary edema. Pulmonary nodule left lower lobe. Heart failure with reduced ejection fraction. Atrial fibrillation with a RVR, now rate controlled. Nonischemic cardiomyopathy. 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 Acute complicated urinary tract infection causing septic shock. Bacteremia. Assessment/Plan Continued all current supportive medical care. Amiodarone. Lisinopril. IV antibiotics as ordered. GI prophylactics. Nebulized breathing treatments. Additional plan as per the hospital course. Critical care time of 45 minutes provided to include time spent evaluation of patient at bedside, when appropriate patient/family education for diagnosis, treatment plan, review of pertinent medical information and discussion of care with specialty providers and PCP. Mechanical ventilator parameters, treatment and adjustments have personally been reviewed by me and treatment plan by engine hostler has also been reviewed. Dietary Evaluation Review Comments: 1) Jevity 1.2Cal @ 65ml/hr along with Pro-stat 1 pk daily. Start at 20ml/hr increase 10ml/hr until goal is reached. TF at goal volume provides 1872 kcal, 87gm protein, and 1259 ml free water. 2) Water flush 100ml Q4H if allowed, adjust PRN 3) Monitor TF tolerance, lab values, wt trend, I/O Expected Outcomes/Goals: To meet >75% estimated needs Fu 2-3 days Plan discussed with: Other JOSH VEGA MD Feb 25, 2025 12:34
[2025-02-26] VITALS (111 sets, daily range): BP systolic 64–206; BP diastolic 25–111; PULSE 63–122; RESP 11–29; TEMP 97.1–98.7; O2SAT 84–100
[2025-02-26 03:33] LABS: Hematocrit 31.5 % (36.0-46.0); Hemoglobin 10.9 g/dL (12.2-16.2); Mean Corpuscular Hemoglobin 33.2 pg (28.0-32.0); Mean Corpuscular Volume 96.4 fL (80.0-100.0); Nucleated Red Blood Cells % 0.0 %
[2025-02-26 04:16] LABS: Alanine Aminotransferase 11 U/L (7-40); Alkaline Phosphatase 79 U/L (46-116); Anion Gap 9 (5-15); BUN/Creatinine Ratio 17.0 (10.0-20.0); Bilirubin, Total 0.5 mg/dL (0.2-1.0); Blood Urea Nitrogen 16 mg/dL (9-23); Carbon Dioxide 31 mmol/L (20-31); Magnesium 2.0 mg/dL (1.6-2.6); Sodium 137 mmol/L (136-145)
[2025-02-26 04:23] LABS: Albumin 3.2 g/dL (3.2-4.8); Calcium 8.3 mg/dL (8.7-10.4); Chloride 97 mmol/L (98-107); Glucose 131 mg/dL (74-106); Potassium 3.5 mmol/L (3.5-5.1); Total Protein 5.5 g/dL (5.7-8.2)
--- NOTE | 2025-02-26 05:35 | DVH ---
CHEST RADIOGRAPH Indication: adhf on vent Technique: Single frontal view of the chest was obtained COMPARISON: XY CHEST XRAY 1 VIEW on DOS: 02/25/25, XY CHEST XRAY 1 VIEW on DOS: 02/24/25, XY CHEST XRAY 1 VIEW on DOS: 02/23/25, XY CHEST XRAY 1 VIEW on DOS: 02/22/25, XY CHEST PORTABLE on DOS: 02/21/25 FINDINGS: Lines and Tubes: Unchanged. Lungs: Stable appearing bilateral pleural effusions and bibasilar pulmonary airspace disease. No pneumothorax. Cardiomediastinal contours: Cardiomegaly. Bones: Unremarkable IMPRESSION: 1. Cardiomegaly, bilateral pleural effusions and bibasilar pulmonary airspace disease. 2. Lines and tubes unchanged.
[2025-02-26] MEDS: POTASSIUM CHL 20MEQ/100ML 100 ML IV ONE ×2 (06:12→19:57)
[2025-02-26 06:45] LABS: Base Excess 8.9 mmol/L (-2.0-3.0)
[2025-02-26] MEDS: ALBUMIN 25% 50 ML IV ONE ×2 (08:43→19:02)
[2025-02-26] MEDS: FUROSEMIDE 40 MG/4 ML VIAL IV ONE (10:14)
[2025-02-26 12:07] LABS: Glucose, Body Fluid 119.0 mg/dL (.); LD, Body Fluid 98.0 IU/L (.)
[2025-02-26] MEDS: NITROGLYCERIN 50MG/250ML 250 ML IV SCH (12:15)
[2025-02-26] MEDS: NITROGLYCERIN 50MG/250ML 250 ML IV ONE (12:31)
--- NOTE | 2025-02-26 16:31 | DVH ---
CHEST RADIOGRAPH Indication: DESATURATION Technique: Single frontal view of the chest was obtained COMPARISON: XY CHEST XRAY 1 VIEW on DOS: 02/26/25, XY CHEST XRAY 1 VIEW on DOS: 02/25/25, XY CHEST XRAY 1 VIEW on DOS: 02/24/25, XY CHEST XRAY 1 VIEW on DOS: 02/23/25, XY CHEST XRAY 1 VIEW on DOS: 02/22/25 FINDINGS: Lines and Tubes: Endotracheal tube in satisfactory position, nasogastric tube in satisfactory positio n. Left PICC in satisfactory position. Lungs: Multifocal airspace disease Pleura: Small bilateral pleural effusions No pneumothorax. Cardiomediastinal contours: Unremarkable Bones: Unremarkable IMPRESSION: Lines and tubes in satisfactory position. No significant interval change.
[2025-02-26] MEDS: PROPOFOL 100 ML IV SCH (17:11)
--- NOTE | 2025-02-26 18:19 | DVHPNRES ---
Progress Note Date Seen: Feb 26, 2025 Resident Creating Document: JARED LAGUNA RESIDENT Medical Necessity Reason Pt with a Central, PICC or Fol: Yes The following are medically ne: Central Line, Gold Catheter Subjective Review of Systems 02/26 Patient seen and examined with the bedside. Overnight patient did not have any fever. Left thoracentesis done with removal of 750 mL of fluid, likely transudative. Patient was taken off sedation and put on Precedex and CPAP trial was initiated but she could not meet the criteria and the trial had to be terminated. Objective vital signs Vital Sign Date Time Temp Pulse Resp B/P (MAP) Pulse Ox O2 Delivery O2 Flow Rate FiO2 02/26/25 17:11 173/69 02/26/25 16:50 97.1 63 24 99 97.1 02/26/25 15:50 30 02/26/25 14:00 Mechanical Ventilator+ Total Intake and Output 02/25/25 02/25/25 02/26/25 14:59 22:59 06:59 Intake Total 601.940 ml 993.985 ml 511.0 ml Output Total 1950 ml 951 ml Balance 601.940 ml -956.015 ml -440.0 ml medications Current Medications Medications Dose Ordered Sig/Janette Route Start Time Stop Time Status Last Admin Dose Admin Midazolam HCl 50 ml @ 1 mls/hr Q24H IV 02/16/25 15:00 02/26/25 02:14 3 MLS/HR Fentanyl Citrate 250 ml @ 2.5 mls/hr Q24H IV 02/16/25 15:00 02/26/25 08:15 30 MLS/HR Pantoprazole Sodium 40 mg DAILY IV 02/17/25 10:00 02/26/25 10:11 40 MG Levetiracetam 1,000 mg BID NG 02/16/25 22:00 02/26/25 10:10 1,000 MG Lacosamide 100 mg BID GT 02/17/25 11:30 02/26/25 10:11 100 MG Enteral Nutritional Formula 1,000 ml 30ML/HR GT 02/17/25 12:00 02/20/25 23:59 1,000 ML Levalbuterol HCl 0.625 mg Q6HR NEB 02/17/25 18:00 02/26/25 11:49 0.625 MG Ipratropium [place] 0.5 mg Q6HR NEB 02/17/25 18:00 02/26/25 11:48 0.5 MG Sodium Chloride 10 ml QSHIFT@10,22 IV 02/22/25 22:00 02/26/25 10:11 10 ML Lisinopril 5 mg DAILYP PRN PO 02/24/25 15:00 Amiodarone HCl 200 mg Q12HR PO 02/24/25 22:00 02/26/25 10:11 200 MG Meropenem 50 ml @ 17 mls/hr Q8HR IV 02/25/25 14:00 02/26/25 14:27 17 MLS/HR Nystatin 1 applic BID TOP 02/25/25 10:00 02/26/25 10:11 1 APPLIC Linezolid 300 ml @ 150 mls/hr Q12HR IV 02/25/25 10:00 02/26/25 10:10 150 MLS/HR Norepinephrine Bitartrate 250 ml @ 0.938 mls/ hr Q24H IV 02/25/25 19:45 Furosemide 40 mg BIDD IV 02/26/25 18:00 Nitroglycerin 250 ml @ 1.5 mls/hr Q24H IV 02/26/25 12:15 Propofol 100 ml @ 2.508 mls/ hr Q24H IV 02/26/25 16:00 02/26/25 17:11 2.508 MLS/HR Examination Gen - no pallor, no icterus, no cyanosis, bilateral 2+ pitting edema in the lower extremities up to the knees Skin - Patients skin is warm and dry. HEENT - normocephalic, atraumatic, moist mucous membranes. Neck - mild jugular venous distention seen Pulmonary - B/L improved breath sounds with rales, no stridor. cardiovascular - irregularly irregular S1,S2 heard, no added sounds, no murmurs heard. capillary refill normal >3 secs. GI - soft abdomen. Bowel sounds normoactive Neurological - Patient is sedated and on mechanical ventilation laboratory and microbiology Laboratory Tests 02/26/25 02:50 Test 02/26/25 02:50 Range/Units Serum Glucose 131 H 74-106 mg/dL Microbiology Date/Time Source Procedure Growth Status 02/25/25 19:00 Urine - Gold Port Urine Culture - Preliminary Resulted 02/25/25 11:45 Pleural Fluid Gram Stain - Final Resulted 02/25/25 11:45 Pleural Fluid Aerobic Culture - Preliminary Resulted 02/19/25 16:15 Blood Blood Culture - Final NO GROWTH AFTER 5 DAYS OF INCUBATION. Complete 02/18/25 02:45 Nose MRSA Screen - Final Complete 02/17/25 09:48 Sputum Gram Stain - Final Complete 02/17/25 09:48 Respiratory Culture - Final Klebsiella pneumoniae Complete Problem List/Assessment/Plan Problem List/Assessment/Plan Neurology Acute metabolic encephalopathy likely from hypercapnia respiratory failure/septic shock H/o seizure disorder h/o TIA - currently sedated and on mechanical ventilation - on Keppra and lacosamide Respiratory Acute on chronic hypercapnic/hypoxemic respiratory failure Copd likely in exacerbation Possible pneumonia from gram +/- bacteria Bilateral pleural effusion likely from acute decompensated heart failure/ ?parapneumonic Bilateral pulmonary edema likely from acute decompensated heart failure Pulmonary nodule left lower lobe - chest CT showed right lower lobe consolidation, moderate bilateral pleural effusions, mediastinal lymphadenopathy, 1.3 cm nodule in the left lower lobe - on mechanical ventilation with a FiO2 40%, peep of 5, tidal volume 400 - sputum culture showing growth of Klebsiella pneumoniae - on meropenam and linezolid - duo nebs q.6 hours - thoracentesis done on the right on 02/20 with a 850 mL fluid removed - thoracentesis done on the left side on 02/25 with 750 mL of fluid removed - bleeding in the ED tube, regular suctioning, monitor H&H Cardiovascular Septic shock likely from UTI Acute decompensated heart failure Heart failure with reduced ejection fraction Atrial fibrillation with a RVR, now rate controlled Nonischemic cardiomyopathy Paroxysmal SVT - recent echocardiogram showed LVEF 10-15% with a markedly dilated LV, RV enlarged - left heart catheterization from in December 2024 shows no significant coronary artery disease, LVEF approximately 20% - BNP elevated - norepinephrine - Lovenox therapeutic dose - Lasix 40 b.i.d. - amiodarone 200 mg b.i.d. 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, resolved Acute complicated urinary tract infection causing septic shock - monitoring renal function - urine culture showed growth of presumptive Cari albicans - on meropenem and linezolid Infectious disease Septic shock Bacteremia UTI pneumonia - initial blood culture showed growth of Staph epidermidis, repeat blood cultures after 5 days showed no growth - sputum culture showed growth of Klebsiella pneumoniae - urine cultures growth of presumptive Cari albicans - on meropenem and linezolid Gastrointestinal On tube feedings DVT prophylaxis: enoxaparin, held because of bleeding in the ED tube and dark urine PUD prophylaxis: Protonix Left upper arm PICC inserted on 02/22 Gold catheter inserted on 02/16 Goals of care discussed with the patient's Carlos and daughter at bedside. Patient has failed attempted CPAP trial. Was sedated again with fentanyl and propofol, planned for bronchoscopy tomorrow in the morning following which patient is again plan to be put on CPAP trial. Code status: Full code Critical care time spent excluding procedures: 53 minutes Plan discussed with Dr. Chavez Plan discussed with: Spouse, Daughter, Other (CLAIRE Barrett) My Orders My Orders Orders - JARED LAGUNA RESIDENT Procedure Category Date Status Time Blood Culture SHANNON 02/25/25 In Process 06:56 Respiratory Culture SHANNON 02/25/25 In Process W/ Gs 06:56 Chest Xray 1 View XY 02/26/25 Resulted 04:00 Abg W/ Co-Ox RT 02/26/25 Logged 04:00 Norepinephrine 8 PHA 02/25/25 In Process Mg/250ml Kit 19:45 Communication Order ORDERS 02/25/25 Transmitted 18:00 Communication Order ORDERS 02/25/25 Transmitted 18:45 Communication Order ORDERS 02/25/25 Transmitted 20:37 Furosemide Injection PHA 02/26/25 In Process (Lasix Injection) 18:00 Nitroglycerin PHA 02/26/25 In Process 50mg/250ml (Tridil) 12:15 Communication Order ORDERS 02/26/25 Transmitted 12:10 Chest Portable XY 02/26/25 Resulted 15:22 Propofol (Diprivan) PHA 02/26/25 In Process 16:00 Dietary Evaluation Review Comments: 1) Jevity 1.2Cal @ 65ml/hr along with Pro-stat 1 pk daily. Start at 20ml/hr increase 10ml/hr until goal is reached. TF at goal volume provides 1872 kcal, 87gm protein, and 1259 ml free water. 2) Water flush 100ml Q4H if allowed, adjust PRN 3) Monitor TF tolerance, lab values, wt trend, I/O Expected Outcomes/Goals: To meet >75% estimated needs Fu 2-3 days JARED LAGUNA RESIDENT Feb 26, 2025 18:19
[2025-02-26 19:17] LABS: Hematocrit 30.1 % (36.0-46.0); Hemoglobin 10.1 g/dL (12.2-16.2)
--- NOTE | 2025-02-26 20:17 | DVHPN2 ---
Progress Note - Dictate Date Seen: Feb 26, 2025 Medical Necessity Reason Pt with a Central, PICC or Fol: Yes The following are medically ne: Central Line, Gold Catheter Subjective Patient was seen and evaluated in follow up in the ICU. Patient is intubated and sedated on ventilator. 30% FiO2. Chest x-ray shows cardiomegaly, bilateral pleural effusions and bibasilar pulmonary airspace disease. vital signs Vital Sign Date Time Temp Pulse Resp B/P (MAP) Pulse Ox O2 Delivery O2 Flow Rate FiO2 02/26/25 11:49 109 21 203/94 (130) 98 30 02/26/25 08:05 98.7 98.7 02/26/25 08:00 Mechanical Ventilator+ Total Intake and Output 02/25/25 02/25/25 02/26/25 15:00 23:00 07:00 Intake Total 595.110 ml 1015.990 ml 632.5 ml Output Total 1950 ml 951 ml Balance 595.110 ml -934.010 ml -318.5 ml medications Current Medications Medications Dose Ordered Sig/Janette Route Start Time Stop Time Status Last Admin Dose Admin Midazolam HCl 50 ml @ 1 mls/hr Q24H IV 02/16/25 15:00 02/26/25 02:14 3 MLS/HR Fentanyl Citrate 250 ml @ 2.5 mls/hr Q24H IV 02/16/25 15:00 02/26/25 08:15 30 MLS/HR Pantoprazole Sodium 40 mg DAILY IV 02/17/25 10:00 02/26/25 10:11 40 MG Levetiracetam 1,000 mg BID NG 02/16/25 22:00 02/26/25 10:10 1,000 MG Lacosamide 100 mg BID GT 02/17/25 11:30 02/26/25 10:11 100 MG Enteral Nutritional Formula 1,000 ml 30ML/HR GT 02/17/25 12:00 02/20/25 23:59 1,000 ML Levalbuterol HCl 0.625 mg Q6HR NEB 02/17/25 18:00 02/26/25 11:49 0.625 MG Ipratropium [place] 0.5 mg Q6HR NEB 02/17/25 18:00 02/26/25 11:48 0.5 MG Sodium Chloride 10 ml QSHIFT@10,22 IV 02/22/25 22:00 02/26/25 10:11 10 ML Lisinopril 5 mg DAILYP PRN PO 02/24/25 15:00 Amiodarone HCl 200 mg Q12HR PO 02/24/25 22:00 02/26/25 10:11 200 MG Meropenem 50 ml @ 17 mls/hr Q8HR IV 02/25/25 14:00 02/26/25 06:00 17 MLS/HR Nystatin 1 applic BID TOP 02/25/25 10:00 02/26/25 10:11 1 APPLIC Linezolid 300 ml @ 150 mls/hr Q12HR IV 02/25/25 10:00 02/26/25 10:10 150 MLS/HR Norepinephrine Bitartrate 250 ml @ 0.938 mls/ hr Q24H IV 02/25/25 19:45 Furosemide 40 mg BIDD IV 02/26/25 18:00 Nitroglycerin 250 ml @ 1.5 mls/hr Q24H IV 02/26/25 12:15 objective GENERAL: Ill appearing, intubated on ventilator. EYES: PERRL, EOMI. Anicteric. HENT: Moist mucous membranes. LUNGS: Diminished breath sounds with rales, mild bilateral wheezing CARDIOVASCULAR: Irregular rate and rhythm. ABDOMEN: Soft, non-tender and non-distended. EXTREMITIES: No edema. SKIN: Warm, dry. laboratory and microbiology Laboratory Tests 02/26/25 02:50 Test 02/26/25 02:50 Range/Units Serum Glucose 131 H 74-106 mg/dL Problem List Acute metabolic encephalopathy. Acute on chronic hypercapnic/hypoxemic respiratory failure. Septic shock. History of seizure disorder. History of TIA. COPD exacerbation. Bilateral pleural effusion. Acute decompensated heart failure. Bilateral pulmonary edema. Pulmonary nodule left lower lobe. Heart failure with reduced ejection fraction. Atrial fibrillation with a RVR, now rate controlled. Nonischemic cardiomyopathy. 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 Acute complicated urinary tract infection causing septic shock. Bacteremia. Assessment/Plan Continued all current supportive medical care. Nitro SL. Amiodarone. Lisinopril. Diuretics with Lasix. IV antibiotics as ordered. GI prophylactics. Nebulized breathing treatments. Additional plan as per the hospital course. Critical care time of 45 minutes provided to include time spent evaluation of patient at bedside, when appropriate patient/family education for diagnosis, treatment plan, review of pertinent medical information and discussion of care with specialty providers and PCP. Mechanical ventilator parameters, treatment and adjustments have personally been reviewed by me and treatment plan by clinical mental health counselor has also been reviewed. Dietary Evaluation Review Comments: 1) Jevity 1.2Cal @ 65ml/hr along with Pro-stat 1 pk daily. Start at 20ml/hr increase 10ml/hr until goal is reached. TF at goal volume provides 1872 kcal, 87gm protein, and 1259 ml free water. 2) Water flush 100ml Q4H if allowed, adjust PRN 3) Monitor TF tolerance, lab values, wt trend, I/O Expected Outcomes/Goals: To meet >75% estimated needs Fu 2-3 days Plan discussed with: JOSH Hess MD Feb 26, 2025 13:04
[2025-02-26] MEDS: FUROSEMIDE 40 MG/4 ML VIAL IV SCH (21:51)
[2025-02-27] VITALS (106 sets, daily range): BP systolic 69–200; BP diastolic 23–99; PULSE 65–137; RESP 11–26; TEMP 97.8–98.9; O2SAT 90–100
[2025-02-27 02:52] LABS: Hematocrit 26.3 % (36.0-46.0); Hemoglobin 9.0 g/dL (12.2-16.2); Mean Corpuscular Hemoglobin 32.7 pg (28.0-32.0); Mean Corpuscular Volume 95.9 fL (80.0-100.0); Nucleated Red Blood Cells % 0.0 %
[2025-02-27 03:17] LABS: Alkaline Phosphatase 59 U/L (46-116); Anion Gap 8 (5-15); BUN/Creatinine Ratio 17.7 (10.0-20.0); Bilirubin, Total 0.6 mg/dL (0.2-1.0); Blood Urea Nitrogen 17 mg/dL (9-23); Magnesium 1.7 mg/dL (1.6-2.6); Sodium 139 mmol/L (136-145)
[2025-02-27 03:18] LABS: Alanine Aminotransferase < 9 U/L (7-40); Albumin 2.9 g/dL (3.2-4.8); Calcium 8.2 mg/dL (8.7-10.4); Carbon Dioxide 34 mmol/L (20-31); Chloride 97 mmol/L (98-107); Glucose 107 mg/dL (74-106); Potassium 3.4 mmol/L (3.5-5.1); Total Protein 4.8 g/dL (5.7-8.2)
[2025-02-27] MEDS: POTASSIUM CHL 20MEQ/100ML 100 ML IV ONE (04:57)
--- NOTE | 2025-02-27 07:06 | DVH ---
XY CHEST XRAY 1 VIEW, HISTORY: on vent, B/L pleural effusions COMPARISON: XY CHEST PORTABLE on DOS: 02/26/25, XY CHEST XRAY 1 VIEW on DOS: 02/26/25, XY CHEST XRAY 1 VIEW on DOS: 02/25/25 XY CHEST PORTABLE on DOS: 02/26/25, XY CHEST XRAY 1 VIEW on DOS: 02/26/25, XY CHEST XRAY 1 VIEW on DOS: 02/25/25 TECHNICAL DATA: 1 view of the chest was obtained. FINDINGS: Lines and tubes: Stable lines and tubes. Cardiomediastinal silhouette: Prominent Pulmonary vasculature: Prominent Lung expansion: Low Lung airspace: Bibasilar patchy opacity Lung interstitium: Prominent. Pleura: Small bilateral effusions. Pneumothorax: no Bones: Unremarkable Other: no IMPRESSION: Stable lines and tubes. Similar lung aeration.
[2025-02-27 07:58] LABS: Base Excess 9.2 mmol/L (-2.0-3.0)
--- NOTE | 2025-02-27 10:03 | DVHPN2 ---
Subjective History of Present Illness This is a 80-year-old female with past medical history of AFib, HFrEF, CKD, TIA, hypertension, and seizure came to the hospital due to shortness of breaths and altered mental status. Per patient's has been, patient has became weak and altered since 2 days. He also reports of shortness of breaths and cough. Per patient has been, she 1st developed slurred speech which gradually got more altered. Denies chest pain, nausea, vomiting, or any recent sick contact. Upon arrival to hospital, patient was able to speak but was lethargic and in respiratory distress. Due to low oxygen saturation patient was put on BiPAP, gradually developed respiratory distress, intubated and put on mechanical ventilation PMHx: AFib, CHF, CKD, TIA, hypertension, and seizure 02/26 Patient seen and examined with the bedside. Overnight patient did not have any fever. Left thoracentesis done with removal of 750 mL of fluid, likely transudative. Patient was taken off sedation and put on Precedex and CPAP trial was initiated but she could not meet the criteria and the trial had to be terminated. 02/27: Patient getting awakening trial today still on AC mode intubated. Plan for bronch today. Settings are a.c. 24/400/30%/5.0. Patient is tachycardic, history of AFib. If tachycardia does not improve after home meds amiodarone we will try to 50 cc fluid bolus as patient is here for shock and has had not have any fluids yet. Urine output adequate. Getting enteral feeds. Drips include propofol, fentanyl, Levophed at 0.5. Otherwise continue care as per primary team plan. No CPAP no CPAP trial today, SA T/ SBT CPAP trial tomorrow. Reviewed: Care Plan Changes from previous H/P or p: No Changes General: Per HPI Objective Vitals Vital Signs Date Time Temp Pulse Resp B/P (MAP) Pulse Ox O2 Delivery O2 Flow Rate FiO2 02/27/25 08:45 126 24 128/66 (86) 96 02/27/25 08:15 30 02/27/25 08:00 Mechanical Ventilator+ 02/27/25 08:00 98.0 98.0 Intake/Output Intake and Output 02/27/25 07:00 Intake Total 1886.792 ml Output Total 3451 ml Balance -1564.208 ml Intake Oral 120 ml IV Total 1386.792 ml Tube Feeding 380 ml Output Urine Total 3450 ml Stool Total 1 ml Exam General: RASS -3, afebrile, mucosae are moist Cardiovascular: Normal S1 and S2. No murmurs, gallops or rubs Respiratory: Bilateral crackles, and decreased breath sounds on lower zone Abdomen: Soft, nontender, no organomegaly, normal bowel sounds MSK/skin: Bilateral grade 2-3 pitting edema and skin erosions of right upper limb Neurological: Orientation cannot be assessed. No apparent motor no sensitive deficits. Pupils are isocoric and reactive Medications Current Medications Medications Dose Ordered Sig/Janette Route Start Time Stop Time Status Last Admin Dose Admin Midazolam HCl 50 ml @ 1 mls/hr Q24H IV 02/16/25 15:00 02/26/25 02:14 3 MLS/HR Fentanyl Citrate 250 ml @ 2.5 mls/hr Q24H IV 02/16/25 15:00 02/27/25 07:38 25 MLS/HR Pantoprazole Sodium 40 mg DAILY IV 02/17/25 10:00 02/27/25 09:50 40 MG Levetiracetam 1,000 mg BID NG 02/16/25 22:00 02/27/25 09:49 1,000 MG Lacosamide 100 mg BID GT 02/17/25 11:30 02/27/25 09:49 100 MG Enteral Nutritional Formula 1,000 ml 30ML/HR GT 02/17/25 12:00 02/20/25 23:59 1,000 ML Levalbuterol HCl 0.625 mg Q6HR NEB 02/17/25 18:00 02/27/25 06:16 0.625 MG Ipratropium [place] 0.5 mg Q6HR NEB 02/17/25 18:00 02/27/25 06:16 0.5 MG Sodium Chloride 10 ml QSHIFT@10,22 IV 02/22/25 22:00 02/27/25 09:50 10 ML Lisinopril 5 mg DAILYP PRN PO 02/24/25 15:00 Amiodarone HCl 200 mg Q12HR PO 02/24/25 22:00 02/27/25 09:50 200 MG Meropenem 50 ml @ 17 mls/hr Q8HR IV 02/25/25 14:00 02/27/25 06:21 17 MLS/HR Nystatin 1 applic BID TOP 02/25/25 10:00 02/27/25 09:50 1 APPLIC Linezolid 300 ml @ 150 mls/hr Q12HR IV 02/25/25 10:00 02/27/25 09:49 150 MLS/HR Norepinephrine Bitartrate 250 ml @ 0.938 mls/ hr Q24H IV 02/25/25 19:45 Furosemide 40 mg BIDD IV 02/26/25 18:00 02/27/25 06:21 40 MG Nitroglycerin 250 ml @ 1.5 mls/hr Q24H IV 02/26/25 12:15 Propofol 100 ml @ 2.508 mls/ hr Q24H IV 02/26/25 16:00 02/27/25 05:10 17.556 MLS/HR Laboratory Results Laboratory Tests 02/27/25 02:27 Chemistry Test 02/27/25 02:27 Albumin 2.9 g/dL (3.2-4.8) L Calcium Level 8.2 mg/dL (8.7-10.4) L Magnesium Level 1.7 mg/dL (1.6-2.6) Total Protein 4.8 g/dL (5.7-8.2) L LFT Test 02/27/25 02:27 Alanine Aminotransferase (ALT) < 9 U/L (7-40) Alkaline Phosphatase 59 U/L (46-116) Aspartate Amino Transferase (AST) 14 U/L (13-40) Total Bilirubin 0.6 mg/dL (0.2-1.0) Urinalysis Test 02/17/25 11:44 02/25/25 10:33 Urine WBC Clumps Present /hpf (None Seen) Urine Mucus Few (None Seen) Urine Color Colorless (Yellow) Urine Clarity Turbid (Clear) H Urine pH 7.0 (5.0-9.0) Urine Specific Reading 1.006 (1.001-1.035) Urine Protein Negative (Negative) Urine Ketones Negative (Negative) Urine Blood 3+ /uL (Negative) H Urine Nitrite Negative (Negative) Urine Bilirubin Negative (Negative) Urine Urobilinogen Normal mg/dL (Negative) Urine Leukocyte Esterase 3+ /uL (Negative) Urine RBC 309 /hpf (0 - 4) Urine Microscopic WBC 51 /HPF (0-5) H Urine Squamous Epithelial Cells Few /hpf (<5) Urine Bacteria Few /hpf (None Seen) H Urine Yeast (Budding) Few /hpf (None Seen) Urine Glucose Normal mg/dL (Normal) Blood Gas Results Test 02/27/25 07:30 Arterial Blood pH 7.526 (7.350-7.450) FiO2 % 30.0 Microbiology Microbiology Date/Time Source Procedure Growth Status 02/26/25 02:50 Blood Blood Culture - Preliminary NO GROWTH AFTER 24 HOURS OF INCUBATION. Resulted 02/26/25 00:20 Sputum Gram Stain Pending Resulted 02/26/25 00:20 Sputum Respiratory Culture - Preliminary Resulted 02/25/25 19:00 Urine - Gold Port Urine Culture - Preliminary Resulted 02/25/25 11:45 Pleural Fluid Gram Stain - Final Resulted 02/25/25 11:45 Pleural Fluid Aerobic Culture - Preliminary Resulted 02/18/25 02:45 Nose MRSA Screen - Final Complete Labs and/or images reviewed: Labs reviewed by me, Image(s) reviewed by me Assessment/Plan Assessment/Plan This is a 80-year-old female with past medical history of AFib, HFrEF, CKD, TIA, hypertension, and seizure came to the hospital due to shortness of breaths and altered mental status. Upon arrival to hospital, patient was able to speak but was lethargic and in respiratory distress. Due to low oxygen saturation patient was put on BiPAP, respiratory status gradually worsened, and subsequently intubated and put on mechanical ventilation. NEURO: Acute metabolic encephalopathy, likely due to hypoxia/hypercapnia History of TIA * Sedated on the on mechanical ventilation, RASS score -3 CARDIOVASCULAR: Permanent AFib on Eliquis Acute on chronic systolic heart failure Possible cardiogenic shock Volume overload, due to above Acquired hypercoagulopathy History of hypertension * Echo from 12/10/2024 shows EF 10-15% with markedly dilated LV * EKGs shows AFib with RVR significant ST or T-wave changes * Trop is normal, BNP is raised at 788 * Therapeutic dose of Lovenox * Continue atorvastatin and Plavix PULMONARY: Acute hypoxic/hypercarbic respiratory failure, likely due to systolic heart failure/parapneumonic effusion Pneumonia, likely due to Gram-positive/Gram-negative bacteria/viral Pleural effusion, likely parapneumonic/heart failure exacerbation * Chest CT shows moderate to large bilateral pleural effusion * ABG upon arrival showed pH 7.185, pCO2 68.5, PO2 119 we subsequently mechanical ventilation adjusted * Mechanical ventilation sitting: VT 350, peep 5, RR 20 and FiO2 60% * Empiric antibiotic of vancomycin and cefepime GASTROINTESTINAL: Protonix GENITOURINARY: Urine culture ENDOCRINE: METABOLIC: Hypokalemia HEME: Macrocytosis INFECTIOUS DISEASE: Pneumonia, likely due to Gram-positive/Gram-negative bacteria Lactic acidosis * Empiric antibiotic vancomycin and cefepime * Panculture * Check MRSA, influenza and COVID-19 MUSCULOSKELETAL: Skin erosion of right upper limb * Wound consult DIET: NPO DVT prophylax: On therapeutic dose of Lovenox GI prophylaxis: Protonix Code status: Goal of care discussed with the patient's at the bedside for more than 25 minute, full code LINES/DRAINS/ACCESS: * ETT: Intubated on IV access: Right internal jugular vein, put on 02/16/2025 * Drips: Fentanyl, Versed and Levophed * Gold catheter: DISPOSITION: ICU status Plan discussed with: Other Date of Service: Feb 27, 2025 Billing Provider: RAGHAVENDRA BOYKIN MD Common Visit Codes: 78437-CFHVOURQ CARE 30-74 MIN RAGHAVENDRA BOYKIN MD Feb 27, 2025 10:03
--- NOTE | 2025-02-27 12:57 | DVHPN2 ---
Progress Note - Dictate Date Seen: Feb 27, 2025 Medical Necessity Reason Pt with a Central, PICC or Fol: Yes The following are medically ne: Central Line, Gold Catheter vital signs Vital Sign Date Time Temp Pulse Resp B/P (MAP) Pulse Ox O2 Delivery O2 Flow Rate FiO2 02/27/25 12:18 92 24 83/50 (61) 99 30 02/27/25 10:00 Mechanical Ventilator+ 02/27/25 08:00 98.0 98.0 Total Intake and Output 02/26/25 02/26/25 02/27/25 15:00 23:00 07:00 Intake Total 176.290 ml 636.055 ml 1074.447 ml Output Total 1150 ml 2301 ml Balance 176.290 ml -513.945 ml -1226.553 ml medications Current Medications Medications Dose Ordered Sig/Janette Route Start Time Stop Time Status Last Admin Dose Admin Midazolam HCl 50 ml @ 1 mls/hr Q24H IV 02/16/25 15:00 02/26/25 02:14 3 MLS/HR Fentanyl Citrate 250 ml @ 2.5 mls/hr Q24H IV 02/16/25 15:00 02/27/25 07:38 25 MLS/HR Pantoprazole Sodium 40 mg DAILY IV 02/17/25 10:00 02/27/25 09:50 40 MG Levetiracetam 1,000 mg BID NG 02/16/25 22:00 02/27/25 09:49 1,000 MG Lacosamide 100 mg BID GT 02/17/25 11:30 02/27/25 09:49 100 MG Enteral Nutritional Formula 1,000 ml 30ML/HR GT 02/17/25 12:00 02/20/25 23:59 1,000 ML Levalbuterol HCl 0.625 mg Q6HR NEB 02/17/25 18:00 02/27/25 12:18 0.625 MG Ipratropium [place] 0.5 mg Q6HR NEB 02/17/25 18:00 02/27/25 12:18 0.5 MG Sodium Chloride 10 ml QSHIFT@10,22 IV 02/22/25 22:00 02/27/25 09:50 10 ML Lisinopril 5 mg DAILYP PRN PO 02/24/25 15:00 Amiodarone HCl 200 mg Q12HR PO 02/24/25 22:00 02/27/25 09:50 200 MG Meropenem 50 ml @ 17 mls/hr Q8HR IV 02/25/25 14:00 02/27/25 06:21 17 MLS/HR Nystatin 1 applic BID TOP 02/25/25 10:00 02/27/25 09:50 1 APPLIC Linezolid 300 ml @ 150 mls/hr Q12HR IV 02/25/25 10:00 02/27/25 09:49 150 MLS/HR Norepinephrine Bitartrate 250 ml @ 0.938 mls/ hr Q24H IV 02/25/25 19:45 Furosemide 40 mg BIDD IV 02/26/25 18:00 02/27/25 06:21 40 MG Nitroglycerin 250 ml @ 1.5 mls/hr Q24H IV 02/26/25 12:15 Propofol 100 ml @ 2.508 mls/ hr Q24H IV 02/26/25 16:00 02/27/25 11:38 2.508 MLS/HR laboratory and microbiology Laboratory Tests 02/27/25 02:27 Test 02/27/25 02:27 Range/Units Serum Glucose 107 H 74-106 mg/dL Assessment/Plan Impression Acute hypoxemic respiratory failure Bilateral pleural effusions Atelectasis CHF Patient seen and examined in ICU Events On mechanical ventilation S/p intubation PEEP 5, FiO2 30% s/p bronch today copious blood clots suctioned Labs and imaging reviewed ABG reviewed Management Vent support Titrate to maintain sats 90% or above Bronchodilators Monitor renal function Monitor electrolytes Supplement as needed Pressors as needed for hemodynamic support To maintain a mean arterial pressure of 65 mmHg F/u cardiology DVT prophylaxis Critical care time 35 minutes Dietary Evaluation Review Comments: 1) Jevity 1.2Cal @ 65ml/hr along with Pro-stat 1 pk daily. Start at 20ml/hr increase 10ml/hr until goal is reached. TF at goal volume provides 1872 kcal, 87gm protein, and 1259 ml free water. 2) Water flush 100ml Q4H if allowed, adjust PRN 3) Monitor TF tolerance, lab values, wt trend, I/O Expected Outcomes/Goals: To meet >75% estimated needs Fu 2-3 days Plan discussed with: Other (rn) KENNEDY ALVARADO MD Feb 27, 2025 12:57
--- NOTE | 2025-02-27 12:59 | DVHNC2 ---
Procedure - Procedure bronchoscopy Indication hemoptysis and respiratory failure Procedure in detail Consent was obtained time-out performed per protocol patient was lays down 100% FiO2. Flexible scope was used and passed through endotracheal tube . Tracheobronchial tree was examined. blood clots seen in the proximal airways which was suctioned thoroughly. There was no discrete bleeding. Sample obtained in her specimen container for Gram stain and cultures. No en dobronchial lesions. At the end of the procedure scope was removed KENNEDY ALVARADO MD Feb 27, 2025 12:59
--- NOTE | 2025-02-27 23:43 | DVHPN2 ---
Progress Note - Dictate Date Seen: Feb 27, 2025 Medical Necessity Reason Pt with a Central, PICC or Fol: Yes The following are medically ne: Central Line, Gold Catheter Subjective Patient was seen and evaluated in follow up in the ICU. Patient is intubated and sedated on ventilator. 30% FiO2. Patient's Carlos is present at bedside. Patient is s/p bedside bronchoscopy. HGB 9, HCT 26.3, K 3.4, CL 97, CO2 34, CA 8.2. Chest x-ray showed stable lines and tubes. Similar lung aeration. vital signs Vital Sign Date Time Temp Pulse Resp B/P (MAP) Pulse Ox O2 Delivery O2 Flow Rate FiO2 02/27/25 12:18 92 24 83/50 (61) 99 30 02/27/25 10:00 Mechanical Ventilator+ 02/27/25 08:00 98.0 98.0 Total Intake and Output 02/26/25 02/26/25 02/27/25 15:00 23:00 07:00 Intake Total 176.290 ml 636.055 ml 1074.447 ml Output Total 1150 ml 2301 ml Balance 176.290 ml -513.945 ml -1226.553 ml medications Current Medications Medications Dose Ordered Sig/Janette Route Start Time Stop Time Status Last Admin Dose Admin Midazolam HCl 50 ml @ 1 mls/hr Q24H IV 02/16/25 15:00 02/26/25 02:14 3 MLS/HR Fentanyl Citrate 250 ml @ 2.5 mls/hr Q24H IV 02/16/25 15:00 02/27/25 07:38 25 MLS/HR Pantoprazole Sodium 40 mg DAILY IV 02/17/25 10:00 02/27/25 09:50 40 MG Levetiracetam 1,000 mg BID NG 02/16/25 22:00 02/27/25 09:49 1,000 MG Lacosamide 100 mg BID GT 02/17/25 11:30 02/27/25 09:49 100 MG Enteral Nutritional Formula 1,000 ml 30ML/HR GT 02/17/25 12:00 02/20/25 23:59 1,000 ML Levalbuterol HCl 0.625 mg Q6HR NEB 02/17/25 18:00 02/27/25 12:18 0.625 MG Ipratropium [place] 0.5 mg Q6HR NEB 02/17/25 18:00 02/27/25 12:18 0.5 MG Sodium Chloride 10 ml QSHIFT@10,22 IV 02/22/25 22:00 02/27/25 09:50 10 ML Lisinopril 5 mg DAILYP PRN PO 02/24/25 15:00 Amiodarone HCl 200 mg Q12HR PO 02/24/25 22:00 02/27/25 09:50 200 MG Meropenem 50 ml @ 17 mls/hr Q8HR IV 02/25/25 14:00 02/27/25 06:21 17 MLS/HR Nystatin 1 applic BID TOP 02/25/25 10:00 02/27/25 09:50 1 APPLIC Linezolid 300 ml @ 150 mls/hr Q12HR IV 02/25/25 10:00 02/27/25 09:49 150 MLS/HR Norepinephrine Bitartrate 250 ml @ 0.938 mls/ hr Q24H IV 02/25/25 19:45 Furosemide 40 mg BIDD IV 02/26/25 18:00 02/27/25 06:21 40 MG Nitroglycerin 250 ml @ 1.5 mls/hr Q24H IV 02/26/25 12:15 Propofol 100 ml @ 2.508 mls/ hr Q24H IV 02/26/25 16:00 02/27/25 11:38 2.508 MLS/HR objective GENERAL: Ill appearing, intubated on ventilator. EYES: PERRL, EOMI. Anicteric. HENT: Moist mucous membranes. LUNGS: Diminished breath sounds with rales, mild bilateral wheezing CARDIOVASCULAR: Irregular rate and rhythm. ABDOMEN: Soft, non-tender and non-distended. EXTREMITIES: No edema. SKIN: Warm, dry. laboratory and microbiology Laboratory Tests 02/27/25 02:27 Test 02/27/25 02:27 Range/Units Serum Glucose 107 H 74-106 mg/dL Problem List Acute metabolic encephalopathy. Acute on chronic hypercapnic/hypoxemic respiratory failure. Septic shock. History of seizure disorder. History of TIA. COPD exacerbation. Bilateral pleural effusion. Acute decompensated heart failure. Bilateral pulmonary edema. Pulmonary nodule left lower lobe. Heart failure with reduced ejection fraction. Atrial fibrillation with a RVR, now rate controlled. Nonischemic cardiomyopathy. 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 Acute complicated urinary tract infection causing septic shock. Bacteremia. Assessment/Plan Continued all current supportive medical care. Amiodarone. Lisinopril. Diuretics with Lasix. IV antibiotics as ordered. GI prophylactics. Nebulized breathing treatments. Additional plan as per the hospital course. Critical care time of 45 minutes provided to include time spent evaluation of patient at bedside, when appropriate patient/family education for diagnosis, treatment plan, review of pertinent medical information and discussion of care with specialty providers and PCP. Mechanical ventilator parameters, treatment and adjustments have personally been reviewed by me and treatment plan by manager immunology has also been reviewed. Dietary Evaluation Review Comments: 1) Jevity 1.2Cal @ 65ml/hr along with Pro-stat 1 pk daily. Start at 20ml/hr increase 10ml/hr until goal is reached. TF at goal volume provides 1872 kcal, 87gm protein, and 1259 ml free water. 2) Water flush 100ml Q4H if allowed, adjust PRN 3) Monitor TF tolerance, lab values, wt trend, I/O Expected Outcomes/Goals: To meet >75% estimated needs Fu 2-3 days Plan discussed with: Other JOSH VEGA MD Feb 27, 2025 13:45
[2025-02-28] VITALS (121 sets, daily range): BP systolic 75–146; BP diastolic 48–85; PULSE 78–145; RESP 22–27; TEMP 97.9–99.5; O2SAT 96–100
[2025-02-28 03:46] LABS: Hematocrit 29.8 % (36.0-46.0); Hemoglobin 10.0 g/dL (12.2-16.2); Mean Corpuscular Hemoglobin 32.3 pg (28.0-32.0); Mean Corpuscular Volume 96.5 fL (80.0-100.0); Nucleated Red Blood Cells % 0.1 %
[2025-02-28 04:02] LABS: Alkaline Phosphatase 61 U/L (46-116); Anion Gap 6 (5-15); BUN/Creatinine Ratio 14.3 (10.0-20.0); Blood Urea Nitrogen 14 mg/dL (9-23); Chloride 101 mmol/L (98-107); Magnesium 1.8 mg/dL (1.6-2.6); Sodium 141 mmol/L (136-145)
[2025-02-28 04:03] LABS: Bilirubin, Total 0.4 mg/dL (0.2-1.0)
[2025-02-28 04:35] LABS: Alanine Aminotransferase < 9 U/L (7-40); Albumin 2.8 g/dL (3.2-4.8); Calcium 8.2 mg/dL (8.7-10.4); Carbon Dioxide 34 mmol/L (20-31); Glucose 117 mg/dL (74-106); Potassium 3.5 mmol/L (3.5-5.1); Total Protein 4.8 g/dL (5.7-8.2)
[2025-02-28] MEDS: CALCIUM GLUC 1,000mg/50ml-NS 50 ML IV ONE (05:44)
--- NOTE | 2025-02-28 06:56 | DVH ---
CHEST RADIOGRAPH Indication: INTUBATED Technique: Single frontal view of the chest was obtained COMPARISON: XY CHEST XRAY 1 VIEW on DOS: 02/27/25, XY CHEST PORTABLE on DOS: 02/26/25, XY CHEST XRAY 1 VIEW on DOS: 02/26/25, XY CHEST XRAY 1 VIEW on DOS: 02/25/25, XY CHEST XRAY 1 VIEW on DOS: 02/24/25, XY CHEST XRAY 1 VIEW on DOS: 02/27/25 FINDINGS: Lines and tubes: Stable lines and tubes. Cardiomediastinal silhouette: Prominent Pulmonary vasculature: Prominent Lung expansion: Low Lung airspace: Bibasilar patchy opacity Lung interstitium: Prominent. Pleura: Small bilateral effusions. Pneumothorax: no Bones: Unremarkable Other: no IMPRESSION: Stable lines and tubes. Similar lung aeration.
[2025-02-28 07:03] LABS: Base Excess 6.8 mmol/L (-2.0-3.0)
--- NOTE | 2025-02-28 10:31 | DVHPN2 ---
Subjective History of Present Illness This is a 80-year-old female with past medical history of AFib, HFrEF, CKD, TIA, hypertension, and seizure came to the hospital due to shortness of breaths and altered mental status. Per patient's has been, patient has became weak and altered since 2 days. He also reports of shortness of breaths and cough. Per patient has been, she 1st developed slurred speech which gradually got more altered. Denies chest pain, nausea, vomiting, or any recent sick contact. Upon arrival to hospital, patient was able to speak but was lethargic and in respiratory distress. Due to low oxygen saturation patient was put on BiPAP, gradually developed respiratory distress, intubated and put on mechanical ventilation PMHx: AFib, CHF, CKD, TIA, hypertension, and seizure 02/26 Patient seen and examined with the bedside. Overnight patient did not have any fever. Left thoracentesis done with removal of 750 mL of fluid, likely transudative. Patient was taken off sedation and put on Precedex and CPAP trial was initiated but she could not meet the criteria and the trial had to be terminated. 02/27: Patient getting awakening trial today still on AC mode intubated. Plan for bronch today. Settings are a.c. 24/400/30%/5.0. Patient is tachycardic, history of AFib. If tachycardia does not improve after home meds amiodarone we will try to 50 cc fluid bolus as patient is here for shock and has had not have any fluids yet. Urine output adequate. Getting enteral feeds. Drips include propofol, fentanyl, Levophed at 0.5. Otherwise continue care as per primary team plan. No CPAP no CPAP trial today, SA T/ SBT CPAP trial tomorrow. 02/28: Patient had bronch yesterday no active bleed found. Today was supposed to be NC/AT SBT, patient remains on Levophed at 4, sedated propofol fentanyl. Vital signs stable except for tachycardia remains in AFib RVR defer to Cardiology. Continuing enteral feeds. Sedated ventilated ventilation settings include a.c. 24/4 100/30%/5.0,. Good urine output. Lower extremities edematous lung sounds adequate throughout hypoactive bowel sounds. --patient remains AFib RVR continuing home p.o. amnio crushed through OG tube heart rate remains in 110s to 120s. IM questioning if this is AFib RVR from dehydration rather than volume overload. We will hold off Lasix. Can not do SA T/SBT because of AFib RVR and very labile blood pressures. If heart rate remains elevated may need to trial fluid bolus today. No discussion of trach right now patient needs to trial SAT/ SBT s. patient has been on broad spectrum antibiotics and not improving, I question if this is cardiogenic shock. We will get cardiac index today. Defer to primary tomorrow. Reviewed: Care Plan Changes from previous H/P or p: No Changes General: Per HPI Objective Vitals Vital Signs Date Time Temp Pulse Resp B/P (MAP) Pulse Ox O2 Delivery O2 Flow Rate FiO2 02/28/25 09:35 129 24 99/70 (80) 99 30 02/28/25 08:01 99.5 99.5 02/28/25 08:00 Mechanical Ventilator+ Intake/Output Intake and Output 02/28/25 07:00 Intake Total 2614.752 ml Output Total 4630 ml Balance -2014.248 ml Intake Oral 150 ml IV Total 2055.752 ml Tube Feeding 409 ml Output Urine Total 4630 ml # Bowel Movements 2 Exam General: RASS -3, afebrile, mucosae are moist Cardiovascular: Normal S1 and S2. No murmurs, gallops or rubs Respiratory: Bilateral crackles, and decreased breath sounds on lower zone Abdomen: Soft, nontender, no organomegaly, normal bowel sounds MSK/skin: Bilateral grade 2-3 pitting edema and skin erosions of right upper limb Neurological: Orientation cannot be assessed. No apparent motor no sensitive deficits. Pupils are isocoric and reactive Medications Current Medications Medications Dose Ordered Sig/Janette Route Start Time Stop Time Status Last Admin Dose Admin Midazolam HCl 50 ml @ 1 mls/hr Q24H IV 02/16/25 15:00 02/26/25 02:14 3 MLS/HR Fentanyl Citrate 250 ml @ 2.5 mls/hr Q24H IV 02/16/25 15:00 02/28/25 08:56 30 MLS/HR Pantoprazole Sodium 40 mg DAILY IV 02/17/25 10:00 02/28/25 10:10 40 MG Levetiracetam 1,000 mg BID NG 02/16/25 22:00 02/28/25 10:10 1,000 MG Lacosamide 100 mg BID GT 02/17/25 11:30 02/28/25 10:10 100 MG Enteral Nutritional Formula 1,000 ml 30ML/HR GT 02/17/25 12:00 02/20/25 23:59 1,000 ML Levalbuterol HCl 0.625 mg Q6HR NEB 02/17/25 18:00 02/28/25 05:55 0.625 MG Ipratropium [place] 0.5 mg Q6HR NEB 02/17/25 18:00 02/28/25 05:55 0.5 MG Sodium Chloride 10 ml QSHIFT@10,22 IV 02/22/25 22:00 02/28/25 10:11 10 ML Lisinopril 5 mg DAILYP PRN PO 02/24/25 15:00 Amiodarone HCl 200 mg Q12HR PO 02/24/25 22:00 02/28/25 10:10 200 MG Meropenem 50 ml @ 17 mls/hr Q8HR IV 02/25/25 14:00 02/28/25 05:44 17 MLS/HR Nystatin 1 applic BID TOP 02/25/25 10:00 02/28/25 10:11 1 APPLIC Linezolid 300 ml @ 150 mls/hr Q12HR IV 02/25/25 10:00 02/28/25 10:11 150 MLS/HR Norepinephrine Bitartrate 250 ml @ 0.938 mls/ hr Q24H IV 02/25/25 19:45 02/27/25 19:05 7.5 MLS/HR Furosemide 40 mg BIDD IV 02/26/25 18:00 02/28/25 05:44 40 MG Nitroglycerin 250 ml @ 1.5 mls/hr Q24H IV 02/26/25 12:15 Propofol 100 ml @ 2.508 mls/ hr Q24H IV 02/26/25 16:00 02/28/25 08:53 17.556 MLS/HR Laboratory Results Laboratory Tests 02/28/25 03:26 Chemistry Test 02/28/25 03:26 Albumin 2.8 g/dL (3.2-4.8) L Calcium Level 8.2 mg/dL (8.7-10.4) L Magnesium Level 1.8 mg/dL (1.6-2.6) Total Protein 4.8 g/dL (5.7-8.2) L LFT Test 02/28/25 03:26 Alanine Aminotransferase (ALT) < 9 U/L (7-40) Alkaline Phosphatase 61 U/L (46-116) Aspartate Amino Transferase (AST) 17 U/L (13-40) Total Bilirubin 0.4 mg/dL (0.2-1.0) Urinalysis Test 02/17/25 11:44 02/25/25 10:33 Urine WBC Clumps Present /hpf (None Seen) Urine Mucus Few (None Seen) Urine Color Colorless (Yellow) Urine Clarity Turbid (Clear) H Urine pH 7.0 (5.0-9.0) Urine Specific Melbeta 1.006 (1.001-1.035) Urine Protein Negative (Negative) Urine Ketones Negative (Negative) Urine Blood 3+ /uL (Negative) H Urine Nitrite Negative (Negative) Urine Bilirubin Negative (Negative) Urine Urobilinogen Normal mg/dL (Negative) Urine Leukocyte Esterase 3+ /uL (Negative) Urine RBC 309 /hpf (0 - 4) Urine Microscopic WBC 51 /HPF (0-5) H Urine Squamous Epithelial Cells Few /hpf (<5) Urine Bacteria Few /hpf (None Seen) H Urine Yeast (Budding) Few /hpf (None Seen) Urine Glucose Normal mg/dL (Normal) Blood Gas Results Test 02/28/25 06:48 Arterial Blood pH 7.490 (7.350-7.450) FiO2 % 30.0 Microbiology Microbiology Date/Time Source Procedure Growth Status 02/26/25 02:50 Blood Blood Culture - Preliminary NO GROWTH AFTER 48 HOURS OF INCUBATION. Resulted 02/26/25 00:20 Sputum Gram Stain - Preliminary Resulted 02/26/25 00:20 Sputum Respiratory Culture - Preliminary Resulted 02/25/25 19:00 Urine - Gold Port Urine Culture - Final Presumptive Cari albicans Complete 02/25/25 11:45 Pleural Fluid Gram Stain - Final Resulted 02/25/25 11:45 Pleural Fluid Aerobic Culture - Preliminary Resulted 02/18/25 02:45 Nose MRSA Screen - Final Complete Labs and/or images reviewed: Labs reviewed by me, Image(s) reviewed by me Assessment/Plan Assessment/Plan This is a 80-year-old female with past medical history of AFib, HFrEF, CKD, TIA, hypertension, and seizure came to the hospital due to shortness of breaths and altered mental status. Upon arrival to hospital, patient was able to speak but was lethargic and in respiratory distress. Due to low oxygen saturation patient was put on BiPAP, respiratory status gradually worsened, and subsequently intubated and put on mechanical ventilation. NEURO: Acute metabolic encephalopathy, likely due to hypoxia/hypercapnia History of TIA * Sedated on the on mechanical ventilation, RASS score -3 CARDIOVASCULAR: Permanent AFib on Eliquis Acute on chronic systolic heart failure Possible cardiogenic shock Volume overload, due to above Acquired hypercoagulopathy History of hypertension * Echo from 12/10/2024 shows EF 10-15% with markedly dilated LV * EKGs shows AFib with RVR significant ST or T-wave changes * Trop is normal, BNP is raised at 788 * Therapeutic dose of Lovenox * Continue atorvastatin and Plavix PULMONARY: Acute hypoxic/hypercarbic respiratory failure, likely due to systolic heart failure/parapneumonic effusion Pneumonia, likely due to Gram-positive/Gram-negative bacteria/viral Pleural effusion, likely parapneumonic/heart failure exacerbation * Chest CT shows moderate to large bilateral pleural effusion * ABG upon arrival showed pH 7.185, pCO2 68.5, PO2 119 we subsequently mechanical ventilation adjusted * Mechanical ventilation sitting: VT 350, peep 5, RR 20 and FiO2 60% * Empiric antibiotic of vancomycin and cefepime GASTROINTESTINAL: Protonix GENITOURINARY: Urine culture ENDOCRINE: METABOLIC: Hypokalemia HEME: Macrocytosis INFECTIOUS DISEASE: Pneumonia, likely due to Gram-positive/Gram-negative bacteria Lactic acidosis * Empiric antibiotic vancomycin and cefepime * Panculture * Check MRSA, influenza and COVID-19 MUSCULOSKELETAL: Skin erosion of right upper limb * Wound consult DIET: NPO DVT prophylax: On therapeutic dose of Lovenox GI prophylaxis: Protonix Code status: Goal of care discussed with the patient's at the bedside for more than 25 minute, full code LINES/DRAINS/ACCESS: * ETT: Intubated on IV access: Right internal jugular vein, put on 02/16/2025 * Drips: Fentanyl, Versed and Levophed * Gold catheter: DISPOSITION: ICU status Plan discussed with: Spouse Date of Service: Feb 28, 2025 Billing Provider: RAGHAVENDRA OBYKIN MD Common Visit Codes: 05203-PJCRVKOG CARE 30-74 MIN RAGHAVENDRA BOYKIN MD Feb 28, 2025 10:31
--- NOTE | 2025-02-28 14:35 | DVHPN2 ---
Progress Note - Dictate Date Seen: Feb 28, 2025 Medical Necessity Reason Pt with a Central, PICC or Fol: Yes The following are medically ne: Central Line, Gold Catheter vital signs Vital Sign Date Time Temp Pulse Resp B/P (MAP) Pulse Ox O2 Delivery O2 Flow Rate FiO2 02/28/25 14:02 137 24 123/68 (86) 100 30 02/28/25 14:00 Mechanical Ventilator+ 02/28/25 12:01 98.7 98.7 Total Intake and Output 02/27/25 02/27/25 02/28/25 15:00 23:00 07:00 Intake Total 756.856 ml 672.448 ml 1185.448 ml Output Total 3300 ml 1330 ml Balance 756.856 ml -2627.552 ml -144.552 ml medications Current Medications Medications Dose Ordered Sig/Janette Route Start Time Stop Time Status Last Admin Dose Admin Midazolam HCl 50 ml @ 1 mls/hr Q24H IV 02/16/25 15:00 02/26/25 02:14 3 MLS/HR Fentanyl Citrate 250 ml @ 2.5 mls/hr Q24H IV 02/16/25 15:00 02/28/25 08:56 30 MLS/HR Pantoprazole Sodium 40 mg DAILY IV 02/17/25 10:00 02/28/25 10:10 40 MG Levetiracetam 1,000 mg BID NG 02/16/25 22:00 02/28/25 10:10 1,000 MG Lacosamide 100 mg BID GT 02/17/25 11:30 02/28/25 10:10 100 MG Enteral Nutritional Formula 1,000 ml 30ML/HR GT 02/17/25 12:00 02/20/25 23:59 1,000 ML Levalbuterol HCl 0.625 mg Q6HR NEB 02/17/25 18:00 02/28/25 11:48 0.625 MG Ipratropium [place] 0.5 mg Q6HR NEB 02/17/25 18:00 02/28/25 11:48 0.5 MG Sodium Chloride 10 ml QSHIFT@10,22 IV 02/22/25 22:00 02/28/25 10:11 10 ML Lisinopril 5 mg DAILYP PRN PO 02/24/25 15:00 Amiodarone HCl 200 mg Q12HR PO 02/24/25 22:00 02/28/25 10:10 200 MG Meropenem 50 ml @ 17 mls/hr Q8HR IV 02/25/25 14:00 02/28/25 14:01 17 MLS/HR Nystatin 1 applic BID TOP 02/25/25 10:00 02/28/25 10:11 1 APPLIC Linezolid 300 ml @ 150 mls/hr Q12HR IV 02/25/25 10:00 02/28/25 10:11 150 MLS/HR Norepinephrine Bitartrate 250 ml @ 0.938 mls/ hr Q24H IV 02/25/25 19:45 02/27/25 19:05 7.5 MLS/HR Furosemide 40 mg BIDD IV 02/26/25 18:00 02/28/25 05:44 40 MG Nitroglycerin 250 ml @ 1.5 mls/hr Q24H IV 02/26/25 12:15 Propofol 100 ml @ 2.508 mls/ hr Q24H IV 02/26/25 16:00 02/28/25 14:02 17.556 MLS/HR laboratory and microbiology Laboratory Tests 02/28/25 03:26 Test 02/28/25 03:26 Range/Units Serum Glucose 117 H 74-106 mg/dL Assessment/Plan Impression Acute hypoxemic respiratory failure Bilateral pleural effusions Atelectasis CHF Patient seen and examined in ICU Events On mechanical ventilation S/p intubation PEEP 5, FiO2 30% s/p bronch Labs and imaging reviewed ABG reviewed Management Vent support Titrate to maintain sats 90% or above Sedation holiday in AM If patient follows commands, proceed to weaning trial Pressure support 01/16, extubate when ready Bronchodilators Monitor renal function Monitor electrolytes Supplement as needed Pressors as needed for hemodynamic support To maintain a mean arterial pressure of 65 mmHg F/u cardiology DVT prophylaxis Critical care time 35 minutes Dietary Evaluation Review Comments: 1) Jevity 1.2Cal @ 65ml/hr along with Pro-stat 1 pk daily. Start at 20ml/hr increase 10ml/hr until goal is reached. TF at goal volume provides 1872 kcal, 87gm protein, and 1259 ml free water. 2) Water flush 100ml Q4H if allowed, adjust PRN 3) Monitor TF tolerance, lab values, wt trend, I/O Expected Outcomes/Goals: To meet >75% estimated needs Fu 2-3 days Plan discussed with: Other (Rn) KENNEDY ALVARADO MD Feb 28, 2025 14:35
--- NOTE | 2025-02-28 23:50 | DVHPN2 ---
Progress Note - Dictate Date Seen: Feb 28, 2025 Medical Necessity Reason Pt with a Central, PICC or Fol: Yes The following are medically ne: Central Line, Gold Catheter Subjective Patient was seen and evaluated in follow up in the ICU. Patient is intubated and sedated on ventilator. 30% FiO2. Patient is in A-fib with RVR on the receiver bulk system. Urine culture is positive for yeast. CO2 34, CA 8.2. Chest x-ray showed stable lines and tubes. vital signs Vital Sign Date Time Temp Pulse Resp B/P (MAP) Pulse Ox O2 Delivery O2 Flow Rate FiO2 02/28/25 14:00 24 98 Mechanical Ventilator+ 30 30 02/28/25 14:00 138 02/28/25 12:16 102/64 (77) 02/28/25 12:01 98.7 98.7 Total Intake and Output 02/27/25 02/27/25 02/28/25 15:00 23:00 07:00 Intake Total 756.856 ml 672.448 ml 1185.448 ml Output Total 3300 ml 1330 ml Balance 756.856 ml -2627.552 ml -144.552 ml medications Current Medications Medications Dose Ordered Sig/Janette Route Start Time Stop Time Status Last Admin Dose Admin Midazolam HCl 50 ml @ 1 mls/hr Q24H IV 02/16/25 15:00 02/26/25 02:14 3 MLS/HR Fentanyl Citrate 250 ml @ 2.5 mls/hr Q24H IV 02/16/25 15:00 02/28/25 08:56 30 MLS/HR Pantoprazole Sodium 40 mg DAILY IV 02/17/25 10:00 02/28/25 10:10 40 MG Levetiracetam 1,000 mg BID NG 02/16/25 22:00 02/28/25 10:10 1,000 MG Lacosamide 100 mg BID GT 02/17/25 11:30 02/28/25 10:10 100 MG Enteral Nutritional Formula 1,000 ml 30ML/HR GT 02/17/25 12:00 02/20/25 23:59 1,000 ML Levalbuterol HCl 0.625 mg Q6HR NEB 02/17/25 18:00 02/28/25 11:48 0.625 MG Ipratropium [place] 0.5 mg Q6HR NEB 02/17/25 18:00 02/28/25 11:48 0.5 MG Sodium Chloride 10 ml QSHIFT@10,22 IV 02/22/25 22:00 02/28/25 10:11 10 ML Lisinopril 5 mg DAILYP PRN PO 02/24/25 15:00 Amiodarone HCl 200 mg Q12HR PO 02/24/25 22:00 02/28/25 10:10 200 MG Meropenem 50 ml @ 17 mls/hr Q8HR IV 02/25/25 14:00 02/28/25 14:01 17 MLS/HR Nystatin 1 applic BID TOP 02/25/25 10:00 02/28/25 10:11 1 APPLIC Linezolid 300 ml @ 150 mls/hr Q12HR IV 02/25/25 10:00 02/28/25 10:11 150 MLS/HR Norepinephrine Bitartrate 250 ml @ 0.938 mls/ hr Q24H IV 02/25/25 19:45 02/27/25 19:05 7.5 MLS/HR Furosemide 40 mg BIDD IV 02/26/25 18:00 02/28/25 05:44 40 MG Nitroglycerin 250 ml @ 1.5 mls/hr Q24H IV 02/26/25 12:15 Propofol 100 ml @ 2.508 mls/ hr Q24H IV 02/26/25 16:00 02/28/25 14:02 17.556 MLS/HR objective GENERAL: Ill appearing, intubated on ventilator. EYES: PERRL, EOMI. Anicteric. HENT: Moist mucous membranes. LUNGS: Diminished breath sounds with rales, mild bilateral wheezing CARDIOVASCULAR: Irregular rate and rhythm. ABDOMEN: Soft, non-tender and non-distended. EXTREMITIES: No edema. SKIN: Warm, dry. laboratory and microbiology Laboratory Tests 02/28/25 03:26 Test 02/28/25 03:26 Range/Units Serum Glucose 117 H 74-106 mg/dL Problem List Acute metabolic encephalopathy. Acute on chronic hypercapnic/hypoxemic respiratory failure. Septic shock. History of seizure disorder. History of TIA. COPD exacerbation. Bilateral pleural effusion. Acute decompensated heart failure. Bilateral pulmonary edema. Pulmonary nodule left lower lobe. Heart failure with reduced ejection fraction. Atrial fibrillation with a RVR, now rate controlled. Nonischemic cardiomyopathy. 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 Acute complicated urinary tract infection causing septic shock. Bacteremia. Assessment/Plan Continued all current supportive medical care. Amiodarone. Lisinopril. Diuretics with Lasix. IV antibiotics as ordered. GI prophylactics. Nebulized breathing treatments. Additional plan as per the hospital course. Critical care time of 45 minutes provided to include time spent evaluation of patient at bedside, when appropriate patient/family education for diagnosis, treatment plan, review of pertinent medical information and discussion of care with specialty providers and PCP. Mechanical ventilator parameters, treatment and adjustments have personally been reviewed by me and treatment plan by reticle printer has also been reviewed. Dietary Evaluation Review Comments: 1) Jevity 1.2Cal @ 65ml/hr along with Pro-stat 1 pk daily. Start at 20ml/hr increase 10ml/hr until goal is reached. TF at goal volume provides 1872 kcal, 87gm protein, and 1259 ml free water. 2) Water flush 100ml Q4H if allowed, adjust PRN 3) Monitor TF tolerance, lab values, wt trend, I/O Expected Outcomes/Goals: To meet >75% estimated needs Fu 2-3 days Plan discussed with: Other JOSH VEGA MD Feb 28, 2025 14:19
[2025-03-01] VITALS (116 sets, daily range): BP systolic 77–187; BP diastolic 42–98; PULSE 69–152; RESP 11–36; TEMP 97.9–98.9; O2SAT 95–100
[2025-03-01 04:08] LABS: Hematocrit 29.3 % (36.0-46.0); Hemoglobin 9.9 g/dL (12.2-16.2); Mean Corpuscular Hemoglobin 32.6 pg (28.0-32.0); Mean Corpuscular Volume 96.4 fL (80.0-100.0); Nucleated Red Blood Cells % 0.1 %
[2025-03-01 04:24] LABS: Alkaline Phosphatase 62 U/L (46-116); Anion Gap 8 (5-15); BUN/Creatinine Ratio 18.6 (10.0-20.0); Blood Urea Nitrogen 18 mg/dL (9-23); Chloride 99 mmol/L (98-107); Magnesium 1.7 mg/dL (1.6-2.6); Sodium 141 mmol/L (136-145)
[2025-03-01 04:25] LABS: Bilirubin, Total 0.3 mg/dL (0.2-1.0)
[2025-03-01 04:29] LABS: Alanine Aminotransferase < 9 U/L (7-40); Albumin 2.6 g/dL (3.2-4.8); Calcium 8.1 mg/dL (8.7-10.4); Carbon Dioxide 34 mmol/L (20-31); Glucose 121 mg/dL (74-106); Potassium 3.3 mmol/L (3.5-5.1); Total Protein 4.5 g/dL (5.7-8.2)
--- NOTE | 2025-03-01 05:01 | DVH ---
CHEST RADIOGRAPH Indication: Intubated Technique: Single frontal view of the chest was obtained COMPARISON: XY CHEST PORTABLE on DOS: 02/28/25, XY CHEST XRAY 1 VIEW on DOS: 02/27/25, XY CHEST PORTABL E on DOS: 02/26/25, XY CHEST XRAY 1 VIEW on DOS: 02/26/25, XY CHEST XRAY 1 VIEW on DOS: 02/25/25 FINDINGS: Lines and Tubes: Slight interval advancement of endotracheal tube such that the tip now projects appr oximately 3.3 cm above the level of the mikhail. Enteric catheter unchanged. Lungs: Stable appearing bilateral pleural effusions and bibasilar pulmonary airspace disease. No pneumothorax. Cardiomediastinal contours: Cardiomegaly. Bones: Unremarkable IMPRESSION: 1. Stable appearing bilateral pleural effusions and bibasilar pulmonary airspace disease. 2. Cardiomegaly. 3. Slight interval advancement of endotracheal tube such that the tip now projects approximately 3.3 cm above the level of the mikhail. Enteric catheter unchanged.
[2025-03-01] MEDS: POTASSIUM CHL 20MEQ/100ML 100 ML IV SCH ×2 (06:31→18:09)
[2025-03-01] MEDS: MAGNESIUM SULFATE 1GM/100ML 100 ML IV ONE ×2 (09:09→18:08)
[2025-03-01] MEDS: ALBUMIN 25% 100 ML IV ONE (09:14)
[2025-03-01] MEDS: cefTRIAXone 2GM/50ML D5W 50 ML IV SCH (10:29)
[2025-03-01] MEDS: FUROSEMIDE 40 MG/4 ML VIAL IV ONE (11:10)
[2025-03-01] MEDS: IPRATROPIUM BROM 0.5 MG/2.5ML INH SOL NEB SCH (13:32)
[2025-03-01] MEDS: LEVALBUTEROL HCL 1.25 MG/3 ML NEB NEB SCH (13:32)
[2025-03-01] MEDS: AMIODARONE 360mg/200mL PREMIX 200 ML IV SCH (16:02)
[2025-03-01] MEDS: ALBUMIN 25% 50 ML IV ONE (18:09)
--- NOTE | 2025-03-01 20:38 | DVHPNRES ---
Progress Note Date Seen: Mar 01, 2025 Resident Creating Document: JARED LAGUNA RESIDENT Medical Necessity Reason Pt with a Central, PICC or Fol: Yes The following are medically ne: Central Line, Gold Catheter Subjective Review of Systems 03/01 Patient seen and examined at the bedside. With the weekend patient did not have any fevers, intermittent episodes of tachycardia were seen and patient has been off norepinephrine since Saturday. Urine output noted to be around 3 L to 3.5 L per day with a net negative balance daily. Repeat sputum culture showed growth of Klebsiella which is sensitive. Patient bronchoscopy on Saturday with removal of blood clots but no active bleeding were seen. Chest x-ray improved on Saturday 0 02/28 but showed worsening congestion today on 03/01. Objective vital signs Vital Sign Date Time Temp Pulse Resp B/P (MAP) Pulse Ox O2 Delivery O2 Flow Rate FiO2 03/01/25 20:15 133 24 156/79 (104) 97 30 03/01/25 18:00 Mechanical Ventilator+ 03/01/25 16:02 98.9 98.9 Total Intake and Output 02/28/25 02/28/25 03/01/25 15:00 23:00 07:00 Intake Total 806.448 ml 790.642 ml 1084.448 ml Output Total 700 ml 1530 ml Balance 806.448 ml 90.642 ml -445.552 ml medications Current Medications Medications Dose Ordered Sig/Janette Route Start Time Stop Time Status Last Admin Dose Admin Pantoprazole Sodium 40 mg DAILY IV 02/17/25 10:00 03/01/25 10:28 40 MG Levetiracetam 1,000 mg BID NG 02/16/25 22:00 03/01/25 10:28 1,000 MG Lacosamide 100 mg BID GT 02/17/25 11:30 03/01/25 10:28 100 MG Enteral Nutritional Formula 1,000 ml 30ML/HR GT 02/17/25 12:00 02/28/25 20:12 1,000 ML Sodium Chloride 10 ml QSHIFT@10,22 IV 02/22/25 22:00 03/01/25 10:29 10 ML Nystatin 1 applic BID TOP 02/25/25 10:00 03/01/25 10:29 1 APPLIC Norepinephrine Bitartrate 250 ml @ 0.938 mls/ hr Q24H IV 02/25/25 19:45 02/28/25 23:59 7.5 MLS/HR Furosemide 40 mg BIDD IV 02/26/25 18:00 03/01/25 18:53 40 MG Nitroglycerin 250 ml @ 1.5 mls/hr Q24H IV 02/26/25 12:15 Ipratropium [place] 0.5 mg Q8HR NEB 03/01/25 14:00 03/01/25 13:32 0.5 MG Levalbuterol HCl 0.625 mg Q8HR NEB 03/01/25 14:00 03/01/25 13:32 0.625 MG Ceftriaxone Sodium/Dextrose 50 ml @ 50 mls/hr DAILY IV 03/01/25 10:00 03/01/25 10:29 50 MLS/HR Potassium Chloride 100 ml @ 50 mls/hr Q2H IV 03/01/25 17:30 03/01/25 21:29 03/01/25 18:09 50 MLS/HR Examination Gen - no pallor, no icterus, no cyanosis, bilateral 2+ pitting edema in the lower extremities Skin - Patients skin is warm and dry. HEENT - normocephalic, atraumatic, moist mucous membranes. Neck - mild jugular venous distention seen Pulmonary - B/L slightly coarse breath sounds, no wheezing, no stridor. cardiovascular - irregularly irregular S1,S2 heard, no added sounds, no murmurs heard. capillary refill normal >3 secs. GI - soft abdomen. Bowel sounds normoactive Neurological - Patient is sedated and on mechanical ventilation laboratory and microbiology Laboratory Tests 03/01/25 03:05 Test 03/01/25 03:05 Range/Units Serum Glucose 121 H 74-106 mg/dL Microbiology Date/Time Source Procedure Growth Status 02/28/25 11:24 Bronchial Washings Gram Stain - Final Resulted 02/28/25 11:24 Bronchial Washings Respiratory Culture - Preliminary Resulted 02/26/25 02:50 Blood Blood Culture - Preliminary NO GROWTH AFTER 72 HOURS OF INCUBATION. Resulted 02/25/25 19:00 Urine - Gold Port Urine Culture - Final Presumptive Cari albicans Complete 02/25/25 11:45 Pleural Fluid Gram Stain - Final Resulted 02/25/25 11:45 Pleural Fluid Aerobic Culture - Preliminary Resulted 02/18/25 02:45 Nose MRSA Screen - Final Complete Problem List/Assessment/Plan Problem List/Assessment/Plan Neurology Acute metabolic encephalopathy likely from hypercapnia respiratory failure/septic shock H/o seizure disorder h/o TIA - currently sedated and on mechanical ventilation - on Keppra and lacosamide Respiratory Acute on chronic hypercapnic/hypoxemic respiratory failure Copd likely in exacerbation Possible pneumonia from gram +/- bacteria Bilateral pleural effusion likely from acute decompensated heart failure/ ?parapneumonic Bilateral pulmonary edema likely from acute decompensated heart failure Pulmonary nodule left lower lobe - chest CT showed right lower lobe consolidation, moderate bilateral pleural effusions, mediastinal lymphadenopathy, 1.3 cm nodule in the left lower lobe - on mechanical ventilation with a FiO2 40%, peep of 5, tidal volume 400 - sputum culture showing growth of Klebsiella pneumoniae - on meropenam and linezolid - duo nebs q.6 hours - thoracentesis done on the right on 02/20 with a 850 mL fluid removed - thoracentesis done on the left side on 02/25 with 750 mL of fluid removed - bleeding in the ED tube, regular suctioning, monitor H&H, bronchoscopy showing blood clots but no active bleeding Cardiovascular Septic shock likely from UTI Acute decompensated heart failure Heart failure with reduced ejection fraction Atrial fibrillation with a RVR, Nonischemic cardiomyopathy Paroxysmal SVT - recent echocardiogram showed LVEF 10-15% with a markedly dilated LV, RV enlarged - left heart catheterization from in December 2024 shows no significant coronary artery disease, LVEF approximately 20% - BNP elevated - norepinephrine - Lovenox therapeutic dose - Lasix 40 b.i.d. - amiodarone drip 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, resolved Acute complicated urinary tract infection causing septic shock - monitoring renal function - urine culture showed growth of presumptive Cari albicans - on ceftriaxone Infectious disease Septic shock UTI pneumonia due to Klebsiella - initial blood culture showed growth of Staph epidermidis, repeat blood cultures after 5 days showed no growth - sputum culture showed growth of Klebsiella pneumoniae - urine cultures growth of presumptive Cari albicans - on ceftriaxone Gastrointestinal On tube feedings DVT prophylaxis: enoxaparin, held because of bleeding in the ED tube and dark urine PUD prophylaxis: Protonix Left upper arm PICC inserted on 02/22 Gold catheter inserted on 02/16 Goals of care discussed with the patient's Carlos and daughter at bedside. Patient will be attempted on a CPAP trial tomorrow Code status: Full code Critical care time spent excluding procedures: 68 minutes Plan discussed with Dr. Steven Plan discussed with: Spouse, Daughter, Other (RN Manolo) My Orders My Orders Orders - JARED LAGUNA Procedure Category Date Status Time Chest Portable XY 03/01/25 Resulted 04:00 Ipratropium Medneb PHA 03/01/25 In Process (Atrovent Medneb) 14:00 Levalbuterol Hcl PHA 03/01/25 In Process (Xopenex Medneb) 14:00 Ceftriaxone 2gm/50ml PHA 03/01/25 In Process D5w (Rocephin 2gm/5 10:00 Communication Order ORDERS 03/01/25 Transmitted 08:55 Potassium Chl PHA 03/01/25 In Process 20meq/100ml 17:30 Comprehensive LAB 03/02/25 Verified Metabolic Panel 04:00 Complete Blood Count LAB 03/02/25 Verified 04:00 Magnesium LAB 03/02/25 Verified 04:00 Chest Xray 1 View XY 03/02/25 Logged 04:00 Abg W/ Co-Ox RT 03/02/25 Logged 04:00 Dietary Evaluation Review Comments: 1) Jevity 1.2Cal @ 65ml/hr along with Pro-stat 1 pk daily. Start at 20ml/hr increase 10ml/hr until goal is reached. TF at goal volume provides 1872 kcal, 87gm protein, and 1259 ml free water. 2) Water flush 100ml Q4H if allowed, adjust PRN 3) Monitor TF tolerance, lab values, wt trend, I/O Expected Outcomes/Goals: To meet >75% estimated needs Fu 2-3 days Date of Service: Mar 01, 2025 Billing Provider: ROMELIA STEVEN MD Common Visit Codes: [id number] CARE 30-74 MIN JARED LAGUNA Mar 01, 2025 20:38 ROMELIA STEVEN MD Mar 02, 2025 12:03
--- NOTE | 2025-03-01 23:45 | DVHPN2 ---
Progress Note - Dictate Date Seen: Mar 01, 2025 Medical Necessity Reason Pt with a Central, PICC or Fol: Yes The following are medically ne: Central Line, Gold Catheter Subjective Patient was seen and evaluated in follow up in the ICU. Patient is intubated and sedated on ventilator. 30% FiO2. Patient has been off norepinephrine since Saturday. Hs intermittent tachycardia. Repeat sputum culture showed growth of Klebsiella which is sensitive. Patient bronchoscopy on Saturday with removal of blood clots but no active bleeding were seen. vital signs Vital Sign Date Time Temp Pulse Resp B/P (MAP) Pulse Ox O2 Delivery O2 Flow Rate FiO2 03/01/25 23:02 121 23 125/57 (79) 95 03/01/25 22:22 30 03/01/25 20:02 98.1 98.1 03/01/25 20:00 Mechanical Ventilator+ Total Intake and Output 02/28/25 02/28/25 03/01/25 15:00 23:00 07:00 Intake Total 806.448 ml 790.642 ml 1084.448 ml Output Total 700 ml 1530 ml Balance 806.448 ml 90.642 ml -445.552 ml medications Current Medications Medications Dose Ordered Sig/Janette Route Start Time Stop Time Status Last Admin Dose Admin Pantoprazole Sodium 40 mg DAILY IV 02/17/25 10:00 03/01/25 10:28 40 MG Levetiracetam 1,000 mg BID NG 02/16/25 22:00 03/01/25 22:22 1,000 MG Lacosamide 100 mg BID GT 02/17/25 11:30 03/01/25 22:23 100 MG Enteral Nutritional Formula 1,000 ml 30ML/HR GT 02/17/25 12:00 02/28/25 20:12 1,000 ML Sodium Chloride 10 ml QSHIFT@10,22 IV 02/22/25 22:00 03/01/25 22:23 10 ML Nystatin 1 applic BID TOP 02/25/25 10:00 03/01/25 22:23 1 APPLIC Norepinephrine Bitartrate 250 ml @ 0.938 mls/ hr Q24H IV 02/25/25 19:45 02/28/25 23:59 7.5 MLS/HR Furosemide 40 mg BIDD IV 02/26/25 18:00 03/01/25 18:53 40 MG Nitroglycerin 250 ml @ 1.5 mls/hr Q24H IV 02/26/25 12:15 Ipratropium [place] 0.5 mg Q8HR NEB 03/01/25 14:00 03/01/25 22:22 0.5 MG Levalbuterol HCl 0.625 mg Q8HR NEB 03/01/25 14:00 03/01/25 22:22 0.625 MG Ceftriaxone Sodium/Dextrose 50 ml @ 50 mls/hr DAILY IV 03/01/25 10:00 03/01/25 10:29 50 MLS/HR objective GENERAL: Ill appearing, intubated on ventilator. EYES: PERRL, EOMI. Anicteric. HENT: Moist mucous membranes. LUNGS: Diminished breath sounds with rales, mild bilateral wheezing CARDIOVASCULAR: Irregular rate and rhythm. ABDOMEN: Soft, non-tender and non-distended. EXTREMITIES: No edema. SKIN: Warm, dry. laboratory and microbiology Laboratory Tests 03/01/25 03:05 Test 03/01/25 03:05 Range/Units Serum Glucose 121 H 74-106 mg/dL Problem List Acute metabolic encephalopathy. Acute on chronic hypercapnic/hypoxemic respiratory failure. Septic shock. History of seizure disorder. History of TIA. COPD exacerbation. Bilateral pleural effusion. Acute decompensated heart failure. Bilateral pulmonary edema. Pulmonary nodule left lower lobe. Heart failure with reduced ejection fraction. Atrial fibrillation with a RVR, now rate controlled. Nonischemic cardiomyopathy. 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 Acute complicated urinary tract infection causing septic shock. Bacteremia. Assessment/Plan Continued all current supportive medical care. Amiodarone. Lisinopril. Diuretics with Lasix. IV antibiotics as ordered. GI prophylactics. Nebulized breathing treatments. Additional plan as per the hospital course. Critical care time of 45 minutes provided to include time spent evaluation of patient at bedside, when appropriate patient/family education for diagnosis, treatment plan, review of pertinent medical information and discussion of care with specialty providers and PCP. Mechanical ventilator parameters, treatment and adjustments have personally been reviewed by me and treatment plan by energy risk management analyst has also been reviewed. Dietary Evaluation Review Comments: 1) Jevity 1.2Cal @ 65ml/hr along with Pro-stat 1 pk daily. Start at 20ml/hr increase 10ml/hr until goal is reached. TF at goal volume provides 1872 kcal, 87gm protein, and 1259 ml free water. 2) Water flush 100ml Q4H if allowed, adjust PRN 3) Monitor TF tolerance, lab values, wt trend, I/O Expected Outcomes/Goals: To meet >75% estimated needs Fu 2-3 days Plan discussed with: Other JOSH VEGA MD Mar 01, 2025 23:45
[2025-03-02] VITALS (120 sets, daily range): BP systolic 97–185; BP diastolic 49–107; PULSE 78–131; RESP 11–27; TEMP 97.5–99.3; O2SAT 87–100
[2025-03-02 03:44] LABS: Hematocrit 28.4 % (36.0-46.0); Hemoglobin 9.6 g/dL (12.2-16.2); Mean Corpuscular Hemoglobin 32.6 pg (28.0-32.0); Mean Corpuscular Volume 96.9 fL (80.0-100.0); Nucleated Red Blood Cells % 0.1 %
[2025-03-02 03:55] LABS: Albumin 3.4 g/dL (3.2-4.8); Alkaline Phosphatase 67 U/L (46-116); Anion Gap 8 (5-15); BUN/Creatinine Ratio 16.7 (10.0-20.0); Blood Urea Nitrogen 17 mg/dL (9-23); Calcium 8.7 mg/dL (8.7-10.4); Magnesium 2.2 mg/dL (1.6-2.6); Potassium 4.3 mmol/L (3.5-5.1); Sodium 140 mmol/L (136-145)
[2025-03-02 04:03] LABS: Alanine Aminotransferase < 9 U/L (7-40); Bilirubin, Total 0.3 mg/dL (0.2-1.0); Carbon Dioxide 34 mmol/L (20-31); Chloride 98 mmol/L (98-107); Glucose 130 mg/dL (74-106); Total Protein 5.4 g/dL (5.7-8.2)
--- NOTE | 2025-03-02 05:01 | DVH ---
CHEST RADIOGRAPH Indication: on vent Technique: Single frontal view of the chest was obtained COMPARISON: XY CHEST PORTABLE on DOS: 03/01/25, XY CHEST PORTABLE on DOS: 02/28/25, XY CHEST XRAY 1 VIE W on DOS: 02/27/25, XY CHEST PORTABLE on DOS: 02/26/25, XY CHEST XRAY 1 VIEW on DOS: 02/26/25 FINDINGS: Lines and Tubes: Slight interval retraction of the endotracheal tube such that the tip now projects a pproximately 4.7 cm above the level of the mikhail. Nasogastric tube courses below level of the diaphr agm and terminates within the left upper quadrant, presumably within the gastric lumen. Left peripher ally inserted central catheter tip projects over the expected location of the cavoatrial junction. Lungs: Stable appearing small bilateral pleural effusions. No evidence of focal consolidation. No pneumothorax. Cardiomediastinal contours: Cardiomegaly. Bones: Unremarkable IMPRESSION: 1. Cardiomegaly and bilateral pleural effusions. 2. Slight interval retraction of endotracheal tube as above. 3. Enteric catheter. 4. Left PICC.
[2025-03-02] MEDS: ENALAPRILAT 1.25 MG/ML-1ML VIAL IV ONE ×2 (08:05→12:35)
[2025-03-02] MEDS: AMIODARONE BOLUS KIT 100 ML IV ONE (12:34)
[2025-03-02] MEDS: FUROSEMIDE 40 MG/4 ML VIAL IV ONE (15:09)
[2025-03-02] MEDS: NITROGLYCERIN 50MG/250ML 250 ML IV SCH (15:45)
--- NOTE | 2025-03-02 17:37 | DVHPNRES ---
Progress Note Date Seen: Mar 02, 2025 Resident Creating Document: JARED LAGUNA RESIDENT Medical Necessity Reason Pt with a Central, PICC or Fol: Yes The following are medically ne: Central Line, Gold Catheter Subjective Review of Systems 03/02 Patient seen and examined at the bedside. Patient was extubated today with the family denied put her on a BiPAP machine after extubation so she reports put on cool aerosol and maintained good oxygen saturation. Patient is alert, following verbal commands. Patient will be put on BiPAP for the night. Objective vital signs Vital Sign Date Time Temp Pulse Resp B/P (MAP) Pulse Ox O2 Delivery O2 Flow Rate FiO2 03/02/25 16:32 98 22 143/79 (100) 98 03/02/25 16:02 98.3 98.3 03/02/25 16:00 Nasal Cannula* 2 28 Total Intake and Output 03/01/25 03/01/25 03/02/25 15:00 23:00 07:00 Intake Total 652.696 ml 532.455 ml 465.085 ml Output Total 1675 ml 1230 ml Balance 652.696 ml -1142.545 ml -764.915 ml medications Current Medications Medications Dose Ordered Sig/Janette Route Start Time Stop Time Status Last Admin Dose Admin Pantoprazole Sodium 40 mg DAILY IV 02/17/25 10:00 03/02/25 09:53 40 MG Levetiracetam 1,000 mg BID NG 02/16/25 22:00 03/02/25 09:53 1,000 MG Lacosamide 100 mg BID GT 02/17/25 11:30 03/02/25 09:53 100 MG Enteral Nutritional Formula 1,000 ml 30ML/HR GT 02/17/25 12:00 02/28/25 20:12 1,000 ML Sodium Chloride 10 ml QSHIFT@10,22 IV 02/22/25 22:00 03/02/25 09:54 10 ML Nystatin 1 applic BID TOP 02/25/25 10:00 03/02/25 09:55 1 APPLIC Norepinephrine Bitartrate 250 ml @ 0.938 mls/ hr Q24H IV 02/25/25 19:45 02/28/25 23:59 7.5 MLS/HR Furosemide 40 mg BIDD IV 02/26/25 18:00 03/02/25 06:36 40 MG Ipratropium [place] 0.5 mg Q8HR NEB 03/01/25 14:00 03/02/25 06:29 0.5 MG Levalbuterol HCl 0.625 mg Q8HR NEB 03/01/25 14:00 03/02/25 06:29 0.625 MG Ceftriaxone Sodium/Dextrose 50 ml @ 50 mls/hr DAILY IV 03/01/25 10:00 03/02/25 09:55 50 MLS/HR Nitroglycerin 250 ml @ 1.5 mls/hr Q24H IV 03/02/25 15:45 UNV Examination Gen - no pallor, no icterus, no cyanosis, bilateral 2+ pitting edema in the lower extremities Skin - Patients skin is warm and dry. HEENT - normocephalic, atraumatic, moist mucous membranes. Neck - mild jugular venous distention seen Pulmonary - B/L equal air entry with improved breath sounds, no wheezing, no stridor. cardiovascular - irregularly irregular S1,S2 heard, no added sounds, no murmurs heard. capillary refill normal >3 secs. GI - soft abdomen. Bowel sounds normoactive Neurological - patient extubated today, following verbal commands. laboratory and microbiology Laboratory Tests 03/02/25 02:52 Test 03/02/25 02:52 Range/Units Serum Glucose 130 H 74-106 mg/dL Microbiology Date/Time Source Procedure Growth Status 02/28/25 11:24 Bronchial Washings Gram Stain - Final Resulted 02/28/25 11:24 Bronchial Washings Respiratory Culture - Preliminary Resulted 02/26/25 02:50 Blood Blood Culture - Preliminary NO GROWTH AFTER 72 HOURS OF INCUBATION. Resulted 02/25/25 19:00 Urine - Gold Port Urine Culture - Final Presumptive Cari albicans Complete 02/25/25 11:45 Pleural Fluid Gram Stain - Final Complete 02/25/25 11:45 Pleural Fluid Aerobic Culture - Final Complete 02/18/25 02:45 Nose MRSA Screen - Final Complete Problem List/Assessment/Plan Problem List/Assessment/Plan Neurology Acute metabolic encephalopathy likely from hypercapnia respiratory failure/septic shock H/o seizure disorder h/o TIA - currently sedated and on mechanical ventilation - on Keppra and lacosamide Respiratory Acute on chronic hypercapnic/hypoxemic respiratory failure Copd likely in exacerbation Possible pneumonia from gram +/- bacteria Bilateral pleural effusion likely from acute decompensated heart failure/ ?parapneumonic Bilateral pulmonary edema likely from acute decompensated heart failure Pulmonary nodule left lower lobe - chest CT showed right lower lobe consolidation, moderate bilateral pleural effusions, mediastinal lymphadenopathy, 1.3 cm nodule in the left lower lobe - on mechanical ventilation with a FiO2 40%, peep of 5, tidal volume 400 - sputum culture showing growth of Klebsiella pneumoniae - on meropenam and linezolid - duo nebs q.6 hours - thoracentesis done on the right on 02/20 with a 850 mL fluid removed - thoracentesis done on the left side on 02/25 with 750 mL of fluid removed - bleeding in the ED tube, regular suctioning, monitor H&H, bronchoscopy showing blood clots but no active bleeding - status post extubation on 03/02 Cardiovascular Septic shock likely from UTI Acute decompensated heart failure Heart failure with reduced ejection fraction Atrial fibrillation with a RVR, Nonischemic cardiomyopathy Paroxysmal SVT - recent echocardiogram showed LVEF 10-15% with a markedly dilated LV, RV enlarged - left heart catheterization from in December 2024 shows no significant coronary artery disease, LVEF approximately 20% - BNP elevated - norepinephrine - Lovenox therapeutic dose - Lasix 40 b.i.d. - amiodarone drip - nitro drip for blood pressure control with a target SBP 110 or lower 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, resolved Acute complicated urinary tract infection causing septic shock - monitoring renal function - urine culture showed growth of presumptive Cari albicans - on ceftriaxone Infectious disease Septic shock UTI pneumonia due to Klebsiella - initial blood culture showed growth of Staph epidermidis, repeat blood cultures after 5 days showed no growth - sputum culture showed growth of Klebsiella pneumoniae - urine cultures growth of presumptive Cari albicans - on ceftriaxone Gastrointestinal On tube feedings DVT prophylaxis: enoxaparin, held because of bleeding in the ET tube PUD prophylaxis: Protonix Left upper arm PICC inserted on 02/22 Gold catheter inserted on 02/16 Extubated on 03/02 Goals of care discussed with the patient's Carlos and daughter Carolyn at bedside. Patient is extubated today, code status changed to modified DNR with only BiPAP support. Patient will be put on BiPAP for the night Code status: Full code Critical care time spent excluding procedures, including CPAP trial and extubation/dw family: 83 minutes Plan discussed with Dr. Siomara Plan discussed with: Spouse, Daughter, Other (RN Manolo) My Orders My Orders Orders - JARED LAGUNA Procedure Category Date Status Time Chest Xray 1 View XY 03/02/25 Resulted 04:00 Abg W/ Co-Ox RT 03/02/25 Logged 04:00 Nitroglycerin PHA 03/02/25 Logged 50mg/250ml (Tridil) 15:45 BIPAP RT 03/02/25 Logged 20:00 Complete Blood Count LAB 03/03/25 Verified 04:00 Comprehensive LAB 03/03/25 Verified Metabolic Panel 04:00 Magnesium LAB 03/03/25 Verified 04:00 Chest Xray 1 View XY 03/03/25 Logged 04:00 Abg W/ Co-Ox RT 03/03/25 Logged 04:00 Dietary Evaluation Review Comments: 1) Jevity 1.2Cal @ 65ml/hr along with Pro-stat 1 pk daily. Start at 20ml/hr increase 10ml/hr until goal is reached. TF at goal volume provides 1872 kcal, 87gm protein, and 1259 ml free water. 2) Water flush 100ml Q4H if allowed, adjust PRN 3) Monitor TF tolerance, lab values, wt trend, I/O Expected Outcomes/Goals: To meet >75% estimated needs Fu 2-3 days Date of Service: Mar 02, 2025 Billing Provider: ROMELIA STEVEN MD Common Visit Codes: [id number] CARE 30-74 MIN, [id number] CARE-EACH +30MIN JARED LAGUNA RESIDENT Mar 02, 2025 17:37 ROMELIA STEVEN MD Mar 03, 2025 11:38
[2025-03-02] MEDS ORDERED: ONDANSETRON HCL 4 MG/2 ML VIAL IV PRN (18:00)
[2025-03-02] MEDS: levETIRAcetam 1000 mg/100ml 100 ML IV SCH (21:32)
[2025-03-02] MEDS: LACOSAMIDE 100 MG in SODIUM CHL 0.9% 50 ML IV SCH (21:38)
--- NOTE | 2025-03-02 21:39 | DVHPN2 ---
Progress Note - Dictate Date Seen: Mar 02, 2025 Medical Necessity Reason Pt with a Central, PICC or Fol: Yes The following are medically ne: Central Line, Gold Catheter Subjective Patient was seen and evaluated in follow up in the ICU. Patient was successfully extubated today. Patients family denied putting her on a BiPAP machine after extubation. Patient was on cool aerosol and maintained good oxygen saturation. Patient is alert, following verbal commands. Patient will be put on BiPAP for the night. HGB 9.6, HCT 28.4, CO2 34. vital signs Vital Sign Date Time Temp Pulse Resp B/P (MAP) Pulse Ox O2 Delivery O2 Flow Rate FiO2 03/02/25 20:00 115 22 97 Mechanical Ventilator+ 30 30 03/02/25 20:00 2 03/02/25 18:50 129/77 03/02/25 16:02 98.3 98.3 Total Intake and Output 03/01/25 03/01/25 03/02/25 15:00 23:00 07:00 Intake Total 652.696 ml 532.455 ml 465.085 ml Output Total 1675 ml 1230 ml Balance 652.696 ml -1142.545 ml -764.915 ml medications Current Medications Medications Dose Ordered Sig/Janette Route Start Time Stop Time Status Last Admin Dose Admin Pantoprazole Sodium 40 mg DAILY IV 02/17/25 10:00 03/02/25 09:53 40 MG Enteral Nutritional Formula 1,000 ml 30ML/HR GT 02/17/25 12:00 02/28/25 20:12 1,000 ML Sodium Chloride 10 ml QSHIFT@10,22 IV 02/22/25 22:00 03/02/25 09:54 10 ML Nystatin 1 applic BID TOP 02/25/25 10:00 03/02/25 21:35 1 APPLIC Furosemide 40 mg BIDD IV 02/26/25 18:00 03/02/25 18:46 40 MG Ipratropium [place] 0.5 mg Q8HR NEB 03/01/25 14:00 03/02/25 17:58 0.5 MG Levalbuterol HCl 0.625 mg Q8HR NEB 03/01/25 14:00 03/02/25 17:58 0.625 MG Ceftriaxone Sodium/Dextrose 50 ml @ 50 mls/hr DAILY IV 03/01/25 10:00 03/02/25 09:55 50 MLS/HR Nitroglycerin 250 ml @ 1.5 mls/hr Q24H IV 03/02/25 15:45 03/02/25 15:45 0.75 MLS/HR Morphine Sulfate 2 mg Q6HPRN PRN IV 03/02/25 18:00 Ondansetron HCl 4 mg Q6HPRN PRN IV 03/02/25 18:00 Levetiracetam 100 ml @ 400 mls/hr BID IV 03/02/25 22:00 03/02/25 21:32 400 MLS/HR Lacosamide 100 mg/ Sodium Chloride 60 ml @ 120 mls/hr BID IV 03/02/25 22:00 objective GENERAL: Alert and oriented x 3. No acute distress. EYES: PERRL, EOMI. Anicteric. HENT: Moist mucous membranes. LUNGS: Diminished breath sounds. CARDIOVASCULAR: Irregular rate and rhythm. ABDOMEN: Soft, non-tender and non-distended. EXTREMITIES: No edema. SKIN: Warm, dry. laboratory and microbiology Laboratory Tests 03/02/25 02:52 Test 03/02/25 02:52 Range/Units Serum Glucose 130 H 74-106 mg/dL Problem List Acute metabolic encephalopathy. Acute on chronic hypercapnic/hypoxemic respiratory failure. Septic shock. History of seizure disorder. History of TIA. COPD exacerbation. Bilateral pleural effusion. Acute decompensated heart failure. Bilateral pulmonary edema. Pulmonary nodule left lower lobe. Heart failure with reduced ejection fraction. Atrial fibrillation with a RVR, now rate controlled. Nonischemic cardiomyopathy. 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 Acute complicated urinary tract infection causing septic shock. Bacteremia. Assessment/Plan Continued all current supportive medical care. IV antibiotics as ordered. Diuretics with Lasix. Vimpat. Morphine for pain management. Nitro SL. GI prophylactics. Nebulized breathing treatments. Additional plan as per the hospital course. Critical care time of 45 minutes provided to include time spent evaluation of patient at bedside, when appropriate patient/family education for diagnosis, treatment plan, review of pertinent medical information and discussion of care with specialty providers and PCP. Dietary Evaluation Review Comments: 1) Jevity 1.2Cal @ 65ml/hr along with Pro-stat 1 pk daily. Start at 20ml/hr increase 10ml/hr until goal is reached. TF at goal volume provides 1872 kcal, 87gm protein, and 1259 ml free water. 2) Water flush 100ml Q4H if allowed, adjust PRN 3) Monitor TF tolerance, lab values, wt trend, I/O Expected Outcomes/Goals: To meet >75% estimated needs Fu 2-3 days Plan discussed with: Patient, Other JOSH VEGA MD Mar 02, 2025 21:39
[2025-03-03] VITALS (111 sets, daily range): BP systolic 105–184; BP diastolic 55–130; PULSE 87–141; RESP 12–30; TEMP 97.8–97.9; O2SAT 90–100
[2025-03-03 03:40] LABS: Hematocrit 27.6 % (36.0-46.0); Hemoglobin 9.4 g/dL (12.2-16.2); Mean Corpuscular Hemoglobin 32.9 pg (28.0-32.0); Mean Corpuscular Volume 96.4 fL (80.0-100.0); Nucleated Red Blood Cells % 0.0 %
[2025-03-03 03:50] LABS: Alkaline Phosphatase 67 U/L (46-116); Anion Gap 10 (5-15); BUN/Creatinine Ratio 15.5 (10.0-20.0); Blood Urea Nitrogen 15 mg/dL (9-23); Magnesium 2.1 mg/dL (1.6-2.6); Sodium 141 mmol/L (136-145); Total Protein 5.7 g/dL (5.7-8.2)
[2025-03-03 03:51] LABS: Albumin 3.3 g/dL (3.2-4.8)
[2025-03-03 03:52] LABS: Bilirubin, Total 0.3 mg/dL (0.2-1.0)
[2025-03-03 03:56] LABS: Alanine Aminotransferase < 9 U/L (7-40); Calcium 8.6 mg/dL (8.7-10.4); Carbon Dioxide 34 mmol/L (20-31); Chloride 97 mmol/L (98-107); Glucose 114 mg/dL (74-106); Potassium 3.2 mmol/L (3.5-5.1)
--- NOTE | 2025-03-03 04:41 | DVH ---
CHEST RADIOGRAPH Indication: s/p extubation Technique: Single frontal view of the chest was obtained COMPARISON: XY CHEST XRAY 1 VIEW on DOS: 03/02/25, XY CHEST PORTABLE on DOS: 03/01/25, XY CHEST PORTABL E on DOS: 02/28/25, XY CHEST XRAY 1 VIEW on DOS: 02/27/25, XY CHEST PORTABLE on DOS: 02/26/25 FINDINGS: Lines and Tubes: Status post interval extubation and removal of enteric catheter. Left peripherally i nserted central catheter is unchanged. Lungs: Mildly progressive diffuse increased prominence of the pulmonary vasculature. Stable appearing small bilateral pleural effusions. No pneumothorax. Cardiomediastinal contours: Cardiomegaly. Bones: Unremarkable IMPRESSION: 1. Cardiomegaly and mildly progressive diffuse increased prominence of the pulmonary vasculature. 2. Stable small bilateral pleural effusions. 3. Status post interval extubation and removal of enteric catheter. 4. Left PICC.
[2025-03-03] MEDS: POTASSIUM CHL 20MEQ/100ML 100 ML IV SCH (05:29)
[2025-03-03] MEDS: ENALAPRILAT 1.25 MG/ML-1ML VIAL IV ONE (10:47)
[2025-03-03] MEDS: DIGOXIN (250MCG/ML) 2 ML AMPULE IV ONE (12:22)
[2025-03-03 14:26] LABS: Potassium 3.6 mmol/L (3.5-5.1)
[2025-03-03 14:33] LABS: Magnesium 2.0 mg/dL (1.6-2.6)
--- NOTE | 2025-03-03 16:06 | DVHPNRES ---
Progress Note Date Seen: Mar 03, 2025 Resident Creating Document: JARED LAGUNA RESIDENT Medical Necessity Reason Pt with a Central, PICC or Fol: Yes The following are medically ne: Central Line, Gold Catheter Subjective Review of Systems 03/02 Patient seen and examined at the bedside. Patient extubated yesterday and does not have any respiratory distress with oxygen saturation more than 90%. Swallow evaluation will be done today Objective vital signs Vital Sign Date Time Temp Pulse Resp B/P (MAP) Pulse Ox O2 Delivery O2 Flow Rate FiO2 03/03/25 15:33 99 16 121/77 (92) 98 03/03/25 14:04 Nasal Cannula* 2 28 03/03/25 12:03 97.8 97.8 Total Intake and Output 03/02/25 03/02/25 03/03/25 15:00 23:00 07:00 Intake Total 294.435 ml 741.78 ml 322.28 ml Output Total 1750 ml 850 ml Balance 294.435 ml -1008.22 ml -527.72 ml medications Current Medications Medications Dose Ordered Sig/Janette Route Start Time Stop Time Status Last Admin Dose Admin Pantoprazole Sodium 40 mg DAILY IV 02/17/25 10:00 03/03/25 10:39 40 MG Enteral Nutritional Formula 1,000 ml 30ML/HR GT 02/17/25 12:00 02/28/25 20:12 1,000 ML Sodium Chloride 10 ml QSHIFT@10,22 IV 02/22/25 22:00 03/03/25 10:40 10 ML Nystatin 1 applic BID TOP 02/25/25 10:00 03/03/25 10:41 1 APPLIC Furosemide 40 mg BIDD IV 02/26/25 18:00 03/03/25 05:34 40 MG Ipratropium [place] 0.5 mg Q8HR NEB 03/01/25 14:00 03/03/25 14:03 0.5 MG Levalbuterol HCl 0.625 mg Q8HR NEB 03/01/25 14:00 03/03/25 14:03 0.625 MG Ceftriaxone Sodium/Dextrose 50 ml @ 50 mls/hr DAILY IV 03/01/25 10:00 03/03/25 10:40 50 MLS/HR Nitroglycerin 250 ml @ 1.5 mls/hr Q24H IV 03/02/25 15:45 8/20/25 13:45 14.25 MLS/HR Morphine Sulfate 2 mg Q6HPRN PRN IV 03/02/25 18:00 Ondansetron HCl 4 mg Q6HPRN PRN IV 03/02/25 18:00 Levetiracetam 100 ml @ 400 mls/hr BID IV 03/02/25 22:00 03/03/25 10:40 400 MLS/HR Lacosamide 100 mg/ Sodium Chloride 60 ml @ 120 mls/hr BID IV 03/02/25 22:00 03/03/25 12:22 120 MLS/HR Nitroglycerin 2 patch DAILY TD 03/04/25 10:00 Enalaprilat 0.625 mg Q6HP PRN IV 03/03/25 13:15 Examination Gen - no pallor, no icterus, no cyanosis, bilateral 1+ pitting edema in the lower extremities Skin - Patients skin is warm and dry. HEENT - normocephalic, atraumatic, moist mucous membranes. Neck - mild jugular venous distention seen Pulmonary - B/L equal air entry with improved breath sounds, no wheezing, no stridor. Moderate amount of thin white secretions cardiovascular - irregularly irregular S1,S2 heard, no added sounds, no murmurs heard. capillary refill normal >3 secs. GI - soft abdomen. Bowel sounds normoactive Neurological - patient extubated today, following verbal commands. laboratory and microbiology Laboratory Tests 03/03/25 14:00 03/03/25 02:30 Test 03/03/25 02:30 Range/Units Serum Glucose 114 H 74-106 mg/dL Microbiology Date/Time Source Procedure Growth Status 02/28/25 11:24 Bronchial Washings Gram Stain - Final Resulted 02/28/25 11:24 Bronchial Washings Respiratory Culture - Preliminary Resulted 02/26/25 02:50 Blood Blood Culture - Final NO GROWTH AFTER 5 DAYS OF INCUBATION. Complete 02/25/25 19:00 Urine - Gold Port Urine Culture - Final Presumptive Cari albicans Complete 02/25/25 11:45 Pleural Fluid Gram Stain - Final Complete 02/25/25 11:45 Pleural Fluid Aerobic Culture - Final Complete 02/18/25 02:45 Nose MRSA Screen - Final Complete Problem List/Assessment/Plan Problem List/Assessment/Plan Neurology Acute metabolic encephalopathy likely from hypercapnia respiratory failure/septic shock H/o seizure disorder h/o TIA - currently sedated and on mechanical ventilation - on Keppra and lacosamide Respiratory Acute on chronic hypercapnic/hypoxemic respiratory failure Copd likely in exacerbation Possible pneumonia from gram +/- bacteria Bilateral pleural effusion likely from acute decompensated heart failure/ ?parapneumonic Bilateral pulmonary edema likely from acute decompensated heart failure Pulmonary nodule left lower lobe - chest CT showed right lower lobe consolidation, moderate bilateral pleural effusions, mediastinal lymphadenopathy, 1.3 cm nodule in the left lower lobe - on mechanical ventilation with a FiO2 40%, peep of 5, tidal volume 400 - sputum culture showing growth of Klebsiella pneumoniae - on meropenam and linezolid - duo nebs q.6 hours - thoracentesis done on the right on 02/20 with a 850 mL fluid removed - thoracentesis done on the left side on 02/25 with 750 mL of fluid removed - bleeding in the ED tube, regular suctioning, monitor H&H, bronchoscopy showing blood clots but no active bleeding - status post extubation on 03/02 Cardiovascular Septic shock likely from UTI Acute decompensated heart failure Heart failure with reduced ejection fraction Atrial fibrillation with a RVR, Nonischemic cardiomyopathy Paroxysmal SVT - recent echocardiogram showed LVEF 10-15% with a markedly dilated LV, RV enlarged - left heart catheterization from in December 2024 shows no significant coronary artery disease, LVEF approximately 20% - BNP elevated - norepinephrine - Lovenox therapeutic dose - Lasix 40 b.i.d. - amiodarone drip - nitroglycerin patch 0.2 mg - enalapril at 0.625 mg q.6PRN IV for SBP greater than 110 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, resolved Acute complicated urinary tract infection causing septic shock, resolved - monitoring renal function - urine culture showed growth of presumptive Cari albicans - on ceftriaxone Infectious disease Septic shock UTI pneumonia due to Klebsiella - initial blood culture showed growth of Staph epidermidis, repeat blood cultures after 5 days showed no growth - sputum culture showed growth of Klebsiella pneumoniae - urine cultures growth of presumptive Cari albicans - on ceftriaxone Gastrointestinal On tube feedings DVT prophylaxis: enoxaparin, held because of bleeding in the ET tube PUD prophylaxis: Protonix Left upper arm PICC inserted on 02/22 Gold catheter inserted on 02/16 Extubated on 03/02 Goals of care discussed with the patient's Carlos and daughter's at bedside. Patient extubated yesterday, no signs of respiratory distress. Swallow evaluation will be done. Nitroglycerin patch applied Critical care time spent excluding procedures: 71 minutes Plan discussed with Dr. Steven Plan discussed with: Spouse, Daughter, Other (RN Farzana) My Orders My Orders Orders - JARED LAGUNA Procedure Category Date Status Time BIPAP RT 03/02/25 Logged 20:00 Chest Xray 1 View XY 03/03/25 Resulted 04:00 Morphine Sulfate PHA 03/02/25 In Process Injection 18:00 Ondansetron Hcl PHA 03/02/25 In Process (Zofran) 18:00 Accucheck BD 03/03/25 Transmitted 02:00 Accucheck BD 03/03/25 Transmitted 06:00 Accucheck BD 03/03/25 Transmitted 10:00 Accucheck BD 03/03/25 Transmitted 14:00 Communication Order ORDERS 03/02/25 Transmitted 22:53 * Swallow Request ST 03/03/25 Transmitted 10:06 Nitroglyerin 0.1mg/Hr PHA 03/04/25 In Process Patch (Nitrodur 0. 10:00 Enalaprilat Injection PHA 03/03/25 In Process (Vasotec Injection 13:15 Pt Request For Service PT 03/03/25 Logged 13:04 Dietary Evaluation Review Comments: 1) Jevity 1.2Cal @ 65ml/hr along with Pro-stat 1 pk daily. Start at 20ml/hr increase 10ml/hr until goal is reached. TF at goal volume provides 1872 kcal, 87gm protein, and 1259 ml free water. 2) Water flush 100ml Q4H if allowed, adjust PRN 3) Monitor TF tolerance, lab values, wt trend, I/O Expected Outcomes/Goals: To meet >75% estimated needs Fu 2-3 days Date of Service: Mar 03, 2025 Billing Provider: ROMELIA STEVEN MD Common Visit Codes: 87428-[id number] CARE 30-74 MIN JARED LAGUNA Mar 03, 2025 16:06 ROMELIA STEVEN MD Mar 04, 2025 11:00
[2025-03-03] MEDS: POTASSIUM CHL 20MEQ/100ML 100 ML IV ONE (18:07)
[2025-03-03] MEDS: ENALAPRILAT 1.25 MG/ML-1ML VIAL IV PRN (18:08)
[2025-03-03] MEDS: NITROGLYCERIN 0.2MG/HR TOPICAL PATCH TD SCH (18:48)
--- NOTE | 2025-03-03 23:23 | DVHPN2 ---
Progress Note - Dictate Date Seen: Mar 03, 2025 Medical Necessity Reason Pt with a Central, PICC or Fol: Yes The following are medically ne: Central Line, Gold Catheter Subjective Patient was seen and evaluated in follow up in the ICU. Patient's is present at bedside. Patient is able to follow commands. HGB 9.4, HCT 27.6, K 3.2, CL 97, CO2 34, CA 8.6. Chest x-ray shows cardiomegaly and mildly progressive diffuse increased prominence of the pulmonary vasculature, stable small bilateral pleural effusions. vital signs Vital Sign Date Time Temp Pulse Resp B/P (MAP) Pulse Ox O2 Delivery O2 Flow Rate FiO2 03/03/25 13:45 118/81 03/03/25 12:22 94 03/03/25 11:48 20 98 03/03/25 10:00 Nasal Cannula* 2 28 03/03/25 08:03 97.8 97.8 Total Intake and Output 03/02/25 03/02/25 03/03/25 15:00 23:00 07:00 Intake Total 294.435 ml 741.78 ml 322.28 ml Output Total 1750 ml 850 ml Balance 294.435 ml -1008.22 ml -527.72 ml medications Current Medications Medications Dose Ordered Sig/Janette Route Start Time Stop Time Status Last Admin Dose Admin Pantoprazole Sodium 40 mg DAILY IV 02/17/25 10:00 03/03/25 10:39 40 MG Enteral Nutritional Formula 1,000 ml 30ML/HR GT 02/17/25 12:00 02/28/25 20:12 1,000 ML Sodium Chloride 10 ml QSHIFT@10,22 IV 02/22/25 22:00 03/03/25 10:40 10 ML Nystatin 1 applic BID TOP 02/25/25 10:00 03/03/25 10:41 1 APPLIC Furosemide 40 mg BIDD IV 02/26/25 18:00 03/03/25 05:34 40 MG Ipratropium [place] 0.5 mg Q8HR NEB 03/01/25 14:00 03/03/25 06:24 0.5 MG Levalbuterol HCl 0.625 mg Q8HR NEB 03/01/25 14:00 03/03/25 06:23 0.625 MG Ceftriaxone Sodium/Dextrose 50 ml @ 50 mls/hr DAILY IV 03/01/25 10:00 03/03/25 10:40 50 MLS/HR Nitroglycerin 250 ml @ 1.5 mls/hr Q24H IV 03/02/25 15:45 03/03/25 13:45 14.25 MLS/HR Morphine Sulfate 2 mg Q6HPRN PRN IV 03/02/25 18:00 Ondansetron HCl 4 mg Q6HPRN PRN IV 03/02/25 18:00 Levetiracetam 100 ml @ 400 mls/hr BID IV 03/02/25 22:00 03/03/25 10:40 400 MLS/HR Lacosamide 100 mg/ Sodium Chloride 60 ml @ 120 mls/hr BID IV 03/02/25 22:00 03/03/25 12:22 120 MLS/HR Nitroglycerin 2 patch DAILY TD 03/04/25 10:00 Enalaprilat 0.625 mg Q6HP PRN IV 03/03/25 13:15 objective GENERAL: Alert and oriented x 3. No acute distress. EYES: PERRL, EOMI. Anicteric. HENT: Moist mucous membranes. LUNGS: Diminished breath sounds. CARDIOVASCULAR: Irregular rate and rhythm. ABDOMEN: Soft, non-tender and non-distended. EXTREMITIES: No edema. SKIN: Warm, dry. laboratory and microbiology Laboratory Tests 03/03/25 02:30 Test 03/03/25 02:30 Range/Units Serum Glucose 114 H 74-106 mg/dL Problem List Acute metabolic encephalopathy. Acute on chronic hypercapnic/hypoxemic respiratory failure. Septic shock. History of seizure disorder. History of TIA. COPD exacerbation. Bilateral pleural effusion. Acute decompensated heart failure. Bilateral pulmonary edema. Pulmonary nodule left lower lobe. Heart failure with reduced ejection fraction. Atrial fibrillation with a RVR, now rate controlled. Nonischemic cardiomyopathy. 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 Acute complicated urinary tract infection causing septic shock. Bacteremia. Assessment/Plan Continued all current supportive medical care. IV antibiotics as ordered. Diuretics with Lasix. Morphine for pain management. Nitro SL. GI prophylactics. Nebulized breathing treatments. Additional plan as per the hospital course. Critical care time of 45 minutes provided to include time spent evaluation of patient at bedside, when appropriate patient/family education for diagnosis, treatment plan, review of pertinent medical information and discussion of care with specialty providers and PCP. Dietary Evaluation Review Comments: 1) Jevity 1.2Cal @ 65ml/hr along with Pro-stat 1 pk daily. Start at 20ml/hr increase 10ml/hr until goal is reached. TF at goal volume provides 1872 kcal, 87gm protein, and 1259 ml free water. 2) Water flush 100ml Q4H if allowed, adjust PRN 3) Monitor TF tolerance, lab values, wt trend, I/O Expected Outcomes/Goals: To meet >75% estimated needs Fu 2-3 days Plan discussed with: Patient JOSH VEGA MD Mar 03, 2025 14:08
[2025-03-04] VITALS (109 sets, daily range): BP systolic 116–194; BP diastolic 57–147; PULSE 67–125; RESP 12–30; TEMP 97.8–98.5; O2SAT 87–100
[2025-03-04 03:25] LABS: Hematocrit 29.2 % (36.0-46.0); Hemoglobin 9.7 g/dL (12.2-16.2); Mean Corpuscular Hemoglobin 31.9 pg (28.0-32.0); Mean Corpuscular Volume 96.3 fL (80.0-100.0); Nucleated Red Blood Cells % 0.0 %
[2025-03-04 03:49] LABS: Albumin 3.5 g/dL (3.2-4.8); Alkaline Phosphatase 69 U/L (46-116); Anion Gap 12 (5-15); BUN/Creatinine Ratio 9.5 (10.0-20.0); Bilirubin, Total 0.3 mg/dL (0.2-1.0); Blood Urea Nitrogen 10 mg/dL (9-23); Calcium 8.9 mg/dL (8.7-10.4); Glucose 96 mg/dL (74-106); Magnesium 2.1 mg/dL (1.6-2.6); Potassium 3.6 mmol/L (3.5-5.1); Sodium 141 mmol/L (136-145); Total Protein 6.0 g/dL (5.7-8.2)
[2025-03-04 04:21] LABS: Alanine Aminotransferase < 9 U/L (7-40); Carbon Dioxide 31 mmol/L (20-31); Chloride 98 mmol/L (98-107)
--- NOTE | 2025-03-04 05:46 | DVH ---
CHEST RADIOGRAPH Indication: CHF Technique: Single frontal view of the chest was obtained COMPARISON: XY CHEST XRAY 1 VIEW on DOS: 03/03/25, XY CHEST XRAY 1 VIEW on DOS: 03/02/25, XY CHEST PORT ABLE on DOS: 03/01/25, XY CHEST PORTABLE on DOS: 02/28/25, XY CHEST XRAY 1 VIEW on DOS: 02/27/25 FINDINGS: Lines and Tubes: Left PICC in satisfactory position. Lungs: Congestion Pleura: Small bilateral pleural effusions. No pneumothorax. Cardiomediastinal contours: Cardiomegaly Bones: Unremarkable IMPRESSION: No significant interval change.
[2025-03-04] MEDS: POTASSIUM CHL 20MEQ/100ML 100 ML IV SCH (09:37)
[2025-03-04] MEDS: DIGOXIN (250MCG/ML) 2 ML AMPULE IV ONE (09:37)
[2025-03-04] MEDS: ENALAPRILAT 1.25 MG/ML-1ML VIAL IV PRN (09:47)
[2025-03-04] MEDS ORDERED: NTG 0.1MG/HR TOPICAL PATCH TD SCH (10:00)
[2025-03-04] MEDS ORDERED: HALOPERIDOL LACTATE 5 MG/ML INJ VIAL IM ONE (13:15)
--- NOTE | 2025-03-04 13:52 | DVHPNRES ---
Progress Note Date Seen: Mar 04, 2025 Resident Creating Document: JARED LAGUNA RESIDENT Medical Necessity Reason Pt with a Central, PICC or Fol: Yes The following are medically ne: Central Line, Gold Catheter Subjective Review of Systems 03/04 Patient seen and examined at the bedside. Alert and oriented to place, year and person but disoriented to location. Patient has mild agitation. Elevated blood ranging up to SBP 160/170, patient passed bedside swallow eval with a pureed diet. Patient will be started on low-dose Entresto and carvedilol Objective vital signs Vital Sign Date Time Temp Pulse Resp B/P (MAP) Pulse Ox O2 Delivery O2 Flow Rate FiO2 03/04/25 13:18 79 17 153/90 (111) 92 03/04/25 12:03 98.0 98.0 03/04/25 12:00 Nasal Cannula* 1 24 Total Intake and Output 03/03/25 03/03/25 03/04/25 15:00 23:00 07:00 Intake Total 551.21 ml 371.39 ml 133.28 ml Output Total 1025 ml 1250 ml Balance 551.21 ml -653.61 ml -1116.72 ml medications Current Medications Medications Dose Ordered Sig/Janette Route Start Time Stop Time Status Last Admin Dose Admin Pantoprazole Sodium 40 mg DAILY IV 02/17/25 10:00 03/04/25 09:37 40 MG Sodium Chloride 10 ml QSHIFT@10,22 IV 02/22/25 22:00 03/04/25 09:38 10 ML Nystatin 1 applic BID TOP 02/25/25 10:00 03/04/25 09:38 1 APPLIC Furosemide 40 mg BIDD IV 02/26/25 18:00 03/04/25 06:02 40 MG Ipratropium Bon[place]arte 0.5 mg Q8HR NEB 03/01/25 14:00 03/04/25 06:31 0.5 MG Levalbuterol HCl 0.625 mg Q8HR NEB 03/01/25 14:00 03/04/25 06:31 0.625 MG Ceftriaxone Sodium/Dextrose 50 ml @ 50 mls/hr DAILY IV 03/01/25 10:00 03/04/25 09:38 50 MLS/HR Morphine Sulfate 2 mg Q6HPRN PRN IV 03/02/25 18:00 Ondansetron HCl 4 mg Q6HPRN PRN IV 03/02/25 18:00 Nitroglycerin 1 patch DAILY@1800 TD 03/03/25 18:13 03/03/25 18:48 1 PATCH Sacubitril/ Valsartan 0.5 tab BID PO 03/04/25 22:00 UNV Carvedilol 3.125 mg Q12HR PO 03/04/25 22:00 UNV Levetiracetam 1,000 mg BID PO 03/04/25 22:00 UNV Examination Gen - no pallor, no icterus, no cyanosis, bilateral 1+ pitting edema in the lower extremities Skin - Patients skin is warm and dry. HEENT - normocephalic, atraumatic, moist mucous membranes. Neck - mild jugular venous distention seen Pulmonary - B/L coarse breath sounds in the mid to lower zones, no wheezing, no stridor. cardiovascular - irregularly irregular S1,S2 heard, no added sounds, no murmurs heard. GI - soft abdomen. Bowel sounds normoactive Neurological - patient extubated today, following verbal commands, alert oriented to place, person, year but disoriented to the location laboratory and microbiology Laboratory Tests 03/04/25 02:26 Test 03/04/25 02:26 Range/Units Serum Glucose 96 74-106 mg/dL Microbiology Date/Time Source Procedure Growth Status 02/28/25 11:24 Bronchial Washings Gram Stain - Final Resulted 02/28/25 11:24 Respiratory Culture - Preliminary Presumptive Cari albicans Resulted 02/26/25 02:50 Blood Blood Culture - Final NO GROWTH AFTER 5 DAYS OF INCUBATION. Complete 02/25/25 19:00 Urine - Gold Port Urine Culture - Final Presumptive Cari albicans Complete 02/25/25 11:45 Pleural Fluid Gram Stain - Final Complete 02/25/25 11:45 Pleural Fluid Aerobic Culture - Final Complete 02/18/25 02:45 Nose MRSA Screen - Final Complete Problem List/Assessment/Plan Problem List/Assessment/Plan Neurology Acute metabolic encephalopathy likely from hypercapnia respiratory failure/septic shock H/o seizure disorder h/o TIA - currently sedated and on mechanical ventilation - on Keppra and lacosamide Respiratory Acute on chronic hypercapnic/hypoxemic respiratory failure Copd likely in exacerbation Possible pneumonia from gram +/- bacteria Bilateral pleural effusion likely from acute decompensated heart failure/ ?parapneumonic Bilateral pulmonary edema likely from acute decompensated heart failure Pulmonary nodule left lower lobe - chest CT showed right lower lobe consolidation, moderate bilateral pleural effusions, mediastinal lymphadenopathy, 1.3 cm nodule in the left lower lobe - on mechanical ventilation with a FiO2 40%, peep of 5, tidal volume 400 - sputum culture showing growth of Klebsiella pneumoniae - on meropenam and linezolid - duo nebs q.6 hours - thoracentesis done on the right on 02/20 with a 850 mL fluid removed - thoracentesis done on the left side on 02/25 with 750 mL of fluid removed - bleeding in the ED tube, regular suctioning, monitor H&H, bronchoscopy showing blood clots but no active bleeding - status post extubation on 03/02 Cardiovascular Septic shock likely from UTI Acute decompensated heart failure Heart failure with reduced ejection fraction Atrial fibrillation with a RVR, Nonischemic cardiomyopathy Paroxysmal SVT - recent echocardiogram showed LVEF 10-15% with a markedly dilated LV, RV enlarged - left heart catheterization from in December 2024 shows no significant coronary artery disease, LVEF approximately 20% - BNP elevated - norepinephrine - Lovenox therapeutic dose - Lasix 40 b.i.d. - amiodarone drip - nitroglycerin patch 0.2 mg - Entresto 0.5 b.i.d., carvedilol 3.125 b.i.d. 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, resolved Acute complicated urinary tract infection causing septic shock, resolved - monitoring renal function - urine culture showed growth of presumptive Cari albicans - on ceftriaxone Infectious disease Septic shock UTI pneumonia due to Klebsiella - initial blood culture showed growth of Staph epidermidis, repeat blood cultures after 5 days showed no growth - sputum culture showed growth of Klebsiella pneumoniae - urine cultures growth of presumptive Cari albicans - on ceftriaxone Gastrointestinal On tube feedings DVT prophylaxis: enoxaparin, held because of bleeding in the ET tube PUD prophylaxis: Protonix Left upper arm PICC inserted on 02/22 Gold catheter inserted on 02/16 Extubated on 03/02 Goals of care discussed with the patient's Carlos. Critical care time spent excluding procedures: 67 minutes Plan discussed with Dr. Steven Plan discussed with: Patient, Spouse, Other (CLAIRE Yanes) My Orders My Orders Orders - JARED LAGUNA RESIDENT Procedure Category Date Status Time Chest Xray 1 View XY 03/04/25 Resulted 04:00 Nitroglycerin PHA 03/03/25 In Process 0.2mg/Hr Patch 18:13 Communication Order ORDERS 03/03/25 Transmitted 19:55 Accucheck BD 03/04/25 Transmitted 02:00 Accucheck BD 03/04/25 Transmitted 06:00 Accucheck BD 03/04/25 Transmitted 10:00 Accucheck BD 03/04/25 Transmitted 14:00 Communication Order ORDERS 03/03/25 Transmitted 22:31 Sacubitril-Valsartan PHA 03/04/25 Logged (Entresto 24-26 Mg 22:00 Carvedilol Tablet PHA 03/04/25 Logged (Coreg Tablet) 22:00 Pureed DIET 03/04/25 Transmitted Lunch Levetiracetam Tablet PHA 03/04/25 Logged (Keppra Tablet) 22:00 Complete Blood Count LAB 03/05/25 Verified 04:00 Basic Metabolic Panel LAB 03/05/25 Verified 04:00 Chest Xray 1 View XY 03/05/25 Logged 04:00 Dietary Evaluation Review Comments: 1) Jevity 1.2Cal @ 65ml/hr along with Pro-stat 1 pk daily. Start at 20ml/hr increase 10ml/hr until goal is reached. TF at goal volume provides 1872 kcal, 87gm protein, and 1259 ml free water. 2) Water flush 100ml Q4H if allowed, adjust PRN 3) Monitor TF tolerance, lab values, wt trend, I/O Expected Outcomes/Goals: To meet >75% estimated needs Fu 2-3 days Date of Service: Mar 04, 2025 Billing Provider: ROMELIA STEVEN MD Common Visit Codes: 24585-[id number] CARE 30-74 MIN JARED LAGUNA RESIDENT Mar 04, 2025 13:52 ROMELIA STEVEN MD Mar 06, 2025 11:50
[2025-03-04] MEDS: ALPRAZolam 0.25 MG TAB PO ONE (15:41)
[2025-03-04] MEDS: POTASSIUM CHL 20MEQ/100ML 100 ML IV ONE (18:28)
[2025-03-04] MEDS: CARVEDILOL 3.125 MG TAB PO SCH (21:16)
[2025-03-04] MEDS: levETIRAcetam 500 MG TAB PO SCH (21:16)
[2025-03-04] MEDS: SACUBITRIL-VALSARTAN 24mg/26mg TAB PO SCH (21:24)
--- NOTE | 2025-03-04 23:45 | DVHPN2 ---
Progress Note - Dictate Date Seen: Mar 04, 2025 Medical Necessity Reason Pt with a Central, PICC or Fol: Yes The following are medically ne: Central Line, Gold Catheter Subjective Patient was seen and evaluated in follow up in the ICU. Patient's is present at bedside. Patient is working with patient. HGB 9.7, HCT 29.2, STORE GROUP MANAGER 1.05. Chest x-ray is unchanged. vital signs Vital Sign Date Time Temp Pulse Resp B/P (MAP) Pulse Ox O2 Delivery O2 Flow Rate FiO2 03/04/25 09:47 136/73 03/04/25 09:37 91 03/04/25 08:33 19 96 03/04/25 08:03 98.5 98.5 03/04/25 08:00 Nasal Cannula* 1 24 Total Intake and Output 03/03/25 03/03/25 03/04/25 15:00 23:00 07:00 Intake Total 551.21 ml 371.39 ml 133.28 ml Output Total 1025 ml 1250 ml Balance 551.21 ml -653.61 ml -1116.72 ml medications Current Medications Medications Dose Ordered Sig/Janette Route Start Time Stop Time Status Last Admin Dose Admin Pantoprazole Sodium 40 mg DAILY IV 02/17/25 10:00 03/04/25 09:37 40 MG Sodium Chloride 10 ml QSHIFT@10,22 IV 02/22/25 22:00 03/04/25 09:38 10 ML Nystatin 1 applic BID TOP 02/25/25 10:00 03/04/25 09:38 1 APPLIC Furosemide 40 mg BIDD IV 02/26/25 18:00 03/04/25 06:02 40 MG Ipratropium [place] 0.5 mg Q8HR NEB 03/01/25 14:00 03/04/25 06:31 0.5 MG Levalbuterol HCl 0.625 mg Q8HR NEB 03/01/25 14:00 03/04/25 06:31 0.625 MG Ceftriaxone Sodium/Dextrose 50 ml @ 50 mls/hr DAILY IV 03/01/25 10:00 03/04/25 09:38 50 MLS/HR Morphine Sulfate 2 mg Q6HPRN PRN IV 03/02/25 18:00 Ondansetron HCl 4 mg Q6HPRN PRN IV 03/02/25 18:00 Levetiracetam 100 ml @ 400 mls/hr BID IV 03/02/25 22:00 03/04/25 09:37 400 MLS/HR Lacosamide 100 mg/ Sodium Chloride 60 ml @ 120 mls/hr BID IV 03/02/25 22:00 03/04/25 11:58 120 MLS/HR Nitroglycerin 1 patch DAILY@1800 TD 03/03/25 18:13 03/03/25 18:48 1 PATCH objective GENERAL: Alert and oriented x 3. No acute distress. EYES: PERRL, EOMI. Anicteric. HENT: Moist mucous membranes. LUNGS: Diminished breath sounds. CARDIOVASCULAR: Irregular rate and rhythm. ABDOMEN: Soft, non-tender and non-distended. EXTREMITIES: No edema. SKIN: Warm, dry. laboratory and microbiology Laboratory Tests 03/04/25 02:26 Test 03/04/25 02:26 Range/Units Serum Glucose 96 74-106 mg/dL Problem List Acute metabolic encephalopathy. Acute on chronic hypercapnic/hypoxemic respiratory failure. Septic shock. History of seizure disorder. History of TIA. COPD exacerbation. Bilateral pleural effusion. Acute decompensated heart failure. Bilateral pulmonary edema. Pulmonary nodule left lower lobe. Heart failure with reduced ejection fraction. Atrial fibrillation with a RVR, now rate controlled. Nonischemic cardiomyopathy. 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 Acute complicated urinary tract infection causing septic shock. Bacteremia. Assessment/Plan Continued all current supportive medical care. IV antibiotics as ordered. Diuretics with Lasix. Morphine for pain management. Nitro SL. GI prophylactics. Nebulized breathing treatments. Additional plan as per the hospital course. Critical care time of 45 minutes provided to include time spent evaluation of patient at bedside, when appropriate patient/family education for diagnosis, treatment plan, review of pertinent medical information and discussion of care with specialty providers and PCP. Dietary Evaluation Review Comments: 1) Jevity 1.2Cal @ 65ml/hr along with Pro-stat 1 pk daily. Start at 20ml/hr increase 10ml/hr until goal is reached. TF at goal volume provides 1872 kcal, 87gm protein, and 1259 ml free water. 2) Water flush 100ml Q4H if allowed, adjust PRN 3) Monitor TF tolerance, lab values, wt trend, I/O Expected Outcomes/Goals: To meet >75% estimated needs Fu 2-3 days Plan discussed with: Patient JOSH VEGA MD Mar 04, 2025 12:25
[2025-03-05] VITALS (94 sets, daily range): BP systolic 96–185; BP diastolic 52–123; PULSE 65–111; RESP 10–71; TEMP 97.8–98.9; O2SAT 88–100
[2025-03-05] MEDS: LABETALOL HCL 20 MG/4 ML VL IV ONE (01:51)
[2025-03-05 03:46] LABS: Hematocrit 32.8 % (36.0-46.0); Hemoglobin 11.1 g/dL (12.2-16.2); Mean Corpuscular Hemoglobin 32.9 pg (28.0-32.0); Mean Corpuscular Volume 97.5 fL (80.0-100.0); Nucleated Red Blood Cells % 0.1 %
[2025-03-05 03:55] LABS: Anion Gap 11 (5-15); Carbon Dioxide 30 mmol/L (20-31); Chloride 101 mmol/L (98-107); Potassium 3.5 mmol/L (3.5-5.1); Sodium 142 mmol/L (136-145)
[2025-03-05 03:56] LABS: Calcium 8.4 mg/dL (8.7-10.4)
[2025-03-05 04:00] LABS: BUN/Creatinine Ratio 8.0 (10.0-20.0)
[2025-03-05 04:12] LABS: Blood Urea Nitrogen 8 mg/dL (9-23); Glucose 106 mg/dL (74-106)
--- NOTE | 2025-03-05 05:39 | DVH ---
CHEST RADIOGRAPH Indication: b/l rales Technique: Single frontal view of the chest was obtained COMPARISON: XY CHEST XRAY 1 VIEW on DOS: 03/04/25, XY CHEST XRAY 1 VIEW on DOS: 03/03/25, XY CHEST XRAY 1 VIEW on DOS: 03/02/25, XY CHEST PORTABLE on DOS: 03/01/25, XY CHEST PORTABLE on DOS: 02/28/25, XY [address] XRAY 1 VIEW on DOS: 03/04/25 FINDINGS: Lines and Tubes: Left PICC in satisfactory position. Lungs: Congestion Pleura: Small bilateral pleural effusions. No pneumothorax. Cardiomediastinal contours: Cardiomegaly Bones: Unremarkable IMPRESSION: No significant interval change.
--- NOTE | 2025-03-05 11:47 | DVHPNRES ---
Progress Note Date Seen: Mar 05, 2025 Resident Creating Document: JARED LAGUNA RESIDENT Medical Necessity Reason Pt with a Central, PICC or Fol: Yes The following are medically ne: Central Line, Gold Catheter Subjective Review of Systems Patient is 80-year-old female with a medical history of atrial fibrillation, heart failure with reduced ejection fraction, CKD, COPD, seizure disorder was brought to the ED via EMS with worsening shortness of breath for the last 2 days. As per the since the last 2 days patient started to have worsening shortness of breath associated with a cough and worsening mental status with lethargy. She denied any chest pain, nausea, vomiting, recent sick contact. On arrival to the ED patient was tachycardic with the ECG showing atrial fibrillation with RVR and was mildly hypotensive with BP 105/63 mmHg. With a worsening respiratory status patient was put on BiPAP but she continued to have respiratory distress with increased work of breathing and was intubated and put on mechanical ventilation on 02/16. On reviewing the charts patient has a had a previous has had previous urinary tract infection with the Acinetobacter baumannii in in November 2024, VRE in April 2024 with bacteremia due to VRE in April 2024. Patient underwent a coronary angiography done in December 2024 showed no significant coronary artery disease, decreased LVEF at 20% with a LVEDP 18 mmHg. Echocardiogram from the same admission in November 2024 showed LVEF 10-15%, end-stage systolic dysfunction, enlarged RV dysfunction. Initial chest CT showed possible right lower pneumonia, bilateral pleural effusions moderate, left lower lobe pulmonary nodule measuring 1.3 cm. Patient initially was septic in shock with vasopressor requirements. Patient was initially started on broad-spectrum antibiotic coverage with linezolid and meropenem given the previous urine and blood cultures growing Acinetobacter and VRE respectively. On this admission garcía cultures were done, showed growth of Klebsiella in the sputum, presumptive Cari in the urine following which the patient was downgraded to ceftriaxone 2 g daily and she did not have any fevers and WBC count remained within normal limits. Chest x-ray showed bilateral congestion and patient was started initially on Lasix 40 mg daily and then transition to 40 mg b.i.d. As her lungs cleared up and patient was attempted a CPAP trial on 03/01 which she, another CPAP trial was attempted on 03/02 following which the patient was extubated. No respiratory distress was noted and patient continued to be on nasal cannula oxygen at 1 L/min. After extubation patient did have elevated blood pressures and was started on nitroglycerin drip because she could not pass the swallow evaluation but as she was able to eat pureed diet was transition to Entresto 0.5 b.i.d. and carvedilol 3.125 b.i.d. which is tolerated well. While the patient was intubated, was bleeding in the ED to which was suctioned and anticoagulation was stopped given the high-risk of bleeding. She is currently on amiodarone 200 mg b.i.d. for rate and rhythm control. Keppra and lacosamide for seizures. Patient's decided to take the patient on hospice to home for which the child support case officer is following up. Medical history: Atrial fibrillation, heart failure with a reduced ejection fraction, CKD, hypertension, seizure disorder, COPD Surgical history: Knee surgery and back surgery Social history: Patient is active smoker with 60 pack year smoking history, denies alcohol and any other drug use, mostly bed-bound, uses wheelchair for mobility Home medications: Eliquis, clopidogrel, Lasix, irbesartan, metoprolol succinate, spironolactone, Keppra, lacosamide, Spiriva inhaler, albuterol 03/05 Patient is seen and examined with the bedside. Overnight patient did have elevated blood pressure ranging up to SBP 160s but she was agitated as well and was not able to sleep. Early in the morning patient went to sleep blood pressure came down in the 110s and 120s. She is able to tolerate pureed diet. Two bowel movements noted. Physical therapy is working with the patient Objective vital signs Vital Sign Date Time Temp Pulse Resp B/P (MAP) Pulse Ox O2 Delivery O2 Flow Rate FiO2 03/05/25 09:18 98.9 86 17 120/75 (90) 100 98.9 03/05/25 08:00 Nasal Cannula* 1 24 Total Intake and Output 03/04/25 03/04/25 03/05/25 15:00 23:00 07:00 Intake Total 843.28 ml 233.28 ml 176.62 ml Output Total 1750 ml 1875 ml Balance 843.28 ml -1516.72 ml -1698.38 ml medications Current Medications Medications Dose Ordered Sig/Janette Route Start Time Stop Time Status Last Admin Dose Admin Pantoprazole Sodium 40 mg DAILY IV 02/17/25 10:00 03/05/25 09:07 40 MG Sodium Chloride 10 ml QSHIFT@10,22 IV 02/22/25 22:00 03/05/25 09:08 10 ML Nystatin 1 applic BID TOP 02/25/25 10:00 03/05/25 09:09 1 APPLIC Furosemide 40 mg BIDD IV 02/26/25 18:00 03/05/25 05:08 40 MG Ipratropium [place] 0.5 mg Q8HR NEB 03/01/25 14:00 03/05/25 06:28 0.5 MG Levalbuterol HCl 0.625 mg Q8HR NEB 03/01/25 14:00 03/05/25 06:28 0.625 MG Ceftriaxone Sodium/Dextrose 50 ml @ 50 mls/hr DAILY IV 03/01/25 10:00 03/05/25 09:08 50 MLS/HR Morphine Sulfate 2 mg Q6HPRN PRN IV 03/02/25 18:00 Ondansetron HCl 4 mg Q6HPRN PRN IV 03/02/25 18:00 Nitroglycerin 1 patch DAILY@1800 TD 03/03/25 18:13 03/03/25 18:48 1 PATCH Sacubitril/ Valsartan 0.5 tab BID PO 03/04/25 22:00 03/05/25 09:09 0.5 TAB Carvedilol 3.125 mg Q12HR PO 03/04/25 22:00 03/05/25 09:09 3.125 MG Levetiracetam 1,000 mg BID PO 03/04/25 22:00 03/05/25 09:09 1,000 MG Examination Gen - no pallor, no icterus, no cyanosis, bilateral 1+ pitting edema in the lower extremities Skin - Patients skin is warm and dry. HEENT - normocephalic, atraumatic, moist mucous membranes. Neck - mild jugular venous distention seen Pulmonary - B/L coarse breath sounds in the mid to lower zones, no wheezing, no stridor. cardiovascular - irregularly irregular S1,S2 heard, no added sounds, no murmurs heard. GI - soft abdomen. Bowel sounds normoactive Neurological - patient alert oriented to place, person, year , knows that she is in the hospital. He is more oriented today, following verbal commands, bilateral upper extremity strength 3/5, facial droop, comprehensible speech, able to swallow pureed diet laboratory and microbiology Laboratory Tests 03/05/25 03:23 Test 03/05/25 03:23 Range/Units Serum Glucose 106 74-106 mg/dL Microbiology Date/Time Source Procedure Growth Status 02/28/25 11:24 Bronchial Washings Gram Stain - Final Complete 02/28/25 11:24 Respiratory Culture - Final Presumptive Cari albicans Complete 02/26/25 02:50 Blood Blood Culture - Final NO GROWTH AFTER 5 DAYS OF INCUBATION. Complete 02/25/25 19:00 Urine - Gold Port Urine Culture - Final Presumptive Cari albicans Complete 02/25/25 11:45 Pleural Fluid Gram Stain - Final Complete 02/25/25 11:45 Pleural Fluid Aerobic Culture - Final Complete 02/18/25 02:45 Nose MRSA Screen - Final Complete Problem List/Assessment/Plan Problem List/Assessment/Plan Neurology Acute metabolic encephalopathy likely from hypercapnia respiratory failure/septic shock, resolved H/o seizure disorder h/o TIA - on Keppra and lacosamide Respiratory Acute on chronic hypercapnic/hypoxemic respiratory failure Copd likely in exacerbation Possible pneumonia from gram +/- bacteria Bilateral pleural effusion likely from acute decompensated heart failure/ ?parapneumonic Bilateral pulmonary edema likely from acute decompensated heart failure Pulmonary nodule left lower lobe - chest CT showed right lower lobe consolidation, moderate bilateral pleural effusions, mediastinal lymphadenopathy, 1.3 cm nodule in the left lower lobe - on mechanical ventilation with a FiO2 40%, peep of 5, tidal volume 400 - sputum culture showing growth of Klebsiella pneumoniae - on meropenam and linezolid - duo nebs q.6 hours - thoracentesis done on the right on 02/20 with a 850 mL fluid removed - thoracentesis done on the left side on 02/25 with 750 mL of fluid removed - bleeding in the ED tube, regular suctioning, monitor H&H, bronchoscopy showing blood clots but no active bleeding - status post extubation on 03/02 - on oxygen via nasal cannula at 1L/min Cardiovascular Septic shock likely from UTI Acute decompensated heart failure Heart failure with reduced ejection fraction Atrial fibrillation with a RVR, Nonischemic cardiomyopathy Paroxysmal SVT - recent echocardiogram showed LVEF 10-15% with a markedly dilated LV, RV enlarged - left heart catheterization from in December 2024 shows no significant coronary artery disease, LVEF approximately 20% - BNP elevated - norepinephrine - Lovenox therapeutic dose - Lasix 40 b.i.d. - amiodarone 200mg po bid - Entresto 0.5 b.i.d., carvedilol 3.125 b.i.d. 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, resolved Acute complicated urinary tract infection causing septic shock, resolved - monitoring renal function - urine culture showed growth of presumptive Cari albicans - on ceftriaxone Infectious disease Septic shock UTI pneumonia due to Klebsiella - initial blood culture showed growth of Staph epidermidis, repeat blood cultures after 5 days showed no growth - sputum culture showed growth of Klebsiella pneumoniae - urine cultures growth of presumptive Cari albicans - on ceftriaxone Gastrointestinal On tube feedings DVT prophylaxis: enoxaparin, held ( bleeding in the ET tube when she was on ventilator, high risk of bleeding) PUD prophylaxis: Protonix Left upper arm PICC inserted on 02/22 Gold catheter inserted on 02/16 Extubated on 03/02 Goals of care discussed with the patient's Carlos. According to the 's wishes patient will be placed on home hospice care at discharge and the process has been initiated. Critical care time spent excluding procedures: 46 minutes Plan discussed with Dr. Chavez Plan discussed with: Spouse, Other (CLAIRE Montague) My Orders My Orders Orders - JARED LAGUNA RESIDENT Procedure Category Date Status Time Sacubitril-Valsartan PHA 03/04/25 In Process (Entresto 24-26 Mg 22:00 Carvedilol Tablet PHA 03/04/25 In Process (Coreg Tablet) 22:00 Pureed DIET 03/04/25 Transmitted Lunch Levetiracetam Tablet PHA 03/04/25 In Process (Keppra Tablet) 22:00 Chest Xray 1 View XY 03/05/25 Resulted 04:00 Transfer Orders XFER 03/05/25 Transmitted 10:51 Dietary Evaluation Review Comments: 1) Jevity 1.2Cal @ 65ml/hr along with Pro-stat 1 pk daily. Start at 20ml/hr increase 10ml/hr until goal is reached. TF at goal volume provides 1872 kcal, 87gm protein, and 1259 ml free water. 2) Water flush 100ml Q4H if allowed, adjust PRN 3) Monitor TF tolerance, lab values, wt trend, I/O Expected Outcomes/Goals: To meet >75% estimated needs Fu 2-3 days JARED LAGUNA RESIDENT Mar 05, 2025 11:47
[2025-03-05] MEDS: AMIODARONE HCL 200 MG TAB PO ONE (12:00)
[2025-03-05] MEDS: LACOSAMIDE 50 MG TAB PO SCH (12:13)
--- NOTE | 2025-03-05 17:25 | DVHPN2 ---
Progress Note - Dictate Date Seen: Mar 05, 2025 Medical Necessity Reason Pt with a Central, PICC or Fol: Yes The following are medically ne: Central Line, Gold Catheter Subjective Patient was seen and evaluated in follow up in the ICU. Overnight, the patient was agitated and BP was elevated n the 160s. Once patient went to sleep, HR dropped into the 110-120s. Patient is tolerating pureed diet. vital signs Vital Sign Date Time Temp Pulse Resp B/P (MAP) Pulse Ox O2 Delivery O2 Flow Rate FiO2 03/05/25 10:00 17 99 Nasal Cannula* 1 24 03/05/25 10:00 81 03/05/25 09:18 98.9 120/75 (90) 98.9 Total Intake and Output 03/04/25 03/04/25 03/05/25 15:00 23:00 07:00 Intake Total 843.28 ml 233.28 ml 176.62 ml Output Total 1750 ml 1875 ml Balance 843.28 ml -1516.72 ml -1698.38 ml medications Current Medications Medications Dose Ordered Sig/Janette Route Start Time Stop Time Status Last Admin Dose Admin Pantoprazole Sodium 40 mg DAILY IV 02/17/25 10:00 03/05/25 09:07 40 MG Sodium Chloride 10 ml QSHIFT@ IV 02/22/25 22:00 03/05/25 09:08 10 ML Nystatin 1 applic BID TOP 02/25/25 10:00 03/05/25 09:09 1 APPLIC Furosemide 40 mg BIDD IV 02/26/25 18:00 03/05/25 05:08 40 MG Ipratropium [place] 0.5 mg Q8HR NEB 03/01/25 14:00 03/05/25 06:28 0.5 MG Levalbuterol HCl 0.625 mg Q8HR NEB 03/01/25 14:00 03/05/25 06:28 0.625 MG Ceftriaxone Sodium/Dextrose 50 ml @ 50 mls/hr DAILY IV 03/01/25 10:00 03/05/25 09:08 50 MLS/HR Morphine Sulfate 2 mg Q6HPRN PRN IV 03/02/25 18:00 Ondansetron HCl 4 mg Q6HPRN PRN IV 03/02/25 18:00 Nitroglycerin 1 patch DAILY@1800 TD 03/03/25 18:13 03/03/25 18:48 1 PATCH Sacubitril/ Valsartan 0.5 tab BID PO 03/04/25 22:00 03/05/25 09:09 0.5 TAB Carvedilol 3.125 mg Q12HR PO 03/04/25 22:00 03/05/25 09:09 3.125 MG Levetiracetam 1,000 mg BID PO 03/04/25 22:00 03/05/25 09:09 1,000 MG Amiodarone HCl 200 mg Q12HR PO 03/05/25 22:00 UNV objective GENERAL: Alert and oriented x 3. No acute distress. EYES: PERRL, EOMI. Anicteric. HENT: Moist mucous membranes. LUNGS: Diminished breath sounds. CARDIOVASCULAR: Irregular rate and rhythm. ABDOMEN: Soft, non-tender and non-distended. EXTREMITIES: No edema. SKIN: Warm, dry. laboratory and microbiology Laboratory Tests 03/05/25 03:23 Test 03/05/25 03:23 Range/Units Serum Glucose 106 74-106 mg/dL Problem List Acute metabolic encephalopathy. Acute on chronic hypercapnic/hypoxemic respiratory failure. Septic shock. History of seizure disorder. History of TIA. COPD exacerbation. Bilateral pleural effusion. Acute decompensated heart failure. Bilateral pulmonary edema. Pulmonary nodule left lower lobe. Heart failure with reduced ejection fraction. Atrial fibrillation with a RVR, now rate controlled. Nonischemic cardiomyopathy. 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 Acute complicated urinary tract infection causing septic shock. Bacteremia. Assessment/Plan Continued all current supportive medical care. Amiodarone. Coreg. Entresto. IV antibiotics as ordered. Diuretics with Lasix. Morphine for pain management. Nitro SL. GI prophylactics. Nebulized breathing treatments. Additional plan as per the hospital course. Critical care time of 45 minutes provided to include time spent evaluation of patient at bedside, when appropriate patient/family education for diagnosis, treatment plan, review of pertinent medical information and discussion of care with specialty providers and PCP. Dietary Evaluation Review Comments: 1) Jevity 1.2Cal @ 65ml/hr along with Pro-stat 1 pk daily. Start at 20ml/hr increase 10ml/hr until goal is reached. TF at goal volume provides 1872 kcal, 87gm protein, and 1259 ml free water. 2) Water flush 100ml Q4H if allowed, adjust PRN 3) Monitor TF tolerance, lab values, wt trend, I/O Expected Outcomes/Goals: To meet >75% estimated needs Fu 2-3 days Plan discussed with: Patient JOSH VEGA MD Mar 05, 2025 12:03
[2025-03-05] MEDS: AMIODARONE HCL 200 MG TAB PO SCH (22:02)
[2025-03-06] VITALS (60 sets, daily range): BP systolic 93–230; BP diastolic 48–153; PULSE 70–140; RESP 11–81; TEMP 97.9–98.6; O2SAT 87–100
[2025-03-06] MEDS: MORPHINE SULFATE INJ 2 MG/ml SYRG IV PRN (03:01)
[2025-03-06] MEDS: LABETALOL HCL 20 MG/4 ML VL IV ONE ×2 (07:00→07:01)
--- NOTE | 2025-03-06 15:09 | DVHPN2 ---
Subjective The patient is seen and examined at bedside. no complaint today Reviewed: Care Plan Changes from previous H/P or p: No Changes General: Per HPI Objective Vitals Vital Signs Date Time Temp Pulse Resp B/P (MAP) Pulse Ox O2 Delivery O2 Flow Rate FiO2 03/06/25 13:39 75 16 100 03/06/25 13:29 Nasal Cannula 2.0 03/06/25 13:29 28 03/06/25 12:30 136/74 (94) 03/06/25 04:00 98.0 98.0 Intake/Output Intake and Output 03/06/25 07:00 Intake Total 766.64 ml Output Total 800 ml Balance -33.36 ml Intake Oral 650 ml IV Total 116.64 ml Output Urine Total 800 ml # Bowel Movements 5 General Appearance: Alert, Cooperative, No acute distress HEENT: Atraumatic, PERRLA, EOMI, Mucous membr. moist/pink Neck: Supple Lungs: Clear to auscultation, Normal air movement Cardiovascular: Regular rate, Normal S1, Normal S2, No murmurs, Gallops, Rubs Abdomen: Normal bowel sounds, Soft, No tenderness Neuro: Cranial nerves 3-12 NL Psych/Mental Status: Mental status NL Medications Current Medications Medications Dose Ordered Sig/Janette Route Start Time Stop Time Status Last Admin Dose Admin Pantoprazole Sodium 40 mg DAILY IV 02/17/25 10:00 03/06/25 09:09 40 MG Sodium Chloride 10 ml QSHIFT@10,22 IV 02/22/25 22:00 03/06/25 09:11 10 ML Nystatin 1 applic BID TOP 02/25/25 10:00 03/06/25 09:15 1 APPLIC Furosemide 40 mg BIDD IV 02/26/25 18:00 03/06/25 06:07 40 MG Ipratropium [place] 0.5 mg Q8HR NEB 03/01/25 14:00 03/06/25 13:29 0.5 MG Levalbuterol HCl 0.625 mg Q8HR NEB 03/01/25 14:00 03/06/25 13:29 0.625 MG Ceftriaxone Sodium/Dextrose 50 ml @ 50 mls/hr DAILY IV 03/01/25 10:00 03/06/25 09:10 50 MLS/HR Morphine Sulfate 2 mg Q6HPRN PRN IV 03/02/25 18:00 03/06/25 09:38 2 MG Ondansetron HCl 4 mg Q6HPRN PRN IV 03/02/25 18:00 Nitroglycerin 1 patch DAILY@1800 TD 03/03/25 18:13 03/05/25 18:00 1 PATCH Sacubitril/ Valsartan 0.5 tab BID PO 03/04/25 22:00 03/06/25 09:11 0.5 TAB Carvedilol 3.125 mg Q12HR PO 03/04/25 22:00 03/06/25 09:11 3.125 MG Levetiracetam 1,000 mg BID PO 03/04/25 22:00 03/06/25 09:19 1,000 MG Amiodarone HCl 200 mg Q12HR PO 03/05/25 22:00 03/06/25 09:14 200 MG Lacosamide 100 mg BID PO 03/05/25 12:13 03/06/25 09:13 100 MG Laboratory Results Laboratory Tests 03/05/25 03:23 Urinalysis Test 02/17/25 11:44 02/25/25 10:33 Urine WBC Clumps Present /hpf (None Seen) Urine Mucus Few (None Seen) Urine Color Colorless (Yellow) Urine Clarity Turbid (Clear) H Urine pH 7.0 (5.0-9.0) Urine Specific [place] 1.006 (1.001-1.035) Urine Protein Negative (Negative) Urine Ketones Negative (Negative) Urine Blood 3+ /uL (Negative) H Urine Nitrite Negative (Negative) Urine Bilirubin Negative (Negative) Urine Urobilinogen Normal mg/dL (Negative) Urine Leukocyte Esterase 3+ /uL (Negative) Urine RBC 309 /hpf (0 - 4) Urine Microscopic WBC 51 /HPF (0-5) H Urine Squamous Epithelial Cells Few /hpf (<5) Urine Bacteria Few /hpf (None Seen) H Urine Yeast (Budding) Few /hpf (None Seen) Urine Glucose Normal mg/dL (Normal) Microbiology Microbiology Date/Time Source Procedure Growth Status 02/28/25 11:24 Bronchial Washings Gram Stain - Final Complete 02/28/25 11:24 Respiratory Culture - Final Presumptive Cari albicans Complete 02/26/25 02:50 Blood Blood Culture - Final NO GROWTH AFTER 5 DAYS OF INCUBATION. Complete 02/25/25 19:00 Urine - Gold Port Urine Culture - Final Presumptive Cari albicans Complete 02/25/25 11:45 Pleural Fluid Gram Stain - Final Complete 02/25/25 11:45 Pleural Fluid Aerobic Culture - Final Complete 02/18/25 02:45 Nose MRSA Screen - Final Complete Labs and/or images reviewed: Labs reviewed by me Assessment/Plan Assessment/Plan Neurology Acute metabolic encephalopathy likely from hypercapnia respiratory failure/septic shock, resolved H/o seizure disorder h/o TIA - on Keppra and lacosamide Respiratory Acute on chronic hypercapnic/hypoxemic respiratory failure Copd likely in exacerbation Possible pneumonia from gram +/- bacteria Bilateral pleural effusion likely from acute decompensated heart failure/ ?parapneumonic Bilateral pulmonary edema likely from acute decompensated heart failure Pulmonary nodule left lower lobe - chest CT showed right lower lobe consolidation, moderate bilateral pleural effusions, mediastinal lymphadenopathy, 1.3 cm nodule in the left lower lobe - on mechanical ventilation with a FiO2 40%, peep of 5, tidal volume 400 - sputum culture showing growth of Klebsiella pneumoniae - on meropenam and linezolid - duo nebs q.6 hours - thoracentesis done on the right on 02/20 with a 850 mL fluid removed - thoracentesis done on the left side on 02/25 with 750 mL of fluid removed - bleeding in the ED tube, regular suctioning, monitor H&H, bronchoscopy showing blood clots but no active bleeding - status post extubation on 03/02 - on oxygen via nasal cannula at 1L/min Cardiovascular Septic shock likely from UTI Acute decompensated heart failure Heart failure with reduced ejection fraction Atrial fibrillation with a RVR, Nonischemic cardiomyopathy Paroxysmal SVT - recent echocardiogram showed LVEF 10-15% with a markedly dilated LV, RV enlarged - left heart catheterization from in December 2024 shows no significant coronary artery disease, LVEF approximately 20% - BNP elevated - norepinephrine - Lovenox therapeutic dose - Lasix 40 b.i.d. - amiodarone 200mg po bid - Entresto 0.5 b.i.d., carvedilol 3.125 b.i.d. 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, resolved Acute complicated urinary tract infection causing septic shock, resolved - monitoring renal function - urine culture showed growth of presumptive Cari albicans - on ceftriaxone Infectious disease Septic shock UTI pneumonia due to Klebsiella - initial blood culture showed growth of Staph epidermidis, repeat blood cultures after 5 days showed no growth - sputum culture showed growth of Klebsiella pneumoniae - urine cultures growth of presumptive Cari albicans - on ceftriaxone Gastrointestinal On tube feedings DVT prophylaxis: enoxaparin, held ( bleeding in the ET tube when she was on ventilator, high risk of bleeding) PUD prophylaxis: Protonix Left upper arm PICC inserted on 02/22 Gold catheter inserted on 02/16 Extubated on 03/02 Goals of care discussed with the patient's Carlos. According to the 's wishes patient will be placed on home hospice care at discharge and the process has been initiated. Plan discussed with: Patient, Spouse Date of Service: Mar 06, 2025 Billing Provider: JUAN MIGUEL THAKKAR MD Common Visit Codes: [id number] INP/OBS CARE(HIGH) JUAN MIGUEL THAKKAR MD Mar 06, 2025 15:09
[2025-03-06] MEDS: POTASSIUM CHL 20MEQ/100ML 100 ML IV ONE (17:14)
[2025-03-06 19:24] LABS: Urine Budding Yeast MODERATE /hpf (None Seen); Urine Protein, UAD TRACE (Negative)
--- NOTE | 2025-03-06 23:02 | DVHPN2 ---
Progress Note - Dictate Date Seen: Mar 06, 2025 Medical Necessity Reason Pt with a Central, PICC or Fol: Yes The following are medically ne: Central Line, Gold Catheter Subjective Patient was seen and evaluated in follow up in the ICU. Patient is on 2 LPM NC. The patient was restless overnight per nursing staff. Patient went into A Flutter this morning, asymptomatic. vital signs Vital Sign Date Time Temp Pulse Resp B/P (MAP) Pulse Ox O2 Delivery O2 Flow Rate FiO2 03/06/25 11:30 72 16 117/68 (84) 100 03/06/25 10:00 Nasal Cannula* 2 28 03/06/25 04:00 98.0 98.0 Total Intake and Output 03/05/25 03/05/25 03/06/25 15:00 23:00 07:00 Intake Total 116.64 ml 500 ml 150 ml Output Total 300 ml 500 ml Balance 116.64 ml 200 ml -350 ml medications Current Medications Medications Dose Ordered Sig/Janette Route Start Time Stop Time Status Last Admin Dose Admin Pantoprazole Sodium 40 mg DAILY IV 02/17/25 10:00 03/06/25 09:09 40 MG Sodium Chloride 10 ml QSHIFT@10,22 IV 02/22/25 22:00 03/06/25 09:11 10 ML Nystatin 1 applic BID TOP 02/25/25 10:00 03/06/25 09:15 1 APPLIC Furosemide 40 mg BIDD IV 02/26/25 18:00 03/06/25 06:07 40 MG Ipratropium [place] 0.5 mg Q8HR NEB 03/01/25 14:00 03/06/25 06:16 0.5 MG Levalbuterol HCl 0.625 mg Q8HR NEB 03/01/25 14:00 03/06/25 06:16 0.625 MG Ceftriaxone Sodium/Dextrose 50 ml @ 50 mls/hr DAILY IV 03/01/25 10:00 03/06/25 09:10 50 MLS/HR Morphine Sulfate 2 mg Q6HPRN PRN IV 03/02/25 18:00 03/06/25 09:38 2 MG Ondansetron HCl 4 mg Q6HPRN PRN IV 03/02/25 18:00 Nitroglycerin 1 patch DAILY@1800 TD 03/03/25 18:13 03/05/25 18:00 1 PATCH Sacubitril/ Valsartan 0.5 tab BID PO 03/04/25 22:00 03/06/25 09:11 0.5 TAB Carvedilol 3.125 mg Q12HR PO 03/04/25 22:00 03/06/25 09:11 3.125 MG Levetiracetam 1,000 mg BID PO 03/04/25 22:00 03/06/25 09:19 1,000 MG Amiodarone HCl 200 mg Q12HR PO 03/05/25 22:00 03/06/25 09:14 200 MG Lacosamide 100 mg BID PO 03/05/25 12:13 03/06/25 09:13 100 MG objective GENERAL: Alert and oriented x 3. No acute distress. EYES: PERRL, EOMI. Anicteric. HENT: Moist mucous membranes. LUNGS: Diminished breath sounds. CARDIOVASCULAR: Irregular rate and rhythm. ABDOMEN: Soft, non-tender and non-distended. EXTREMITIES: No edema. SKIN: Warm, dry. laboratory and microbiology Laboratory Tests 03/05/25 03:23 Test 03/05/25 03:23 Range/Units Serum Glucose 106 74-106 mg/dL Problem List Acute metabolic encephalopathy. Acute on chronic hypercapnic/hypoxemic respiratory failure. Septic shock. History of seizure disorder. History of TIA. COPD exacerbation. Bilateral pleural effusion. Acute decompensated heart failure. Bilateral pulmonary edema. Pulmonary nodule left lower lobe. Heart failure with reduced ejection fraction. Atrial fibrillation with a RVR, now rate controlled. Nonischemic cardiomyopathy. 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 Acute complicated urinary tract infection causing septic shock. Bacteremia. Assessment/Plan Continued all current supportive medical care. Amiodarone. Coreg. Vimpat. Entresto. IV antibiotics as ordered. Diuretics with Lasix. Morphine for pain management. Nitro SL. GI prophylactics. Nebulized breathing treatments. Additional plan as per the hospital course. Critical care time of 45 minutes provided to include time spent evaluation of patient at bedside, when appropriate patient/family education for diagnosis, treatment plan, review of pertinent medical information and discussion of care with specialty providers and PCP. Dietary Evaluation Review Comments: 1) Jevity 1.2Cal @ 65ml/hr along with Pro-stat 1 pk daily. Start at 20ml/hr increase 10ml/hr until goal is reached. TF at goal volume provides 1872 kcal, 87gm protein, and 1259 ml free water. 2) Water flush 100ml Q4H if allowed, adjust PRN 3) Monitor TF tolerance, lab values, wt trend, I/O Expected Outcomes/Goals: To meet >75% estimated needs Fu 2-3 days Plan discussed with: Patient JOSH VEGA MD Mar 06, 2025 12:21
[2025-03-06] MEDS: CARVEDILOL 3.125 MG TAB PO SCH (23:12)
[2025-03-07] VITALS (44 sets, daily range): BP systolic 82–164; BP diastolic 42–97; PULSE 62–123; RESP 12–81; TEMP 98.1–98.8; O2SAT 90–100
[2025-03-07 03:50] LABS: Hematocrit 30.6 % (36.0-46.0); Hemoglobin 10.1 g/dL (12.2-16.2); Mean Corpuscular Hemoglobin 32.6 pg (28.0-32.0); Mean Corpuscular Volume 98.7 fL (80.0-100.0); Nucleated Red Blood Cells % 0.1 %
[2025-03-07 03:58] LABS: Chloride 102 mmol/L (98-107)
[2025-03-07 03:59] LABS: Anion Gap 11 (5-15)
[2025-03-07 04:04] LABS: BUN/Creatinine Ratio 8.3 (10.0-20.0); Blood Urea Nitrogen 10 mg/dL (9-23); Calcium 8.4 mg/dL (8.7-10.4); Carbon Dioxide 32 mmol/L (20-31); Glucose 99 mg/dL (74-106); Potassium 3.1 mmol/L (3.5-5.1); Sodium 145 mmol/L (136-145)
[2025-03-07] MEDS: POTASSIUM CHL 20MEQ/100ML 100 ML IV SCH (05:21)
--- NOTE | 2025-03-07 13:10 | DVHPN2 ---
Subjective The patient is seen and examined at bedside. No change overnight. More alert awake today. at bedside. Reviewed: Care Plan, H&P, Labs, Medications, Previous Orders, Radiology Changes from previous H/P or p: No Changes General: Per HPI Objective Vitals Vital Signs Date Time Temp Pulse Resp B/P (MAP) Pulse Ox O2 Delivery O2 Flow Rate FiO2 03/07/25 12:16 79 03/07/25 12:16 14 96 Nasal Cannula* 1 24 03/07/25 10:53 102/51 (68) 03/07/25 08:23 98.8 98.8 Intake/Output Intake and Output 03/07/25 07:00 Intake Total 520 ml Output Total 1150 ml Balance -630 ml Intake Oral 470 ml IV Total 50 ml Output Urine Total 1150 ml General Appearance: Alert, Cooperative, No acute distress HEENT: Atraumatic, PERRLA, EOMI, Mucous membr. moist/pink Neck: Supple Lungs: Clear to auscultation, Normal air movement Cardiovascular: Regular rate, Normal S1, Normal S2, No murmurs, Gallops, Rubs Abdomen: Normal bowel sounds, Soft, No tenderness Neuro: Cranial nerves 3-12 NL Psych/Mental Status: Mental status NL Medications Current Medications Medications Dose Ordered Sig/Janette Route Start Time Stop Time Status Last Admin Dose Admin Pantoprazole Sodium 40 mg DAILY IV 02/17/25 10:00 03/07/25 10:43 40 MG Sodium Chloride 10 ml QSHIFT@10,22 IV 02/22/25 22:00 03/07/25 10:44 10 ML Nystatin 1 applic BID TOP 02/25/25 10:00 03/07/25 10:44 1 APPLIC Furosemide 40 mg BIDD IV 02/26/25 18:00 03/07/25 05:21 40 MG Ipratropium [place] 0.5 mg Q8HR NEB 03/01/25 14:00 03/07/25 07:16 0.5 MG Levalbuterol HCl 0.625 mg Q8HR NEB 03/01/25 14:00 03/07/25 07:16 0.625 MG Ceftriaxone Sodium/Dextrose 50 ml @ 50 mls/hr DAILY IV 03/01/25 10:00 03/07/25 10:43 50 MLS/HR Ondansetron HCl 4 mg Q6HPRN PRN IV 03/02/25 18:00 Nitroglycerin 1 patch DAILY@1800 TD 03/03/25 18:13 03/06/25 17:15 1 PATCH Sacubitril/ Valsartan 0.5 tab BID PO 03/04/25 22:00 03/07/25 10:44 0.5 TAB Levetiracetam 1,000 mg BID PO 03/04/25 22:00 03/07/25 10:43 1,000 MG Amiodarone HCl 200 mg Q12HR PO 03/05/25 22:00 03/07/25 10:44 200 MG Lacosamide 100 mg BID PO 03/05/25 12:13 03/07/25 10:43 100 MG Carvedilol 6.25 mg Q12HR PO 03/06/25 22:00 03/07/25 10:44 6.25 MG Morphine Sulfate 2 mg Q4HPRN PRN IV 03/07/25 10:00 Laboratory Results Laboratory Tests 03/07/25 03:17 Chemistry Test 03/07/25 03:17 Calcium Level 8.4 mg/dL (8.7-10.4) L Magnesium Level 1.7 mg/dL (1.6-2.6) Urinalysis Test 02/17/25 11:44 03/06/25 18:56 Urine WBC Clumps Present /hpf (None Seen) Urine Color Colorless (Yellow) Urine Clarity Turbid (Clear) H Urine pH 7.5 (5.0-9.0) Urine Specific [place] 1.006 (1.001-1.035) Urine Protein Trace (Negative) H Urine Ketones Negative (Negative) Urine Blood 3+ /uL (Negative) H Urine Nitrite Negative (Negative) Urine Bilirubin Negative (Negative) Urine Urobilinogen Normal mg/dL (Negative) Urine Leukocyte Esterase 3+ /uL (Negative) Urine RBC 446 /hpf (0 - 4) Urine Microscopic WBC 129 /HPF (0-5) H Urine Squamous Epithelial Cells Few /hpf (<5) Urine Bacteria Few /hpf (None Seen) H Urine Hyaline Casts Few /lpf (0 - 2) Urine Mucus Few (None Seen) Urine Yeast (Budding) Moderate /hpf (None Seen) Urine Glucose Normal mg/dL (Normal) Microbiology Microbiology Date/Time Source Procedure Growth Status 03/06/25 18:56 Urine - Gold Port Urine Culture - Preliminary Resulted 02/28/25 11:24 Bronchial Washings Gram Stain - Final Complete 02/28/25 11:24 Respiratory Culture - Final Presumptive Cari albicans Complete 02/26/25 02:50 Blood Blood Culture - Final NO GROWTH AFTER 5 DAYS OF INCUBATION. Complete 02/25/25 11:45 Pleural Fluid Gram Stain - Final Complete 02/25/25 11:45 Pleural Fluid Aerobic Culture - Final Complete 02/18/25 02:45 Nose MRSA Screen - Final Complete Labs and/or images reviewed: Labs reviewed by me Assessment/Plan Assessment/Plan Neurology Acute metabolic encephalopathy likely from hypercapnia respiratory failure/septic shock, resolved H/o seizure disorder h/o TIA - on Keppra and lacosamide Respiratory Acute on chronic hypercapnic/hypoxemic respiratory failure Copd likely in exacerbation Possible pneumonia from gram +/- bacteria Bilateral pleural effusion likely from acute decompensated heart failure/ ?parapneumonic Bilateral pulmonary edema likely from acute decompensated heart failure Pulmonary nodule left lower lobe - chest CT showed right lower lobe consolidation, moderate bilateral pleural effusions, mediastinal lymphadenopathy, 1.3 cm nodule in the left lower lobe - on mechanical ventilation with a FiO2 40%, peep of 5, tidal volume 400 - sputum culture showing growth of Klebsiella pneumoniae - on meropenam and linezolid - duo nebs q.6 hours - thoracentesis done on the right on 02/20 with a 850 mL fluid removed - thoracentesis done on the left side on 02/25 with 750 mL of fluid removed - bleeding in the ED tube, regular suctioning, monitor H&H, bronchoscopy showing blood clots but no active bleeding - status post extubation on 03/02 - on oxygen via nasal cannula at 1L/min Cardiovascular Septic shock likely from UTI Acute decompensated heart failure Heart failure with reduced ejection fraction Atrial fibrillation with a RVR, Nonischemic cardiomyopathy Paroxysmal SVT - recent echocardiogram showed LVEF 10-15% with a markedly dilated LV, RV enlarged - left heart catheterization from in December 2024 shows no significant coronary artery disease, LVEF approximately 20% - BNP elevated - norepinephrine - Lovenox therapeutic dose - Lasix 40 b.i.d. - amiodarone 200mg po bid - Entresto 0.5 b.i.d., carvedilol 3.125 b.i.d. 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, resolved Acute complicated urinary tract infection causing septic shock, resolved - monitoring renal function - urine culture showed growth of presumptive Cari albicans - on ceftriaxone Infectious disease Septic shock UTI pneumonia due to Klebsiella - initial blood culture showed growth of Staph epidermidis, repeat blood cultures after 5 days showed no growth - sputum culture showed growth of Klebsiella pneumoniae - urine cultures growth of presumptive Cari albicans - on ceftriaxone Gastrointestinal On tube feedings DVT prophylaxis: enoxaparin, held ( bleeding in the ET tube when she was on ventilator, high risk of bleeding) PUD prophylaxis: Protonix Left upper arm PICC inserted on 02/22 Gold catheter inserted on 02/16 Extubated on 03/02 Goals of care discussed with the patient's Carlos. According to the 's wishes patient will be placed on home hospice care at discharge and the process has been initiated. Transfer to telemetry Plan discussed with: Patient My Orders Orders - JUAN MIGUEL THAKKAR MD Procedure Category Date Status Time Carvedilol Tablet PHA 03/06/25 In Process (Coreg Tablet) 22:00 Urine Bacterial [place]ANNON 03/06/25 In Process Culture 17:04 Communication Order ORDERS 03/06/25 Transmitted 17:04 Morphine Sulfate PHA 03/07/25 In Process Injection 10:00 Date of Service: Mar 07, 2025 Billing Provider: JUAN MIGUEL THAKKAR MD Common Visit Codes: [id number] INP/OBS CARE(HIGH) JUAN MIGUEL THAKKAR MD Mar 07, 2025 13:10
[2025-03-07] MEDS: MORPHINE SULFATE INJ 2 MG/ml SYRG IV PRN (16:24)
--- NOTE | 2025-03-07 20:07 | DVHPN2 ---
Progress Note - Dictate Date Seen: Mar 07, 2025 Medical Necessity Reason Pt with a Central, PICC or Fol: Yes The following are medically ne: Central Line, Gold Catheter Subjective Patient was seen and evaluated in follow up in the ICU. Patient is complaining of sacral pain. Patient passed swallow eval. 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 Electrolytes are being replaced. vital signs Vital Sign Date Time Temp Pulse Resp B/P (MAP) Pulse Ox O2 Delivery O2 Flow Rate FiO2 03/07/25 12:16 79 03/07/25 12:16 14 96 Nasal Cannula* 1 03/07/25 10:53 102/51 (68) 03/07/25 08:23 98.8 98.8 Total Intake and Output 03/06/25 03/06/25 03/07/25 15:00 23:00 07:00 Intake Total 50 ml 230 ml 240 ml Output Total 400 ml 750 ml Balance 50 ml -170 ml -510 ml medications Current Medications Medications Dose Ordered Sig/Janette Route Start Time Stop Time Status Last Admin Dose Admin Pantoprazole Sodium 40 mg DAILY IV 02/17/25 10:00 03/07/25 10:43 40 MG Sodium Chloride 10 ml QSHIFT@10,22 IV 02/22/25 22:00 03/07/25 10:44 10 ML Nystatin 1 applic BID TOP 02/25/25 10:00 03/07/25 10:44 1 APPLIC Furosemide 40 mg BIDD IV 02/26/25 18:00 03/07/25 05:21 40 MG Ipratropium [place] 0.5 mg Q8HR NEB 03/01/25 14:00 03/07/25 07:16 0.5 MG Levalbuterol HCl 0.625 mg Q8HR NEB 03/01/25 14:00 03/07/25 07:16 0.625 MG Ceftriaxone Sodium/Dextrose 50 ml @ 50 mls/hr DAILY IV 03/01/25 10:00 03/07/25 10:43 50 MLS/HR Ondansetron HCl 4 mg Q6HPRN PRN IV 03/02/25 18:00 Nitroglycerin 1 patch DAILY@1800 TD 03/03/25 18:13 03/06/25 17:15 1 PATCH Sacubitril/ Valsartan 0.5 tab BID PO 03/04/25 22:00 03/07/25 10:44 0.5 TAB Levetiracetam 1,000 mg BID PO 03/04/25 22:00 03/07/25 10:43 1,000 MG Amiodarone HCl 200 mg Q12HR PO 03/05/25 22:00 03/07/25 10:44 200 MG Lacosamide 100 mg BID PO 03/05/25 12:13 03/07/25 10:43 100 MG Carvedilol 6.25 mg Q12HR PO 03/06/25 22:00 03/07/25 10:44 6.25 MG Morphine Sulfate 2 mg Q4HPRN PRN IV 03/07/25 10:00 objective GENERAL: Alert and oriented x 3. No acute distress. EYES: PERRL, EOMI. Anicteric. HENT: Moist mucous membranes. LUNGS: Diminished breath sounds. CARDIOVASCULAR: Irregular rate and rhythm. ABDOMEN: Soft, non-tender and non-distended. EXTREMITIES: No edema. SKIN: Warm, dry. laboratory and microbiology Laboratory Tests 03/07/25 03:17 Test 03/07/25 03:17 Range/Units Serum Glucose 99 74-106 mg/dL Problem List Acute metabolic encephalopathy. Acute on chronic hypercapnic/hypoxemic respiratory failure. Septic shock. History of seizure disorder. History of TIA. COPD exacerbation. Bilateral pleural effusion. Acute decompensated heart failure. Bilateral pulmonary edema. Pulmonary nodule left lower lobe. Heart failure with reduced ejection fraction. Atrial fibrillation with a RVR, now rate controlled. Nonischemic cardiomyopathy. 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 Acute complicated urinary tract infection causing septic shock. Bacteremia. Assessment/Plan Continued all current supportive medical care. Amiodarone. Coreg. Vimpat. Entresto. IV antibiotics as ordered. Diuretics with Lasix. Morphine for pain management. GI prophylactics. Nebulized breathing treatments. Additional plan as per the hospital course. Critical care time of 45 minutes provided to include time spent evaluation of patient at bedside, when appropriate patient/family education for diagnosis, treatment plan, review of pertinent medical information and discussion of care with specialty providers and PCP. Dietary Evaluation Review Comments: 1) Jevity 1.2Cal @ 65ml/hr along with Pro-stat 1 pk daily. Start at 20ml/hr increase 10ml/hr until goal is reached. TF at goal volume provides 1872 kcal, 87gm protein, and 1259 ml free water. 2) Water flush 100ml Q4H if allowed, adjust PRN 3) Monitor TF tolerance, lab values, wt trend, I/O Expected Outcomes/Goals: To meet >75% estimated needs Fu 2-3 days Plan discussed with: Patient JOSH VEGA MD Mar 07, 2025 13:45
[2025-03-08] VITALS (14 sets, daily range): BP systolic 113–131; BP diastolic 65–86; PULSE 66–113; RESP 12–20; TEMP 97.8–98.3; O2SAT 92–100
[2025-03-08] MEDS: POTASSIUM CHL 20 Meq TABLET PO ONE (07:15)
[2025-03-08 08:18] LABS: Chloride 99 mmol/L (98-107); Sodium 143 mmol/L (136-145)
[2025-03-08 08:19] LABS: Anion Gap 10 (5-15)
[2025-03-08 08:20] LABS: Calcium 8.7 mg/dL (8.7-10.4); Carbon Dioxide 34 mmol/L (20-31); Potassium 3.1 mmol/L (3.5-5.1)
[2025-03-08 08:24] LABS: BUN/Creatinine Ratio 9.6 (10.0-20.0); Blood Urea Nitrogen 13 mg/dL (9-23); Glucose 105 mg/dL (74-106)
--- NOTE | 2025-03-08 10:58 | DVHPN2 ---
Progress Note Date Seen: Mar 08, 2025 Medical Necessity Reason Pt with a Central, PICC or Fol: No Subjective Patient reports: No new complaints Review of Systems: HEENT:Normal, CVS:Normal, RESPIRATORY:Normal, GI:Normal, :Normal, MSK:Normal, NEURO:Normal Objective vital signs Vital Sign Date Time Temp Pulse Resp B/P (MAP) Pulse Ox O2 Delivery O2 Flow Rate FiO2 03/08/25 10:25 94 18 122/68 03/08/25 09:00 97.9 96 97.9 03/08/25 08:19 Nasal Cannula* 2 28 Total Intake and Output 03/07/25 03/07/25 03/08/25 15:00 23:00 07:00 Intake Total 50 ml 240 ml 240 ml Output Total 500 ml 600 ml Balance 50 ml -260 ml -360 ml medications Current Medications Medications Dose Ordered Sig/Janette Route Start Time Stop Time Status Last Admin Dose Admin Pantoprazole Sodium 40 mg DAILY IV 02/17/25 10:00 03/08/25 09:56 40 MG Sodium Chloride 10 ml QSHIFT@10,22 IV 02/22/25 22:00 03/08/25 10:00 10 ML Nystatin 1 applic BID TOP 02/25/25 10:00 03/08/25 10:29 1 APPLIC Furosemide 40 mg BIDD IV 02/26/25 18:00 03/08/25 06:12 40 MG Ipratropium [place] 0.5 mg Q8HR NEB 03/01/25 14:00 03/08/25 08:19 0.5 MG Levalbuterol HCl 0.625 mg Q8HR NEB 03/01/25 14:00 03/08/25 08:19 0.625 MG Ceftriaxone Sodium/Dextrose 50 ml @ 50 mls/hr DAILY IV 03/01/25 10:00 03/08/25 10:29 50 MLS/HR Ondansetron HCl 4 mg Q6HPRN PRN IV 03/02/25 18:00 Nitroglycerin 1 patch DAILY@1800 TD 03/03/25 18:13 03/07/25 18:39 1 PATCH Sacubitril/ Valsartan 0.5 tab BID PO 03/04/25 22:00 03/08/25 10:20 0.5 TAB Levetiracetam 1,000 mg BID PO 03/04/25 22:00 03/08/25 10:21 1,000 MG Amiodarone HCl 200 mg Q12HR PO 03/05/25 22:00 03/08/25 10:21 200 MG Lacosamide 100 mg BID PO 03/05/25 12:13 03/08/25 10:22 100 MG Carvedilol 6.25 mg Q12HR PO 03/06/25 22:00 03/08/25 10:21 6.25 MG Morphine Sulfate 2 mg Q4HPRN PRN IV 03/07/25 10:00 03/08/25 09:55 2 MG Examination: GENERAL:Normal, HEENT:Normal, NECK:Normal, LUNGS:Normal, LUNGS:Abnormal (ON OXYGEN), CVS:Normal, ABDOMEN:Normal, MSK:Normal, SKIN:Normal, NEURO:Normal, :Normal laboratory and microbiology Laboratory Tests 03/08/25 07:04 03/07/25 03:17 Test 03/08/25 07:04 Range/Units Serum Glucose 105 74-106 mg/dL Microbiology Date/Time Source Procedure Growth Status 03/06/25 18:56 Urine - Gold Port Urine Culture - Preliminary Resulted 02/28/25 11:24 Bronchial Washings Gram Stain - Final Complete 02/28/25 11:24 Respiratory Culture - Final Presumptive Cari albicans Complete 02/26/25 02:50 Blood Blood Culture - Final NO GROWTH AFTER 5 DAYS OF INCUBATION. Complete 02/25/25 11:45 Pleural Fluid Gram Stain - Final Complete 02/25/25 11:45 Pleural Fluid Aerobic Culture - Final Complete 02/18/25 02:45 Nose MRSA Screen - Final Complete Problem List/Assessment/Plan Problem List/Assessment/Plan Neurology Acute metabolic encephalopathy likely from hypercapnia respiratory failure/septic shock H/o seizure disorder h/o TIA - currently sedated and on mechanical ventilation - on Keppra and lacosamide Respiratory Acute on chronic hypercapnic/hypoxemic respiratory failure Copd likely in exacerbation Possible pneumonia from gram +/- bacteria Bilateral pleural effusion likely from acute decompensated heart failure/ ?parapneumonic Bilateral pulmonary edema likely from acute decompensated heart failure Pulmonary nodule left lower lobe - chest CT showed right lower lobe consolidation, moderate bilateral pleural effusions, mediastinal lymphadenopathy, 1.3 cm nodule in the left lower lobe - on mechanical ventilation with a FiO2 40%, peep of 5, tidal volume 400 - sputum culture showing growth of Klebsiella pneumoniae - on meropenam and linezolid - duo nebs q.6 hours - thoracentesis done on the right on 02/20 with a 850 mL fluid removed - thoracentesis done on the left side on 02/25 with 750 mL of fluid removed - bleeding in the ED tube, regular suctioning, monitor H&H, bronchoscopy showing blood clots but no active bleeding - status post extubation on 03/02 Cardiovascular Septic shock likely from UTI Acute decompensated heart failure Heart failure with reduced ejection fraction Atrial fibrillation with a RVR, Nonischemic cardiomyopathy Paroxysmal SVT - recent echocardiogram showed LVEF 10-15% with a markedly dilated LV, RV enlarged - left heart catheterization from in December 2024 shows no significant coronary artery disease, LVEF approximately 20% - BNP elevated - norepinephrine - Lovenox therapeutic dose - Lasix 40 mg daily - amiodarone 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, resolved Acute complicated urinary tract infection causing septic shock - monitoring renal function - urine culture showed growth of presumptive Cari albicans - fluconazole Infectious disease Septic shock UTI pneumonia due to Klebsiella - initial blood culture showed growth of Staph epidermidis, repeat blood cultures after 5 days showed no growth - sputum culture showed growth of Klebsiella pneumoniae - urine cultures growth of presumptive Cari albicans Gastrointestinal On tube feedings DVT prophylaxis: enoxaparin, held because of bleeding in the ET tube PUD prophylaxis: Protonix Left upper arm PICC inserted on 02/22 Gold catheter inserted on 02/16 Extubated on 03/02 Goals of care discussed with the patient's Carlos and daughter Carolyn at bedside. Patient is extubated today, code status changed to modified DNR with only BiPAP support. Patient will be put on BiPAP for the night Code status: no reintubation-time spent in advance care planning-18 mins Plan discussed with: Patient, Spouse My Orders My Orders Orders - ROMELIA STEVEN MD Procedure Category Date Status Time Discontinue Gold LAURENT 03/08/25 Verified Catheter 10:52 Furosemide Tablet PHA 03/09/25 Verified (Lasix Tablet) 10:00 Potassium Effervesent PHA 03/08/25 Verified Tab (Klor-Con/Ef) 11:00 Fluconazole Ivpb PHA 03/09/25 Verified Diflucan 10:00 Fluconazole Ivpb PHA 03/08/25 Verified Diflucan 11:00 Pt Request For Service PT 03/08/25 Verified 10:52 Pantoprazole Tablet PHA 03/09/25 Verified (Protonix Tablet) 06:00 Basic Metabolic Panel LAB 03/09/25 Verified 06:00 Magnesium LAB 03/09/25 Verified 05:00 Dietary Evaluation Review Comments: 1) Jevity 1.2Cal @ 65ml/hr along with Pro-stat 1 pk daily. Start at 20ml/hr increase 10ml/hr until goal is reached. TF at goal volume provides 1872 kcal, 87gm protein, and 1259 ml free water. 2) Water flush 100ml Q4H if allowed, adjust PRN 3) Monitor TF tolerance, lab values, wt trend, I/O Expected Outcomes/Goals: To meet >75% estimated needs Fu 2-3 days Date of Service: Mar 08, 2025 Billing Provider: ROMELIA STEVEN MD Common Visit Codes: 74611-HTROQVAALA INP/OBS CARE(HIGH) Secondary Visit Codes: 40628-FLRBCFBR CARE PLAN 30 MINUTES ROMELIA STEVEN MD Mar 08, 2025 10:58
[2025-03-08] MEDS: HYDROcodone-ACET 5/325MG TAB PO PRN (11:57)
[2025-03-08] MEDS: POTASSIUM EFFERVESENT TAB 25 MEQ PO ONE (11:58)
[2025-03-08] MEDS: FLUCONAZOLE 200MG/100ML 100 ML IV ONE (11:58)
--- NOTE | 2025-03-08 21:50 | DVHPN2 ---
Progress Note - Dictate Date Seen: Mar 08, 2025 Medical Necessity Reason Pt with a Central, PICC or Fol: No Subjective Patient was seen and evaluated in follow up. Patient downgraded to tele bed. Patient is complaining of generalized pain. K 3.1, potassium is being replaced. Telemetry reviewed. vital signs Vital Sign Date Time Temp Pulse Resp B/P (MAP) Pulse Ox O2 Delivery O2 Flow Rate FiO2 03/08/25 21:16 101 126/85 03/08/25 21:00 98.3 20 92 98.3 03/08/25 20:32 Nasal Cannula* 1 24 Total Intake and Output 03/07/25 03/07/25 03/08/25 15:00 23:00 07:00 Intake Total 50 ml 240 ml 240 ml Output Total 500 ml 600 ml Balance 50 ml -260 ml -360 ml medications Current Medications Medications Dose Ordered Sig/Janette Route Start Time Stop Time Status Last Admin Dose Admin Sodium Chloride 10 ml QSHIFT@10,22 IV 02/22/25 22:00 03/08/25 21:21 10 ML Nystatin 1 applic BID TOP 02/25/25 10:00 03/08/25 10:29 1 APPLIC Ipratropium [place] 0.5 mg Q8HR NEB 03/01/25 14:00 03/08/25 20:34 0.5 MG Levalbuterol HCl 0.625 mg Q8HR NEB 03/01/25 14:00 03/08/25 20:34 0.625 MG Ondansetron HCl 4 mg Q6HPRN PRN IV 03/02/25 18:00 Nitroglycerin 1 patch DAILY@1800 TD 03/03/25 18:13 03/08/25 18:45 1 PATCH Sacubitril/ Valsartan 0.5 tab BID PO 03/04/25 22:00 03/08/25 21:16 0.5 TAB Levetiracetam 1,000 mg BID PO 03/04/25 22:00 03/08/25 21:16 1,000 MG Amiodarone HCl 200 mg Q12HR PO 03/05/25 22:00 03/08/25 21:17 200 MG Lacosamide 100 mg BID PO 03/05/25 12:13 03/08/25 21:17 100 MG Carvedilol 6.25 mg Q12HR PO 03/06/25 22:00 03/08/25 21:16 6.25 MG Morphine Sulfate 2 mg Q4HPRN PRN IV 03/07/25 10:00 03/08/25 15:18 2 MG Furosemide 40 mg DAILY PO 03/09/25 10:00 Fluconazole 100 ml @ 100 mls/hr DAILY IV 03/09/25 10:00 Pantoprazole Sodium 40 mg DAILY@0600 PO 03/09/25 06:00 Acetaminophen/ Hydrocodone Bitart 1 tab Q6HPRN PRN PO 03/08/25 11:30 03/08/25 18:38 1 TAB objective GENERAL: Alert and oriented x 3. No acute distress. EYES: PERRL, EOMI. Anicteric. HENT: Moist mucous membranes. LUNGS: Diminished breath sounds. CARDIOVASCULAR: Irregular rate and rhythm. ABDOMEN: Soft, non-tender and non-distended. EXTREMITIES: No edema. SKIN: Warm, dry. laboratory and microbiology Laboratory Tests 03/08/25 14:15 03/08/25 07:04 03/07/25 03:17 Test 03/08/25 07:04 Range/Units Serum Glucose 105 74-106 mg/dL Problem List Acute metabolic encephalopathy. Acute on chronic hypercapnic/hypoxemic respiratory failure. Septic shock. History of seizure disorder. History of TIA. COPD exacerbation. Bilateral pleural effusion. Acute decompensated heart failure. Bilateral pulmonary edema. Pulmonary nodule left lower lobe. Heart failure with reduced ejection fraction. Atrial fibrillation with a RVR, now rate controlled. Nonischemic cardiomyopathy. 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 Acute complicated urinary tract infection causing septic shock. Bacteremia. Assessment/Plan Continued all current supportive medical care. Morphine and [place] for pain management. Amiodarone. Coreg. Diuretics with Lasix. GI prophylactics. Entresto. Additional plan as per the hospital course. Dietary Evaluation Review Comments: 1) Jevity 1.2Cal @ 65ml/hr along with Pro-stat 1 pk daily. Start at 20ml/hr increase 10ml/hr until goal is reached. TF at goal volume provides 1872 kcal, 87gm protein, and 1259 ml free water. 2) Water flush 100ml Q4H if allowed, adjust PRN 3) Monitor TF tolerance, lab values, wt trend, I/O Expected Outcomes/Goals: To meet >75% estimated needs Fu 2-3 days Plan discussed with: Patient JOSH VEGA MD Mar 08, 2025 21:50
[2025-03-09] VITALS (7 sets, daily range): BP systolic 119–160; BP diastolic 79–91; PULSE 83–106; RESP 16–20; TEMP 98–98.5; O2SAT 94–100
[2025-03-09] MEDS: PANTOPRAZOLE 40 MG TAB PO SCH (05:58)
[2025-03-09 08:36] LABS: Anion Gap 9 (5-15); Chloride 100 mmol/L (98-107); Sodium 142 mmol/L (136-145)
[2025-03-09 08:37] LABS: Calcium 8.8 mg/dL (8.7-10.4)
[2025-03-09 08:41] LABS: Glucose 103 mg/dL (74-106)
[2025-03-09 08:42] LABS: BUN/Creatinine Ratio 9.2 (10.0-20.0); Blood Urea Nitrogen 12 mg/dL (9-23)
[2025-03-09 08:44] LABS: Carbon Dioxide 33 mmol/L (20-31); Magnesium 1.5 mg/dL (1.6-2.6); Potassium 3.4 mmol/L (3.5-5.1)
[2025-03-09] MEDS: FUROSEMIDE 40 MG TAB PO SCH (10:51)
[2025-03-09] MEDS: FLUCONAZOLE 200MG/100ML 100 ML IV SCH (10:52)
--- NOTE | 2025-03-09 11:21 | DVHDS2 ---
Discharge Summary Date of Admission Feb 16, 2025 at 15:13 Date of Discharge: Mar 09, 2025 Labs/Diagnostic Data: Laboratory Results Test 03/09/25 07:39 03/07/25 03:17 03/06/25 22:56 03/06/25 18:56 Sodium Level 142 mmol/L (136-145) Potassium Level 3.4 mmol/L (3.5-5.1) Chloride Level 100 mmol/L (98-107) Carbon Dioxide Level 33 mmol/L (20-31) Anion Gap 9 (5-15) Blood Urea Nitrogen 12 mg/dL (9-23) Creatinine 1.30 mg/dL (0.550-1.02) Glomerular Filtration Rate Calc 42 mL/min (>90) BUN/Creatinine Ratio 9.2 (10.0-20.0) Serum Glucose 103 mg/dL (74-106) Calcium Level 8.8 mg/dL (8.7-10.4) Magnesium Level 1.5 mg/dL (1.6-2.6) White Blood Count 8.1 10^3/uL (4.4-10.8) Red Blood Count 3.10 10^6/uL (4.0-5.20) Hemoglobin 10.1 g/dL (12.2-16.2) Hematocrit 30.6 % (36.0-46.0) Mean Corpuscular Volume 98.7 fL (80.0-100.0) Mean Corpuscular Hemoglobin 32.6 pg (28.0-32.0) Mean Corpuscular Hemoglobin Concent 33.0 g/dL (32.0-36.0) Red Cell Distribution Width 15.3 % (11.8-14.3) Platelet Count 294 10^3/uL (140-450) Mean Platelet Volume 6.8 fL (6.9-10.8) Neutrophils (%) (Auto) 71.8 % (37.0-80.0) Lymphocytes (%) (Auto) 16.3 % (10.0-50.0) Monocytes (%) (Auto) 9.2 % (0.0-12.0) Eosinophils (%) (Auto) 2.1 % (0.0-7.0) Basophils (%) (Auto) 0.6 % (0.0-2.0) Neutrophils # (Auto) 5.8 10 ^3/uL (1.6-8.6) Lymphocytes # (Auto) 1.3 10 ^3/uL (0.4-5.4) Monocytes # (Auto) 0.7 10 ^3/uL (0-1.3) Eosinophils # (Auto) 0.2 10 ^3/uL (0-0.8) Basophils # (Auto) 0 10 ^3/uL (0-0.2) Nucleated Red Blood Cells 0.1 % POC Glucose 91 mg/dl (70-106) Urine Color Colorless (Yellow) Urine Clarity Turbid (Clear) Urine pH 7.5 (5.0-9.0) Urine Specific [place] 1.006 (1.001-1.035) Urine Protein Trace (Negative) Urine Ketones Negative (Negative) Urine Blood 3+ /uL (Negative) Urine Nitrite Negative (Negative) Urine Bilirubin Negative (Negative) Urine Urobilinogen Normal mg/dL (Negative) Urine Leukocyte Esterase 3+ /uL (Negative) Urine RBC 446 /hpf (0 - 4) Urine Microscopic WBC 129 /HPF (0-5) Urine Squamous Epithelial Cells Few /hpf (<5) Urine Bacteria Few /hpf (None Seen) Urine Hyaline Casts Few /lpf (0 - 2) Urine Mucus Few (None Seen) Urine Yeast (Budding) Moderate /hpf (None Seen) Urine Glucose Normal mg/dL (Normal) Test 03/04/25 02:26 02/28/25 19:05 02/28/25 06:48 02/25/25 19:57 Total Bilirubin 0.3 mg/dL (0.2-1.0) Aspartate Amino Transferase (AST) 19 U/L (13-40) Alanine Aminotransferase (ALT) < 9 U/L (7-40) Alkaline Phosphatase 69 U/L (46-116) Total Protein 6.0 g/dL (5.7-8.2) Albumin 3.5 g/dL (3.2-4.8) Blood Gas Specimen Type Venous Blood Gas Sample Site Vbg - n/a Blood Gas Patient Temperature 37.0 Arterial Blood Date Drawn [id number] Aman Test N/a Venous Blood pH 7.501 (7.320-7.430) Venous Blood pCO2 at Patient Temp 45.6 mmHg (38.0-54.0) Venous Blood pO2 at Patient Temp 37.9 mmHg (23.0-48.0) Venous Blood HCO3 34.8 mmol/L (22.0-29.0) Venous Bld O2 Saturation (Measured) 68.2 % (60.0-85.0) Venous Blood Base Excess 10.5 mmol/L (-2.0-3.0) Venous Blood Total Hemoglobin 11.1 g/dL (12.0-16.0) Venous Blood Oxyhemoglobin 67.8 % (0.0-79.0) Venous Blood Carboxyhemoglobin 0.3 % (0.5-1.5) Venous Blood Methemoglobin 0.3 % (0.0-1.5) Blood Gas Modality Vent - ac FiO2 % 30.0 Arterial Blood pH 7.490 (7.350-7.450) Arterial Blood Partial Pressure CO2 41.2 mmHg (32.0-45.0) Arterial Blood Partial Pressure O2 81.7 mmHg (83.0-108.0) Arterial Blood HCO3 30.7 mmol/L (21.0-28.0) Arterial Blood Oxygen Saturation 95.0 % (94.0-98.0) Arterial Blood Base Excess 6.8 mmol/L (-2.0-3.0) Arterial Blood Oxyhemoglobin 94.0 % (94.0-98.0) Arterial Blood Carboxyhemoglobin 0.8 % (0.5-1.5) Arterial Blood Methemoglobin 0.3 % (0.0-1.5) Blood Gas Total Hemoglobin 10.70 g/dL (12.0-16.0) Blood Gas Set Respiration Rate 24.0 Blood Gas Tidal Volume 400.0 Blood Gas PEEP or CPAP 5.0 Lactic Acid Level 0.9 mmol/L (0.4-2.0) Test 02/25/25 11:45 02/22/25 03:18 02/18/25 05:38 02/18/25 02:45 Body Fluid Source Pleural fluid Body Fluid pH 9.0 Body Fluid WBC (Manual) 1108 CUMM (0-200) Body Fluid RBC (Manual) 3348 CUMM (0-2000) Body Fluid Mononuclear Cells 40 % Body Fluid Polymorphonuclear Cells 60 % (0-25) Body Fluid Glucose 119 mg/dL (.) Body Fluid Total Protein 2.5 g/dL (.) Body Fluid Lactate Dehydrogenase 98 IU/L (.) Phosphorus Level 3.6 mg/dL (2.4-5.1) Prothrombin Time 12.6 sec (9.3-11.8) Prothrombin Time INR 1.21 (0.9-1.15) Activated Partial Thromboplast Time 33.0 SEC (24.5-34.5) Vitamin B12 Level 522 pg/mL (211-911) Folic Acid > 48.00 ng/mL (>5.38) Influenza Type A Antigen Negative (Negative) Influenza Type B Antigen Negative (Negative) SARS-CoV-2 Antigen (Rapid) Negative (NEGATIVE) Test 02/17/25 11:44 02/17/25 06:04 02/16/25 15:38 02/16/25 14:28 Urine WBC Clumps Present /hpf (None Seen) Urine Opiates Screen Neg (NEGATIVE) Urine Fentanyl Screen Pos (NEGATIVE) Urine Barbiturates Screen Neg (NEGATIVE) Urine Phencyclidine Screen Neg (NEGATIVE) Urine Amphetamines Screen Neg (NEGATIVE) Urine Benzodiazepines Screen Pos (NEGATIVE) Urine Cocaine Screen Neg (NEGATIVE) Urine Cannabinoids Screen Neg (NEGATIVE) Blood Gas Notified Time [id number] Direct Bilirubin 0.1 mg/dL (<0.3) Ammonia 39 umol/L (11-32) Troponin I High Sensitivity 26 ng/L (</=34) Blood Gas EPAP 5 Blood Gas IPAP 14 Blood Gas Critical Value Read Back Yes Blood Gas Notified Whom Dr. bro santacruz Blood Gas Notified By Test 02/16/25 12:56 B-Type Natriuretic Peptide 788.43 pg/mL (0-100) Other Laboratory Tests 03/09/25 07:39 03/07/25 03:17 Brief Hx & Hospital Course: see dictated note Condition at Discharge: Fair Final Diagnosis/Problems List chf Discharge Disposition: Hospice - Home Discharge Instruct/Medications Diet: Cardiac 2g Na,low cholest Activity: No Restrictions, As Tolerated Follow Up/Referral: fu with hospice Medications: per hospice Scheduled Apixaban Base (Eliquis), 2.5 MG PO BID Atorvastatin Calcium (Atorvastatin Calcium), 1 TAB PO HS, (Reported) Buspirone Hcl (Buspirone Hcl), 5 MG PO Q12HR, (Reported) Cholecalciferol (Vitamin D3), 1 TAB PO DAILY, (Reported) Citalopram Hydrobromide (Citalopram Hydrobromide), 20 MG PO DAILY, (Reported) Clopidogrel Bisulfate (Plavix), 1 TAB PO DAILY, (Reported) Ferrous Sulfate (Ferrous Sulfate), 325 MG PO BIDWM, (Reported) Fluconazole (Fluconazole), 200 MG PO DAILY Furosemide (Furosemide), 40 MG PO DAILY, (Reported) Irbesartan (Avapro), 75 MG PO HS, (Reported) Lacosamide (Vimpat), 50 MG PO DAILY@BREAKFAST, (Reported) Lacosamide (Vimpat), 100 MG PO HS, (Reported) Levetiracetam (Keppra), 750 MG PO BID, (Reported) Metoprolol Succinate (Toprol Xl), 50 MG PO DAILY [place]-3 Fatty Acids (Fish Oil 1200 mg), 1 CAP PO DAILY, (Reported) Prednisolone Acetate (Ophth) (Pred Forte), 1 % OP QID, (Reported) Spironolactone (Aldactone), 25 MG PO DAILY Sulfamethoxazole W/Trimethopri (Bactrim Ds Tablet), 1 TAB PO BID Miscellaneous Medications Vitamin A ([id number]), 10,000 UNIT PO, (Reported) Discharge Statement: "Patient was advised to return to the ER or call 911 if any headaches, dizziness, shortness of breath, chest pain, abdominal pain, bleeding, fevers, or worsening of medical condition. Patient was counseled about treatment plan, medications, possible side effects, patientverbalized understanding. All questions were answered to the best of my ability. This discharge took greater then 30 minutes in planning, reviewing documentation, counseling the patient, and discussing with other team members." ASSESSMENT ASSESSMENT Assessment chf Date of Service: Mar 09, 2025 Billing Provider: ROMELIA STEVEN MD Common Visit Codes: 43889-HHN/OBS DISCH DAY >30min ROMELIA STEVEN MD Mar 09, 2025 11:21
--- NOTE | 2025-03-09 11:44 | DVHDS ---
DATE OF DISCHARGE: 03/09/2025 HISTORY OF PRESENT ILLNESS: The patient is a 80-year-old lady who was admitted with history of increasing shortness of breath and altered level of consciousness and was subsequently intubated on mechanical ventilator. The patient has a history of atrial fibrillation, congestive heart failure, seizure disorder, hypertension, and chronic kidney disease. HOSPITAL COURSE: The patient was intubated and mechanically ventilated. CT chest showed evidence of right lower lobe consolidation for which she was placed on antibiotics. The patient also underwent thoracentesis and was diuresed with Lasix. Head CT showed no acute intracranial abnormality. The patient had an echocardiogram done that showed an ejection fraction of 10-15%. The patient was made a DNR. She was successfully extubated. The patient is now being discharged on hospice at the family's wishes. FINAL DIAGNOSES: Therefore, * Acute respiratory failure. * Encephalopathy, likely from hypercapnic respiratory failure. * Septic shock with right-sided pneumonia, Gram-positive, Gram-negative. * History of seizure disorder. * [id number] systolic heart failure. * UTI. * Atrial fibrillation with rapid ventricular rate. * Nonischemic cardiomyopathy. * Acute on chronic renal failure, likely vasomotor nephropathy. * Pneumonia due to Klebsiella pneumoniae. * Hospice care. Time spent in discharge planning and review of plan with the patient and at bedside and nursing was 39 minutes. MD PILAR Crocker/SHILA TID: [id number] RECEIPT: [id number]
--- NOTE | 2025-03-09 23:02 | DVHPN2 ---
Progress Note - Dictate Date Seen: Mar 09, 2025 Medical Necessity Reason Pt with a Central, PICC or Fol: No Subjective Patient was seen and evaluated in follow up. No overnight events. Patient is resting in bed. Patient was accepted to [facility]. Patient is cardiac stable for discharge. Telemetry reviewed. vital signs Vital Sign Date Time Temp Pulse Resp B/P (MAP) Pulse Ox O2 Delivery O2 Flow Rate FiO2 03/09/25 13:00 91 18 119/81 03/09/25 13:00 98.5 96 98.5 03/09/25 07:50 1.0 24 03/09/25 07:50 Nasal Cannula* Total Intake and Output 03/08/25 03/08/25 03/09/25 15:00 23:00 07:00 Intake Total 100 ml 50 ml 300 ml Output Total 700 ml Balance -600 ml 50 ml 300 ml objective GENERAL: Alert and oriented x 3. No acute distress. EYES: PERRL, EOMI. Anicteric. HENT: Moist mucous membranes. LUNGS: Diminished breath sounds. CARDIOVASCULAR: Irregular rate and rhythm. ABDOMEN: Soft, non-tender and non-distended. EXTREMITIES: No edema. SKIN: Warm, dry. laboratory and microbiology Laboratory Tests 03/09/25 07:39 03/07/25 03:17 Test 03/09/25 07:39 Range/Units Serum Glucose 103 74-106 mg/dL Problem List Acute metabolic encephalopathy. Acute on chronic hypercapnic/hypoxemic respiratory failure. Septic shock. History of seizure disorder. History of TIA. COPD exacerbation. Bilateral pleural effusion. Acute decompensated heart failure. Bilateral pulmonary edema. Pulmonary nodule left lower lobe. Heart failure with reduced ejection fraction. Atrial fibrillation with a RVR, now rate controlled. Nonischemic cardiomyopathy. 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 Acute complicated urinary tract infection causing septic shock. Bacteremia. Assessment/Plan Continued all current supportive medical care. Morphine and [place] for pain management. Amiodarone. Coreg. Diuretics with Lasix. GI prophylactics. Entresto. Additional plan as per the hospital course. Dietary Evaluation Review Comments: 1) Jevity 1.2Cal @ 65ml/hr along with Pro-stat 1 pk daily. Start at 20ml/hr increase 10ml/hr until goal is reached. TF at goal volume provides 1872 kcal, 87gm protein, and 1259 ml free water. 2) Water flush 100ml Q4H if allowed, adjust PRN 3) Monitor TF tolerance, lab values, wt trend, I/O Expected Outcomes/Goals: To meet >75% estimated needs Fu 2-3 days Plan discussed with: Patient JOSH VEGA MD Mar 09, 2025 23:02
== END 2025-03-09 14:09 | disposition hospice, home (50) | DRG 870 ==
LOC: EDBD 12:09 → ER 12:09 → OVERFLOW 15:13 → ICU WEST 02-18 04:57 → TELE-WESTW 03-07 15:48
PROVIDERS: ADMIT Internal Medicine; ATTEND Internal Medicine
PROC: 5A09357 Assistance with Respiratory Ventilation, Less than 24 Consecutive Hours, Continuous Positive Airway Pressure (ICD-10-PCS; 2025-02-16)
PROC: 0BH17EZ Insertion of Endotracheal Airway into Trachea, Via Natural or Artificial Opening (ICD-10-PCS; 2025-02-16)
PROC: 5A1955Z Respiratory Ventilation, Greater than 96 Consecutive Hours (ICD-10-PCS; 2025-02-16)
PROC: 02HV33Z Insertion of Infusion Device into Superior Vena Cava, Percutaneous Approach (ICD-10-PCS; 2025-02-16)
PROC: B548ZZA Ultrasonography of Superior Vena Cava, Guidance (ICD-10-PCS; 2025-02-16)
PROC: 0W993ZZ Drainage of Right Pleural Cavity, Percutaneous Approach (ICD-10-PCS; 2025-02-20)
PROC: 02HV33Z Insertion of Infusion Device into Superior Vena Cava, Percutaneous Approach (ICD-10-PCS; 2025-02-22)
PROC: B548ZZA Ultrasonography of Superior Vena Cava, Guidance (ICD-10-PCS; 2025-02-22)
PROC: 0W9B3ZX Drainage of Left Pleural Cavity, Percutaneous Approach, Diagnostic (ICD-10-PCS; principal; 2025-02-25)
PROC: 0BC78ZZ Extirpation of Matter from Left Main Bronchus, Via Natural or Artificial Opening Endoscopic (ICD-10-PCS; 2025-02-27)
PROC: 0BC38ZZ Extirpation of Matter from Right Main Bronchus, Via Natural or Artificial Opening Endoscopic (ICD-10-PCS; 2025-02-27)
PROC: 5A09357 Assistance with Respiratory Ventilation, Less than 24 Consecutive Hours, Continuous Positive Airway Pressure (ICD-10-PCS; 2025-03-02)
DX: A41.59 Other Gram-negative sepsis (principal); N17.0 Acute kidney failure with tubular necrosis; J96.22 Acute and chronic respiratory failure with hypercapnia; J15.0 Pneumonia due to Klebsiella pneumoniae; R65.21 Severe sepsis with septic shock; J96.21 Acute and chronic respiratory failure with hypoxia; G93.41 Metabolic encephalopathy; J15.9 Unspecified bacterial pneumonia; I50.23 Acute on chronic systolic (congestive) heart failure; E87.20 Acidosis, unspecified; I48.21 Permanent atrial fibrillation; I48.92 Unspecified atrial flutter; I47.10 Supraventricular tachycardia, unspecified; I42.8 Other cardiomyopathies; I13.0 Hypertensive heart and chronic kidney disease with heart failure and stage 1 through stage 4 chronic kidney disease, or unspecified chronic kidney disease; J44.1 Chronic obstructive pulmonary disease with (acute) exacerbation; N39.0 Urinary tract infection, site not specified; J98.11 Atelectasis; J44.0 Chronic obstructive pulmonary disease with (acute) lower respiratory infection; Z66 Do not resuscitate; Z20.822 Contact with and (suspected) exposure to COVID-19; G40.909 Epilepsy, unspecified, not intractable, without status epilepticus; N18.9 Chronic kidney disease, unspecified; E87.6 Hypokalemia; L98.9 Disorder of the skin and subcutaneous tissue, unspecified; F17.210 Nicotine dependence, cigarettes, uncomplicated; D75.89 Other specified diseases of blood and blood-forming organs; R91.1 Solitary pulmonary nodule; R59.0 Localized enlarged lymph nodes; Z51.5 Encounter for palliative care; Z88.5 Allergy status to narcotic agent; Z90.710 Acquired absence of both cervix and uterus; Z86.73 Personal history of transient ischemic attack (TIA), and cerebral infarction without residual deficits; Z82.5 Family history of asthma and other chronic lower respiratory diseases; Z82.49 Family history of ischemic heart disease and other diseases of the circulatory system; Z79.01 Long term (current) use of anticoagulants; Z90.49 Acquired absence of other specified parts of digestive tract
CPT/HCPCS: 31500; 36415; 36556; 36569; 36600; 70450; 71045; 71250; 76604; 76937; 76942; 80048; 80053; 80076; 80307; 81001; 82040; 82140; 82607; 82746; 82805; 82962; 83605; 83735; 83880; 83986; 84100; 84132; 84484; 85014; 85018; 85025; 85610; 85730; 87040; 87070; 87077; 87081; 87086; 87088; 87186; 87205; 87426; 87804; 89051; 92610; 93005; 94002; 94003; 94640; 94660; 96365; 96375; 97110; 97163; 99291; C9254; G0378; J0330; J1450; J1815; J2185; J2470; J2704; J3480; P9047